=== PATIENT | male | born 1930 | race Caucasian/White ===

== ENCOUNTER 2018-08-18 18:54 | Inpatient (IN) ==
[2018-08-18] MEDS ORDERED: ACETAMINOPHEN 500 MG TAB PO STA (19:11)
[2018-08-18 19:25] LABS: Basophils # (auto) 0.01 K/uL (0-0.2); Basophils % (auto) 0.1 %; Eosinophils # (auto) 0.16 K/uL (0-0.5); Eosinophils % (auto) 1.3 %; Hematocrit (blood only) 39.1 % (42-52); Hemoglobin 13.5 g/dL (14.0-18.0); Immature Granulocytes # (auto) 0.02 K/uL (0.00-0.02); Immature Granulocytes % (auto) 0.2 %; Lymphocytes # (auto) 0.81 K/uL (1.2-3.4); Lymphocytes % (auto) 6.8 %; Mean Corpuscular Hgb Conc 34.5 g/dL (32-36); Mean Corpuscular Volume 93.8 fL (80-100); Mean Platelet Volume 10.2 fL (7.4-10.4); Monocytes # (auto) 0.53 K/uL (0.11-0.59); Monocytes % (auto) 4.4 %; Neutrophils % (auto) 87.2 %; Platelet Count 228 K/uL (130-400); RDW Coefficient of Variation 14.4 % (11.5-14.5); RDW Standard Deviation 48.9 fL (36.4-46.3); Red Blood Count 4.17 M/uL (4.7-6.1); White Blood Count 11.93 K/uL (4.8-10.8)
[2018-08-18 19:28] LABS: Appearance Urine Clear (Clear); Bacteria Urine Automated Negative (Negative); Bilirubin Urine Negative (Negative); Color Urine Dark Yellow; Epithelial Cell Urine Auto 0-5 /lpf (0-5); Glucose Urine UA Negative (Negative); Ketones Urine Negative (Negative); Leukocyte Esterase Urine Negative (Negative); Nitrite Urine Negative (Negative); Protein Urine 1+ (Negative); Specific Gravity Urine 1.015 (1.000-1.030); Urobilinogen Urine Negative (Negative)
[2018-08-18 19:33] LABS: Albumin Level 3.6 gm/dl (3.4-5.0); BUN Creatinine Ratio 21.6 (10-20); Calcium 9.6 mg/dl (8.5-10.1); Creatinine Clr Calc Pharmacy 35.9 ml/min; Est GFR (African American) 57.1; Est GFR (Non-African American) 49.3; Potassium 4.2 mmol/L (3.5-5.1)
[2018-08-18 19:43] LABS: Albumin Globulin Ratio 0.8 (0.9-2); Bilirubin,Total 0.5 mg/dl (0.2-1); Globulin 4.4 gm/dl (2.5-4.0); Troponin I 0.104 ng/ml (0-0.045)
--- NOTE | 2018-08-18 19:49 | XRay Report ---
SINGLE VIEW CHEST CLINICAL HISTORY: Fever. FINDINGS: An AP, portable, upright chest radiograph is obtained. No prior studies are available for c omparison at the time of dictation. The examination is degraded by portable technique and patient rot ation. The heart is enlarged and there is atherosclerotic calcification of the thoracic aorta. The p ulmonary vasculature is noncongested. Nonspecific interstitial thickening is likely chronic. There is left basilar consolidation. A trace left pleural effusion is suspected. No pneumothorax is seen. The skeletal structures are osteopenic. The bony thorax is grossly intact. 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 There is evidence of chronic bilateral rotator cuff i njury. IMPRESSION: 1. Cardiomegaly without radiographic evidence of congestive failure. 2. There is left basilar airspace consolidation, typical in appearance for pneumonia/aspiration pneum onitis. Clinical correlation will be required and radiographic follow-up to resolution is recommended . Electronically signed by: Yvon Calles M.D. 08/18/2018 7:47 PM
[2018-08-18] MEDS ORDERED: LEVOFLOXACIN/D5W 750 MG/150 ML BAG IV STA (20:01)
[2018-08-18] MEDS ORDERED: SODIUM CHLORIDE 0.9% 1000ML 1,000 ML IV STA ×2 (20:32→20:38)
[2018-08-18 20:42] LABS: Partial Thromboplastin Ratio 1.1; Partial Thromboplastin Time 27.5 Seconds (21.0-31.0)
[2018-08-18] MEDS ORDERED: CARVEDILOL 3.125 MG TAB PO ONE (20:45)
[2018-08-18 20:49] LABS: Magnesium 2.1 mg/dl (1.8-2.4)
[2018-08-18] MEDS ORDERED: CALCIUM CARBONATE 500 MG CHEWABLE TAB PO STA (21:15)
--- NOTE | 2018-08-18 21:15 | History & Physical Report ---
Date of Service August 18, 2018 Assessment & Plan (1) Sepsis: Secondary to CAP/possible aspiration hx vocal cord paralysis/oropharyngeal dysphagia as per records Hypertension, slightly elevated Troponin elevation secondary to sepsis, elevated BP hx CAD/CVA PVD status post surgery hx PAF px NSR off Coumadin due to fall risk/patient requests as per records Troublesome GERD symptoms, intermittent antacid intake at home. past tobacco abuse CRI, creatinine at baseline chronic anemia secondary to CKD, hemoglobin at baseline Medical telemetry Cultures, Unasyn Swallow eval Facilitate home BP meds Follow troponin TTE RE Troponin elevation Maintenance H2 brody for GERD; PPI if H2 brody ineffective PT OT eval DVT prophylaxis. Heparin subcu Full code History of Present Illness Chief Complaint: Cough, S OB Primary Care Provider: Odilon Carbone MD History obtained from patient, family, and records. Medical history significant for CAD/CVA, PVD status post surgery, PAF off Coumadin due to fall risk/patient requests as per records, hypertension, hyperlipidemia, vocal cord paralysis left as per records asthma, past tobacco abuse, anxiety/mood disorder, CRI (baseline creatinine 1.4-1.5), chronic anemia baseline hemoglobin of 12 Recent confinement 2004 for left hip surgery under Orthopedics service. Patient felt sick the last few days with cold symptoms, later followed by junky cough symptoms. Admits to some sick contacts. No chest pain. Worsening shortness of breath. Admits to some coughing/choking with meals and water if not careful. Noted to be febrile at home. Subsequent emesis. Patient also bothered by troublesome heartburn symptoms. Patient brought to the emergency room. IV Levaquin given for pneumonia. Medical History as above Surgical History : Carpal tunnel surgery, left thromboendarterectomy, right hip surgery Family History : Heart disease Personal/Social history : Past tobacco abuse, occasional alcoholic beverage intake Medical History as above Surgical History : Family History : Personal/Social history : Allergies Allergy/AdvReac Type Severity Reaction Status Date / Time lisinopril AdvReac Unknown Cough Verified 08/18/18 20:31 Home Medications Home Medications Medication Instructions Recorded Confirmed Type acetaminophen 500 mg PO DIRECTED PRN 08/18/18 08/18/18 History albuterol sulfate [Proventil HFA] 2 puff INHALATION QID PRN 08/18/18 08/18/18 History ascorbic acid (vitamin C) [Vitamin 1,000 mg PO QAM 08/18/18 08/18/18 History C] aspirin 81 mg PO QPM 08/18/18 08/18/18 History calcium carbonate-vitamin D3 1 tab PO QAM 08/18/18 08/18/18 History [Calcium 600 + D(3)] carvedilol 6.25 mg PO BID 08/18/18 08/18/18 History cetirizine [Zyrtec] 10 mg PO DAILY PRN 08/18/18 08/18/18 History cholecalciferol (vitamin D3) 3,000 units PO QAM 08/18/18 08/18/18 History [Vitamin D3] citalopram 20 mg PO QAM 08/18/18 08/18/18 History clonazepam 0.5 mg PO HS 08/18/18 08/18/18 History coenzyme Q10 100 mg PO QAM 08/18/18 08/18/18 History famotidine 10 mg PO BID PRN 08/18/18 08/18/18 History flaxseed oil 1,000 mg PO QAM 08/18/18 08/18/18 History fluticasone-salmeterol [Advair 1 puff INHALATION Q12H PRN 08/18/18 08/18/18 History Diskus] garlic 1,000 mg PO QAM 08/18/18 08/18/18 History levothyroxine 75 mcg PO QAM 08/18/18 08/18/18 History losartan 50 mg PO QAM 08/18/18 08/18/18 History fkqlfsvq-bld-WV-lycopen-lutein 1 tab PO QAM 08/18/18 08/18/18 History [Centrum Silver] joncys-txllxer-jez palm-min 17 2 cap PO QAM 08/18/18 08/18/18 History [Prostate Therapy] nitroglycerin [Nitrostat] 0.4 mg SUBLINGUAL DIRECTED PRN 08/18/18 08/18/18 History omega 3-ici-jnw-fish oil [Fish Oil] 1,000 mg PO QAM 08/18/18 08/18/18 History pravastatin 10 mg PO Q2D 08/18/18 08/18/18 History verapamil 120 mg PO QAM 08/18/18 08/18/18 History Past Med/Surg History Medical History HTN (hypertension) (Chronic) Asthma CKD (chronic kidney disease) Family History Other Family history non-contributory Social History marital status: Current Living Situation: Spouse current occupational status: retired Other Information That Helps Us Care for You: No Feels Safe at Home: Yes Safety Concerns: Feels Safe At This Time Smoking Status: Never smoker Tobacco Type: smokeless tobacco Cigarettes per Day : snuff pouch daily Do You Dip or Chew Tobacco: Yes Second Hand Exposure: No Tobacco Cessation Education Requested by Patient: No Hx Alcohol Use: Yes Alcohol type: beer Alcohol Intake Frequency: holidays/ special occasions only Hx Substance Use: No Beliefs That Will Affect Care: Yazidism Yazidism Beliefs: Sabianism Communication Ability: Effective Review of Systems As per HPI, all 10 systems reviewed, all other ROS negative Physical Exam 2 Vital Signs (Past 24 Hours): Last Vital Signs Temp 38 C H 08/18/18 19:00 Pulse 84 08/18/18 20:13 Resp 18 08/18/18 20:13 BP 118/74 08/18/18 20:13 Pulse Ox 94 08/18/18 20:13 Physical Exam: GENERAL: Comfortable, slightly anxious, mild hearing impairment, no respiratory distress SKIN: Pallor , warm HEENT: Pale palpebral conjunctivae, no ptosis, dry buccal mucosa NECK : Supple, no tenderness CHEST : Occasional wheeze , no tenderness HEART : RRR, systolic murmur ABDOMEN: Some distention, nontender EXTREMITIES : No LE swelling/tenderness, no other conspicuous deformities noted NEUROLOGIC : Coherent, no facial asymmetry, no other gross focality except for mild hearing impairment Results & Data Laboratory Results Laboratory Results WBC 11.93 K/uL (4.8-10.8) H 08/18/18 19:04 RBC 4.17 M/uL (4.7-6.1) L 08/18/18 19:04 Hgb 13.5 g/dL (14.0-18.0) L 08/18/18 19:04 Hct 39.1 % (42-52) L 08/18/18 19:04 MCV 93.8 fL (80-100) 08/18/18 19:04 MCH 32.4 pg (25-34) 08/18/18 19: MCHC 34.5 g/dL (32-36) 08/18/18 19:04 RDW Std Deviation 48.9 fL (36.4-46.3) H 08/18/18 19:04 RDW Coeff of Sher 14.4 % (11.5-14.5) 08/18/18: Plt Count 228 K/uL (130-400) 08/18/18 19: MPV 10.2 fL (7.4-10.4) 08/18/18 19:04 Immature Gran % (Auto) 0.2 % 08/18/18: Neut % (Auto) 87.2 % 08/18/18: Lymph % (Auto) 6.8 % 08/18/18: [place]unders % (Auto) 4.4 % 08/18/18: Eos % (Auto) 1.3 % 08/18/18: Baso % (Auto) 0.1 % 08/18/18 19: Immature Gran # (Auto) 0.02 K/uL (0.00-0.02) 08/18/18 19: Neut # (Auto) 10.40 K/uL (1.4-6.5) H 08/18/18 19: Lymph # (Auto) 0.81 K/uL (1.2-3.4) L 08/18/18: Saunders # (Auto) 0.53 K/uL (0.11-0.59) 08/18/18: Eos # (Auto) 0.16 K/uL (0-0.5) 08/18/18: Baso # (Auto) 0.01 K/uL (0-0.2) 08/18/18: APTT 27.5 Seconds (21.0-31.0) 08/18/18 19: PTT Ratio 1.1 08/18/18 19: Sodium 133 mmol/L (136-145) L 08/18/18 19: Potassium 4.2 mmol/L (3.5-5.1) 08/18/18: Chloride 101 mmol/L (98-107) 08/18/18 19:04 Carbon Dioxide 23 mmol/L (21-32) 08/18/18 19:04 Anion Gap 9.0 (3-11) 08/18/18 19:04 BUN 28 mg/dl (7-18) H 08/18/18 19:04 Creatinine 1.31 mg/dl (0.6-1.4) 08/18/18 19:04 Est Cr Clr Drug Dosing 35.9 ml/min 08/18/18 19:04 Est GFR ( Amer) 57.1 08/18/18 19:04 Est GFR (Non-Af Amer) 49.3 08/18/18 19:04 BUN/Creatinine Ratio 21.6 (10-20) H 08/18/18 19:04 Glucose 96 mg/dl (70-99) 08/18/18 19:04 POC Lactic Acid [place] 1.06 mmol/L (0.90-1.70) 08/18/18 19:10 Calcium 9.6 mg/dl (8.5-10.1) 08/18/18 19:04 Magnesium 2.1 mg/dl (1.8-2.4) 08/18/18 19:04 Total Bilirubin 0.5 mg/dl (0.2-1) 08/18/18 19:04 AST 25 U/L (15-37) 08/18/18 19:04 ALT 35 U/L (12-78) 08/18/18 19:04 Alkaline Phosphatase 93 U/L (45-117) 08/18/18 19:04 Troponin I 0.104 ng/ml (0-0.045) H* 08/18/18 19:04 Total Protein 8.0 gm/dl (6.4-8.2) 08/18/18 19:04 Albumin 3.6 gm/dl (3.4-5.0) 08/18/18 19:04 Globulin 4.4 gm/dl (2.5-4.0) H 08/18/18 19:04 Albumin/Globulin Ratio 0.8 (0.9-2) L 08/18/18 19:04 TSH 2.810 uIu/ml (0.300-4.500) 08/18/18 19:04 Urine Color Dark Yellow 08/18/18 19:13 Urine Appearance Clear (Clear) 08/18/18 19:13 Urine pH 7.0 (4.5-7.5) 08/18/18 19:13 Ur Specific [place] 1.015 (1.000-1.030) 08/18/18 19:13 Urine Protein 1+ (Negative) H 08/18/18 19:13 Urine Glucose (UA) Negative (Negative) 08/18/18 19:13 Urine Ketones Negative (Negative) 08/18/18 19:13 Urine Blood Negative (Negative) 08/18/18 19:13 Urine Nitrite Negative (Negative) 08/18/18 19:13 Urine Bilirubin Negative (Negative) 08/18/18 19:13 Urine Urobilinogen Negative (Negative) 08/18/18 19:13 Ur Leukocyte Esterase Negative (Negative) 08/18/18 19:13 Urine WBC (Auto) 1-5 /hpf (0-5) 08/18/18 19:13 Urine RBC (Auto) 0-4 /hpf (0-4) 08/18/18 19:13 U Hyaline Cast (Auto) 1-5 /lpf (0-5) 08/18/18 19:13 U Epithel Cells (Auto) 0-5 /lpf (0-5) 08/18/18 19:13 Urine Bacteria (Auto) Negative (Negative) 08/18/18 19:13 Influenza Type A Ag Neg for Influ A (Neg) 08/18/18 19:10 Influenza Type B Ag Neg for Influ B (Neg) 08/18/18 19:10 Diagnostic Findings Chest x-ray: 1. Cardiomegaly without radiographic evidence of congestive failure. 2. There is left basilar airspace consolidation, typical in appearance for pneumonia/aspiration pneumonitis. Clinical correlation will be required and radiographic follow-up to resolution is recommended. EKG as per my interpretation rate 90, NSR, right bundle branch block
[2018-08-18] MEDS ORDERED: AMPICILLIN/SULBACTAM SOD 3,000 MG in 0.9 % SODIUM CHLORIDE 100 ML IV STA (21:28)
[2018-08-18] MEDS ORDERED: FAMOTIDINE 20 MG TAB PO SCH (21:45)
[2018-08-18 22:04] LABS: Influenza A virus by PCR Neg for Influ A (Neg); Influenza B virus by PCR Neg for Influ B (Neg)
--- NOTE | 2018-08-18 23:22 | Emergency Department Note ---
Entered by Vanessa Javed acting as a scribe for Jaleel Hernandez MD ED Provider Note CHIEF COMPLAINT: Illness HISTORY OF PRESENT ILLNESS: The patient is an 87 year old male who presents to the Emergency Room with complaints of worsening illness starting a week ago. The patient states that he has had a cold for a week and he believes that it is moving into his chest. He states that he became concerned because he started having a fever of 101 at home. He reports that he took Tylenol 3 hours ago. He states that he finally called 911 because he was so weak today he couldnt get out of bed. The patient complains of nausea and vomiting. He notes that he has a history of asthma, but it usually acts up in the spring. Pt denies LOC, headache, chills, cough, diaphoresis, visual changes, neck pain, chest pain, breathing difficulties, abdominal pain, diarrhea, back pain, melena , hematochezia, urinary symptoms, numbness, lymphadenopathy, rash, or other complaints. REVIEW OF SYSTEMS: See HPI for pertinent positives and negatives. A total of ten systems were reviewed and were otherwise negative. PMHx/PSHx: HTN Asthma CKD SOCIAL HISTORY: Patient lives at home with his . He is retired and was a former smoker. PHYSICAL EXAM: GENERAL: Awake, alert, tired appearing, in no distress HENT: Normocephalic, atraumatic. Oropharynx unremarkable. EYES: Normal conjunctiva. Sclera non-icteric. NECK: Inspection normal. Non-tender. Supple. No nuchal rigidity. FROM. No masses. RESPIRATORY: Rhonchi bilaterally. No wheezes. No rales. Normal respiratory effort. CARDIAC: Normal rate. Normal rhythm. No murmurs. No rubs. Extremities warm and well perfused. Pulses equal. No JVD. GI: Soft, non-distended. No tenderness to palpation. No rebound or guarding. No masses. RECTAL: Deferred. MUSCULOSKELETAL: Atraumatic. Chest examination reveals no tenderness. The back is symmetrical on inspection without obvious abnormality. There is no CVA tenderness to palpation. No joint edema. LOWER EXTREMITIES: Calves are equal size bilaterally and non-tender. No edema. No discoloration. NEURO: Normal sensorium. No sensory or motor deficits noted. SKIN: No rash or jaundice noted. EMERGENCY DEPARTMENT COURSE: 1900: Past medical records reviewed. The patient was evaluated in room C11B, and a complete history and physical examination were performed. 2000: I paged the hospitalist at this time. 2001: I reviewed the patient's case with Dr. Cal Barrett Hospitalist. He will evaluate the patient for further management. 2009: I reevaluated the patient and updated him on his test results. I discussed the treatment plan with him. He verbally agrees and understands. 2039: I reevaluated the patient and he is resting comfortably. He is getting antibitoics now. MEDICAL DECISION MAKING: Prior records/ancillary studies reviewed and summarized above. Nursing notes reviewed and agree them. Additional history obtained from family. The patient's history was concerning for weakness. Differential diagnosis: Etiologies such as metabolic, infection, hypo/hyperglycemia, electrolyte abnormalities, cardiac sources, intracerebral event, toxicologic, neurologic, as well as others were entertained. Physical examination: As above. ER treatment provided: IV Lock Saline hydration IV Levaquin On reassessment the was stable. Diagnostics interpretation by me: ECG: No acute ischemia. The labs revealed a mild leukocytosis on CBC. Chemistry panel was unremarkable. Ammonia mildly elevated. Imaging studies: Chest x-ray was concerning for left lower lobe pneumonia. Consultation: A consultation was placed with the hospitalist. The case was discussed and diagnostics were reviewed. The patient was evaluated in the ER for further treatment. IMPRESSION: Pneumonia Elevated Troponin PLAN: Being Evaluated by a Hospitalist The scribe's documentation has been prepared under my direction and personally reviewed by me in its entirety. I confirm that the note above accurately reflects all work, treatment, procedures, and medical decision making performed by me. Impression & Plan Pneumonia, Elevated troponin Past Med/Surg History Medical History HTN (hypertension) (Chronic) Asthma CKD (chronic kidney disease) Family History Other Family history non-contributory Social History marital status: Current Living Situation: Spouse current occupational status: retired Feels Safe at Home: Yes Smoking Status: Former smoker Results & Data Vital Signs Vital Signs - 24 hr 08/18/18 19:00 08/18/18 20:13 08/18/18 21:00 Temperature 38 C H Temperature Source Oral Sepsis Recent Fever Within 48 Hours Yes Sepsis New/Unexplained Change in Mental Status No Sepsis Action Taken by Nursing Physician Notified Pulse Rate 94 H 87 Pulse Rate [Left Radial] 84 Pulse Rhythm Regular Pulse Rhythm [Left Radial] Regular Pulse Strength Normal Pulse Strength [Left Radial] Normal Respiratory Rate 20 18 19 Respiratory Effort / Characteristics Non-Labored Spontaneous Non-Labored Spontaneous Respiratory Depth Normal Normal Respiratory Pattern Regular Regular Blood Pressure 172/99 H 132/76 Blood Pressure [Right Arm] 118/74 Blood Pressure Mean 123 94 Blood Pressure Mean [Right Arm] 88 Blood Pressure Position Lying Blood Pressure Position [Right Arm] Lying Pulse Oximetry 93 94 93 Oxygen Delivery Method Room Air Room Air 08/18/18 21:54 08/18/18 22:02 Temperature 37.5 C Temperature Source Oral Sepsis Recent Fever Within 48 Hours Sepsis New/Unexplained Change in Mental Status Sepsis Action Taken by Nursing Pulse Rate Pulse Rate [Left Radial] 79 Pulse Rhythm Pulse Rhythm [Left Radial] Regular Pulse Strength Pulse Strength [Left Radial] Normal Respiratory Rate 18 Respiratory Effort / Characteristics Non-Labored Respiratory Depth Normal Respiratory Pattern Regular Blood Pressure Blood Pressure [Right Arm] 114/66 Blood Pressure Mean Blood Pressure Mean [Right Arm] 82 Blood Pressure Position Blood Pressure Position [Right Arm] Lying Pulse Oximetry 93 Oxygen Delivery Method Room Air Home Medications Current Medication List: was personally reviewed by me Laboratory Data Attestation: I reviewed the patient's lab results. Result diagrams: 08/18/18 19:04 08/18/18 19:04 Lab Results 08/18/18 08/18/18 08/18/18 Range/Units 19: 19:04 19:04 WBC 11.93 H (4.8-10.8) K/uL RBC 4.17 L (4.7-6.1) M/uL Hgb 13.5 L (14.0-18.0) g/dL Hct 39.1 L (42-52) % MCV 93.8 (80-100) fL MCH 32.4 (25-34) pg MCHC 34.5 (32-36) g/dL RDW Std Deviation 48.9 H (36.4-46.3) fL RDW Coeff of Sher 14.4 (11.5-14.5) % Plt Count 228 (130-400) K/uL MPV 10.2 (7.4-10.4) fL Immature Gran % (Auto) 0.2 % Neut % (Auto) 87.2 % Lymph % (Auto) 6.8 % [place] % (Auto) 4.4 % Eos % (Auto) 1.3 % Baso % (Auto) 0.1 % Immature Gran # (Auto) 0.02 (0.00-0.02) K/uL Neut # (Auto) 10.40 H (1.4-6.5) K/uL Lymph # (Auto) 0.81 L (1.2-3.4) K/uL [place] # (Auto) 0.53 (0.11-0.59) K/uL Eos # (Auto) 0.16 (0-0.5) K/uL Baso # (Auto) 0.01 (0-0.2) K/uL APTT 27.5 (21.0-31.0) Seconds PTT Ratio 1.1 Sodium 133 L (136-145) mmol/L Potassium 4.2 (3.5-5.1) mmol/L Chloride 101 (98-107) mmol/L Carbon Dioxide 23 (21-32) mmol/L Anion Gap 9.0 (3-11) BUN 28 H (7-18) mg/dl Creatinine 1.31 (0.6-1.4) mg/dl Est Cr Clr Drug Dosing 35.9 ml/min Est GFR ( Amer) 57.1 Est GFR (Non-Af Amer) 49.3 BUN/Creatinine Ratio 21.6 H (10-20) Glucose 96 (70-99) mg/dl POC Lactic Acid [place] (0.90-1.70) mmol/L Calcium 9.6 (8.5-10.1) mg/dl Magnesium (1.8-2.4) mg/dl Total Bilirubin 0.5 (0.2-1) mg/dl AST 25 (15-37) U/L ALT 35 (12-78) U/L Alkaline Phosphatase 93 (45-117) U/L Troponin I 0.104 H* (0-0.045) ng/ml Total Protein 8.0 (6.4-8.2) gm/dl Albumin 3.6 (3.4-5.0) gm/dl Globulin 4.4 H (2.5-4.0) gm/dl Albumin/Globulin Ratio 0.8 L (0.9-2) TSH (0.300-4.500) uIu/ml Urine Color Urine Appearance (Clear) Urine pH (4.5-7.5) Ur Specific [place] (1.000-1.030) Urine Protein (Negative) Urine Glucose (UA) (Negative) Urine Ketones (Negative) Urine Blood (Negative) Urine Nitrite (Negative) Urine Bilirubin (Negative) Urine Urobilinogen (Negative) Ur Leukocyte Esterase (Negative) Urine WBC (Auto) (0-5) /hpf Urine RBC (Auto) (0-4) /hpf U Hyaline Cast (Auto) (0-5) /lpf U Epithel Cells (Auto) (0-5) /lpf Urine Bacteria (Auto) (Negative) Influenza Type A Ag (Neg) Influenza Type A (PCR) (Neg) Influenza Type B Ag (Neg) Influenza Type B (PCR) (Neg) 08/18/18 08/18/18 08/18/18 Range/Units 19:04 19:10 19:10 WBC (4.8-10.8) K/uL RBC (4.7-6.1) M/uL Hgb (14.0-18.0) g/dL Hct (42-52) % MCV (80-100) fL MCH (25-34) pg MCHC (32-36) g/dL RDW Std Deviation (36.4-46.3) fL RDW Coeff of Sher (11.5-14.5) % Plt Count (130-400) K/uL MPV (7.4-10.4) fL Immature Gran % (Auto) % Neut % (Auto) % Lymph % (Auto) % [place] % (Auto) % Eos % (Auto) % Baso % (Auto) % Immature Gran # (Auto) (0.00-0.02) K/uL Neut # (Auto) (1.4-6.5) K/uL Lymph # (Auto) (1.2-3.4) K/uL [place] # (Auto) (0.11-0.59) K/uL Eos # (Auto) (0-0.5) K/uL Baso # (Auto) (0-0.2) K/uL APTT (21.0-31.0) Seconds PTT Ratio Sodium (136-145) mmol/L Potassium (3.5-5.1) mmol/L Chloride (98-107) mmol/L Carbon Dioxide (21-32) mmol/L Anion Gap (3-11) BUN (7-18) mg/dl Creatinine (0.6-1.4) mg/dl Est Cr Clr Drug Dosing ml/min Est GFR ( Amer) Est GFR (Non-Af Amer) BUN/Creatinine Ratio (10-20) Glucose (70-99) mg/dl POC Lactic Acid [place] 1.06 (0.90-1.70) mmol/L Calcium (8.5-10.1) mg/dl Magnesium 2.1 (1.8-2.4) mg/dl Total Bilirubin (0.2-1) mg/dl AST (15-37) U/L ALT (12-78) U/L Alkaline Phosphatase (45-117) U/L Troponin I (0-0.045) ng/ml Total Protein (6.4-8.2) gm/dl Albumin (3.4-5.0) gm/dl Globulin (2.5-4.0) gm/dl Albumin/Globulin Ratio (0.9-2) TSH 2.810 (0.300-4.500) uIu/ml Urine Color Urine Appearance (Clear) Urine pH (4.5-7.5) Ur Specific [place] (1.000-1.030) Urine Protein (Negative) Urine Glucose (UA) (Negative) Urine Ketones (Negative) Urine Blood (Negative) Urine Nitrite (Negative) Urine Bilirubin (Negative) Urine Urobilinogen (Negative) Ur Leukocyte Esterase (Negative) Urine WBC (Auto) (0-5) /hpf Urine RBC (Auto) (0-4) /hpf U Hyaline Cast (Auto) (0-5) /lpf U Epithel Cells (Auto) (0-5) /lpf Urine Bacteria (Auto) (Negative) Influenza Type A Ag Neg for Influ A (Neg) Influenza Type A (PCR) (Neg) Influenza Type B Ag Neg for Influ B (Neg) Influenza Type B (PCR) (Neg) 08/18/18 08/18/18 Range/Units 19:10 19:13 WBC (4.8-10.8) K/uL RBC (4.7-6.1) M/uL Hgb (14.0-18.0) g/dL Hct (42-52) % MCV (80-100) fL MCH (25-34) pg MCHC (32-36) g/dL RDW Std Deviation (36.4-46.3) fL RDW Coeff of Sher (11.5-14.5) % Plt Count (130-400) K/uL MPV (7.4-10.4) fL Immature Gran % (Auto) % Neut % (Auto) % Lymph % (Auto) % [place] % (Auto) % Eos % (Auto) % Baso % (Auto) % Immature Gran # (Auto) (0.00-0.02) K/uL Neut # (Auto) (1.4-6.5) K/uL Lymph # (Auto) (1.2-3.4) K/uL [place] # (Auto) (0.11-0.59) K/uL Eos # (Auto) (0-0.5) K/uL Baso # (Auto) (0-0.2) K/uL APTT (21.0-31.0) Seconds PTT Ratio Sodium (136-145) mmol/L Potassium (3.5-5.1) mmol/L Chloride (98-107) mmol/L Carbon Dioxide (21-32) mmol/L Anion Gap (3-11) BUN (7-18) mg/dl Creatinine (0.6-1.4) mg/dl Est Cr Clr Drug Dosing ml/min Est GFR ( Amer) Est GFR (Non-Af Amer) BUN/Creatinine Ratio (10-20) Glucose (70-99) mg/dl POC Lactic Acid [place] (0.90-1.70) mmol/L Calcium (8.5-10.1) mg/dl Magnesium (1.8-2.4) mg/dl Total Bilirubin (0.2-1) mg/dl AST (15-37) U/L ALT (12-78) U/L Alkaline Phosphatase (45-117) U/L Troponin I (0-0.045) ng/ml Total Protein (6.4-8.2) gm/dl Albumin (3.4-5.0) gm/dl Globulin (2.5-4.0) gm/dl Albumin/Globulin Ratio (0.9-2) TSH (0.300-4.500) uIu/ml Urine Color Dark Yellow Urine Appearance Clear (Clear) Urine pH 7.0 (4.5-7.5) Ur Specific [place] 1.015 (1.000-1.030) Urine Protein 1+ H (Negative) Urine Glucose (UA) Negative (Negative) Urine Ketones Negative (Negative) Urine Blood Negative (Negative) Urine Nitrite Negative (Negative) Urine Bilirubin Negative (Negative) Urine Urobilinogen Negative (Negative) Ur Leukocyte Esterase Negative (Negative) Urine WBC (Auto) 1-5 (0-5) /hpf Urine RBC (Auto) 0-4 (0-4) /hpf U Hyaline Cast (Auto) 1-5 (0-5) /lpf U Epithel Cells (Auto) 0-5 (0-5) /lpf Urine Bacteria (Auto) Negative (Negative) Influenza Type A Ag (Neg) Influenza Type A (PCR) Neg for Influ A (Neg) Influenza Type B Ag (Neg) Influenza Type B (PCR) Neg for Influ B (Neg) Administered Medications Sodium Chloride (Nss 1000ml) 1,000 mls @ 60 mls/hr IV .[id number] STA Stop: 08/19/18 13:17 Last Admin: 08/18/18 21:23 Dose: 60 mls/hr Discontinued Medications Acetaminophen (Tylenol) 1,000 mg PO ONE STA Stop: 08/18/18 19:12 Last Admin: 08/18/18 19:51 Dose: Not Given Carvedilol (Coreg) 6.25 mg PO ONE ONE Stop: 08/18/18 20:46 Last Admin: 08/18/18 21:23 Dose: 6.25 mg Levofloxacin/Dextrose (Levaquin/D5w) 750 mg in 150 mls @ 100 mls/hr IV NOW STA Stop: 08/18/18 21:30 Last Admin: 08/18/18 20:23 Dose: 100 mls/hr Imaging Data Radiologist's Impression: Radiology results as stated below per my review and the radiologist's interpretation: SINGLE VIEW CHEST CLINICAL HISTORY: Fever. FINDINGS: An AP, portable, upright chest radiograph is obtained. No prior studies are available for comparison at the time of dictation. The examination is degraded by portable technique and patient rotation. The heart is enlarged and there is atherosclerotic calcification of the thoracic aorta. The pulmonary vasculature is noncongested. Nonspecific interstitial thickening is likely chronic. There is left basilar consolidation. A trace left pleural effusion is suspected. No pneumothorax is seen. The skeletal structures are osteopenic. The bony thorax is grossly intact. 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 IMPRESSION: 1. Cardiomegaly without radiographic evidence of congestive failure. 2. There is left basilar airspace consolidation, typical in appearance for pneumonia/aspiration pneumonitis. Clinical correlation will be required and radiographic follow-up to resolution is recommended. Electronically signed by: Yvon Calles M.D. 08/18/2018 7:47 PM ECG Data Attestation: I personally reviewed and interpreted this ECG as follows: Indication: weakness Rate (beats per minute): 89 Rhythm: normal sinus Findings: + other (RSR prime pattern); no PAC, no PVC, no ST depression and no ST elevation Blood Pressure Blood Pressure Findings: Elevated blood pressure Blood Pressure Disposition: further management by hospitalist Discharge Plan Visit Data *Final* Discharge Date/Time: 08/18/18 22:02 Chief Complaint: Illness Stated Complaint: WEAKNESS, SICKNESS ED Provider: Jaleel Hernandez Discharge Problem: Pneumonia, Elevated troponin Patient Disposition: Admitted As Inpatient Discharge Instructions Interventions: ED Discharge Assessment Last Done: 08/18/18 22:02 The scribe's documentation has been prepared under my direction and personally reviewed by me in its entirety. I confirm that the note above accurately reflects all work, treatment, procedures, and medical decision making performed by me.
[2018-08-19] MEDS ORDERED: NITROGLYCERIN SL 0.4 MG/TAB TAB SL PRN (00:05)
[2018-08-19] MEDS ORDERED: PROCHLORPERAZINE 5 MG in SYRINGE 4 ML IV PRN (00:05)
[2018-08-19] MEDS ORDERED: LEVALBUTEROL 1.25MG/0.5ML NEB INH PRN (00:05)
[2018-08-19] MEDS ORDERED: FLUTICASONE/SALMETEROL 100/50 (ADVAIR) 14 PUFF/1 INHALER INH PRN (00:05)
[2018-08-19] MEDS ORDERED: XOPENEX/ATROVENT 1.25mg/0.5MG NEB COMBO NEB PRN (00:05)
[2018-08-19] MEDS ORDERED: IPRATROPIUM BROMIDE NEB SOLN 0.02% 2.5 ML VIAL INH PRN (00:05)
[2018-08-19] MEDS ORDERED: TRAMADOL HCL 50 MG TABLET PO PRN (00:05)
[2018-08-19] MEDS ORDERED: PANTOprazole 40 MG in SYRINGE 0 ML IV ONE (02:00)
--- NOTE | 2018-08-19 02:25 | Hospitalist Progress Note ---
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 Cardiac rate 40s, possible secondary AV block as per bioinformatics technician. Patient asymptomatic. Patient currently NSR, cardiac rate 70s as per RN. AP Transient bradycardia, patient asymptomatic during episode as per RN. Monitor on when patient off unit Decrease home Coreg dose for now Will relay to AM provider. Physical Exam 2 Vital Signs (Past 24 Hours): Last Vital Signs Temp 37.3 C 08/18/18 22:30 Pulse 84 08/19/18 00:00 Resp 16 08/18/18 22:30 BP 131/70 08/18/18 22:30 Pulse Ox 93 08/18/18 22:30
[2018-08-19 06:00] LABS: Basophils # (auto) 0.02 K/uL (0-0.2); Basophils % (auto) 0.1 %; Eosinophils # (auto) 0.02 K/uL (0-0.5); Eosinophils % (auto) 0.1 %; Hematocrit (blood only) 35.3 % (42-52); Hemoglobin 11.7 g/dL (14.0-18.0); Immature Granulocytes # (auto) 0.06 K/uL (0.00-0.02); Immature Granulocytes % (auto) 0.4 %; Lymphocytes # (auto) 1.08 K/uL (1.2-3.4); Lymphocytes % (auto) 7.3 %; Mean Corpuscular Hgb Conc 33.1 g/dL (32-36); Mean Corpuscular Volume 94.6 fL (80-100); Mean Platelet Volume 10.1 fL (7.4-10.4); Monocytes # (auto) 0.81 K/uL (0.11-0.59); Monocytes % (auto) 5.4 %; Neutrophils # (auto) 12.88 K/uL (1.4-6.5); Neutrophils % (auto) 86.7 %; Platelet Count 199 K/uL (130-400); RDW Coefficient of Variation 14.5 % (11.5-14.5); Red Blood Count 3.73 M/uL (4.7-6.1); White Blood Count 14.87 K/uL (4.8-10.8)
[2018-08-19] MEDS ORDERED: AMPICILLIN/SULBACTAM SOD 3,000 MG in 0.9 % SODIUM CHLORIDE 100 ML IV SCH (06:00)
[2018-08-19] MEDS: LEVOTHYROXINE SODIUM 75 MCG TABLET PO SCH (06:23)
[2018-08-19 06:24] LABS: Partial Thromboplastin Ratio 1.1; Partial Thromboplastin Time 29.7 Seconds (21.0-31.0)
[2018-08-19 06:35] LABS: BUN Creatinine Ratio 19.6 (10-20); Creatinine Clr Calc Pharmacy 35.1 ml/min; Est GFR (African American) 54.1; Est GFR (Non-African American) 46.7; Potassium 4.6 mmol/L (3.5-5.1)
[2018-08-19 06:52] LABS: Troponin I 0.214 ng/ml (0-0.045)
[2018-08-19] MEDS: ACETAMINOPHEN 325 MG TAB PO PRN ×2 (07:39→19:02)
[2018-08-19 07:43] LABS: INR 1.1 (0.9-1.1)
[2018-08-19] MEDS: LOSARTAN POTASSIUM 50 MG TAB PO SCH (08:19)
[2018-08-19] MEDS: VERAPAMIL HCL 120 MG TABCR PO SCH (08:20)
[2018-08-19] MEDS: CARVEDILOL 3.125 MG TAB PO SCH ×2 (08:20→19:52)
[2018-08-19] MEDS: CITALOPRAM 20 MG TAB PO SCH (08:20)
[2018-08-19] MEDS: PRAVASTATIN SOD 10 MG TAB PO SCH (08:23)
[2018-08-19] MEDS ORDERED: AMPICILLIN/SULBACTAM CONSULT ACTIVE PRN (09:00)
[2018-08-19] MEDS ORDERED: CARVEDILOL 6.25 MG TAB PO SCH (09:00)
--- NOTE | 2018-08-19 10:12 | Hospitalist Progress Note ---
Date of Service August 19, 2018 Assessment & Plan (1) Sepsis: Secondary to CAP/possible aspiration hx vocal cord paralysis/oropharyngeal dysphagia as per records -- WBC increased will change antibiotics to Zosyn + DOxy add Nebs and Prednisone taper starting at 40mg daily -- ff up blood and sputum cultures swallow eval -- monitor closely Troponin elevation -- trending down EKG no signs of acute ischemia Echo ordered -- likely from sepsis monitor in Tele Hypertension, slightly elevated -- Carvedilol reduced for episode of 2nd deg heart block continu Losartan monitor hx CAD/CVA PVD status post surgery -- continue ASA and Pravastatin hx PAF px NSR off Coumadin due to fall risk/patient requests as per records -- monitor in Tele Troublesome GERD symptoms, intermittent antacid intake at home. -- Protonix ordered past tobacco abuse CRI, creatinine at baseline chronic anemia secondary to CKD, hemoglobin at baseline DVT prophylaxis. Heparin subcu Disposition pending Full code Subjective ff up for pna, sepsis seen resting in bed, comfortable, somewhat weak but conversant states he feels slightly better breathing is better, still has some productive cough denies chest pain, palpitations, active dyspnea reports increased reflux overnight has some restless legs this AM no other symptoms Physical Exam 2 Vital Signs (Past 24 Hours): Last Vital Signs Temp 36.9 C 08/19/18 08:00 Pulse 70 08/19/18 08:00 Resp 20 08/19/18 08:00 BP 148/75 H 08/19/18 08:00 Pulse Ox 96 08/19/18 08:00 Physical Exam: General- oriented x 3, not in distress, speaks in sentences with no effort or accessory muscle use Head- atraumatic Eyes- PERRL, EOMI, anicteric ENT- oropharynx clear Neck- supple, no JVD, no adenopathy, no thyromegaly; carotids +2/2, no bruits appreciated Lungs- (+) mild rales at the left base, (+) mild wheezing bilaterally Heart- normal rate, regular rhythm; no murmur, no gallop, no rub appreciated Abdomen- normal bowel sounds, nondistended, soft, nontender, no masses or hepatosplenomegaly Extremities- no pretibial edema, no calf tenderness; peripheral pulses intact Neuro- alert, oriented x 3; CN 2-12 grossly intact; motor 5/5 bilaterally; sensation 100% on all extremities; no other gross focal neurologic deficits Skin- warm & dry Results & Data Laboratory Results Laboratory Results - last 24 hr 08/18/18 08/18/18 08/18/18 19:04 19:04 19:04 WBC 11.93 H RBC 4.17 L Hgb 13.5 L Hct 39.1 L MCV 93.8 MCH 32.4 MCHC 34.5 RDW Std Deviation 48.9 H RDW Coeff of Sher 14.4 Plt Count 228 MPV 10.2 Immature Gran % (Auto) 0.2 Neut % (Auto) 87.2 Lymph % (Auto) 6.8 [place] % (Auto) 4.4 Eos % (Auto) 1.3 Baso % (Auto) 0.1 Immature Gran # (Auto) 0.02 Neut # (Auto) 10.40 H Lymph # (Auto) 0.81 L [place] # (Auto) 0.53 Eos # (Auto) 0.16 Baso # (Auto) 0.01 PT INR APTT 27.5 PTT Ratio 1.1 Sodium 133 L Potassium 4.2 Chloride 101 Carbon Dioxide 23 Anion Gap 9.0 BUN 28 H Creatinine 1.31 Est Cr Clr Drug Dosing 35.9 Est GFR ( Amer) 57.1 Est GFR (Non-Af Amer) 49.3 BUN/Creatinine Ratio 21.6 H Glucose 96 POC Lactic Acid [place] Calcium 9.6 Magnesium Total Bilirubin 0.5 AST 25 ALT 35 Alkaline Phosphatase 93 Troponin I 0.104 H* Total Protein 8.0 Albumin 3.6 Globulin 4.4 H Albumin/Globulin Ratio 0.8 L TSH Urine Color Urine Appearance Urine pH Ur Specific [place] Urine Protein Urine Glucose (UA) Urine Ketones Urine Blood Urine Nitrite Urine Bilirubin Urine Urobilinogen Ur Leukocyte Esterase Urine WBC (Auto) Urine RBC (Auto) U Hyaline Cast (Auto) U Epithel Cells (Auto) Urine Bacteria (Auto) Influenza Type A Ag Influenza Type A (PCR) Influenza Type B Ag Influenza Type B (PCR) 08/18/18 08/18/18 08/18/18 19:04 19:10 19:10 WBC RBC Hgb Hct MCV MCH MCHC RDW Std Deviation RDW Coeff of Sher Plt Count MPV Immature Gran % (Auto) Neut % (Auto) Lymph % (Auto) [place] % (Auto) Eos % (Auto) Baso % (Auto) Immature Gran # (Auto) Neut # (Auto) Lymph # (Auto) [place] # (Auto) Eos # (Auto) Baso # (Auto) PT INR APTT PTT Ratio Sodium Potassium Chloride Carbon Dioxide Anion Gap BUN Creatinine Est Cr Clr Drug Dosing Est GFR ( Amer) Est GFR (Non-Af Amer) BUN/Creatinine Ratio Glucose POC Lactic Acid [place] 1.06 Calcium Magnesium 2.1 Total Bilirubin AST ALT Alkaline Phosphatase Troponin I Total Protein Albumin Globulin Albumin/Globulin Ratio TSH 2.810 Urine Color Urine Appearance Urine pH Ur Specific [place] Urine Protein Urine Glucose (UA) Urine Ketones Urine Blood Urine Nitrite Urine Bilirubin Urine Urobilinogen Ur Leukocyte Esterase Urine WBC (Auto) Urine RBC (Auto) U Hyaline Cast (Auto) U Epithel Cells (Auto) Urine Bacteria (Auto) Influenza Type A Ag Neg for Influ A Influenza Type A (PCR) Influenza Type B Ag Neg for Influ B Influenza Type B (PCR) 08/18/18 08/18/18 08/19/18 19:10 19:13 00:25 WBC RBC Hgb Hct MCV MCH MCHC RDW Std Deviation RDW Coeff of Sher Plt Count MPV Immature Gran % (Auto) Neut % (Auto) Lymph % (Auto) [place] % (Auto) Eos % (Auto) Baso % (Auto) Immature Gran # (Auto) Neut # (Auto) Lymph # (Auto) [place] # (Auto) Eos # (Auto) Baso # (Auto) PT INR APTT PTT Ratio Sodium Potassium Chloride Carbon Dioxide Anion Gap BUN Creatinine Est Cr Clr Drug Dosing Est GFR ( Amer) Est GFR (Non-Af Amer) BUN/Creatinine Ratio Glucose POC Lactic Acid [place] Calcium Magnesium Total Bilirubin AST ALT Alkaline Phosphatase Troponin I 0.265 H* Total Protein Albumin Globulin Albumin/Globulin Ratio TSH Urine Color Dark Yellow Urine Appearance Clear Urine pH 7.0 Ur Specific [place] 1.015 Urine Protein 1+ H Urine Glucose (UA) Negative Urine Ketones Negative Urine Blood Negative Urine Nitrite Negative Urine Bilirubin Negative Urine Urobilinogen Negative Ur Leukocyte Esterase Negative Urine WBC (Auto) 1-5 Urine RBC (Auto) 0-4 U Hyaline Cast (Auto) 1-5 U Epithel Cells (Auto) 0-5 Urine Bacteria (Auto) Negative Influenza Type A Ag Influenza Type A (PCR) Neg for Influ A Influenza Type B Ag Influenza Type B (PCR) Neg for Influ B 08/19/18 08/19/18 08/19/18 05:20 05:20 05:20 WBC 14.87 H RBC 3.73 L Hgb 11.7 L Hct 35.3 L MCV 94.6 MCH 31.4 MCHC 33.1 RDW Std Deviation 50.0 H RDW Coeff of Sher 14.5 Plt Count 199 MPV 10.1 Immature Gran % (Auto) 0.4 Neut % (Auto) 86.7 Lymph % (Auto) 7.3 [place] % (Auto) 5.4 Eos % (Auto) 0.1 Baso % (Auto) 0.1 Immature Gran # (Auto) 0.06 H Neut # (Auto) 12.88 H Lymph # (Auto) 1.08 L [place] # (Auto) 0.81 H Eos # (Auto) 0.02 Baso # (Auto) 0.02 PT INR APTT 29.7 PTT Ratio 1.1 Sodium 134 L Potassium 4.6 Chloride 104 Carbon Dioxide 23 Anion Gap 7.0 BUN 27 H Creatinine 1.37 Est Cr Clr Drug Dosing 35.1 Est GFR ( Amer) 54.1 Est GFR (Non-Af Amer) 46.7 BUN/Creatinine Ratio 19.6 Glucose 111 H POC Lactic Acid [place] Calcium 9.0 Magnesium Total Bilirubin AST ALT Alkaline Phosphatase Troponin I 0.214 H* Total Protein Albumin Globulin Albumin/Globulin Ratio TSH Urine Color Urine Appearance Urine pH Ur Specific [place] Urine Protein Urine Glucose (UA) Urine Ketones Urine Blood Urine Nitrite Urine Bilirubin Urine Urobilinogen Ur Leukocyte Esterase Urine WBC (Auto) Urine RBC (Auto) U Hyaline Cast (Auto) U Epithel Cells (Auto) Urine Bacteria (Auto) Influenza Type A Ag Influenza Type A (PCR) Influenza Type B Ag Influenza Type B (PCR) 08/19/18 05:20 WBC RBC Hgb Hct MCV MCH MCHC RDW Std Deviation RDW Coeff of Sher Plt Count MPV Immature Gran % (Auto) Neut % (Auto) Lymph % (Auto) [place] % (Auto) Eos % (Auto) Baso % (Auto) Immature Gran # (Auto) Neut # (Auto) Lymph # (Auto) [place] # (Auto) Eos # (Auto) Baso # (Auto) PT 11.0 INR 1.1 APTT PTT Ratio Sodium Potassium Chloride Carbon Dioxide Anion Gap BUN Creatinine Est Cr Clr Drug Dosing Est GFR ( Amer) Est GFR (Non-Af Amer) BUN/Creatinine Ratio Glucose POC Lactic Acid [place] Calcium Magnesium Total Bilirubin AST ALT Alkaline Phosphatase Troponin I Total Protein Albumin Globulin Albumin/Globulin Ratio TSH Urine Color Urine Appearance Urine pH Ur Specific [place] Urine Protein Urine Glucose (UA) Urine Ketones Urine Blood Urine Nitrite Urine Bilirubin Urine Urobilinogen Ur Leukocyte Esterase Urine WBC (Auto) Urine RBC (Auto) U Hyaline Cast (Auto) U Epithel Cells (Auto) Urine Bacteria (Auto) Influenza Type A Ag Influenza Type A (PCR) Influenza Type B Ag Influenza Type B (PCR)
[2018-08-19] MEDS ORDERED: clonazePAM 0.5 MG TAB PO STA ×2 (10:15→13:24)
[2018-08-19] MEDS ORDERED: PIPERACILL/TAZOBAC CONSULT ACTIVE SCH (10:27)
[2018-08-19] MEDS ORDERED: XOPENEX/ATROVENT 0.63mg/0.5MG NEB COMBO NEB SCH (10:30)
[2018-08-19] MEDS ORDERED: PIPERACILLIN/TAZOBACTAM 3.375 GM in DEXTROSE 5% 100 ML IV ONE (11:00)
[2018-08-19] MEDS: predniSONE 20 MG TAB PO SCH (12:45)
[2018-08-19] MEDS: DOXYCYCLINE HYCLATE 100 MG CAP PO SCH ×2 (12:46→19:51)
[2018-08-19] MEDS: ENOXAPARIN INJ 30 MG/0.3 ML SYR SQ SCH (12:47)
[2018-08-19] MEDS: LEVALBUTEROL HCL 0.63 MG/3 ML NEB NEB SCH ×2 (14:23→20:07)
[2018-08-19] MEDS: IPRATROPIUM BROMIDE NEB SOLN 0.02% 2.5 ML VIAL INH SCH ×2 (14:23→20:07)
[2018-08-19] MEDS: PIPERACILLIN/TAZOBACTAM 3.375 GM in DEXTROSE 5% 100 ML IV SCH (16:41)
[2018-08-19] MEDS: clonazePAM 0.5 MG TAB PO SCH (19:51)
[2018-08-19] MEDS: ASPIRIN 81 MG ECTAB PO SCH (19:52)
[2018-08-19] MEDS ORDERED: AMLODIPINE BESYLATE 5 MG TAB PO PRN (23:12)
[2018-08-20] MEDS: PIPERACILLIN/TAZOBACTAM 3.375 GM in DEXTROSE 5% 100 ML IV SCH ×4 (00:19→23:46)
[2018-08-20] MEDS: methylPREDNISolone 40 MG in SYRINGE 0 ML IV SCH ×2 (00:28→14:05)
[2018-08-20] MEDS: IPRATROPIUM BROMIDE NEB SOLN 0.02% 2.5 ML VIAL INH SCH ×3 (01:54→14:08)
[2018-08-20] MEDS: LEVALBUTEROL HCL 0.63 MG/3 ML NEB NEB SCH ×3 (01:54→14:09)
[2018-08-20] MEDS: LEVOTHYROXINE SODIUM 75 MCG TABLET PO SCH (05:02)
[2018-08-20] MEDS: ENOXAPARIN INJ 30 MG/0.3 ML SYR SQ SCH (08:40)
[2018-08-20] MEDS: DOXYCYCLINE HYCLATE 100 MG CAP PO SCH ×2 (08:40→20:49)
[2018-08-20] MEDS: CARVEDILOL 3.125 MG TAB PO SCH ×2 (08:40→20:48)
[2018-08-20] MEDS: predniSONE 20 MG TAB PO SCH (08:41)
[2018-08-20] MEDS: PANTOprazole 40 MG TAB PO SCH (08:42)
[2018-08-20] MEDS: VERAPAMIL HCL 120 MG TABCR PO SCH (08:42)
[2018-08-20] MEDS: CITALOPRAM 20 MG TAB PO SCH (08:42)
[2018-08-20] MEDS: LOSARTAN POTASSIUM 50 MG TAB PO SCH (08:42)
[2018-08-20] MEDS ORDERED: ALUMINUM/MAGNESIUM SUSP 30 ML UDC PO PRN (10:44)
[2018-08-20 16:59] LABS: Basophils # (auto) 0.01 K/uL (0-0.2); Basophils % (auto) 0.1 %; Hematocrit (blood only) 34.5 % (42-52); Hemoglobin 11.6 g/dL (14.0-18.0); Immature Granulocytes # (auto) 0.03 K/uL (0.00-0.02); Immature Granulocytes % (auto) 0.2 %; Lymphocytes # (auto) 0.83 K/uL (1.2-3.4); Mean Corpuscular Hgb Conc 33.6 g/dL (32-36); Mean Corpuscular Volume 93.8 fL (80-100); Mean Platelet Volume 10.2 fL (7.4-10.4); Monocytes # (auto) 0.33 K/uL (0.11-0.59); Monocytes % (auto) 2.4 %; Neutrophils # (auto) 12.72 K/uL (1.4-6.5); Neutrophils % (auto) 91.3 %; Platelet Count 201 K/uL (130-400); RDW Coefficient of Variation 14.6 % (11.5-14.5); Red Blood Count 3.68 M/uL (4.7-6.1); White Blood Count 13.92 K/uL (4.8-10.8)
[2018-08-20 17:17] LABS: BUN Creatinine Ratio 17.8 (10-20); Calcium 8.5 mg/dl (8.5-10.1); Creatinine Clr Calc Pharmacy 30.1 ml/min; Est GFR (African American) 45.2; Potassium 4.4 mmol/L (3.5-5.1)
--- NOTE | 2018-08-20 17:53 | Hospitalist Progress Note ---
Date of Service August 20, 2018 Assessment & Plan (1) Sepsis: (1) Sepsis: Secondary to CAP/possible aspiration hx vocal cord paralysis/oropharyngeal dysphagia as per records -- WBC increased will change antibiotics to Zosyn + DOxy add Nebs and Prednisone taper starting at 40mg daily -- ff up blood and sputum cultures swallow eval -- monitor closely 08/20/18 -- afebrile blood cultures pending improving continue Zosyn, Doxy Day 2 Prednisone Advair, PRN Albulterol Elevated Crea -- possible pre renal , sepsis related -- gentle IV fluids hold Losartan monitor Severe Gastric Refluix -- Protonix ordered not improving Sucralfate added, also PRN Maalox will consult GI Troponin elevation -- trending down EKG no signs of acute ischemia Echo ordered -- likely from sepsis monitor in Tele Hypertension, slightly elevated -- Carvedilol reduced for episode of 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 -- Lovenox Disposition pending Full code Subjective ff up for pneumonia seen resting in bed, comfortable family at bedside states he feels improved today no dyspnea, less cough no chills denies chest pain ,dizziness, palpitations still reports having severe gastric reflux no nausea/vomiting, no abdominal pain denies other symptoms Physical Exam 2 Vital Signs (Past 24 Hours): Last Vital Signs Temp 36.6 C 08/20/18 15:23 Pulse 69 08/20/18 17:18 Resp 18 08/20/18 15:23 BP 115/69 08/20/18 15:23 Pulse Ox 94 08/20/18 15:23 Physical Exam: General- oriented x 3, not in distress, speaks in sentences with no effort or accessory muscle use Eyes- anicteric Neck- no JVD Lungs- mild rales left base, no wheezing Heart- normal rate, regular rhythm; no murmurs Abdomen- normal bowel sounds, nondistended, soft, nontender Extremities- no pretibial edema, no calf tenderness Neuro- alert, oriented x 3; no gross focal neurologic deficits Skin- warm & dry Results & Data Laboratory Results Laboratory Results - last 24 hr 08/20/18 08/20/18 16:40 16:40 WBC 13.92 H RBC 3.68 L Hgb 11.6 L Hct 34.5 L MCV 93.8 MCH 31.5 MCHC 33.6 RDW Std Deviation 50.0 H RDW Coeff of Sher 14.6 H Plt Count 201 MPV 10.2 Immature Gran % (Auto) 0.2 Neut % (Auto) 91.3 Lymph % (Auto) 6.0 Camp % (Auto) 2.4 Eos % (Auto) 0.0 Baso % (Auto) 0.1 Immature Gran # (Auto) 0.03 H Neut # (Auto) 12.72 H Lymph # (Auto) 0.83 L Camp # (Auto) 0.33 Eos # (Auto) 0.00 Baso # (Auto) 0.01 Sodium 131 L Potassium 4.4 Chloride 101 Carbon Dioxide 23 Anion Gap 7.0 BUN 28 H Creatinine 1.59 H Est Cr Clr Drug Dosing 30.1 Est GFR ( Amer) 45.2 Est GFR (Non-Af Amer) 39.0 BUN/Creatinine Ratio 17.8 Glucose 130 H Calcium 8.5
[2018-08-20] MEDS: SODIUM CHLORIDE 0.9% 1000ML 1,000 ML IV SCH (18:39)
[2018-08-20] MEDS: ASPIRIN 81 MG ECTAB PO SCH (20:48)
[2018-08-20] MEDS: clonazePAM 0.5 MG TAB PO SCH (21:00)
[2018-08-20] MEDS: FLUTICASONE/SALMETEROL 100/50 (ADVAIR) 14 PUFF/1 INHALER INH SCH (21:00)
[2018-08-20] MEDS: SUCRALFATE 1 GM/10 ML UDC PO SCH (21:01)
[2018-08-20] MEDS: ALBUTEROL HFA 8 GM INHALER INH PRN (21:10)
[2018-08-21] MEDS: LEVOTHYROXINE SODIUM 75 MCG TABLET PO SCH (06:17)
[2018-08-21 06:36] LABS: Creatinine Clr Calc Pharmacy 31.1 ml/min; Est GFR (African American) 46.6; Est GFR (Non-African American) 40.2
[2018-08-21] MEDS: FLUTICASONE/SALMETEROL 100/50 (ADVAIR) 14 PUFF/1 INHALER INH SCH ×2 (07:44→20:01)
[2018-08-21] MEDS: SODIUM CHLORIDE 0.9% 1000ML 1,000 ML IV SCH ×2 (07:44→20:03)
[2018-08-21] MEDS: ALBUTEROL HFA 8 GM INHALER INH PRN (07:44)
[2018-08-21] MEDS: PIPERACILLIN/TAZOBACTAM 3.375 GM in DEXTROSE 5% 100 ML IV SCH ×3 (07:45→23:41)
[2018-08-21] MEDS: ENOXAPARIN INJ 30 MG/0.3 ML SYR SQ SCH (07:47)
[2018-08-21] MEDS: PANTOprazole 40 MG TAB PO SCH (07:48)
[2018-08-21] MEDS: DOXYCYCLINE HYCLATE 100 MG CAP PO SCH ×2 (07:48→19:59)
[2018-08-21] MEDS: CITALOPRAM 20 MG TAB PO SCH (07:48)
[2018-08-21] MEDS: predniSONE 20 MG TAB PO SCH (07:48)
[2018-08-21] MEDS: PRAVASTATIN SOD 10 MG TAB PO SCH (07:49)
[2018-08-21] MEDS: VERAPAMIL HCL 120 MG TABCR PO SCH (07:49)
[2018-08-21] MEDS: SUCRALFATE 1 GM/10 ML UDC PO SCH ×4 (07:50→19:59)
[2018-08-21] MEDS: CARVEDILOL 3.125 MG TAB PO SCH (07:50)
--- NOTE | 2018-08-21 12:28 | Gastrointestinal Consultation ---
Date of Consultation August 21, 2018 Assessment & Plan (1) GERD (gastroesophageal reflux disease): Pt is a 87 y/o male admitted w sepsis suspected secondary to pneumonia ? aspiration pneumonia; who's seen for increased heartburn and reflux. Though pt reports to me that he's not having too significant of reflux/heartburn symptoms from baseline. Usually takes Rolaids or PeptoBismol on PRN basis. Was on Omeprazole but reluctant to take it daily due to his CKD. He is getting Video swallow eval to r/o aspiration this afternoon by Radiology. Denies symptoms of significant coughing or chocking on foods. Denies hx of EGD - Will f/u after Video swallow study to determine if endoscopic evaluation is needed. - May continue Protonix 40mg daily for now. But upon DC, given his CKD may take PPI on PRN basis and ok to use H2 blockers such as Ranitidine 150mg -300mg daily for GERD, + Peptobismol/Rolaids or Gaviscon for breakthrough reflux symptoms. Present on Admission?: Yes Supervising Physician Co-Signing Physician Notes I have performed a history and physical examination of this patient and reviewed the electronic medical record. Specifically, on history patient reports worsening URI prior to development of pneumonia and no recollection of aspiration, and on physical examination there is no abdominal tenderness. I have discussed the case with DHARA Pate. The above note reflects my findings, conclusions, and recommendations. Sanjeev Shelby MD History of Present Illness Reason for Consultation: Increased heartburn, reflux Requesting Physician: Vipin Mcgee MD Attending Physician: Dr. Sanjeev Shelby History of Present Illness Pt is a 87 y/o male here admitted for sepsis suspected to be from aspiration pneumonia seen for increased heartburn/reflux. He reports hx of CVA in 2008, lost his voice previously and had gone through swallow evaluation at that time. He couldn't tell me about the results then. Voice came back after recovery. He has hx of GERD, was on Omeprazole but reluctant to take it regularly as he has CKD. He is now taking Peptobismol or Rolaids on PRN basis. He denies any n/v, abd pain, or recent bowel habit changes. He does c/o cough and chills prior to admission. Was having n/v prior to admission but before that denies any hx of chocking on foods or significant coughing/difficulty swallowing, or painful swallowing. Allergies Allergy/AdvReac Type Severity Reaction Status Date / Time lisinopril AdvReac Unknown Cough Verified 08/18/18 20:31 Home Medications Home Medications Medication Instructions Recorded Confirmed Type acetaminophen 500 mg PO DIRECTED PRN 08/18/18 08/18/18 History albuterol sulfate [Proventil HFA] 2 puff INHALATION QID PRN 08/18/18 08/18/18 History ascorbic acid (vitamin C) [Vitamin 1,000 mg PO QAM 08/18/18 08/18/18 History C] aspirin 81 mg PO QPM 08/18/18 08/18/18 History calcium carbonate-vitamin D3 1 tab PO QAM 08/18/18 08/18/18 History [Calcium 600 + D(3)] carvedilol 6.25 mg PO BID 08/18/18 08/18/18 History cetirizine [Zyrtec] 10 mg PO DAILY PRN 08/18/18 08/18/18 History cholecalciferol (vitamin D3) 3,000 units PO QAM 08/18/18 08/18/18 History [Vitamin D3] citalopram 20 mg PO QAM 08/18/18 08/18/18 History clonazepam 0.5 mg PO HS 08/18/18 08/18/18 History coenzyme Q10 100 mg PO QAM 08/18/18 08/18/18 History famotidine 10 mg PO BID PRN 08/18/18 08/18/18 History flaxseed oil 1,000 mg PO QAM 08/18/18 08/18/18 History fluticasone-salmeterol [Advair 1 puff INHALATION Q12H PRN 08/18/18 08/18/18 History Diskus] garlic 1,000 mg PO QAM 08/18/18 08/18/18 History levothyroxine 75 mcg PO QAM 08/18/18 08/18/18 History losartan 50 mg PO QAM 08/18/18 08/18/18 History njnrucig-vlj-FF-lycopen-lutein 1 tab PO QAM 08/18/18 08/18/18 History [Centrum Silver] ttfegs-xlzzsag-lps palm-min 17 2 cap PO QAM 08/18/18 08/18/18 History [Prostate Therapy] nitroglycerin [Nitrostat] 0.4 mg SUBLINGUAL DIRECTED PRN 08/18/18 08/18/18 History omega 7-vou-ffu-fish oil [Fish Oil] 1,000 mg PO QAM 08/18/18 08/18/18 History pravastatin 10 mg PO Q2D 08/18/18 08/18/18 History verapamil 120 mg PO QAM 08/18/18 08/18/18 History Patient History Medical History HTN (hypertension) (Chronic) Asthma CKD (chronic kidney disease) Family History Other Family history non-contributory Social History marital status: Current Living Situation: Spouse current occupational status: retired Other Information That Helps Us Care for You: No Feels Safe at Home: Yes Safety Concerns: Feels Safe At This Time Smoking Status: Never smoker Tobacco Type: smokeless tobacco Cigarettes per Day : snuff pouch daily Do You Dip or Chew Tobacco: Yes Second Hand Exposure: No Tobacco Cessation Education Requested by Patient: No Hx Alcohol Use: Yes Alcohol type: beer Alcohol Intake Frequency: holidays/ special occasions only Hx Substance Use: No Beliefs That Will Affect Care: Buddhism Buddhism Beliefs: Jewish Communication Ability: Effective Review of Systems Constitutional: as per Subjective / HPI Respiratory: as per Subjective / HPI and + cough; no dyspnea Cardiovascular: no chest pain, no lightheadedness and no edema Gastrointestinal: + heartburn; no abdominal pain, no nausea, no vomiting, no pain with swallowing, no dysphagia and no change in stools Physical Exam 2 Vital Signs (Past 24 Hours): Last Vital Signs Temp 36.4 C L 08/21/18 11:37 Pulse 62 08/21/18 11:37 Resp 18 08/21/18 11:37 BP 143/74 H 08/21/18 11:37 Pulse Ox 96 08/21/18 11:37 Constitutional: WD/WN, vitals as above well groomed, cooperative and comfortable Eyes: PERRL, conjunctivae normal, anicteric sclerae ENMT: external ear and nose normal, oropharynx normal Respiratory: normal respiratory effort; no respiratory distress and does not use accessory muscles mild expiratory wheezing on anterior auscultation Cardiovascular: RRR, no murmur, no edema Gastrointestinal (Abdomen): normal bowel sounds, soft, nontender, no hepatosplenomegaly Skin: no rashes, warm and dry no jaundice Neurologic: Motor/Sensory: no asterixis Psychiatric: A+Ox3, euthymic affect Lymphatic: no lymphedema
[2018-08-21 12:56] LABS: BUN Creatinine Ratio 19.4 (10-20); Calcium 8.2 mg/dl (8.5-10.1); Creatinine Clr Calc Pharmacy 31.7 ml/min; Est GFR (African American) 47.7; Est GFR (Non-African American) 41.2; Potassium 4.3 mmol/L (3.5-5.1)
[2018-08-21] MEDS ORDERED: methylPREDNISolone 40 MG in SYRINGE 0 ML IV ONE (13:15)
--- NOTE | 2018-08-21 13:29 | Fluoroscopy Report ---
FL video swallow HISTORY: Abnormal chest x-ray. Possible aspiration pneumonia. TECHNIQUE: Video fluoroscopic evaluation of swallowing was performed in the AP and lateral projection s by the speech pathology staff. The patient is fed nectar-thick and thin liquid barium, a barium coa shelley wafer, and barium pudding. FLUOROSCOPY TIME: 2.1 minutes. NUMBER OF FLUOROSCOPY IMAGES: 0 COMPARISON STUDY: None. FINDINGS: The patient swallowed thin liquid barium, nectar thick liquid, pudding, and a cracker with paste without difficulty. There was no aspiration. There is no penetration. Note is made of disordere d esophageal motility. IMPRESSION: 1. Disordered esophageal motility. No aspiration identified. 2. Please see the speech pathologist report for detailed findings and recommendations. Electronically signed by: Dc Anglin M.D. 08/21/2018 1:28 PM
[2018-08-21] MEDS: ALBUTEROL HFA 8 GM INHALER INH SCH ×2 (13:30→20:08)
--- NOTE | 2018-08-21 19:38 | Hospitalist Progress Note ---
Date of Service August 21, 2018 Assessment & Plan (1) Sepsis: (1) Sepsis: Secondary to CAP/possible aspiration hx vocal cord paralysis/oropharyngeal dysphagia as per records -- afebrile cliniically improving -- continue Zosyn + DOxy patient declines nebs, changed to Advair and Albuterol INH one dose Solumedrol ordered due to wheezing today, continue Prednisone -- ff up blood and sputum cultures swallow eval: for video swallow today -- monitor closely Acute on CKD 3 -- possible pre renal , sepsis related -- gentle IV fluids hold Losartan monitor Severe Gastric Refluix -- Protonix ordered not improving Sucralfate added, also PRN Maalox Gi consulted, awaiting Video Swallow Eval Troponin elevation -- trending down EKG no signs of acute ischemia Echo ordered -- likely from sepsis monitor in Tele Hypertension, slightly elevated -- Carvedilol usual dose resumed Losartan held for increased crea monitor hx CAD/CVA PVD status post surgery -- continue ASA and Pravastatin hx PAF px NSR off Coumadin due to fall risk/patient requests as per records -- monitor in Tele past tobacco abuse chronic anemia secondary to CKD, hemoglobin at baseline DVT prophylaxis. -- Lovenox Disposition pending Full code (2) Acute kidney injury superimposed on CKD: management as noted above Subjective ff up for pneumonia resting in chair, having lunch states he feels improved today less cough, but still dyspneic on exertion with PT no chest pain reflux has improved denies other symptoms Physical Exam 2 Vital Signs (Past 24 Hours): Last Vital Signs Temp 36.4 C L 08/21/18 15:18 Pulse 70 08/21/18 17:58 Resp 20 08/21/18 15:18 BP 156/82 H 08/21/18 15:18 Pulse Ox 93 08/21/18 15:18 Physical Exam: General- oriented x 3, not in distress, speaks in sentences with no effort or accessory muscle use Eyes- anicteric Neck- no JVD Lungs- mild wheeze bilaterally, and rhonchi Heart- normal rate, regular rhythm; no murmurs Abdomen- normal bowel sounds, nondistended, soft, nontender Extremities- no pretibial edema, no calf tenderness Neuro- alert, oriented x 3; no gross focal neurologic deficits Skin- warm & dry Results & Data Laboratory Results Laboratory Results - last 24 hr 08/21/18 08/21/18 05:43 05:48 Sodium 134 L Potassium 4.3 Chloride 106 Carbon Dioxide 22 Anion Gap 6.0 BUN 30 H Creatinine 1.55 H 1.52 H Est Cr Clr Drug Dosing 31.1 31.7 Est GFR ( Amer) 46.6 47.7 Est GFR (Non-Af Amer) 40.2 41.2 BUN/Creatinine Ratio 19.4 Glucose 108 H Calcium 8.2 L
[2018-08-21] MEDS: clonazePAM 0.5 MG TAB PO SCH (19:59)
[2018-08-21] MEDS: ASPIRIN 81 MG ECTAB PO SCH (20:00)
[2018-08-21] MEDS: CARVEDILOL 6.25 MG TAB PO SCH (20:00)
[2018-08-21] MEDS: VANCOMYCIN HCL 125 MG/2.5ML SOLN PO SCH (23:52)
[2018-08-21] MEDS: RASPBERRY SYRUP 5 ML UDP PO SCH (23:52)
[2018-08-22] MEDS: LEVOTHYROXINE SODIUM 75 MCG TABLET PO SCH (05:45)
[2018-08-22] MEDS: VANCOMYCIN HCL 125 MG/2.5ML SOLN PO SCH ×4 (05:45→23:54)
[2018-08-22] MEDS: RASPBERRY SYRUP 5 ML UDP PO SCH ×4 (05:45→23:54)
[2018-08-22 06:25] LABS: Creatinine Clr Calc Pharmacy 34.6 ml/min; Est GFR (African American) 52.3; Est GFR (Non-African American) 45.1
[2018-08-22] MEDS: PIPERACILLIN/TAZOBACTAM 3.375 GM in DEXTROSE 5% 100 ML IV SCH (08:33)
[2018-08-22] MEDS: FLUTICASONE/SALMETEROL 100/50 (ADVAIR) 14 PUFF/1 INHALER INH SCH (08:33)
[2018-08-22] MEDS: ALBUTEROL HFA 8 GM INHALER INH SCH ×2 (08:34→14:31)
[2018-08-22] MEDS: DOXYCYCLINE HYCLATE 100 MG CAP PO SCH ×2 (08:38→20:17)
[2018-08-22] MEDS: VERAPAMIL HCL 120 MG TABCR PO SCH (08:38)
[2018-08-22] MEDS: predniSONE 20 MG TAB PO SCH (08:39)
[2018-08-22] MEDS: CARVEDILOL 6.25 MG TAB PO SCH ×2 (08:39→20:17)
[2018-08-22] MEDS: PANTOprazole 40 MG TAB PO SCH (08:39)
[2018-08-22] MEDS: CITALOPRAM 20 MG TAB PO SCH (08:39)
[2018-08-22] MEDS: SUCRALFATE 1 GM/10 ML UDC PO SCH ×4 (08:40→20:16)
[2018-08-22] MEDS: ENOXAPARIN INJ 30 MG/0.3 ML SYR SQ SCH (08:40)
[2018-08-22] MEDS ORDERED: AMPICILLIN/SULBACTAM CONSULT ACTIVE PRN (10:07)
--- NOTE | 2018-08-22 10:33 | Gastroenterology Progress Note ---
Addendum entered and electronically signed by Vivian Elizondo 08/22/18 10:53: Addendum (Blank) Addendum August 22, 2018 10:52 GI will sign off; call if new questions/concerns arise. Original Note: Date of Service August 22, 2018 Assessment & Plan (1) GERD (gastroesophageal reflux disease): Pt is a 87 y/o male admitted w sepsis suspected secondary to pneumonia ? aspiration pneumonia; who's seen for increased heartburn and reflux. Video swallow study showed disordered esophageal dysmotility; no signs of aspiration. He denies any symptoms of dysphagia/odynophagia. He reports heartburn symptoms are improved. - Continue to defer EGD eval unless he has issues w dysphagia and we can consider EGD eval w empiric dilation vs esophageal manometry study. - Slippery consistency diet and aspiration precaution. - May continue Protonix 40mg daily for now. But upon DC, given his CKD may take PPI on PRN basis and ok to use H2 blockers such as Ranitidine 150mg -300mg daily for GERD, + Peptobismol/Rolaids or Gaviscon for breakthrough reflux symptoms. - For Cdiff: since first episode continue to treat w Vancomycin 125mg QID x 10 days. Add probiotics TID. (2) Clostridium difficile infection: Present on Admission?: No Supervising Physician Co-Signing Physician Notes I have performed a history and physical examination of this patient and reviewed the electronic medical record. Specifically, on physical examination video swallow shows no aspiration. In view of his history and these findings, I see no need for further GI evaluation at this time. I have discussed the case with DHARA Pate. The above note reflects my findings, conclusions, and recommendations. Sanjeev Shelby MD Subjective Video swallow study completed yesterday, showed esophageal disordered motility but no aspiration. Cdiff tested positive He feels well, denies any trouble w swallowing meds/foods. He notes heartburn symptoms are better too. He denies diarrhea, said stools are "pudding like". Denies any abd pain, n/v, rectal bleeding. Physical Exam 2 Vital Signs (Past 24 Hours): Last Vital Signs Temp 36.4 C L 08/22/18 07:20 Pulse 68 08/22/18 08:00 Resp 18 08/22/18 07:20 BP 166/83 H 08/22/18 07:20 Pulse Ox 95 08/22/18 07:20 Constitutional: WD/WN, vitals as above well groomed, cooperative and comfortable Eyes: PERRL, conjunctivae normal, anicteric sclerae ENMT: external ear and nose normal, oropharynx normal Respiratory: normal respiratory effort; no respiratory distress and does not use accessory muscles Diminished overall lung sounds Cardiovascular: RRR, no murmur, no edema Gastrointestinal (Abdomen): Inspection/Auscultation: + abdomen distended ( mild ) and normal bowel sounds Percussion/Palpation: abdomen nontender and no guarding Skin: no rashes, warm and dry no jaundice Neurologic: Motor/Sensory: no asterixis Psychiatric: A+Ox3, euthymic affect Lymphatic: no lymphedema
[2018-08-22] MEDS ORDERED: LACTOBACILLUS ACIDOPHILUS 1 GM PACK PO SCH (12:00)
[2018-08-22] MEDS: SODIUM CHLORIDE 0.9% 1000ML 1,000 ML IV SCH (12:59)
[2018-08-22] MEDS ORDERED: Nursing to Pharmacy Communication ONE (15:34)
[2018-08-22] MEDS ORDERED: predniSONE 20 MG TAB PO STA (15:41)
--- NOTE | 2018-08-22 15:56 | Hospitalist Progress Note ---
Date of Service August 22, 2018 Assessment & Plan (1) Sepsis: Sepsis Secondary to CAP/possible aspiration from vomiting -- hx vocal cord paralysis/oropharyngeal dysphagia as per records -- afebrile, sepsis resolved still has wheezing today increase Prednisone 40mg from daily to BID patient declining Nebs as it gave him "chest pressure", now on Albuterol INH and Advair Zosyn changed to Unasyn, continue Doxy -- blood culture: negative sputum culture: pending Video Swallow: 1. Disordered esophageal motility. No aspiration identified. 2. Please see the speech pathologist report for detailed findings and recommendations. C Diff Colitis -- started on Vanco PO QID evening of 08/21/18 Acute on CKD 3 -- possible pre renal , sepsis related -- crea increased from 1.3 to 1.59 gentle IV NSS given crea improved to 1.4, d/c fluids monitor hold Losartan for now Severe Gastric Refluix -- Protonix ordered not improving Sucralfate added, also PRN Maalox Gi consulted Speech Eval: Video swallow study showed disordered esophageal dysmotility EGD not recommended at this time, unless patient develops dysphagia Slippery consistency diet and aspiration precaution. "May continue Protonix 40mg daily for now. But upon DC, given his CKD may take PPI on PRN basis and ok to use H2 blockers such as Ranitidine 150mg -300mg daily for GERD, + Peptobismol/Rolaids or Gaviscon for breakthrough reflux symptoms" Troponin elevation -- trending down EKG no signs of acute ischemia Echo no segmental wall motion abnormalities -- likely from sepsis monitor in Tele Hypertension, slightly elevated -- Carvedilol usual dose resumed Losartan held for increased crea monitor Amlodipine PRN hx CAD/CVA PVD status post surgery -- continue ASA and Pravastatin hx PAF px NSR off Coumadin due to fall risk/patient requests as per records -- monitor in Tele Chronic anemia secondary to CKD, hemoglobin at baseline DVT prophylaxis. -- Lovenox Disposition anticipate d/c home when medically stabel Full code (2) Acute kidney injury superimposed on CKD: management as noted above Subjective ff up for pneumonia seen resting in bed, comfortable stool (+) for C diff last night, started on Vanco had 2 semiformed stools today, no abdominal pain, nausea, chills less cough, still has dyspnea on exertion reflux has resolved denies other symptoms Physical Exam 2 Vital Signs (Past 24 Hours): Last Vital Signs Temp 36.3 C L 08/22/18 15:20 Pulse 63 08/22/18 15:20 Resp 18 08/22/18 15:20 BP 152/87 H 08/22/18 15:20 Pulse Ox 98 08/22/18 15:20 Physical Exam: General- oriented x 3, not in distress, speaks in sentences with no effort or accessory muscle use Eyes- anicteric Neck- no JVD Lungs- (+) moderate wheeze bilaterally Heart- normal rate, regular rhythm; no murmurs Abdomen- normal bowel sounds, nondistended, soft, nontender Extremities- no pretibial edema, no calf tenderness Neuro- alert, oriented x 3; no gross focal neurologic deficits Skin- warm & dry Results & Data Laboratory Results Laboratory Results - last 24 hr 08/21/18 08/22/18 08:45 05:24 Creatinine 1.41 H Est Cr Clr Drug Dosing 34.6 Est GFR ( Amer) 52.3 Est GFR (Non-Af Amer) 45.1 Stl C. diff Tox B Gene Pos C.diff Toxin B A*
[2018-08-22] MEDS: AMPICILLIN/SULBACTAM SOD 3,000 MG in 0.9 % SODIUM CHLORIDE 100 ML IV SCH ×2 (16:02→21:28)
[2018-08-22] MEDS: LACTOBACILLUS ACIDOPHILUS (FLORANEX) TAB PO SCH (16:58)
[2018-08-22] MEDS ORDERED: LACTOBACILLUS ACIDOPHILUS (FLORANEX) TAB PO SCH (17:00)
[2018-08-22] MEDS ORDERED: XOPENEX/ATROVENT 0.63mg/0.5MG NEB COMBO NEB SCH (20:00)
--- NOTE | 2018-08-22 20:01 | XRay Report ---
SINGLE VIEW CHEST CLINICAL HISTORY: Follow-up pneumonia. FINDINGS: An AP, portable, upright chest radiograph is compared to study dated 08/18/2018. The examinat ion is degraded by portable technique and patient rotation. The heart is enlarged and there is ather osclerotic calcification of the thoracic aorta. The pulmonary vasculature is noncongested. Left basil ar consolidation has modestly cleared from 08/18/2018. No large pleural effusion is identified. No pneu mothorax is seen. Small calcific granulomas are suggested in the left upper lobe. The skeletal struct ures are osteopenic. The bony thorax is grossly intact. Advanced arthritic change is seen in the shou lders, left greater than right. 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 Residual enteric contrast is noted in the left upper quadrant. IMPRESSION: 1. Cardiomegaly without radiographic evidence of congestive failure. 2. Left basilar consolidation has modestly cleared from 08/18/2018. Continued follow-up to complete res olution is recommended. Electronically signed by: Yvon Calles M.D. 08/22/2018 8:00 PM
[2018-08-22] MEDS: clonazePAM 0.5 MG TAB PO SCH (20:16)
[2018-08-22] MEDS: ASPIRIN 81 MG ECTAB PO SCH (20:18)
[2018-08-22] MEDS ORDERED: methylPREDNISolone 40 MG in SYRINGE 0 ML IV ONE (20:30)
[2018-08-22] MEDS: LEVALBUTEROL HCL 0.63 MG/3 ML NEB NEB SCH (21:03)
[2018-08-22] MEDS: IPRATROPIUM BROMIDE NEB SOLN 0.02% 2.5 ML VIAL INH SCH (21:05)
[2018-08-23] MEDS: IPRATROPIUM BROMIDE NEB SOLN 0.02% 2.5 ML VIAL INH SCH ×3 (01:58→14:12)
[2018-08-23] MEDS: LEVALBUTEROL HCL 0.63 MG/3 ML NEB NEB SCH ×2 (01:58→07:15)
[2018-08-23] MEDS: AMPICILLIN/SULBACTAM SOD 3,000 MG in 0.9 % SODIUM CHLORIDE 100 ML IV SCH ×2 (03:53→10:37)
[2018-08-23] MEDS: LEVOTHYROXINE SODIUM 75 MCG TABLET PO SCH (06:18)
[2018-08-23] MEDS: RASPBERRY SYRUP 5 ML UDP PO SCH ×2 (06:18→13:48)
[2018-08-23] MEDS: VANCOMYCIN HCL 125 MG/2.5ML SOLN PO SCH ×2 (06:18→13:48)
[2018-08-23 06:33] LABS: BUN Creatinine Ratio 24.8 (10-20); Calcium 7.7 mg/dl (8.5-10.1); Creatinine Clr Calc Pharmacy 38.3 ml/min; Est GFR (African American) 59.3; Est GFR (Non-African American) 51.2
[2018-08-23] MEDS: PRAVASTATIN SOD 10 MG TAB PO SCH (08:54)
[2018-08-23] MEDS: CITALOPRAM 20 MG TAB PO SCH (08:54)
[2018-08-23] MEDS: CARVEDILOL 6.25 MG TAB PO SCH (08:55)
[2018-08-23] MEDS: ENOXAPARIN INJ 30 MG/0.3 ML SYR SQ SCH (08:55)
[2018-08-23] MEDS: LACTOBACILLUS ACIDOPHILUS (FLORANEX) TAB PO SCH ×2 (08:55→12:00)
[2018-08-23] MEDS: PANTOprazole 40 MG TAB PO SCH (08:55)
[2018-08-23] MEDS: VERAPAMIL HCL 120 MG TABCR PO SCH (08:57)
[2018-08-23] MEDS: DOXYCYCLINE HYCLATE 100 MG CAP PO SCH (08:57)
[2018-08-23] MEDS: SUCRALFATE 1 GM/10 ML UDC PO SCH ×2 (08:57→13:50)
[2018-08-23] MEDS ORDERED: predniSONE 20 MG TAB PO SCH (09:00)
[2018-08-23] MEDS ORDERED: AMLODIPINE BESYLATE 5 MG TAB PO SCH (13:30)
[2018-08-23] MEDS ORDERED: LOSARTAN POTASSIUM 50 MG TAB PO SCH (13:30)
[2018-08-23] MEDS ORDERED: ALBUTEROL 0.5% NEB SOLN 2.5 MG/0.5 ML VIAL NEB PRN (14:46)
--- NOTE | 2018-08-23 15:07 | Hospitalist Progress Note ---
Date of Service August 23, 2018 Assessment & Plan (1) Sepsis: Sepsis Secondary to CAP/possible aspiration from vomiting - hx vocal cord paralysis/oropharyngeal dysphagia as per records - Video Swallow: Disordered esophageal motility. No aspiration identified. -initially treated with Zosyn and Doxycycline and then switched to Unasyn and Doxycycline -blood culture: negative; sputum culture normal yamilet -Take amoxicillin/clavulanate BID (875 mg / 125) for 5 more days at home; Take Doxycycline 100 mg BID for 5 more days at home Elevated Troponin on this admission (EKG no signs of acute ischemia, Echo no segmental wall motion abnormalities, elevated troponins likely from initial sepsis) Exacerbation of Asthma -has home inhalers -was treated with nebulizer treatments and prednisone while inpatient -Take prednisone taper 40 mg daily x 2 days, then 30 mg daily x 2 days, 20 mg daily x 2 days, 10 mg daily x 2 days -Patient has prescription of nebulizer machine given to hospital dependency case manager to be faxed to a equipment supply store Prescription of nebulizer treatments (albuterol) also prescribed Gastroesophageal reflux disease (GERD), severe -symptoms improved after pantoprazole, sulcrafate and prn maalox -Patient was evaluated by gastroenterology service -For ease of medication dosing, patient can take ranitidine 150 mg daily instead of famotidine and if gastric reflux symptoms are worse, he can increase the ranitidine to 300 mg daily clostridium difficile colitis, -started on Vanco PO QID evening of 08/21/18 -Take Vancomycin 125 mg 4 times a day with last day as 08/31/18 for treatment of C.difficile; Patient can take Lactobacillus (Floranex) 3 times a day while on Vancomycin treatment of C.difficile Hypertension -continue Carvedilol home dose -has been more hypertensive because patient had been taken off home Losartan due to recent PRETTY, the PRETTY has resolved and patient can resume home dose Losartan hx CAD/CVA PVD status post surgery - continue ASA and Pravastatin history of Paroxysmal Atrial Fibrillation currently in normal sinus rhythm (has been off Coumadin due to fall risk/ patient requests as per records) Chronic anemia secondary to CKD, hemoglobin at baseline DVT prophylaxis. -- Lovenox while inpatient (2) Acute kidney injury superimposed on CKD: acute kidney injury has resolved after IV fluids during this admission -outpatient follow up for chronic kidney disease Discharge Diagnosis Sepsis, elevated troponins from initial sepsis, Pneumonia, Exacerbation of Asthma, Gastroesophageal reflux disease (GERD), clostridium difficile colitis, Hypertension, Chronic Kidney Disease, Acute Kidney Disease (resolved) Discharge Instructions Take amoxicillin/clavulanate BID (875 mg / 125) for 5 more days at home Take Doxycycline 100 mg BID for 5 more days at home Take prednisone taper 40 mg daily x 2 days, then 30 mg daily x 2 days, 20 mg daily x 2 days, 10 mg daily x 2 days Patient has prescription of nebulizer machine given to hospital dependency case manager to be faxed to a equipment supply store Prescription of nebulizer treatments (albuterol) also prescribed Take Vancomycin 125 mg 4 times a day with last day as 08/31/18 for treatment of C.difficile Patient can take Lactobacillus (Floranex) 3 times a day while on Vancomycin treatment of C.difficile For gastric reflux, patient can take ranitidine 150 mg daily instead of famotidine and if gastric reflux symptoms are worse, he can increase the ranitidine to 300 mg daily 08/28/2018 11:20 AM Provider Odilon Carbone MD Department Internal Medicine [facility] 08/31/2018 4:00 PM Provider Bill Connolly PA-C Department Cardiology [facility] Subjective Patient reports recent ambulation without shortness of breath. Reports that he feels his breathing in general is much better. Denies chest pain or shortness of breath. denies problems swallowing the regular diet. denies vomiting. denies abdominal pain Physical Exam 2 Vital Signs (Past 24 Hours): Last Vital Signs Temp 36.5 C 08/23/18 07:16 Pulse 96 H 08/23/18 14:12 Resp 18 08/23/18 14:12 BP 177/85 H 08/23/18 07:16 Pulse Ox 95 08/23/18 07:16 Constitutional: WD/WN, vitals as above Eyes: PERRL, conjunctivae normal, anicteric sclerae ENMT: external ear and nose normal, oropharynx normal Neck: trachea midline, no thyromegaly Respiratory: normal respiratory effort, lungs clear to auscultation Cardiovascular: RRR, no murmur, no edema Gastrointestinal (Abdomen): normal bowel sounds, soft, nontender, no hepatosplenomegaly Musculoskeletal: Head/Neck/Chest: normocephalic and head atraumatic Neurologic: PERRL, EOMI, accommodation nl, no face palsy, no dysarthria CN' s II-XI intact bilaterally Psychiatric: A+Ox3, euthymic affect
--- NOTE | 2018-08-23 15:22 | Discharge Summary ---
Date of Service August 23, 2018 Admission HPI Per Admitting Provider History obtained from patient, family, and records. Medical history significant for CAD/CVA, PVD status post surgery, PAF off Coumadin due to fall risk/patient requests as per records, hypertension, hyperlipidemia, vocal cord paralysis left as per records asthma, past tobacco abuse, anxiety/mood disorder, CRI (baseline creatinine 1.4-1.5), chronic anemia baseline hemoglobin of 12 Recent confinement 2004 for left hip surgery under Orthopedics service. Patient felt sick the last few days with cold symptoms, later followed by junky cough symptoms. Admits to some sick contacts. No chest pain. Worsening shortness of breath. Admits to some coughing/choking with meals and water if not careful. Noted to be febrile at home. Subsequent emesis. Patient also bothered by troublesome heartburn symptoms. Patient brought to the emergency room. IV Levaquin given for pneumonia. Medical History as above Surgical History : Carpal tunnel surgery, left thromboendarterectomy, right hip surgery Family History : Heart disease Personal/Social history : Past tobacco abuse, occasional alcoholic beverage intake Medical History as above Surgical History : Family History : Personal/Social history : Admission Exam Per Admitting Provider GENERAL: Comfortable, slightly anxious, mild hearing impairment, no respiratory distress SKIN: Pallor , warm HEENT: Pale palpebral conjunctivae, no ptosis, dry buccal mucosa NECK : Supple, no tenderness CHEST : Occasional wheeze , no tenderness HEART : RRR, systolic murmur ABDOMEN: Some distention, nontender EXTREMITIES : No LE swelling/tenderness, no other conspicuous deformities noted NEUROLOGIC : Coherent, no facial asymmetry, no other gross focality except for mild hearing impairment Principal Diagnosis Sepsis, elevated troponins from initial sepsis, Pneumonia, Exacerbation of Asthma, Gastroesophageal reflux disease (GERD), clostridium difficile colitis, Hypertension, Chronic Kidney Disease, Acute Kidney Disease (resolved) Discharge Exam Constitutional WD/WN, vitals as above Eyes PERRL, conjunctivae normal, anicteric sclerae ENMT external ear and nose normal, oropharynx normal Neck trachea midline, no thyromegaly Respiratory normal respiratory effort, lungs clear to auscultation Cardiovascular RRR, no murmur, no edema Gastrointestinal (Abdomen) normal bowel sounds, soft, nontender, no hepatosplenomegaly Musculoskeletal Head/Neck/Chest: normocephalic and head atraumatic Neurologic PERRL, EOMI, accommodation nl, no face palsy, no dysarthria CN's II-XI intact bilaterally Psychiatric A+Ox3, euthymic affect Discharge Data Allergies Allergy/AdvReac Type Severity Reaction Status Date / Time lisinopril AdvReac Unknown Cough Verified 08/18/18 20:31 Consultations 08/18/18 20:00 ED Decision to Admit Stat 08/19/18 00:05 Consult Case Management - Discharge Planning Routine 08/20/18 17:58 Consult Gastroenterology Routine Ordered Studies 08/21/18 07:00 FL video swallow Routine Hospital Course (1) Sepsis: Sepsis Secondary to CAP/possible aspiration from vomiting - hx vocal cord paralysis/oropharyngeal dysphagia as per records - Video Swallow: Disordered esophageal motility. No aspiration identified. -initially treated with Zosyn and Doxycycline and then switched to Unasyn and Doxycycline -blood culture: negative; sputum culture normal yamilet -Take amoxicillin/clavulanate BID (875 mg / 125) for 5 more days at home; Take Doxycycline 100 mg BID for 5 more days at home Elevated Troponin on this admission (EKG no signs of acute ischemia, Echo no segmental wall motion abnormalities, elevated troponins likely from initial sepsis) Exacerbation of Asthma -has home inhalers -was treated with nebulizer treatments and prednisone while inpatient -Take prednisone taper 40 mg daily x 2 days, then 30 mg daily x 2 days, 20 mg daily x 2 days, 10 mg daily x 2 days -Patient has prescription of nebulizer machine given to hospital case management rn to be faxed to a equipment supply store Prescription of nebulizer treatments (albuterol) also prescribed Gastroesophageal reflux disease (GERD), severe -symptoms improved after pantoprazole, sulcrafate and prn maalox -Patient was evaluated by gastroenterology service -For ease of medication dosing, patient can take ranitidine 150 mg daily instead of famotidine and if gastric reflux symptoms are worse, he can increase the ranitidine to 300 mg daily clostridium difficile colitis, -started on Vanco PO QID evening of 08/21/18 -Take Vancomycin 125 mg 4 times a day with last day as 08/31/18 for treatment of C.difficile; Patient can take Lactobacillus (Floranex) 3 times a day while on Vancomycin treatment of C.difficile Hypertension -continue Carvedilol home dose -has been more hypertensive because patient had been taken off home Losartan due to recent PRETTY, the PRETTY has resolved and patient can resume home dose Losartan hx CAD/CVA PVD status post surgery - continue ASA and Pravastatin history of Paroxysmal Atrial Fibrillation currently in normal sinus rhythm (has been off Coumadin due to fall risk/ patient requests as per records) Chronic anemia secondary to CKD, hemoglobin at baseline DVT prophylaxis. -- Lovenox while inpatient (2) Acute kidney injury superimposed on CKD: acute kidney injury has resolved after IV fluids during this admission -outpatient follow up for chronic kidney disease Discharge Diagnosis Sepsis, elevated troponins from initial sepsis, Pneumonia, Exacerbation of Asthma, Gastroesophageal reflux disease (GERD), clostridium difficile colitis, Hypertension, Chronic Kidney Disease, Acute Kidney Disease (resolved) Discharge Instructions Take amoxicillin/clavulanate BID (875 mg / 125) for 5 more days at home Take Doxycycline 100 mg BID for 5 more days at home Take prednisone taper 40 mg daily x 2 days, then 30 mg daily x 2 days, 20 mg daily x 2 days, 10 mg daily x 2 days Patient has prescription of nebulizer machine given to hospital case management rn to be faxed to a equipment supply store Prescription of nebulizer treatments (albuterol) also prescribed Take Vancomycin 125 mg 4 times a day with last day as 08/31/18 for treatment of C.difficile Patient can take Lactobacillus (Floranex) 3 times a day while on Vancomycin treatment of C.difficile For gastric reflux, patient can take ranitidine 150 mg daily instead of famotidine and if gastric reflux symptoms are worse, he can increase the ranitidine to 300 mg daily 08/28/2018 11:20 AM Provider Odilon Carbone MD Department Internal Medicine [facility] 08/31/2018 4:00 PM Provider Bill Connolly PA-C Department Cardiology [facility] Total Time Total Time Spent Total Time Spent (In Minutes): 40 minutes Total Time Includes: Examination of the Patient, Discharge Planning and Medication Reconciliation Discharge Plan Discharge Items Patient Disposition: Home - Self-Care Reason For Visit: SEPSIS Discharge Diagnosis: Sepsis, elevated troponins from initial sepsis, Pneumonia, Exacerbation of Asthma, Gastroesophageal reflux disease (GERD), clostridium difficile colitis, Hypertension, Chronic Kidney Disease, Acute Kidney Disease ( resolved) Condition: Good Discharge Goals: Improve disease control Activity: Resume your previous activity Non-emergency contact: Primary Care Provider Call non-emergency contact if: you have any medication questions Diet: Regular Addtl Provider Instructions: Take amoxicillin/clavulanate BID (875 mg / 125) for 5 more days at home Take Doxycycline 100 mg BID for 5 more days at home Take prednisone taper 40 mg daily x 2 days, then 30 mg daily x 2 days, 20 mg daily x 2 days, 10 mg daily x 2 days Patient has prescription of nebulizer machine given to hospital case management rn to be faxed to a equipment supply store Prescription of nebulizer treatments (albuterol) also prescribed Take Vancomycin 125 mg 4 times a day with last day as 08/31/18 for treatment of C.difficile Patient can take Lactobacillus (Floranex) 3 times a day while on Vancomycin treatment of C.difficile For gastric reflux, patient can take ranitidine 150 mg daily instead of famotidine and if gastric reflux symptoms are worse, he can increase the ranitidine to 300 mg daily 08/28/2018 11:20 AM Provider Odilon Carbone MD Department Internal Medicine [facility] 08/31/2018 4:00 PM Provider Bill Connolly PA-C Department Cardiology [facility] Prescriptions: New doxycycline hyclate 100 mg Capsule 100 mg PO BID 5 Days Qty: 10 RF: 0 amoxicillin-pot clavulanate 875-125 mg Tablet 1 tab PO BIDM 5 Days Qty: 10 RF: 0 prednisone 20 mg Tablet 40 mg PO DIRECTED 8 Days Qty: 10 RF: 0 vancomycin 125 mg capsule 125 mg PO QID 9 Days Qty: 36 RF: 0 Lactobacillus acidoph-L.bulgar [Floranex] 1 million cell Tablet 4 tab PO TIDM 9 Days Qty: 36 RF: 0 ranitidine HCl 150 mg Tablet 150 mg PO QAM 30 Days Qty: 30 RF: 0 Continue losartan 50 mg tablet 50 mg PO QAM RF: 0 ascorbic acid (vitamin C) [Vitamin C] 1,000 mg Tablet 1,000 mg PO QAM RF: 0 carvedilol 6.25 mg tablet 6.25 mg PO BID RF: 0 clonazepam 0.5 mg tablet 0.5 mg PO HS RF: 0 aspirin 81 mg Tablet,Delayed Release (Dr/Ec) 81 mg PO QPM RF: 0 acetaminophen 500 mg Tablet 500 mg PO DIRECTED PRN (Reason: Fever Or Pain) RF: 0 levothyroxine 75 mcg tablet 75 mcg PO QAM RF: 0 garlic 1,000 mg Capsule 1,000 mg PO QAM RF: 0 citalopram 20 mg tablet 20 mg PO QAM RF: 0 pravastatin 10 mg tablet 10 mg PO Q2D RF: 0 nitroglycerin [Nitrostat] 0.4 mg Tablet, Sublingual 0.4 mg Sublingual DIRECTED PRN (Reason: Chest Pain) RF: 0 albuterol sulfate [Proventil HFA] 90 mcg/actuation Hfa Aerosol Inhaler 2 puff INHALATION QID PRN (Reason: Shortness Of Breath Or Wheezing) RF: 0 verapamil 120 mg capsule,ext rel. pellets 24 hr 120 mg PO QAM RF: 0 cholecalciferol (vitamin D3) [Vitamin D3] 1,000 unit Capsule 3,000 units PO QAM RF: 0 [id number]-lycopen-lutein [Centrum Silver] 0.4-300-250 mg-mcg-mcg Tablet 1 tab PO QAM RF: 0 coenzyme Q10 100 mg Tablet 100 mg PO QAM RF: 0 famotidine 10 mg Tablet 10 mg PO BID PRN (Reason: Heartburn/Gas) RF: 0 flaxseed oil 1,000 mg Capsule 1,000 mg PO QAM RF: 0 fluticasone-salmeterol [Advair Diskus] 100-50 mcg/dose Blister With Device 1 puff INHALATION Q12H PRN (Reason: Shortness Of Breath Or Wheezing) RF: 0 omega 6-dbv-ngc-fish oil [Fish Oil] 1,000 mg (120 mg-180 mg) Capsule 1,000 mg PO QAM RF: 0 cetirizine [Zyrtec] 10 mg Capsule 10 mg PO DAILY PRN (Reason: Allergy Symptoms) RF: 0 Discontinued calcium carbonate-vitamin D3 [Calcium 600 + D(3)] 600 mg(1,500mg) -200 unit Tablet 1 tab PO QAM RF: 0 [id number]-tnrotao-xgh palm-min 17 [Prostate Therapy] Capsule 2 cap PO QAM RF: 0 Visit Report Forms: [facility] Portal Stand-Alone Forms: Discharge CDIFF, [facility] Discharge Orders: Discharge Order (Routine); Ordered 08/23/18 Ordered By: German Vargas Admission Data Admit Date/Time: 08/18/18 21:23 Attending Provider: German Vargas Admit Provider: Evin Esteban Primary Care Provider: Odilon Carbone Other Providers: Evin Esteban ; Jaguar Ashton ; Raul Green ; Franci Corrales ; Bharathi Rich ; Chance Vogt ; Beth Burden ; Rosaura Arnold ; Sanjeev Shelby ; Kendell Hunter ; Simona Gilliland ; Desire Camarillo ; Vivian Elizondo ; Kathe Batista ; Lewis Hitchcock Service: Telemetry
[2018-08-23] MEDS ORDERED: AMOXICILLIN/CLAVULANATE 875 MG TAB PO SCH (17:00)
[2018-08-24] MEDS ORDERED: predniSONE 20 MG TAB PO SCH (09:00)
== END 2018-08-23 16:20 | disposition home or self-care (01) | DRG 871 ==
LOC: ED 18:54 → 2N 21:23 → SUATTDRO 21:23 → 2N 22:02

== ENCOUNTER 2019-04-11 13:13 | Inpatient (IN) ==
[2019-04-11 14:04] LABS: Basophils # (auto) 0.02 K/uL (0-0.2); Basophils % (auto) 0.3 %; Eosinophils # (auto) 0.56 K/uL (0-0.5); Eosinophils % (auto) 8.2 %; Hematocrit (blood only) 29.4 % (42-52); Hemoglobin 10.2 g/dL (14.0-18.0); Immature Granulocytes # (auto) 0.04 K/uL (0.00-0.02); Immature Granulocytes % (auto) 0.6 %; Lymphocytes # (auto) 0.88 K/uL (1.2-3.4); Mean Corpuscular Hemoglobin 31.7 pg (25-34); Mean Corpuscular Hgb Conc 34.7 g/dL (32-36); Mean Corpuscular Volume 91.3 fL (80-100); Mean Platelet Volume 10.4 fL (7.4-10.4); Monocytes # (auto) 0.68 K/uL (0.11-0.59); Neutrophils # (auto) 4.61 K/uL (1.4-6.5); Neutrophils % (auto) 67.9 %; Platelet Count 208 K/uL (130-400); RDW Standard Deviation 46.5 fL (36.4-46.3); Red Blood Count 3.22 M/uL (4.7-6.1); White Blood Count 6.79 K/uL (4.8-10.8)
--- NOTE | 2019-04-11 14:10 | XRay Report ---
XR chest 1V portable CLINICAL HISTORY: 88 years-old Male presenting with SOB, CP. TECHNIQUE: Portable upright AP view of the chest was obtained. COMPARISON: 08/22/2018. FINDINGS: Atherosclerosis of the aortic arch. Cardiac silhouette mildly enlarged. Mitral annular calcification is suspected. No focal opacity. No large effusion or pneumothorax. Advanced degenerative changes of t he left glenohumeral joint. Evidence of chronic rotator cuff tears bilaterally. Upper abdomen normal. IMPRESSION: 1. Mild cardiomegaly. No other convincing evidence of acute cardiopulmonary disease. Electronically signed by: Lennox Jones M.D. 04/11/2019 2:09 PM
[2019-04-11 14:15] LABS: Partial Thromboplastin Time 26.6 Seconds (21.0-31.0); Prothrombin Time 10.4 Seconds (9.0-12.0)
[2019-04-11 14:20] LABS: Alanine Aminotransferase 36 U/L (12-78); Albumin Level 3.3 gm/dl (3.4-5.0); Aspartate Aminotransferase 37 U/L (15-37); BUN Creatinine Ratio 25.4 (10-20); Blood Urea Nitrogen 38 mg/dl (7-18); Calcium 8.6 mg/dl (8.5-10.1); Carbon Dioxide 26 mmol/L (21-32); Chloride 103 mmol/L (98-107); Est GFR (Non-African American) 42.2; Glucose 108 mg/dl (70-99); Magnesium 2.1 mg/dl (1.8-2.4); Potassium 4.3 mmol/L (3.5-5.1); Sodium 135 mmol/L (136-145)
[2019-04-11 14:38] LABS: Alkaline Phosphatase 88 U/L (45-117); Globulin 3.4 gm/dl (2.5-4.0); Total Protein 6.7 gm/dl (6.4-8.2)
--- NOTE | 2019-04-11 15:01 | CT Scan Report ---
HEAD CT NONCONTRAST CT DOSE: 537.48 mGy.cm HISTORY: Seizure activity. TECHNIQUE: Multiaxial CT images of the head were performed without the use of intravenous contrast. A utomated exposure control was utilized for this study. A dose lowering technique was utilized adheri ng to the principles of ALARA. Comparison: None. Findings: Partial opacification of the paranasal sinuses with multiple small fluid levels. The mastoi d air cells are clear. The calvarium and skull base are intact. There is no mass, hematoma, midline s hift, acute infarct. White matter hypodensity is nonspecific but suggestive of microvascular ischemic change. The ventricles and sulci demonstrate mild age-related involutional changes. Old small linear left frontal lobe infarct. Small hypodensities within the left caudate head likely represent old lac unar infarcts. There is no mass, hematoma, midline shift, acute infarct. A few punctate calcification s at the high convexity. Impression: 1. No acute intracranial abnormality. 2. Mild atrophy and microvascular ischemic changes are noted. 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 Electronically signed by: Kan Yoder M.D. 04/11/2019 3:00 PM
--- NOTE | 2019-04-11 16:21 | History & Physical Report ---
Date of Service April 11, 2019 Assessment & Plan (1) Elevated troponin: This is an 88yo M with a PMH of CAD with [place] st[place] x [place] [facility], paroxysmal A Fib, CKD III, hypothyroidism, HTN, mood disorder and other medical problems listed below who presents with palpitations and chest pain this morning and was found to have elevated troponin and recent episode of possible pre-syncope. Angina: H/O CAD S/P Stents -Woke up with 5-minute episode of chest discomfort this morning, relieved with nitroglycerin -Troponin initially 2.5 today in setting of recent cardiac cath [place] [facility], tachypalpitations this morning -No ischemic changes on EKG. HR in 60s since arrival. CXR with mild ca rdiomegaly. No other convincing evidence of acute cardiopulmonary disease -Continue trending troponin. If troponin trending upward, recommend short course of IV heparin. -Dual antiplatelet therapy of aspirin and Brilinta. Repeat resting 2D echo -Monitor for arrhythmias on telemetry -Cardiology consulted Bilateral groin hematoma Complication of recent cardiac catheterization Anemia secondary to above Monitor CBC Heparin SQ may need to be discontinued if hemoglobin drops (2) Paroxysmal atrial fibrillation: Presumed recurrent A fib with RVR this morning, patient symptomatic with HR of 120s prior to arrival -Dr. Parks saw patient in ED, recommends adding amiodarone 200mg BID in setting of presumed recurrent A Fib with RVR this morning (3) Pre-syncope: Episode last evening that included "stiffening" of arms while working on computer. No witnessed LOC or fall. No post-ictal state. No incontinence or tongue biting -Monitor for arrhythmias on telemetry, repeat 2D echo -Will also obtain EEG but does not sound like seizure based on 's description of event (4) CAD (coronary artery disease): Recent cardiac cath [place] [facility] with 4 stents placed on April 02, 2019 -EKG today without any acute ischemic changes -Continue dual antiplatelet therapy with aspirin and Brilinta (5) HTN (hypertension): Normotensive -Continue losartan (6) CKD (chronic kidney disease), stage III: Cr 1.48 today, which is at baseline -Continue trending with daily BMP (7) Hypothyroidism: TSH wnl -Continue levothyroxine (8) Mood disorder: Stable. Continue SSRI DVT Ppx: SQ heparin Q12 Code status: FULL PCP: [facility] Dispo: Plan to return home once medically stable. Patient seen in collaboration with Dr. Maxwell. Please see addendum. History of Present Illness Chief Complaint: near syncope Primary Care Provider: Odilon Carbone MD This is an 88yo M with a PMH of CAD with recent stents x 4 [place] [facility] [place], paroxysmal A Fib, CKD III, hypothyroidism, HTN, mood disorder and other medical problems listed below who presents with palpitations and chest pain this morning. Woke up this morning around 0600 with chest discomfort and noticed his heart was racing and felt irregular. Chest discomfort lasted for 5 minutes and was relieved with one dose of ntg. Took pulse and it was in 120s. Came into ED for further evaluation. Of note, during recent admission in [place], patient did have A Fib and verapamil was resumed. Since [place] [facility], patient felt normal until yesterday when he was fatigued and had episode of "stiffening" of arms while working on computer. Had been napping on and off but once patient fully woke up, denies any confusion or post-ictal state. Did not have syncopal episode, no tongue biting or bowel/bladder incontinence. Did take Lasix on Tuesday and Tuesday and was afraid he was fatigued from "electrolytes being too low". Has been taking all medications as prescribed, including aspirin and Brilinta. Denies fever, chills, headache, lightheadedness, visual changes, chest pain, palpitations, shortness of breath, abdominal pain, nausea, vomiting, dysuria, constipation or diarrhea. In ED, patient is hemodynamically stable with initial troponin elevated at 2.5. EKG without ischemic changes. Has remained without chest pain since arrival. Allergies Allergy/AdvReac Type Severity Reaction Status Date / Time lisinopril AdvReac Unknown Cough Verified 04/11/19 14:53 Home Medications Home Medications Medication Instructions Recorded Confirmed Type acetaminophen 500 mg PO Q6H PRN 08/18/18 04/11/19 History albuterol sulfate [Proventil HFA] 2 puff INHALATION QID PRN 08/18/18 04/11/19 History carvedilol 6.25 mg PO BID 08/18/18 04/11/19 History cholecalciferol (vitamin D3) 1,000 units PO QAM 08/18/18 04/11/19 History [Vitamin D3] citalopram 20 mg PO QAM 08/18/18 04/11/19 History clonazepam 0.5 mg PO HS 08/18/18 04/11/19 History coenzyme Q10 200 mg PO QAM 08/18/18 04/11/19 History flaxseed oil 1,000 mg PO QAM 08/18/18 04/11/19 History fluticasone propion-salmeterol 1 puff INHALATION Q12H PRN 08/18/18 04/11/19 History [Advair Diskus] garlic 1,000 mg PO QAM 08/18/18 04/11/19 History losartan 50 mg PO QAM 08/18/18 04/11/19 History nitroglycerin [Nitrostat] 0.4 mg SUBLINGUAL DIRECTED PRN 08/18/18 04/11/19 History omega 2-nfe-itm-fish oil [Fish Oil] 1,000 mg PO QAM 08/18/18 04/11/19 History verapamil 120 mg PO QAM 08/18/18 04/11/19 History Alive Mens 50+ 1 tab PO QAM 04/11/19 04/11/19 History ascorbic acid (vitamin C) [Vitamin 500 mg PO QAM 04/11/19 04/11/19 History C] aspirin 81 mg PO QAM 04/11/19 04/11/19 History atorvastatin 40 mg PO 04/11/19 04/11/19 History cetirizine 10 mg PO DAILY PRN 04/11/19 04/11/19 History levalbuterol HCl 1.25 mg INHALATION TID PRN 04/11/19 04/11/19 History levothyroxine 88 mcg PO QAM 04/11/19 04/11/19 History pantoprazole 40 mg PO QAM 04/11/19 04/11/19 History tamsulosin 0.4 mg PO QAM 04/11/19 04/11/19 History ticagrelor [Brilinta] 90 mg PO BID 04/11/19 04/11/19 History vitamin B complex 1 cap PO QAM 04/11/19 04/11/19 History Past Med/Surg History Medical History Mood disorder (Chronic) CAD (coronary artery disease) (Chronic) CKD (chronic kidney disease), stage III (Chronic) Paroxysmal atrial fibrillation (Chronic) Hypothyroidism (Chronic) Asthma (Chronic) HTN (hypertension) (Chronic) Surgical History Status post coronary artery stent placement (Chronic) stents [place] [facility] History of carpal tunnel surgery (Chronic) Family History Other Diabetes Heart disease Social History Preferred Language: Salvadorean Communication Ability: Effective Chicken Cleaner Required: No Beliefs That Will Affect Care: None marital status: Current Living Situation: Spouse current occupational status: retired Other Information That Helps Us Care for You: No Feels Safe at Home: Yes Safety Concerns: Feels Safe At This Time Smoking Status: Former smoker Tobacco Type: smokeless tobacco ; Do You Dip or Chew Tobacco: No ; Second Hand Exposure: No ; Tobacco Cessation Education Requested by Patient: No Hx Alcohol Use: Yes Alcohol type: beer Hx Substance Use: No Review of Systems Review of Systems: At least ten systems reviewed and negative except as noted in the HPI. Physical Exam Physical Exam: General Appearance: WD/WN, no apparent distress, resting comfortably Head: normocephalic, atraumatic Eyes: normal inspection, PERRL, EOMI ENT: hearing grossly normal, pharynx normal (moist mucous membranes) Neck: supple, no JVD, no adenopathy Respiratory/Chest: lungs clear to auscultation. No wheezes, rales or rhonchi. No respiratory distress or accessory muscle use Cardiovascular: regular rate, rhythm, 2/6 systolic murmur, normal peripheral pulses, 1-2+ pitting BLE edema Abdomen/GI: normal bowel sounds, soft, non-tender to palpation Extremities/Musculoskelatal: normal inspection, no calf tenderness, normal capillary refill, no pedal edema, + hematoma of bilateral groin area Neurologic/Psych: alert, normal mood/affect, oriented x 3 Skin: normal color, warm/dry Results & Data Vital Signs (Past 12 Hours) Vital Signs Temp Pulse Resp BP Pulse Ox 04/11/19 15:30 54 L 14 126/64 99 04/11/19 15:11 65 16 117/67 100 04/11/19 15:09 61 16 110/65 100 04/11/19 13:53 99 04/11/19 13:21 36.5 C 62 16 99/61 L 99 Laboratory Results Short CBC 04/11/19 Range/Units 13:51 WBC 6.79 (4.8-10.8) K/uL Hgb 10.2 L (14.0-18.0) g/dL Hct 29.4 L (42-52) % Plt Count 208 (130-400) K/uL BMP 04/11/19 13:51 Sodium 135 L Potassium 4.3 Chloride 103 Carbon Dioxide 26 BUN 38 H Creatinine 1.48 H Glucose 108 H Calcium 8.6 Cardiac Enzymes 04/11/19 Range/Units 13:51 Troponin I 2.560 H* (0-0.045) ng/ml Liver Function 04/11/19 Range/Units 13:51 Total Bilirubin 1.0 (0.2-1) mg/dl AST 37 (15-37) U/L ALT 36 (12-78) U/L Alkaline Phosphatase 88 (45-117) U/L Albumin 3.3 L (3.4-5.0) gm/dl Diagnostic Findings Head CT: Impression: 1. No acute intracranial abnormality. 2. Mild atrophy and microvascular ischemic changes are noted. 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 CXR: IMPRESSION: 1. Mild cardiomegaly. No other convincing evidence of acute cardiopulmonary disease. Supervising Physician Co-Signing Physician Notes Patient is an 88-year-old male with history of coronary disease who recently had cardiac catheterization and stenting of multiple vessels and other medical problems presents with history of a brief episode of retrosternal chest discomfort which improved with nitroglycerin and lasted for about 5 minutes. Also reports history of palpitations. Patient had an episode of possible presyncope episode yesterday witnessed by family. Please review HPI for complete details of presentation. Patient was noted to have elevated troponin. Currently he is chest pain-free. On exam patient is moderately built and nourished, in no apparent distress, normocephalic atraumatic, lungs are clear to auscultation, S1-S2,+ systolic murmur, abdomen soft nontender, grossly no focal neurological deficits, bilateral groin hematoma, ecchymosis, 1=2+ B/L LE edema. Patient is admitted for management of paroxysmal atrial fibrillation, angina, elevated troponins and possible presyncope. Verapamil held. Started on amiodarone as per cardiology recommendations. Will trend cardiac enzymes. Consider starting on IV heparin infusion if troponin trends upwards. Appreciate cardiology input. Continue Coreg. Will obtain EEG to rule out seizure. Monitor on telemetry for arrhythmias. Monitor electrolytes. Negative orthostatics. Consider neurology evaluation if needed. Normal TSH. Monitor CBC closely. I personally reviewed the record. Patient is interviewed and examined at bedside. Patient's care is coordinated with Kesha Carlton PA-C. Please refer to the documentation above for details of patient's presentation and for discussion of other issues.
--- NOTE | 2019-04-11 16:36 | Cardiology Consultation ---
Date of Consultation April 11, 2019 Assessment & Plan (1) Paroxysmal atrial fibrillation: (2) Angina pectoris: (3) Elevated troponin: (4) Convulsions: (5) Left main coronary artery disease: Discussion/Recommendations: Complex 88-year-old patient with recurrent angina this a.m. associated with presumed recurrent atrial fibrillation and rapid ventricular response. Recommend adding oral amiodarone 200 mg twice daily. Hold verapamil currently, and continue carvedilol. Trend cardiac enzymes x3 sets. If troponin trending upward, recommend short course of IV heparin. Continue dual antiplatelet therapy uninterrupted. Repeat resting 2D transthoracic echocardiogram. Patient currently without angina at rest. ECG without ischemic changes. In regard to patient's episode of convulsions, etiology unclear at this time. Symptomatic bradycardia considered given prescription of beta-brody plus calcium channel brody therapy. Not likely related to atrial fibrillation. Continue telemetry monitoring. Thank you for allowing me to participate in the care of your patient. I will continue to follow closely during hospitalization. History of Present Illness Reason for Consultation: Chest discomfort, palpitations, possible syncope versus seizure, recent coronary intervention, elevated troponin Requesting Physician: Dr. Maxwell Attending Physician: Dr. Maxwell History of Present Illness 88-year-old patient referred from the cardiology clinic due to episode of palpitations and chest discomfort. Patient underwent complex multivessel coronary intervention [address] [facility]. Procedure complicated by bilateral groin hematoma and anemia. He received 4 units of packed red blood cells during hospitalization. Patient returned home last Tuesday. During hospitalization he suffered a recurrent episode of atrial fibrillation with associated angina. Verapamil restarted. He was doing fairly well until yesterday when his witnessed an episode of "thrashing". Patient had been sleeping on a chair. Without awakening he began thrashing his arms about as well as stiffening of his upper extremities. There was no defecation, tongue biting, or incontinence. Patient unaware of any activity. No postictal state. This morning the patient experienced tachypalpitations consistent with prior episodes of atrial fibrillation. Notes a mild associated chest discomfort which lasted nearly 60 minutes. After discussing symptoms from yesterday and this morning with the cardiology clinic, he was referred to the emergency room. Initial troponin elevated 2.5. ECG without ischemic changes. No recurrent dysrhythmias since admission. Patient denies any recent lightheadedness, dizziness, syncope, or near syncope. Utilizing Lasix on 2 occasions since hospital discharge last week. No orthopnea, PND, or claudication. Mild bilateral pedal edema at baseline. Cardiac catheterization report summary: Cardiac catheterization (04/02/19) LMCA: distal 90% stenosis LAD: 90% proximal and 90% early mid stenosis. LCx: ostial 70% stenosis RCA: ostially occluded and fills by left to right collaterals. WELSH: patent; no gradient upon pull back of left subclavian LVEDP 22 mm Hg Coronary artery stenting (04/04/19): 90% dLMCA into 90% ostial LAD and 70% ostial LCx: crush bifurcation drug- eluting stenting, optimized with IVUS 70% mid LAD stenosis: drug-eluting stenting LVEDP 10 mmHg Allergies Allergy/AdvReac Type Severity Reaction Status Date / Time lisinopril AdvReac Unknown Cough Verified 04/11/19 14:53 Home Medications Home Medications Medication Instructions Recorded Confirmed Type acetaminophen 500 mg PO Q6H PRN 08/18/18 04/11/19 History albuterol sulfate [Proventil HFA] 2 puff INHALATION QID PRN 08/18/18 04/11/19 History carvedilol 6.25 mg PO BID 08/18/18 04/11/19 History cholecalciferol (vitamin D3) 1,000 units PO QAM 08/18/18 04/11/19 History [Vitamin D3] citalopram 20 mg PO QAM 08/18/18 04/11/19 History clonazepam 0.5 mg PO HS 08/18/18 04/11/19 History coenzyme Q10 200 mg PO QAM 08/18/18 04/11/19 History flaxseed oil 1,000 mg PO QAM 08/18/18 04/11/19 History fluticasone propion-salmeterol 1 puff INHALATION Q12H PRN 08/18/18 04/11/19 History [Advair Diskus] garlic 1,000 mg PO QAM 08/18/18 04/11/19 History losartan 50 mg PO QAM 08/18/18 04/11/19 History nitroglycerin [Nitrostat] 0.4 mg SUBLINGUAL DIRECTED PRN 08/18/18 04/11/19 History omega 2-sej-rcr-fish oil [Fish Oil] 1,000 mg PO QAM 08/18/18 04/11/19 History verapamil 120 mg PO QAM 08/18/18 04/11/19 History Alive Mens 50+ 1 tab PO QAM 04/11/19 04/11/19 History ascorbic acid (vitamin C) [Vitamin 500 mg PO QAM 04/11/19 04/11/19 History C] aspirin 81 mg PO QAM 04/11/19 04/11/19 History atorvastatin 40 mg PO HS 04/11/19 04/11/19 History cetirizine 10 mg PO DAILY PRN 04/11/19 04/11/19 History levalbuterol HCl 1.25 mg INHALATION TID PRN 04/11/19 04/11/19 History levothyroxine 88 mcg PO QAM 04/11/19 04/11/19 History pantoprazole 40 mg PO QAM 04/11/19 04/11/19 History tamsulosin 0.4 mg PO QAM 04/11/19 04/11/19 History ticagrelor [Brilinta] 90 mg PO BID 04/11/19 04/11/19 History vitamin B complex 1 cap PO QAM 04/11/19 04/11/19 History Patient History Medical History Mood disorder (Chronic) CAD (coronary artery disease) (Chronic) CKD (chronic kidney disease), stage III (Chronic) Paroxysmal atrial fibrillation (Chronic) Hypothyroidism (Chronic) Asthma (Chronic) HTN (hypertension) (Chronic) Complete heart block Surgical History Status post coronary artery stent placement (Chronic) stents x 4 [place] [facility] [place] History of carpal tunnel surgery (Chronic) Family History Other Diabetes Heart disease Social History Preferred Language: Mongolian Communication Ability: Effective Online Facilitator Required: No Beliefs That Will Affect Care: None marital status: Current Living Situation: Spouse current occupational status: retired Other Information That Helps Us Care for You: No Feels Safe at Home: Yes Safety Concerns: Feels Safe At This Time Smoking Status: Former smoker Tobacco Type: smokeless tobacco ; Do You Dip or Chew Tobacco: No ; Second Hand Exposure: No ; Tobacco Cessation Education Requested by Patient: No Hx Alcohol Use: Yes Alcohol type: beer Hx Substance Use: No Review of Systems Review of Systems: All systems reviewed & are unremarkable except as noted in HPI & below Physical Exam Physical Exam: General: NAD, AAO x3, well nourished. HEENT: Normocephalic. Atraumatic. Conjunctiva pink, no scleral icterus. Neck: No carotid bruits, the carotid upstrokes are brisk. No JVD. No HJR Heart: Regular normal S-1 and S-2 no S-3 or S-4 gallop. 2/6 ASHER heard best at the right second intercostal space. PMI is not displaced. No RV heave. Lungs: Clear bilateral without rales , rhonchi, or wheeze. Abdomen: Normal bowel sounds. Soft. Nontender. No masses or organomegaly. No abdominal bruits. Extremities: + Left groin hematoma. + Bilateral groin ecchymosis. No clubbing, or cyanosis. Trace to mild bilateral pedal and ankle edema. Pulses: radial=2/4, Dorsalis pedis =2/4, posterior tibial=2/4. Neuro: Cranial nerves grossly intact. No focal motor deficit. Results & Data Vital Signs (Past 12 Hours) Vital Signs Temp Pulse Resp BP Pulse Ox 04/11/19 15:30 54 L 14 126/64 99 04/11/19 15:11 65 16 117/67 100 04/11/19 15:09 61 16 110/65 100 04/11/19 13:53 99 04/11/19 13:21 36.5 C 62 16 99/61 L 99 Laboratory Results Laboratory Results - last 24 hr 04/11/19 04/11/19 04/11/19 13:51 13:51 13:51 WBC 6.79 RBC 3.22 L Hgb 10.2 L Hct 29.4 L MCV 91.3 MCH 31.7 MCHC 34.7 RDW Std Deviation 46.5 H RDW Coeff of Sher 14.0 Plt Count 208 MPV 10.4 Immature Gran % (Auto) 0.6 Neut % (Auto) 67.9 Lymph % (Auto) 13.0 Bonner % (Auto) 10.0 Eos % (Auto) 8.2 Baso % (Auto) 0.3 Immature Gran # (Auto) 0.04 H Neut # (Auto) 4.61 Lymph # (Auto) 0.88 L Bonner # (Auto) 0.68 H Eos # (Auto) 0.56 H Baso # (Auto) 0.02 PT 10.4 INR 1.0 APTT 26.6 PTT Ratio 1.0 Sodium 135 L Potassium 4.3 Chloride 103 Carbon Dioxide 26 Anion Gap 6.0 BUN 38 H Creatinine 1.48 H Est Cr Clr Drug Dosing Not Reportable Est GFR ( Amer) 49.0 Est GFR (Non-Af Amer) 42.2 BUN/Creatinine Ratio 25.4 H Glucose 108 H Calcium 8.6 Magnesium 2.1 Total Bilirubin 1.0 AST 37 ALT 36 Alkaline Phosphatase 88 Troponin I 2.560 H* Total Protein 6.7 Albumin 3.3 L Globulin 3.4 Albumin/Globulin Ratio 1.0 TSH 1.960
--- NOTE | 2019-04-11 17:11 | Emergency Department Note ---
Entered by Asa Coronado acting as a scribe for History of Present Illness General Chief complaint: Arrhythmia/Palpitations Stated complaint: HAD 4 STENTS PUT IN Source: patient History of Present Illness Provider complaint: Chest pain Onset (ago): hour(s) 8 Location: chest Severity: similar to prior episodes Pain Consistency: + intermittent and + now resolved Maximum Pain Intensity: 0 Relieved By: + medication Exacerbated By: + none Associated symptoms: + chest pain and + other (Positive palpitations) The patient is an 88 year old male who presents to the Emergency Room with complaints of chest pain that started around 06:00 this morning but has resolved after the patient took Nitroglycerin. The patient notes that shortly after the chest pain he noticed palpitations so he took Verapamil which did help stabilize his heart. The patient added that 9 days ago he had 4 stents put in his heart due to being almost 100% occluded. He notes that before the surgery he would frequently get chest pain on exertion. For the past week the patient has taken Lasix for two days and reports feeling somewhat weak. With all of these cardiac symptoms the family is most concerned about episodes of spasms that the patient started having yesterday. Per the family, the patient started dozing off around 14:00 when he had a spasm knocking the lamp off the table and made noises with his mouth. The episode only lasted a couple of seconds and the patient is unsure whether he lost consciousness. The patient is currently on Brilinta and Aspirin. Home Medications Home Medications Medication Instructions Recorded Confirmed Type acetaminophen 500 mg PO Q6H PRN 08/18/18 04/11/19 History albuterol sulfate [Proventil HFA] 2 puff INHALATION QID PRN 08/18/18 04/11/19 History carvedilol 6.25 mg PO BID 08/18/18 04/11/19 History cholecalciferol (vitamin D3) 1,000 units PO QAM 08/18/18 04/11/19 History [Vitamin D3] citalopram 20 mg PO QAM 08/18/18 04/11/19 History clonazepam 0.5 mg PO HS 08/18/18 04/11/19 History coenzyme Q10 200 mg PO QAM 08/18/18 04/11/19 History flaxseed oil 1,000 mg PO QAM 08/18/18 04/11/19 History fluticasone propion-salmeterol 1 puff INHALATION Q12H PRN 08/18/18 04/11/19 History [Advair Diskus] garlic 1,000 mg PO QAM 08/18/18 04/11/19 History losartan 50 mg PO QAM 08/18/18 04/11/19 History nitroglycerin [Nitrostat] 0.4 mg SUBLINGUAL DIRECTED PRN 08/18/18 04/11/19 History omega 3-fzw-ess-fish oil [Fish Oil] 1,000 mg PO QAM 08/18/18 04/11/19 History Alive Mens 50+ 1 tab PO QAM 04/11/19 04/11/19 History Brilinta 90 mg PO BID 04/11/19 04/11/19 History ascorbic acid (vitamin C) [Vitamin 500 mg PO QAM 04/11/19 04/11/19 History C] aspirin 81 mg PO QAM 04/11/19 04/11/19 History atorvastatin 40 mg PO HS 04/11/19 04/11/19 History cetirizine 10 mg PO DAILY PRN 04/11/19 04/11/19 History levalbuterol HCl 1.25 mg INHALATION TID PRN 04/11/19 04/11/19 History levothyroxine 88 mcg PO QAM 04/11/19 04/11/19 History pantoprazole 40 mg PO QAM 04/11/19 04/11/19 History tamsulosin 0.4 mg PO QAM 04/11/19 04/11/19 History vitamin B complex 1 cap PO QAM 04/11/19 04/11/19 History amiodarone 200 mg PO BIDM 30 Days #60 tab 04/13/19 Rx Allergies Allergy/AdvReac Type Severity Reaction Status Date / Time lisinopril AdvReac Unknown Cough Verified 04/11/19 14:53 Past Med/Surg History Medical History Mood disorder (Chronic) CAD (coronary artery disease) (Chronic) CKD (chronic kidney disease), stage III (Chronic) Paroxysmal atrial fibrillation (Chronic) Hypothyroidism (Chronic) Asthma (Chronic) HTN (hypertension) (Chronic) Complete heart block Surgical History Status post coronary artery stent placement (Chronic) stents x 4 @ [facility] on 04/02/19 History of carpal tunnel surgery (Chronic) Family History Other Diabetes Heart disease Social History Preferred Language: Lao Communication Ability: Effective Lead Tinner Required: No Beliefs That Will Affect Care: None marital status: Current Living Situation: Spouse current occupational status: retired Feels Safe at Home: Yes Smoking Status: Former smoker Tobacco Type: smokeless tobacco ; Second Hand Exposure: No ; Hx Alcohol Use: Yes Alcohol type: beer Hx Substance Use: No Review of Systems See HPI for pertinent positives & negatives. and A total of 10 systems reviewed and were otherwise negative Physical Exam Vital Signs Vital Signs - 24 hr 04/11/19 13:21 04/11/19 13:53 04/11/19 15:08 Temperature 36.5 C Temperature Source Oral Sepsis Recent Fever Within 48 Hours No Sepsis Action Taken by Nursing No Action Required Pulse Rate - Lying 58 L Pulse Rate - Sitting 62 Pulse Rate - Standing 65 Pulse Rate 62 Pulse Rate from SpO2 Sensor Pulse Rhythm Regular Pulse Strength Normal Respiratory Rate 16 Respiratory Effort / Characteristics Non-Labored Respiratory Depth Normal Respiratory Pattern Regular Blood Pressure - Lying 110/65 Blood Pressure - Sitting 99/60 L Blood Pressure- Standing 117/67 Blood Pressure 99/61 L Blood Pressure Mean 73 Blood Pressure Position Sitting Pulse Oximetry 99 99 Oxygen Delivery Method Room Air Room Air 04/11/19 15:09 04/11/19 15:11 04/11/19 15:30 Temperature Temperature Source Sepsis Recent Fever Within 48 Hours Sepsis Action Taken by Nursing Pulse Rate - Lying Pulse Rate - Sitting Pulse Rate - Standing Pulse Rate 61 65 54 L Pulse Rate from SpO2 Sensor 61 54 L Pulse Rhythm Pulse Strength Respiratory Rate 16 16 14 Respiratory Effort / Characteristics Respiratory Depth Respiratory Pattern Blood Pressure - Lying Blood Pressure - Sitting Blood Pressure- Standing Blood Pressure 110/65 117/67 126/64 Blood Pressure Mean 80 83 84 Blood Pressure Position Pulse Oximetry 100 100 99 Oxygen Delivery Method Room Air 04/11/19 16:12 Temperature Temperature Source Sepsis Recent Fever Within 48 Hours Sepsis Action Taken by Nursing Pulse Rate - Lying Pulse Rate - Sitting Pulse Rate - Standing Pulse Rate 61 Pulse Rate from SpO2 Sensor 59 L Pulse Rhythm Pulse Strength Respiratory Rate 15 Respiratory Effort / Characteristics Respiratory Depth Respiratory Pattern Blood Pressure - Lying Blood Pressure - Sitting Blood Pressure- Standing Blood Pressure 139/69 Blood Pressure Mean 92 Blood Pressure Position Pulse Oximetry 100 Oxygen Delivery Method Room Air Vital signs reviewed. General: Elderly, generally well-appearing 88 year old male, in no significant distress. HEENT: No scleral icterus, PERRLA, neck supple. Atraumatic. Cardiovascular: Regular rate and rhythm, no extra sounds. Pulmonary: Clear to auscultation bilaterally, normal work of breathing. Abdomen: Soft, nontender, nondistended, positive bowel sounds. Musculoskeletal: Atraumatic, no peripheral edema. Neurologic: Patient awake alert and oriented x 3. Skin: Warm, dry, no rash Course 1352: Past medical records reviewed. The patient was evaluated in room A09B, and a complete history and physical examination were performed. 1530: I spoke to Dr. Charly Stephenson about the patient's case. He recommended evaluation by the hospitalist service for further management. 1536: I spoke to Dr. Elizabeth Stephenson about the patient's case. He is going to accept the patient for further evaluation. 1555: I updated the patient on the treatment plan. He fully understands and is agreeable to the plan. Consultations Consultation #1: I spoke to Dr. Charly Stephenson about the patient's case. Time: 15:30 Consultation #2: I spoke to Dr. Elizabeth Stephenson about the patient's case. He is going to accept the patient for further evaluation. Time: 15:36 Administered Medications Discontinued Medications Acetaminophen (Tylenol) 650 mg PO Q4H PRN PRN Reason: Pain or Fever Stop: 05/11/19 17:24 Last Admin: 04/12/19 16:35 Dose: 650 mg Documented by: [id number] Amiodarone HCl (Cordarone) 200 mg PO BIDM [facility] Stop: 05/11/19 16:59 Last Admin: 04/12/19 08:59 Dose: Not Given Documented by: [id number] Admin: 04/11/19 17:49 Dose: 200 mg Documented by: [id number] Ascorbic [facility] (Vitamin C) [facility] [place] Stop: 05/12/19 08:59 Last Admin: 04/13/19 09:07 Dose: 500 mg Documented by: [id number] Admin: 04/12/19 08:34 Dose: 500 mg Documented by: [id number] Aspirin (Ecotrin Ectab) 81 [facility] [place] Stop: 05/12/19 08:59 Last Admin: 04/13/19 09:08 Dose: 81 mg Documented by: [id number] Admin: 04/12/19 08:34 Dose: 81 mg Documented by: [id number] Atorvastatin Calcium (Lipitor) 40 mg PO HS [facility] Stop: 05/11/19 20:59 Last Admin: 04/12/19 21:00 Dose: 40 mg Documented by: [id number] Admin: 04/11/19 20:51 Dose: 40 mg Documented by: [id number] Bacitracin (Bacitracin) Confirm Administered Dose 50,000 units .ROUTE .STK-MED ONE Stop: 04/12/19 11:55 Last Admin: 04/12/19 12:46 Dose: 50,000 units Documented by: [id number] Bupivacaine HCl (Sensorcaine 0.25% Inj) Confirm Administered Dose 30 ml .ROUTE .STK-MED ONE Stop: 04/12/19 11:55 Last Admin: 04/12/19 12:46 Dose: 30 ml Documented by: [id number] Carvedilol (Coreg) 6.25 mg PO BID [facility] Stop: 05/11/19 20:59 Last Admin: 04/12/19 08:34 Dose: 6.25 mg Documented by: [id number] Admin: 04/11/19 20:51 Dose: 6.25 mg Documented by: [id number] Cefazolin Sodium (Ancef) Confirm Administered Dose 2,000 mg .ROUTE .STK-MED ONE Stop: 04/12/19 12:04 Last Admin: 04/12/19 12:47 Dose: 1,000 mg Documented by: [id number] Citalopram Hydrobromide (Celexa) 20 [facility] [place] Stop: 05/12/19 08:59 Last Admin: 04/13/19 09:08 Dose: 20 mg Documented by: [id number] Admin: 04/12/19 08:34 Dose: 20 mg Documented by: [id number] Clonazepam (Klonopin) 0.5 mg PO [facility] Stop: 05/11/19 20:59 Last Admin: 04/12/19 21:01 Dose: 0.5 mg Documented by: [id number] Admin: 04/11/19 20:54 Dose: 0.5 mg Documented by: [id number] Fentanyl Citrate (Fentanyl Citrate) Confirm Administered Dose 100 mcg .ROUTE .STK-MED ONE Stop: 04/12/19 12:04 Last Increment: 04/12/19 12:47 Dose: 50 mcg Documented by: [id number] Fish Oil ([place]-3 (Purified Fish Oil)) 1 gm PO QAM [facility] Stop: 05/12/19 08:59 Last Admin: 04/13/19 09:09 Dose: 1 gm Documented by: [id number] Admin: 04/12/19 08:35 Dose: 1 gm Documented by: [id number] Heparin Sodium (Porcine) (Heparin Sodium (Porcine)) 5,000 units SQ Q12 [facility] Stop: 05/11/19 20:59 Last Admin: 04/11/19 20:50 Dose: 5,000 units Documented by: [id number] Cosigned by: [id number] Heparin Sodium/Dextrose (Heparin Sodium/Dextrose) 25,000 units in 500 mls @ 0 mls/hr IV .Q0M [facility]; Protocol Stop: 05/12/19 02:29 Last Titration: 04/12/19 09:11 Dose: 0 units/hr, 0 mls/hr Documented by: [id number] Cosigned by: [id number] Titration: 04/12/19 07:07 Dose: 1,100 units/hr, 22 mls/hr Documented by: [id number] Cosigned by: [id number] Admin: 04/12/19 03:43 Dose: 1,100 units/hr, 22 mls/hr Documented by: [id number] Cosigned by: [id number] Cefazolin Sodium (Ancef 1000mg) 1,000 mg in 7.5 mls @ 2.5 mls/min IV Q8H [facility]; Protocol Stop: 04/13/19 20:14 Last Admin: 04/13/19 12:30 Dose: 2.5 mls/min Documented by: [id number] Admin: 04/13/19 03:45 Dose: 2.5 mls/min Documented by: [id number] Admin: 04/12/19 20:59 Dose: 2.5 mls/min Documented by: [id number] Levothyroxine Sodium (Synthroid) 88 mcg PO DAILYBB [facility] Stop: 05/12/19 06:29 Last Admin: 04/13/19 06:19 Dose: 88 mcg Documented by: [id number] Admin: 04/12/19 06:17 Dose: 88 mcg Documented by: [id number] Lidocaine HCl (Xylocaine 1% (Local)) Confirm Administered Dose 20 ml .ROUTE .STK-MED [facility] Stop: 04/12/19 11:55 Last Admin: 04/12/19 12:46 Dose: 20 ml Documented by: [id number] Losartan Potassium (Cozaar) 50 mg PO [facility] Stop: 05/12/19 08:59 Last Admin: 04/13/19 09:06 Dose: 50 mg Documented by: [id number] Admin: 04/12/19 08:34 Dose: 50 mg Documented by: [id number] Midazolam HCl (Versed) Confirm Administered Dose 5 mg .ROUTE .[facility]-MED [facility] Stop: 04/12/19 12:03 Last Admin: 04/12/19 12:47 Dose: 2 mg Documented by: [id number] Multivitamins (Multivitamin Tab) 1 tab PO [facility] Stop: 05/12/19 08:59 Last Admin: 04/13/19 09:06 Dose: 1 tab Documented by: [id number] Admin: 04/12/19 08:35 Dose: 1 tab Documented by: [id number] Oxycodone HCl (Roxicodone Immediate Rel) 5 mg PO Q4 PRN PRN Reason: Pain Stop: 04/26/19 13:09 Last Admin: 04/13/19 03:49 Dose: 5 mg Documented by: [id number] Admin: 04/12/19 17:49 Dose: 5 mg Documented by: [id number] Pantoprazole Sodium (Protonix) 40 mg PO [facility] Stop: 05/12/19 08:59 Last Admin: 04/13/19 09:06 Dose: 40 mg Documented by: [id number] Admin: 04/12/19 08:34 Dose: 40 mg Documented by: [id number] Tamsulosin HCl (Flomax) 0.4 mg PO [facility] Stop: 05/12/19 08:59 Last Admin: 04/13/19 09:08 Dose: 0.4 mg Documented by: [id number] Admin: 04/12/19 08:35 Dose: 0.4 mg Documented by: [id number] Ticagrelor (Brilinta) 90 mg PO BID [facility] Stop: 05/11/19 20:59 Last Admin: 04/13/19 09:07 Dose: 90 mg Documented by: [id number] Admin: 04/12/19 21:00 Dose: 90 mg Documented by: [id number] Admin: 04/12/19 08:35 Dose: 90 mg Documented by: [id number] Admin: 04/11/19 20:52 Dose: 90 mg Documented by: [id number] Vitamin B Complex (Vitamin B Complex) 1 [facility] [place] Stop: 05/12/19 08:59 Last Admin: 04/13/19 09:07 Dose: 1 tab Documented by: [id number] Admin: 04/12/19 08:34 Dose: 1 tab Documented by: [id number] Vitamin D (Vitamin D3) 1,000 units [facility] [place] Stop: 05/12/19 08:59 Last Admin: 04/13/19 09:07 Dose: 1,000 units Documented by: [id number] Admin: 04/12/19 08:34 Dose: 1,000 units Documented by: [id number] Medical Decision Making Differential Diagnosis Differential diagnoses includes but is not limited to acute coronary syndrome, myocardial infarction, pericarditis, pulmonary embolus, aortic dissection, cardiac arrhythmia, pneumonia, pneumothorax, musculoskeletal, shingles, esophageal. Medical Records Attestation: I reviewed the patient's medical records. Home Medications Current Medication List: was personally reviewed by me Laboratory Data Attestation: I reviewed the patient's lab results. Result diagrams: 04/13/19 05:26 04/13/19 05:26 Lab Results 04/11/19 04/11/19 04/11/19 Range/Units 13:51 13:51 13:51 WBC 6.79 (4.8-10.8) K/uL RBC 3.22 L (4.7-6.1) M/uL Hgb 10.2 L (14.0-18.0) g/dL Hct 29.4 L (42-52) % MCV 91.3 (80-100) fL MCH 31.7 (25-34) pg MCHC 34.7 (32-36) g/dL RDW Std Deviation 46.5 H (36.4-46.3) fL RDW Coeff of Sher 14.0 (11.5-14.5) % Plt Count 208 (130-400) K/uL MPV 10.4 (7.4-10.4) fL Immature Gran % (Auto) 0.6 % Neut % (Auto) 67.9 % Lymph % (Auto) 13.0 % [place] % (Auto) 10.0 % Eos % (Auto) 8.2 % Baso % (Auto) 0.3 % Immature Gran # (Auto) 0.04 H (0.00-0.02) K/uL Neut # (Auto) 4.61 (1.4-6.5) K/uL Lymph # (Auto) 0.88 L (1.2-3.4) K/uL [place] # (Auto) 0.68 H (0.11-0.59) K/uL Eos # (Auto) 0.56 H (0-0.5) K/uL Baso # (Auto) 0.02 (0-0.2) K/uL PT 10.4 (9.0-12.0) Seconds INR 1.0 (0.9-1.1) APTT 26.6 (21.0-31.0) Seconds PTT Ratio 1.0 Sodium 135 L (136-145) mmol/L Potassium 4.3 (3.5-5.1) mmol/L Chloride 103 (98-107) mmol/L Carbon Dioxide 26 (21-32) mmol/L Anion Gap 6.0 (3-11) BUN 38 H (7-18) mg/dl Creatinine 1.48 H (0.6-1.4) mg/dl Est Cr Clr Drug Dosing Not Reportable Est GFR ( Amer) 49.0 Est GFR (Non-Af Amer) 42.2 BUN/Creatinine Ratio 25.4 H (10-20) Glucose 108 H (70-99) mg/dl Calcium 8.6 (8.5-10.1) mg/dl Magnesium 2.1 (1.8-2.4) mg/dl Total Bilirubin 1.0 (0.2-1) mg/dl AST 37 (15-37) U/L ALT 36 (12-78) U/L Alkaline Phosphatase 88 (45-117) U/L Troponin I 2.560 H* (0-0.045) ng/ml Total Protein 6.7 (6.4-8.2) gm/dl Albumin 3.3 L (3.4-5.0) gm/dl Globulin 3.4 (2.5-4.0) gm/dl Albumin/Globulin Ratio 1.0 (0.9-2) TSH 1.960 (0.300-4.500) uIu/ml Imaging Data Radiologist's Impression: Radiology results as stated below per my review and the radiologist's interpretation: XR chest 1V portable CLINICAL HISTORY: 88 years-old Male presenting with SOB, CP. TECHNIQUE: Portable upright AP view of the chest was obtained. COMPARISON: 08/22/2018. FINDINGS: Atherosclerosis of the aortic arch. Cardiac silhouette mildly enlarged. Mitral annular calcification is suspected. No focal opacity. No large effusion or pneumothorax. Advanced degenerative changes of the left glenohumeral joint. Evidence of chronic rotator cuff tears bilaterally. Upper abdomen normal. IMPRESSION: 1. Mild cardiomegaly. No other convincing evidence of acute cardiopulmonary disease. Electronically signed by: Lennox Jones M.D. 04/11/2019 2:[address]AST CT DOSE: 537.48 mGy.cm HISTORY: Seizure activity. TECHNIQUE: Multiaxial CT images of the head were performed without the use of intravenous contrast. Automated exposure control was utilized for this study. A dose lowering technique was utilized adhering to the principles of ALARA. Comparison: None. Findings: Partial opacification of the paranasal sinuses with multiple small fluid levels. The mastoid air cells are clear. The calvarium and skull base are intact. There is no mass, hematoma, midline shift, acute infarct. White matter hypodensity is nonspecific but suggestive of microvascular ischemic change. The ventricles and sulci demonstrate mild age-related involutional changes. Old small linear left frontal lobe infarct. Small hypodensities within the left caudate head likely represent old lacunar infarcts. There is no mass, hematoma, midline shift, acute infarct. A few punctate calcifications at the high convexity. Impression: 1. No acute intracranial abnormality. 2. Mild atrophy and microvascular ischemic changes are noted. 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 Electronically signed by: Kan Yoder M.D. 04/11/2019 3:00 PM ECG Data Attestation: I personally reviewed and interpreted this ECG as follows: Indication: chest pain Rate (beats per minute): 65 Rhythm: sinus rhythm Findings: + 1st degree AV block and + nonspecific-ST abn (Lateral); no PAC, no PVC, no acute ischemic change and no ectopy Blood Pressure Blood Pressure Findings: Elevated blood pressure Blood Pressure Disposition: further management by hospitalist MDM Narrative This patient was evaluated and appeared to be in no significant distress. IV access was obtained and laboratory work was drawn. 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 EKG confirms a first-degree AV block but otherwise a sinus rhythm. Laboratory work reveals a mild anemia with a hemoglobin of 10.2 and a troponin of 2.56. There is no previous troponin in our system or in the [employer] system from after surgery to compare to this number however this does seem slightly higher than would be expected. Given the complex nature of the patient's recent cardiac catheterization, the episodes are very concerning for possible dysrhythmia versus seizure-like episodes. I would be greatly concerned for an episode of V. tach causing the stiffening over several seconds. The patient has been resting comfortably here in the emergency department. I did speak with Dr. Parks of the cardiology service who has recommended admission for further management. Cardiology will consult on the case. [facility] hospitalist service was contacted for evaluation. Patient is aware of the plan and agrees. Impression & Plan Elevated troponin, Episode of syncope, Seizure-like activity, Status post cardiac catheterization Discharge Plan Visit Data *Final* Discharge Date/Time: 04/11/19 17:01 Chief Complaint: Arrhythmia/Palpitations Stated Complaint: HAD 4 STENTS PUT IN ED Provider: Dot Mcallister Discharge Problem: Elevated troponin, Episode of syncope, Seizure-like activity, Status post cardiac catheterization Patient Disposition: Being Evaluated by Hospitalist Discharge Instructions Interventions: ED Discharge Assessment Last Done: 04/11/19 17:01 The scribe's documentation has been prepared under my direction and personally reviewed by me in its entirety. I confirm that the note above accurately reflects all work, treatment, procedures, and medical decision making performed by me.
[2019-04-11] MEDS ORDERED: POLYETHYLENE (MIRALAX) 17 GM PACK PO PRN (17:25)
[2019-04-11] MEDS ORDERED: ONDANSETRON INJ 2 MG/ML 2 ML VIAL IV PRN (17:25)
[2019-04-11] MEDS ORDERED: ACETAMINOPHEN 325 MG TAB PO PRN (17:25)
[2019-04-11] MEDS: AMIODARONE 200 MG TAB PO SCH (17:49)
[2019-04-11] MEDS ORDERED: CETIRIZINE HCL 10 MG TABLET PO PRN (19:20)
[2019-04-11] MEDS ORDERED: ALBUTEROL HFA 8 GM INHALER INH PRN (19:20)
[2019-04-11] MEDS ORDERED: FLUTICASONE/SALMETEROL 100/50 (ADVAIR) 14 PUFF/1 INHALER INH PRN (19:20)
[2019-04-11] MEDS ORDERED: NITROGLYCERIN SL 0.4 MG/TAB TAB SL PRN (19:20)
[2019-04-11] MEDS ORDERED: LEVALBUTEROL 1.25MG/0.5ML NEB INH PRN (19:20)
[2019-04-11 20:32] LABS: Hematocrit (blood only) 28.7 % (42-52); Hemoglobin 9.6 g/dL (14.0-18.0)
[2019-04-11] MEDS: ATORVASTATIN 40 MG TAB PO SCH (20:51)
[2019-04-11] MEDS: CARVEDILOL 6.25 MG TAB PO SCH (20:51)
[2019-04-11] MEDS: TICAGRELOR 90 MG TAB PO SCH (20:52)
[2019-04-11] MEDS: clonazePAM 0.5 MG TAB PO SCH (20:54)
[2019-04-11] MEDS ORDERED: HEPARIN SOD 5,000 UNIT/0.5 ML VIAL SQ SCH (21:00)
[2019-04-12 01:51] LABS: Hematocrit (blood only) 26.5 % (42-52); Hemoglobin 9.1 g/dL (14.0-18.0); Mean Corpuscular Hemoglobin 31.5 pg (25-34); Mean Corpuscular Hgb Conc 34.3 g/dL (32-36); Mean Corpuscular Volume 91.7 fL (80-100); Mean Platelet Volume 10.4 fL (7.4-10.4); Platelet Count 190 K/uL (130-400); RDW Coefficient of Variation 14.1 % (11.5-14.5); RDW Standard Deviation 46.5 fL (36.4-46.3); Red Blood Count 2.89 M/uL (4.7-6.1); White Blood Count 6.36 K/uL (4.8-10.8)
[2019-04-12 02:09] LABS: BUN Creatinine Ratio 23.2 (10-20); Calcium 7.9 mg/dl (8.5-10.1); Creatinine Clr Calc Pharmacy 29.7 ml/min; Est GFR (African American) 47.4; Est GFR (Non-African American) 40.9; Magnesium 2.3 mg/dl (1.8-2.4); Potassium 4.2 mmol/L (3.5-5.1)
[2019-04-12 02:17] LABS: Troponin I 2.28 ng/ml (0-0.045)
[2019-04-12] MEDS ORDERED: Heparin IV Standard *NO* Bolus STA (02:30)
[2019-04-12] MEDS ORDERED: HEPARIN SODIUM/DEXTROSE 25,000 UNITS/500 ML BAG IV SCH (02:30)
[2019-04-12 03:14] LABS: Partial Thromboplastin Ratio 1.1; Partial Thromboplastin Time 29.5 Seconds (21.0-31.0); Prothrombin Time 10.6 Seconds (9.0-12.0)
[2019-04-12] MEDS: LEVOTHYROXINE SODIUM 88 MCG TABLET PO SCH (06:17)
[2019-04-12] MEDS: LOSARTAN POTASSIUM 50 MG TAB PO SCH (08:34)
[2019-04-12] MEDS: ASPIRIN 81 MG ECTAB PO SCH (08:34)
[2019-04-12] MEDS: ASCORBIC ACID 500 MG TAB PO SCH (08:34)
[2019-04-12] MEDS: CITALOPRAM 20 MG TAB PO SCH (08:34)
[2019-04-12] MEDS: CARVEDILOL 6.25 MG TAB PO SCH (08:34)
[2019-04-12] MEDS: PANTOprazole 40 MG TAB PO SCH (08:34)
[2019-04-12] MEDS: CHOLECALCIFEROL 1,000 UNITS TAB PO SCH (08:34)
[2019-04-12] MEDS: VITAMIN B COMPLEX TAB PO SCH (08:34)
[2019-04-12] MEDS: TICAGRELOR 90 MG TAB PO SCH ×2 (08:35→21:00)
[2019-04-12] MEDS: MULTIVITAMIN TAB PO SCH (08:35)
[2019-04-12] MEDS: TAMSULOSIN HCL 0.4 MG CAP PO SCH (08:35)
[2019-04-12] MEDS: OMEGA-3 (PURIFIED FISH OIL) 1 GM CAP PO SCH (08:35)
[2019-04-12] MEDS: AMIODARONE 200 MG TAB PO SCH (08:59)
--- NOTE | 2019-04-12 09:15 | Cardiology Progress Note ---
Date of Service April 12, 2019 Assessment & Plan (1) Complete heart block, transient: (2) Paroxysmal atrial fibrillation: (3) Angina pectoris: (4) Elevated troponin: (5) Convulsions: (6) Left main coronary artery disease: (7) Syncope and collapse: Episode of transient third-degree AV block recorded overnight. Patient received dose of carvedilol. Amiodarone will be placed on hold. Verapamil will remain on hold at this time. Mechanism possibly vagal related to sleep apnea, however, with recent episode of convulsions and need for AV nadine blocking agents and rhythm control, recommend pacemaker implantation. Electrophysiology consulted. Procedure discussed with patient at bedside and via telephone. Subjective Patient seen and examined at the bedside. Feeling well this morning. 2 episodes of heart block with a 3-second, and 6-second pause recorded overnight. Patient unaware. Denies chest pain or shortness of breath this a.m. Received his dose of carvedilol, however, amiodarone placed on hold. Verapamil held since admission. Patient denies palpitations, lightheadedness, dizziness, syncope, or near syncope. Review of Systems Review of Systems: All systems reviewed & are unremarkable except as noted in HPI & below Physical Exam Physical Exam: General: NAD, AAO x3, well nourished. HEENT: Normocephalic. Atraumatic. Conjunctiva pink, no scleral icterus. Neck: No carotid bruits, the carotid upstrokes are brisk. No JVD. No HJR Heart: Regular normal S-1 and S-2 no S-3 or S-4 gallop. 2/6 ASHER heard best at the right second intercostal space. PMI is not displaced. No RV heave. Lungs: Clear bilateral without rales , rhonchi, or wheeze. Abdomen: Normal bowel sounds. Soft. Nontender. No masses or organomegaly. No abdominal bruits. Extremities: + Left groin hematoma. + Bilateral groin ecchymosis. No clubbing, or cyanosis. Trace to mild bilateral pedal and ankle edema. Pulses: radial=2/4, Dorsalis pedis =2/4, posterior tibial=2/4. Neuro: Cranial nerves grossly intact. No focal motor deficit. Results & Data Vital Signs (Past 12 Hours) Vital Signs Temp Pulse Pulse Resp BP BP Pulse Ox 04/12/19 07:13 36.7 C 64 18 134/70 97 04/12/19 03:00 36.3 C L 64 18 119/70 96 04/12/19 00:06 63 04/11/19 23:00 36.7 C 68 18 102/61 98 Laboratory Results Laboratory Results - last 24 hr 04/11/19 04/11/19 04/11/19 13:51 13:51 13:51 WBC 6.79 RBC 3.22 L Hgb 10.2 L Hct 29.4 L MCV 91.3 MCH 31.7 MCHC 34.7 RDW Std Deviation 46.5 H RDW Coeff of Sher 14.0 Plt Count 208 MPV 10.4 Immature Gran % (Auto) 0.6 Neut % (Auto) 67.9 Lymph % (Auto) 13.0 Roane % (Auto) 10.0 Eos % (Auto) 8.2 Baso % (Auto) 0.3 Immature Gran # (Auto) 0.04 H Neut # (Auto) 4.61 Lymph # (Auto) 0.88 L Roane # (Auto) 0.68 H Eos # (Auto) 0.56 H Baso # (Auto) 0.02 PT 10.4 INR 1.0 APTT 26.6 PTT Ratio 1.0 Sodium 135 L Potassium 4.3 Chloride 103 Carbon Dioxide 26 Anion Gap 6.0 BUN 38 H Creatinine 1.48 H Est Cr Clr Drug Dosing Not Reportable Est GFR ( Amer) 49.0 Est GFR (Non-Af Amer) 42.2 BUN/Creatinine Ratio 25.4 H Glucose 108 H Calcium 8.6 Magnesium 2.1 Total Bilirubin 1.0 AST 37 ALT 36 Alkaline Phosphatase 88 Troponin I 2.560 H* Total Protein 6.7 Albumin 3.3 L Globulin 3.4 Albumin/Globulin Ratio 1.0 TSH 1.960 04/11/19 04/11/19 04/12/19 19:55 19:55 01:39 WBC RBC Hgb 9.6 L Hct 28.7 L MCV MCH MCHC RDW Std Deviation RDW Coeff of Sher Plt Count MPV Immature Gran % (Auto) Neut % (Auto) Lymph % (Auto) Roane % (Auto) Eos % (Auto) Baso % (Auto) Immature Gran # (Auto) Neut # (Auto) Lymph # (Auto) Roane # (Auto) Eos # (Auto) Baso # (Auto) PT INR APTT PTT Ratio Sodium 138 Potassium 4.2 Chloride 107 Carbon Dioxide 25 Anion Gap 6.0 BUN 35 H Creatinine 1.52 H Est Cr Clr Drug Dosing 29.7 Est GFR ( Amer) 47.4 Est GFR (Non-Af Amer) 40.9 BUN/Creatinine Ratio 23.2 H Glucose 91 Calcium 7.9 L Magnesium 2.3 Total Bilirubin AST ALT Alkaline Phosphatase Troponin I 2.180 H* 2.280 H* Total Protein Albumin Globulin Albumin/Globulin Ratio TSH 04/12/19 04/12/19 01:39 02:46 WBC 6.36 RBC 2.89 L Hgb 9.1 L Hct 26.5 L MCV 91.7 MCH 31.5 MCHC 34.3 RDW Std Deviation 46.5 H RDW Coeff of Sher 14.1 Plt Count 190 MPV 10.4 Immature Gran % (Auto) Neut % (Auto) Lymph % (Auto) Roane % (Auto) Eos % (Auto) Baso % (Auto) Immature Gran # (Auto) Neut # (Auto) Lymph # (Auto) Roane # (Auto) Eos # (Auto) Baso # (Auto) PT 10.6 INR 1.0 APTT 29.5 PTT Ratio 1.1 Sodium Potassium Chloride Carbon Dioxide Anion Gap BUN Creatinine Est Cr Clr Drug Dosing Est GFR ( Amer) Est GFR (Non-Af Amer) BUN/Creatinine Ratio Glucose Calcium Magnesium Total Bilirubin AST ALT Alkaline Phosphatase Troponin I Total Protein Albumin Globulin Albumin/Globulin Ratio [facility]
[2019-04-12 10:32] LABS: Partial Thromboplastin Ratio 2.6
[2019-04-12 10:40] LABS: Partial Thromboplastin Time 70.3 Seconds (21.0-31.0)
[2019-04-12] MEDS ORDERED: LIDOCAINE HCL 1% 20 ML VIAL ONE (11:54)
[2019-04-12] MEDS ORDERED: BACITRACIN INJ 50,000 UNIT VIAL ONE (11:54)
[2019-04-12] MEDS ORDERED: BUPIVACAINE 0.25% 30 ML VIAL ONE (11:54)
--- NOTE | 2019-04-12 11:58 | Cardiology Consultation ---
Date of Consultation April 12, 2019 Assessment & Plan (1) Complete heart block, transient: Reviewed his telemetry reveals episodes of complete heart block. There was some initial concern that this could represented a sec well a of obstructive sleep apnea. However, there did not appear to be any slowing of the sinus rate. He has baseline conduction disease which involves both a prolonged AR interval and right bundle branch block which could be indicative infra Hisian disease. He is known to have ischemic heart disease. He is known to have an occluded right coronary artery which fills via [id number] collaterals. I suppose there could have been some interaction between transient ischemia and his medical therapy which resulted in this episode, but I think this is unlikely. Also, he will require aggressive medical therapy both for his ischemic heart disease and presumed paroxysmal atrial fibrillation. Therefore, I feel that a pacemaker is indicated for symptomatic non reversible AV node dysfunction. I did describe the risks benefits and alternatives of the procedure to the patient and his significant other. At this point we will plan on proceeding with dual- chamber pacer implantation. His overall LV function is normal there does not appear to be any indication for an ICD. (2) Syncope and collapse: The episode which prompted his admission could been related to asystole and transient cerebral hypoxemia. Interestingly, he also describes 2 other episodes which are highly suspicious for transient asystole. I think this lends support for insertion of a permanent pacemaker. (3) Tachy-estuardo syndrome: There is some concern that he has paroxysmal atrial fibrillation and symptoms associated with the high ventricular rates. He was on amiodarone briefly but then developed these periods of asystole. I think a pacemaker will be indicated in order to effectively treat what is essentially tachy-estuardo syndrome. History of Present Illness Reason for Consultation: Complete heart block Requesting Physician: Charly Attending Physician: Smooth Maxwell MD History of Present Illness The patient is an 88-year-old gentleman with a history of coronary artery disease who recently underwent complex percutaneous intervention involving the left main and left anterior descending arteries. This was performed in [facility]. Yesterday the patient appeared to have an episode of chest discomfort associated with palpitations and elevated heart rates. Additionally, he was noted to have a episode of unresponsiveness witnessed by his girlfriend. This episode involved some apparent tonic-clonic motions as well. There was some concern about primary seizure disorder. He was admitted for treatment of presumed paroxysmal atrial fibrillation and associated coronary insufficiency as well as evaluation of his episode of unresponsiveness. Over the course of the evening the patient was noted on telemetry to have episodes of complete heart block. Currently, the patient is feeling well. He is not reporting symptoms of chest discomfort or dizziness. He has no symptoms of dyspnea at this time. He recalls some of the events of yesterday. However, some of the history was supplied by his girlfriend and recorded in his medical record. He thinks he may have fallen asleep and was simply in the process of waking up during this period of unresp onsiveness. However, he also related an episode which occurred approximately 1 week ago. This episode involved some mild activity at home. He recalls working outside and attempting to enter his home when he apparently lost consciousness in the doorway. This was unwitnessed. He recovered quickly and did not have any specific problems afterwards. He did not recall any specific prodrome or sense of palpitation at that time. Additionally, the patient thinks that in the last month he had an episode of presyncope. This occurred while at home as well involved a sensation like he was going to pass out. This resolved without any specific intervention. In general, he is an active individual who is able to ambulate around his house and perform mild activity. He did undergo a complex percutaneous intervention recently due to symptoms of angina. This intervention was complicated by the development of groin hematomas requiring blood transfusion. Allergies Allergy/AdvReac Type Severity Reaction Status Date / Time lisinopril AdvReac Unknown Cough Verified 04/11/19 14:53 Home Medications Home Medications Medication Instructions Recorded Confirmed Type acetaminophen 500 mg PO Q6H PRN 08/18/18 04/11/19 History albuterol sulfate [Proventil HFA] 2 puff INHALATION QID PRN 08/18/18 04/11/19 History carvedilol 6.25 mg PO BID 08/18/18 04/11/19 History cholecalciferol (vitamin D3) 1,000 units PO QAM 08/18/18 04/11/19 History [Vitamin D3] citalopram 20 mg PO QAM 08/18/18 04/11/19 History clonazepam 0.5 mg PO HS 08/18/18 04/11/19 History coenzyme Q10 200 mg PO QAM 08/18/18 04/11/19 History flaxseed oil 1,000 mg PO QAM 08/18/18 04/11/19 History fluticasone propion-salmeterol 1 puff INHALATION Q12H PRN 08/18/18 04/11/19 History [Advair Diskus] garlic 1,000 mg PO QAM 08/18/18 04/11/19 History losartan 50 mg PO QAM 08/18/18 04/11/19 History nitroglycerin [Nitrostat] 0.4 mg SUBLINGUAL DIRECTED PRN 08/18/18 04/11/19 History omega 2-xlx-frn-fish oil [Fish Oil] 1,000 mg PO QAM 08/18/18 04/11/19 History verapamil 120 mg PO QAM 08/18/18 04/11/19 History Alive Mens 50+ 1 tab PO QAM 04/11/19 04/11/19 History ascorbic acid (vitamin C) [Vitamin 500 mg PO QAM 04/11/19 04/11/19 History C] aspirin 81 mg PO QAM 04/11/19 04/11/19 History atorvastatin 40 mg PO HS 04/11/19 04/11/19 History cetirizine 10 mg PO DAILY PRN 04/11/19 04/11/19 History levalbuterol HCl 1.25 mg INHALATION TID PRN 04/11/19 04/11/19 History levothyroxine 88 mcg PO QAM 04/11/19 04/11/19 History pantoprazole 40 mg PO QAM 04/11/19 04/11/19 History tamsulosin 0.4 mg PO QAM 04/11/19 04/11/19 History ticagrelor [Brilinta] 90 mg PO BID 04/11/19 04/11/19 History vitamin B complex 1 cap PO QAM 04/11/19 04/11/19 History Patient History Medical History Mood disorder (Chronic) CAD (coronary artery disease) (Chronic) CKD (chronic kidney disease), stage III (Chronic) Paroxysmal atrial fibrillation (Chronic) Hypothyroidism (Chronic) Asthma (Chronic) HTN (hypertension) (Chronic) Complete heart block Surgical History Status post coronary artery stent placement (Chronic) stents [place] 4 [place] [facility] [place] History of carpal tunnel surgery (Chronic) Family History Other Diabetes Heart disease Social History Preferred Language: Syriac Communication Ability: Effective Barber Required: No Beliefs That Will Affect Care: None marital status: Current Living Situation: Spouse current occupational status: retired Other Information That Helps Us Care for You: No Feels Safe at Home: Yes Safety Concerns: Feels Safe At This Time Smoking Status: Former smoker Tobacco Type: smokeless tobacco ; Do You Dip or Chew Tobacco: No ; Second Hand Exposure: No ; Tobacco Cessation Education Requested by Patient: No Hx Alcohol Use: Yes Alcohol type: beer Hx Substance Use: No Review of Systems Review of Systems: All systems reviewed & are unremarkable except as noted in HPI & below No current discomfort at the site of his prior intervention. No recent fevers or chills. He continues to have element of fatigue but no chest pain at rest. He does have some difficulty with ambulation. This involves a fatigue sensation in the legs which has been attributed to spinal stenosis in the past. Physical Exam Physical Exam: The patient is alert and oriented. Mood and affect appeared normal. He answered all questions appropriately. HEENT: Pupils are equal and reactive to light and accommodation. Extraocular movements are intact. The sclerae are anicteric. Neuro: Cranial nerves intact Neck: Patient's neck is supple. He has palpable carotid pulses bilaterally without bruits on auscultation. There is no evidence of jugular venous distention. The thyroid is not enlarged. Lungs: Clear to auscultation bilaterally. He has good air movement without use of accessory muscles. No rales wheezes or rhonchi. Cardiac: Heart demonstrates a regular rate and rhythm. Normal S1 and S2. Present a systolic murmur. Pulses: The patient has palpable radial pulses bilaterally that are equal in intensity Extremities: Notable ecchymosis in both groins left worse than right. Skin: Ecchymosis as above Results & Data Vital Signs (Past 12 Hours) Vital Signs Temp Pulse Pulse Resp BP BP Pulse Ox 04/12/19 07:13 36.7 C 64 18 134/70 97 04/12/19 03:00 36.3 C L 64 18 119/70 96 04/12/19 00:06 63 Laboratory Results Abnormal Lab Results 04/11/19 04/11/19 04/11/19 13:51 13:51 13:51 WBC 6.79 RBC 3.22 L Hgb 10.2 L Hct 29.4 L MCV 91.3 MCH 31.7 MCHC 34.7 RDW Std Deviation 46.5 H RDW Coeff of Sher 14.0 Plt Count 208 MPV 10.4 Immature Gran % (Auto) 0.6 Neut % (Auto) 67.9 Lymph % (Auto) 13.0 Wheeler % (Auto) 10.0 Eos % (Auto) 8.2 Baso % (Auto) 0.3 Immature Gran # (Auto) 0.04 H Neut # (Auto) 4.61 Lymph # (Auto) 0.88 L Wheeler # (Auto) 0.68 H Eos # (Auto) 0.56 H Baso # (Auto) 0.02 PT 10.4 INR 1.0 APTT 26.6 PTT Ratio 1.0 Sodium 135 L Potassium 4.3 Chloride 103 Carbon Dioxide 26 Anion Gap 6.0 BUN 38 H Creatinine 1.48 H Est Cr Clr Drug Dosing Not Reportable Est GFR ( Amer) 49.0 Est GFR (Non-Af Amer) 42.2 BUN/Creatinine Ratio 25.4 H Glucose 108 H Calcium 8.6 Magnesium 2.1 Total Bilirubin 1.0 AST 37 ALT 36 Alkaline Phosphatase 88 Troponin I 2.560 H* Total Protein 6.7 Albumin 3.3 L Globulin 3.4 Albumin/Globulin Ratio 1.0 TSH 1.960 04/11/19 04/11/19 04/12/19 19:55 19:55 01:39 WBC RBC Hgb 9.6 L Hct 28.7 L MCV MCH MCHC RDW Std Deviation RDW Coeff of Sher Plt Count MPV Immature Gran % (Auto) Neut % (Auto) Lymph % (Auto) Wheeler % (Auto) Eos % (Auto) Baso % (Auto) Immature Gran # (Auto) Neut # (Auto) Lymph # (Auto) Wheeler # (Auto) Eos # (Auto) Baso # (Auto) PT INR APTT PTT Ratio Sodium 138 Potassium 4.2 Chloride 107 Carbon Dioxide 25 Anion Gap 6.0 BUN 35 H Creatinine 1.52 H Est Cr Clr Drug Dosing 29.7 Est GFR ( Amer) 47.4 Est GFR (Non-Af Amer) 40.9 BUN/Creatinine Ratio 23.2 H Glucose 91 Calcium 7.9 L Magnesium 2.3 Total Bilirubin AST ALT Alkaline Phosphatase Troponin I 2.180 H* 2.280 H* Total Protein Albumin Globulin Albumin/Globulin Ratio TSH 04/12/19 04/12/19 04/12/19 01:39 02:46 09:56 WBC 6.36 RBC 2.89 L Hgb 9.1 L Hct 26.5 L MCV 91.7 MCH 31.5 MCHC 34.3 RDW Std Deviation 46.5 H RDW Coeff of Sher 14.1 Plt Count 190 MPV 10.4 Immature Gran % (Auto) Neut % (Auto) Lymph % (Auto) Wheeler % (Auto) Eos % (Auto) Baso % (Auto) Immature Gran # (Auto) Neut # (Auto) Lymph # (Auto) Wheeler # (Auto) Eos # (Auto) Baso # (Auto) PT 10.6 INR 1.0 APTT 29.5 70.3 H* PTT Ratio 1.1 2.6 Sodium Potassium Chloride Carbon Dioxide Anion Gap BUN Creatinine Est Cr Clr Drug Dosing Est GFR ( Amer) Est GFR (Non-Af Amer) BUN/Creatinine Ratio Glucose Calcium Magnesium Total Bilirubin AST ALT Alkaline Phosphatase Troponin I Total Protein Albumin Globulin Albumin/Globulin Ratio TSH ECG Additional Comments: Baseline EKG demonstrates normal sinus rhythm with first- degree AV block and right bundle branch block. Echocardiogram performed yesterday revealed preserved LV systolic function with mild aortic stenosis. Stage II diastolic dysfunction PG Care Time/CCT Total # of Minutes Spent Total Time Spent with Patient: Total time spent is greater than 50% in coordination of care (as documented) at patient's floor/unit and/or counseling patient:
[2019-04-12] MEDS ORDERED: MIDAZOLAM HCL 5 MG/ML 1 ML VIAL ONE (12:02)
[2019-04-12] MEDS ORDERED: CEFAZOLIN 250 MG/ML 1 GM VIAL ONE (12:03)
[2019-04-12] MEDS ORDERED: fentaNYL citrate 100 MCG/2 ML VIAL ONE (12:03)
--- NOTE | 2019-04-12 12:03 | Pre Anesthesia Assessment ---
Date of Service April 12, 2019 Pre Sedation Assessment Vital Signs Temp Pulse Pulse Resp BP BP BP 04/12/19 07:13 36.7 C 64 18 134/70 04/12/19 03:00 36.3 C L 64 18 119/70 04/12/19 00:06 63 04/11/19 23:00 36.7 C 68 18 102/61 04/11/19 19:09 36.6 C 61 18 110/63 04/11/19 17:33 36.6 C 62 14 158/79 H 04/11/19 17:25 36.6 C 62 14 158/79 H 04/11/19 17:01 60 16 147/75 H 04/11/19 16:30 60 16 147/75 H 04/11/19 16:12 61 15 139/69 04/11/19 15:30 54 L 14 126/64 04/11/19 15:11 65 16 117/67 04/11/19 15:09 61 16 110/65 04/11/19 13:53 04/11/19 13:21 36.5 C 62 16 99/61 L Pulse Ox Pulse Ox 04/12/19 07:13 97 04/12/19 03:00 96 04/12/19 00:06 04/11/19 23:00 98 04/11/19 19:09 99 04/11/19 17:33 99 04/11/19 17:25 99 99 04/11/19 17:01 100 04/11/19 16:30 100 04/11/19 16:12 100 04/11/19 15:30 99 04/11/19 15:11 100 04/11/19 15:09 100 04/11/19 13:53 99 04/11/19 13:21 99 Cardiovascular + regular rate Respiratory + respiratory effort normal Pre-Sedation Airway Assessment Smoking Status: Former smoker Hx Sleep Apnea: Yes Hx Difficult Intubation: No Short, Thick Neck: No Thyromental Distance: > or= 3.5 Finger Breadths Oral Cavity: + WNL Mallampati Class: III ASA: ASA3 Procedure Planning Contraindications for Sedation: none Current Medications Reviewed: Yes Notes The planned sedation has been discussed with the patient. Informed Consent was obtained. I have identified the patient, determined the appropriateness of sedation and have assessed the patient immediately prior to the procedure. All medicine(s) and interventions are by my order.
[2019-04-12] MEDS ORDERED: ACETAMINOPHEN 325 MG TAB PO PRN (13:10)
--- NOTE | 2019-04-12 13:10 | Post Anesthesia Assessment ---
Date of Service April 12, 2019 Post Sedation Assessment Vital Signs Temp Pulse Pulse Resp BP BP BP 04/12/19 12:00 36.5 C 59 L 18 122/66 04/12/19 07:13 36.7 C 64 18 134/70 04/12/19 03:00 36.3 C L 64 18 119/70 04/12/19 00:06 63 04/11/19 23:00 36.7 C 68 18 102/61 04/11/19 19:09 36.6 C 61 18 110/63 04/11/19 17:33 36.6 C 62 14 158/79 H 04/11/19 17:25 36.6 C 62 14 158/79 H 04/11/19 17:01 60 16 147/75 H 04/11/19 16:30 60 16 147/75 H 04/11/19 16:12 61 15 139/69 04/11/19 15:30 54 L 14 126/64 04/11/19 15:11 65 16 117/67 04/11/19 15:09 61 16 110/65 04/11/19 13:53 04/11/19 13:21 36.5 C 62 16 99/61 L Pulse Ox Pulse Ox 04/12/19 12:00 98 04/12/19 07:13 97 04/12/19 03:00 96 04/12/19 00:06 04/11/19 23:00 98 04/11/19 19:09 99 04/11/19 17:33 99 04/11/19 17:25 99 99 04/11/19 17:01 100 04/11/19 16:30 100 04/11/19 16:12 100 04/11/19 15:30 99 04/11/19 15:11 100 04/11/19 15:09 100 04/11/19 13:53 99 04/11/19 13:21 99 Recovery Score Activity: Moves 4 extremities Respiration: Deep Breath/Cough Circulation: +/-20% PreAnes Value Consciousness: Fully Awake Post Sedation Plan On clinical assessment, the patient appears to have tolerated the sedation without complications. Patient is recovering as anticipated. Patient will continue to be monitored by nursing and may be discharged when sedation discharge criteria are met per below protocol. Upon Completions of procedure and additional 15 minutes continue every 5 minute vital signs and the P.A.R. score; then discharge to a Phase I or Fast Track to Phase II per the following guidelines: * Discharge Patient to appropriate Phase II area if PAR is 8 or greater or return to pre- procedure baseline. The post - procedure orders will be as directed. * If PAR score is less than 8 or not return to pre-procedure baseline then patient will follow Phase I monitoring till PAR is reached for Phase II. The Phase I may be done in procedure room or may call to secure a Phase I area. * If naloxone or flumazenil are used for reversal, hold in Phase I for continued monitoring from when last reversal dose was given for a minimum of 60 minutes or longer pending the nurse and/or physician discretion of patient condition before discharge to Phase II. Please call the Sedation Physician to re-evaluate and complete post-note for discharge to Phase II area. Do NOT discharge from procedure sedation or Phase 1 until post- sedation evaluation note is complete by procedure /sedation MD Sedation Discharge Instructions to be given to the patient at discharge to home.
--- NOTE | 2019-04-12 13:10 | Procedure Note ---
Procedure Note Date of Service April 12, 2019 Note Procedure performed: Implantation of dual-chamber permanent pacemaker Staff pocket secretary assembler: Luiz Hilton MD Indication: The patient is an 88-year-old gentleman with history of ischemic heart disease who presented with symptoms of syncope. Patient was noted to have episodes of complete heart block overnight. He is also noted to have episodes of high heart rates at times. Based on his need for medical therapy and the associated heart block is felt to be a good candidate for permanent pacing due to symptomatic non reversible AV node dysfunction. Dual-chamber device was selected the patient is currently in sinus rhythm which to maintain AV synchrony. Procedure in detail: The patient was informed of the risks benefits and alternatives to the intended procedure and she wished to proceed. he was taken to the electrophysiology suite in a fasting state. A preoperative antibiotic had been administered. The patient was monitored electrocardiographically throughout today's procedure and conscious sedation was administered per protocol. The left upper pectoral area is prepped and draped in usual sterile fashion. This area was anesthetized using subcutaneous administration of a xylocaine solution. An incision was made at this site and carried down to the prepectoralis fascia using sharp dissection. Electrocautery was also employed for dissection as well as for hemostasis. A device pocket was fashioned tissues above the pectoralis muscle. Subsequent to this maneuver the left axillary vein was accessed using modified Seldinger technique. Sheaths were placed over guidewires at this site and used to facil itate passage of the pacing leads to the respective chambers under fluoroscopic guidance. This included right atrial and right ventricular leads. Adequate sensing and threshold parameters were obtained prior to Active fixation of the leads to the endocardial surface. The proximal portion leads were then sutured the prepectoral fascia using nonabsorbable suture. The device pocket was irrigated with antibiotic solution. The leads were then attached to the device. The device and leads were then placed in the pocket and pocket was closed in 3 layers of absorbable suture. Steri-Strips and sterile dressing were applied. The device was tested noninvasively prior to conclusion the procedure. The patient tolerated procedure well there no immediate complications. Equipment used: New pulse generator: Network Administrator [employer]. Model number: [id number] serial number [id number] Right atrial lead: Network Administrator [employer]. Model number: [id number] serial number [id number] Right ventricular lead: Network Administrator [employer]. Model number: [id number] serial number [id number] Measured data: Right atrial lead: P-waves measured 3 millivolts. Pacing threshold 0.5 volts at 0.4 millisecond with a pacing impedance of 399 Ohms Right ventricular lead: R-waves measured 5.5 millivolts. Pacing threshold was 0.5 volts at 0.4 millisecond with a pacing impedance of 665 Ohms Impression: Successful implantation of dual-chamber permanent pacemaker Coding
--- NOTE | 2019-04-12 15:55 | Hospitalist Progress Note ---
Date of Service April 12, 2019 Assessment & Plan (1) Elevated troponin: Patient is an 88 yr male with H/O CAD with recent stents x 4 at [facility] [place] on [place]02/19, paroxysmal A Fib, CKD III, hypothyroidism, HTN, mood disorder and other medical problems listed below who presents with palpitations and chest pain this morning and was found to have elevated troponin and recent episode of possible pre-syncope. Angina: H/O CAD S/P Stents Acute myocardial infarction within 4 weeks Elevated troponin likely secondary to recent [place] Chest pain likely secondary to tachyarrhythmia CXR:Mild cardiomegaly. No other convincing evidence of acute cardiopulmonary disease. Normal TSH ECHO: No regional wall motion abnormalities Continue aspirin, Brilinta, Lipitor, losartan Verapamil, carvedilol held secondary to heart block Appreciate Cardiology Input Bilateral groin hematoma Complication of recent cardiac catheterization Anemia secondary to above Monitor CBC (2) Paroxysmal atrial fibrillation: Paroxysmal atrial fibrillation Transient complete heart block Tachybradycardia syndrome Plan for permanent pacemaker placement today Initially started on amiodarone--currently held Also continue to hold verapamil, carvedilol Appreciate Cardiology Input Currently not on any long-term anticoagulation (3) Pre-syncope: Episode last evening that included "stiffening" of arms while working on computer. No witnessed LOC or fall. No post-ictal state. No incontinence or tongue biting Likely secondary to asystole EEG pending (4) CAD (coronary artery disease): Recent cardiac cath at [facility] [place] with 4 stents placed on April 02, 2019 Continue cardiac medications as above (5) HTN (hypertension): Monitor BP Continue losartan with holding parameters (6) CKD (chronic kidney disease), stage III: Cr at baseline Monitor renal function Avoid nephrotoxic agents as able (7) Hypothyroidism: TSH wnl Continue levothyroxine (8) Mood disorder: Stable. Continue SSRI DVT Px: SCDs for now Re; Hematoma, PPM placement Code status: FULL Disposition: Likely discharge home when stable Subjective Patient is seen and examined at bedside Denies any chest pain, shortness of breath, dizziness today Was noted to have pauses on telemetry overnight Plan for pacemaker placement today No other complaints Review of Systems Review of Systems: All systems reviewed & are unremarkable except as noted in HPI & below Physical Exam Physical Exam: Physical Exam: Vitals signs as noted above General Appearance:Moderately built and nourished, no apparent distress Head: normocephalic, Atraumatic Eyes: normal inspection, EOMI Neck: supple, Trachea midline Respiratory/Chest: Normal breath sounds, CTA Cardiovascular: S1, S2, +systolic murmur Abdomen/GI:Soft, Non tender, Bowel sounds present, B/L groin hematoma Extremities/Musculoskelatal:normal inspection, Trace edema Neurologic/Psych:AAOX3, grossly no focal neurological deficits Skin: normal color, warm Results & Data Vital Signs (Past 12 Hours) Vital Signs Temp Pulse Resp BP BP Pulse Ox 04/12/19 15:12 36.2 C L 56 L 18 90/46 L 96 04/12/19 13:55 65 16 127/75 92 04/12/19 13:40 63 16 133/77 96 04/12/19 13:25 80 16 141/83 H 98 04/12/19 12:00 36.5 C 59 L 18 122/66 98 04/12/19 07:13 36.7 C 64 18 134/70 97 Laboratory Results Short CBC 04/11/19 04/12/19 Range/Units 19:55 01:39 WBC 6.36 (4.8-10.8) K/uL Hgb 9.6 L 9.1 L (14.0-18.0) g/dL Hct 28.7 L 26.5 L (42-52) % Plt Count 190 (130-400) K/uL BMP 04/12/19 01:39 Sodium 138 Potassium 4.2 Chloride 107 Carbon Dioxide 25 BUN 35 H Creatinine 1.52 H Glucose 91 Calcium 7.9 L Cardiac Enzymes 04/11/19 04/12/19 Range/Units 19:55 01:39 Troponin I 2.180 H* 2.280 H* (0-0.045) ng/ml
[2019-04-12 16:03] LABS: Hematocrit (blood only) 26.1 % (42-52); Hemoglobin 8.7 g/dL (14.0-18.0)
[2019-04-12] MEDS: OXYCODONE HCL IR 5 MG TAB (IMMEDIATE RELEASE) PO PRN (17:49)
[2019-04-12] MEDS: CEFAZOLIN 1000MG 1,000 MG/7.5 ML SYR IV SCH (20:59)
[2019-04-12] MEDS: ATORVASTATIN 40 MG TAB PO SCH (21:00)
[2019-04-12] MEDS: clonazePAM 0.5 MG TAB PO SCH (21:01)
[2019-04-13] MEDS: CEFAZOLIN 1000MG 1,000 MG/7.5 ML SYR IV SCH ×2 (03:45→12:30)
[2019-04-13] MEDS: OXYCODONE HCL IR 5 MG TAB (IMMEDIATE RELEASE) PO PRN (03:49)
[2019-04-13 05:42] LABS: Hematocrit (blood only) 26.1 % (42-52); Hemoglobin 8.7 g/dL (14.0-18.0); Mean Corpuscular Hemoglobin 31.2 pg (25-34); Mean Corpuscular Hgb Conc 33.3 g/dL (32-36); Mean Corpuscular Volume 93.5 fL (80-100); Mean Platelet Volume 10.4 fL (7.4-10.4); Platelet Count 190 K/uL (130-400); RDW Coefficient of Variation 14.1 % (11.5-14.5); RDW Standard Deviation 48.4 fL (36.4-46.3); Red Blood Count 2.79 M/uL (4.7-6.1); White Blood Count 6.79 K/uL (4.8-10.8)
[2019-04-13 06:08] LABS: Calcium 7.9 mg/dl (8.5-10.1); Creatinine Clr Calc Pharmacy 26.7 ml/min; Est GFR (African American) 40.8; Est GFR (Non-African American) 35.2; Magnesium 2.1 mg/dl (1.8-2.4); Potassium 4.4 mmol/L (3.5-5.1)
[2019-04-13] MEDS: LEVOTHYROXINE SODIUM 88 MCG TABLET PO SCH (06:19)
--- NOTE | 2019-04-13 06:50 | XRay Report ---
XR chest 2V routine HISTORY: 88 years-old Male EXACT TIME ORDERED Evaluate for pneumothorax and l status post placement of a left subclavian pacer COMPARISON: Chest radiograph 04/11/2019 TECHNIQUE: PA and lateral views of the chest FINDINGS: Status post placement of a left subclavian pacer with leads overlying the expected locations of the r ight atrium and right ventricle. No postprocedural pneumothorax identified. Cardiac silhouette is enl arged. Mild pulmonary vascular congestion. Coronary arterial stent graft. Trace pleural effusions. No overt pulmonary edema or lobar airspace consolidation. Degenerative changes of the shoulders and spi ne. IMPRESSION: 1. Status post placement of a left subclavian pacer. No postprocedural pneumothorax identified. 2. Cardiomegaly with pulmonary vascular congestion. 3. Trace pleural effusions. The above report was generated using voice recognition software. It may contain grammatical, syntax o r spelling errors. Electronically signed by: Pro Angel M.D. 04/13/2019 6:49 AM
--- NOTE | 2019-04-13 08:55 | Cardiology Progress Note ---
Date of Service April 13, 2019 Assessment & Plan (1) Complete heart block, transient: Currently in sinus rhythm without pacing. Successful dual-chamber pacemaker implantation yesterday without evidence of complication. From a device standpoint the patient is stable for discharge. I would recommend keeping the wound dry in the Steri-Strips intact until he has follow-up in the [facility] pacemaker clinic preferably within 1 week. He should refrain from lifting the left arm above the shoulder behind the neck for 6 weeks. (2) Syncope and collapse: Most likely related to his arrhythmia. (3) Tachy-estuardo syndrome: Patient can undergo adequate medical therapy at this time without risk of significant bradycardia. Subjective This morning the patient did complain of some left shoulder discomfort. This appeared to worsen as the evening progressed. Minimal discomfort currently. He has been ambulatory for his x-ray. He states he does feel tired and weak but otherwise no complaints. Review of Systems Review of Systems: Per HPI Physical Exam Physical Exam: Examination of the device implant site reveals some mild ecchymosis but no significant swelling or hematoma. No current drainage. No erythema. Results & Data Vital Signs (Past 12 Hours) Vital Signs Temp Pulse Resp BP Pulse Ox 04/13/19 06:57 36.6 C 64 18 138/70 97 04/13/19 03:20 36.7 C 69 18 118/66 98 04/12/19 23:26 36.5 C 65 19 91/57 L 97 Laboratory Results Abnormal Lab Results 04/12/19 04/12/19 04/13/19 09:56 15:48 05:26 WBC 6.79 RBC 2.79 L Hgb 8.7 L 8.7 L Hct 26.1 L 26.1 L MCV 93.5 MCH 31.2 MCHC 33.3 RDW Std Deviation 48.4 H RDW Coeff of Sher 14.1 Plt Count 190 MPV 10.4 APTT 70.3 H* PTT Ratio 2.6 Sodium Potassium Chloride Carbon Dioxide Anion Gap BUN Creatinine Est Cr Clr Drug Dosing Est GFR ( Amer) Est GFR (Non-Af Amer) BUN/Creatinine Ratio Glucose Calcium Magnesium 04/13/19 05:26 WBC RBC Hgb Hct MCV MCH MCHC RDW Std Deviation RDW Coeff of Sher Plt Count MPV APTT PTT Ratio Sodium 136 Potassium 4.4 Chloride 106 Carbon Dioxide 25 Anion Gap 5.0 BUN 39 H Creatinine 1.72 H Est Cr Clr Drug Dosing 26.7 Est GFR ( Amer) 40.8 Est GFR (Non-Af Amer) 35.2 BUN/Creatinine Ratio 23.0 H Glucose 84 Calcium 7.9 L Magnesium 2.1 Diagnostic Findings Chest x-ray demonstrated good lead position. No evidence of pneumothorax Device interrogation revealed normal sensing and threshold parameters on both leads. Currently set in DDD mode without evidence of ventricular pacing.
[2019-04-13] MEDS: PANTOprazole 40 MG TAB PO SCH (09:06)
[2019-04-13] MEDS: MULTIVITAMIN TAB PO SCH (09:06)
[2019-04-13] MEDS: LOSARTAN POTASSIUM 50 MG TAB PO SCH (09:06)
[2019-04-13] MEDS: ASCORBIC ACID 500 MG TAB PO SCH (09:07)
[2019-04-13] MEDS: VITAMIN B COMPLEX TAB PO SCH (09:07)
[2019-04-13] MEDS: TICAGRELOR 90 MG TAB PO SCH (09:07)
[2019-04-13] MEDS: CHOLECALCIFEROL 1,000 UNITS TAB PO SCH (09:07)
[2019-04-13] MEDS: TAMSULOSIN HCL 0.4 MG CAP PO SCH (09:08)
[2019-04-13] MEDS: ASPIRIN 81 MG ECTAB PO SCH (09:08)
[2019-04-13] MEDS: CITALOPRAM 20 MG TAB PO SCH (09:08)
[2019-04-13] MEDS: OMEGA-3 (PURIFIED FISH OIL) 1 GM CAP PO SCH (09:09)
--- NOTE | 2019-04-13 10:01 | Cardiology Progress Note ---
Date of Service April 13, 2019 Assessment & Plan (1) Complete heart block, transient: (2) Paroxysmal atrial fibrillation: (3) Angina pectoris: (4) Left main coronary artery disease: (5) Syncope and collapse: (6) Tachycardia-bradycardia syndrome: (7) Pacemaker: Pacemaker implanted 04/12/2019 without complication. No recurrent atrial fibrillation on telemetry. Restart amiodarone, 200 mg twice daily in addition to carvedilol, 6.25 mg twice daily. Discontinue verapamil at this time. Continue dual antiplatelet therapy uninterrupted. Encourage oral hydration with mildly elevated BUN/creatinine this a.m. Repeat BMP in 1 week. No further inpatient cardiology testing or intervention at this time. Patient may be discharged. I will arrange for outpatient cardiology follow-up in 1 week. Thank you for allowing me to participate in the care of your patient. Subjective Patient seen and examined at the bedside. Feeling well from a cardiovascular perspective today. Denies chest pain or unusual shortness of breath. No palpitations, lightheadedness, dizziness, syncope, or near syncope. No recurrent chest discomfort overnight. No recurrent atrial fibrillation on telemetry. Review of Systems Review of Systems: All systems reviewed & are unremarkable except as noted in HPI & below Physical Exam Physical Exam: General: NAD, AAO x3, well nourished. HEENT: Normocephalic. Atraumatic. Conjunctiva pink, no scleral icterus. Neck: No carotid bruits, the carotid upstrokes are brisk. No JVD. No HJR. Chest: Left-sided pacemaker surgical site clean, dry, intact. No erythema or drainage. Heart: Regular normal S-1 and S-2 no S-3 or S-4 gallop. 2/6 ASHER heard best at the right second intercostal space. PMI is not displaced. No RV heave. Lungs: Clear bilateral without rales , rhonchi, or wheeze. Abdomen: Normal bowel sounds. Soft. Nontender. No masses or organomegaly. No abdominal bruits. Extremities: + Left groin hematoma. + Bilateral groin ecchymosis. No clubbing, or cyanosis. Trace to mild bilateral pedal and ankle edema. Pulses: radial=2/4, Dorsalis pedis =2/4, posterior tibial=2/4. Neuro: Cranial nerves grossly intact. No focal motor deficit. Results & Data Vital Signs (Past 12 Hours) Vital Signs Temp Pulse Resp BP Pulse Ox 04/13/19 06:57 36.6 C 64 18 138/70 97 04/13/19 03:20 36.7 C 69 18 118/66 98 04/12/19 23:26 36.5 C 65 19 91/57 L 97
--- NOTE | 2019-04-13 12:47 | Hospitalist Progress Note ---
Date of Service April 13, 2019 Assessment & Plan (1) Elevated troponin: Patient is an 88 yr male with H/O CAD with [place] [facility] [place], paroxysmal A Fib, CKD III, hypothyroidism, HTN, mood disorder and other medical problems listed below who presents with palpitations and chest pain this morning and was found to have elevated troponin and recent episode of possible pre-syncope. Angina: H/O CAD S/P Stents Acute myocardial infarction within 4 weeks Elevated troponin likely secondary to recent [place] Chest pain likely secondary to tachyarrhythmia CXR:Mild cardiomegaly. No other convincing evidence of acute cardiopulmonary disease. Normal TSH ECHO: No regional wall motion abnormalities Continue aspirin, Brilinta, Lipitor, losartan, Carvedilol Appreciate Cardiology Input Anginal symptoms likely secondary to tachyarrhythmia Bilateral groin hematoma Complication of recent cardiac catheterization Anemia secondary to above Monitor CBC (2) Paroxysmal atrial fibrillation: Paroxysmal atrial fibrillation Transient complete heart block Tachybradycardia syndrome S/P permanent pacemaker placement on 04/12/19 Restart amiodarone 200 mg twice daily Continue carvedilol 6.25 mg twice daily Verapamil discontinued Continue dual antiplatelet therapy Plan to repeat BMP in 1 week Needs follow-up with cardiology as outpatient in 1 week Appreciate Cardiology Input No plan for long-term anticoagulation for now--- has significant groin hematoma (3) Pre-syncope: Episode last evening that included "stiffening" of arms while working on computer. No witnessed LOC or fall. No post-ictal state. No incontinence or tongue biting Likely secondary to asystole (4) CAD (coronary artery disease): [place] cardiac [place] [facility] [place] [facility] [place] 4 [place] on April 02, 2019 Continue cardiac medications as above (5) HTN (hypertension): Monitor BP Continue losartan , Carvedilol (6) CKD (chronic kidney disease), stage III: Cr at baseline Monitor renal function Avoid nephrotoxic agents as able (7) Hypothyroidism: TSH wnl Continue levothyroxine (8) Mood disorder: Stable. Continue SSRI DVT Px: SCDs for now Re; Hematoma, PPM placement Code status: FULL Disposition: Plan to discharge home with Home Health Subjective Patient is seen and examined at bedside States having mild soreness at the site of the pacemaker Denies any chest pain, shortness of breath, dizziness, nausea, abdominal pain Family at bedside Offers no other complaints Currently not interested in rehab placement Review of Systems Review of Systems: All systems reviewed & are unremarkable except as noted in HPI & below Physical Exam Physical Exam: Physical Exam: Vitals signs as noted above General Appearance:Moderately built and nourished, no apparent distress Head: normocephalic, Atraumatic Eyes: normal inspection, EOMI Neck: supple, Trachea midline Respiratory/Chest: Normal breath sounds, CTA, +Pacemaker on left side Cardiovascular: S1, S2, +systolic murmur Abdomen/GI:Soft, Non tender, Bowel sounds present, B/L groin hematoma Extremities/Musculoskelatal:normal inspection, Trace edema Neurologic/Psych:AAOX3, grossly no focal neurological deficits Skin: normal color, warm Results & Data Vital Signs (Past 12 Hours) Vital Signs Temp Pulse Pulse Resp BP Pulse Ox 04/13/19 11:18 36.6 C 62 19 115/65 98 04/13/19 07:50 60 04/13/19 06:57 36.6 C 64 18 138/70 97 04/13/19 03:20 36.7 C 69 18 118/66 98 Laboratory Results Short CBC 04/12/19 04/13/19 Range/Units 15:48 05:26 WBC 6.79 (4.8-10.8) K/uL Hgb 8.7 L 8.7 L (14.0-18.0) g/dL Hct 26.1 L 26.1 L (42-52) % Plt Count 190 (130-400) K/uL BMP 04/13/19 05:26 Sodium 136 Potassium 4.4 Chloride 106 Carbon Dioxide 25 BUN 39 H Creatinine 1.72 H Glucose 84 Calcium 7.9 L
--- NOTE | 2019-04-13 12:55 | Discharge Summary ---
Date of Service April 13, 2019 Admission HPI Per Admitting Provider This is an 88yo M with a PMH of CAD with recent stents x 4 at [facility] on 04/02/19, paroxysmal A Fib, CKD III, hypothyroidism, HTN, mood disorder and other medical problems listed below who presents with palpitations and chest pain this morning. Woke up this morning around 0600 with chest discomfort and noticed his heart was racing and felt irregular. Chest discomfort lasted for 5 minutes and was relieved with one dose of ntg. Took pulse and it was in 120s. Came into ED for further evaluation. Of note, during recent admission in [place], patient did have A Fib and verapamil was resumed. Since discharge from [facility], patient felt normal until yesterday when he was fatigued and had episode of "stiffening" of arms while working on computer. Had been napping on and off but once patient fully woke up, denies any confusion or post-ictal state. Did not have syncopal episode, no tongue biting or bowel/bladder incontinence. Did take Lasix on Tuesday and Tuesday and was afraid he was fatigued from "electrolytes being too low". Has been taking all medications as prescribed, including aspirin and Brilinta. Denies fever, chills, headache, lightheadedness, visual changes, chest pain, palpitations, shortness of breath, abdominal pain, nausea, vomiting, dysuria, constipation or diarrhea. In ED, patient is hemodynamically stable with initial troponin elevated at 2.5. EKG without ischemic changes. Has remained without chest pain since arrival. Admission Exam Per Admitting Provider Physical Exam Physical Exam: General Appearance: WD/WN, no apparent distress, resting comfortably Head: normocephalic, atraumatic Eyes: normal inspection, PERRL, EOMI ENT: hearing grossly normal, pharynx normal (moist mucous membranes) Neck: supple, no JVD, no adenopathy Respiratory/Chest: lungs clear to auscultation. No wheezes, rales or rhonchi. No respiratory distress or accessory muscle use Cardiovascular: regular rate, rhythm, 2/6 systolic murmur, normal peripheral pulses, 1-2+ pitting BLE edema Abdomen/GI: normal bowel sounds, soft, non-tender to palpation Extremities/Musculoskelatal: normal inspection, no calf tenderness, normal capillary refill, no pedal edema, + hematoma of bilateral groin area Neurologic/Psych: alert, normal mood/affect, oriented x 3 Skin: normal color, warm/dry Principal Diagnosis Discharge Information Discharge Diagnosis Complete heart block Tachybradycardia syndrome Presyncope Discharge Goals Decrease discomfort,Improve disease control, Improve function Discharge Activity Limitations Per instructions/follow-up Discharge Data Allergies Allergy/AdvReac Type Severity Reaction Status Date / Time lisinopril AdvReac Unknown Cough Verified 04/11/19 14:53 Consultations 04/11/19 16:14 ED Decision to Admit Stat 04/11/19 17:25 Consult Cardiology Routine 04/12/19 09:08 Consult Cardiology Routine Procedures Performed Operation Date: 04/12/19 12:00 Actual Procedures p Pacer with A/V Leads (Dual) - Jorge Hilton MD CT head: 1. No acute intracranial abnormality. 2. Mild atrophy and microvascular ischemic changes are noted. 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 CXR: 1. Status post placement of a left subclavian pacer. No postprocedural pneumothorax identified. 2. Cardiomegaly with pulmonary vascular congestion. 3. Trace pleural effusions. Ordered Studies 04/11/19 13:57 CT head/brain wo con Stat 04/12/19 11:45 EP Lab Images for PACS ONCE Hospital Course (1) Elevated troponin: Patient is an 88 yr male with H/O CAD with recent stents x 4 at [facility] on 04/02/19, paroxysmal A Fib, CKD III, hypothyroidism, HTN, mood disorder and other medical problems listed below who presents with palpitations and chest pain this morning and was found to have elevated troponin and recent episode of possible pre-syncope. Angina: H/O CAD S/P Stents Acute myocardial infarction within 4 weeks Elevated troponin likely secondary to recent [place] Chest pain likely secondary to tachyarrhythmia CXR:Mild cardiomegaly. No other convincing evidence of acute cardiopulmonary disease. Normal TSH ECHO: No regional wall motion abnormalities Continue aspirin, Brilinta, Lipitor, losartan, Carvedilol Appreciate Cardiology Input Anginal symptoms likely secondary to tachyarrhythmia Bilateral groin hematoma Complication of recent cardiac catheterization Anemia secondary to above Monitor CBC (2) Paroxysmal atrial fibrillation: Paroxysmal atrial fibrillation Transient complete heart block Tachybradycardia syndrome S/P permanent pacemaker placement on 04/12/19 Restart amiodarone 200 mg twice daily Continue carvedilol 6.25 mg twice daily Verapamil discontinued Continue dual antiplatelet therapy Plan to repeat BMP in 1 week Needs follow-up with cardiology as outpatient in 1 week Appreciate Cardiology Input No plan for long-term anticoagulation for now--- has significant groin hematoma (3) Pre-syncope: Episode last evening that included "stiffening" of arms while working on computer. No witnessed LOC or fall. No post-ictal state. No incontinence or tongue biting Likely secondary to asystole (4) CAD (coronary artery disease): Recent cardiac cath at [facility] with 4 stents placed on April 02, 2019 Continue cardiac medications as above (5) HTN (hypertension): Monitor BP Continue losartan , Carvedilol (6) CKD (chronic kidney disease), stage III: Cr at baseline Monitor renal function Avoid nephrotoxic agents as able (7) Hypothyroidism: TSH wnl Continue levothyroxine (8) Mood disorder: Stable. Continue SSRI DVT Px: SCDs for now Re; Hematoma, PPM placement Code status: FULL Disposition: Plan to discharge home with Home Health Total Time Total Time Spent Total Time Spent (In Minutes): 37 minutes Total Time Includes: Examination of the Patient, Discharge Planning, Medication Reconciliation, Communication With Other Providers and Other Discharge Plan Discharge Items Patient Disposition: Home - Home Health Services Reason For Visit: NEAR SYNCOPE,ELEVATED TROPONIN Discharge Diagnosis: Complete heart block Tachybradycardia syndrome Presyncope Discharge Goals: Decrease discomfort, Improve disease control and Improve function Activity: Per 'Additional Instructions' section Exercise/Sports: Gradually increase as tolerated Non-emergency contact: Primary Care Provider and Exercise Rider Call non-emergency contact if: you have any medication questions, your symptoms worsen, your pain is not controlled, your pain is worsening, your pain is unusual for you, your pain is concerning for you, you have a fever, your wound has increased redness, your wound has increased drainage and your wound pain has increased Follow-up/Referrals: Odilon Carbone MD [Primary Care Provider] - Diet: Heart Healthy Other Ambulatory Orders: Basic Metabolic Panel (Routine) Timeframe: 1 Week Location: Determined by Patient Ordered By: Smooth Garner Provider Instructions: Follow-up with your primary care physician Dr. Carbone on April 17, 2019 at 11:20 AM Follow-up with your nursing assoc Bill Connolly PA-C on April 24, 2019 at 1:30 PM Get blood test(basic metabolic panel) in 1 week and follow-up with your nursing assoc/primary care physician Seek immediate medical attention if your symptoms reoccur or worsen Prescriptions: New amiodarone 200 mg Tablet 200 mg PO BIDM 30 Days Qty: 60 RF: 0 Continued losartan 50 mg tablet 50 mg PO QAM RF: 0 carvedilol 6.25 mg tablet 6.25 mg PO BID RF: 0 clonazepam 0.5 mg tablet 0.5 mg PO HS RF: 0 acetaminophen 500 mg Tablet 500 mg PO Q6H PRN (Reason: Fever Or Pain) RF: 0 garlic 1,000 mg Capsule 1,000 mg PO QAM RF: 0 citalopram 20 mg tablet 20 mg PO QAM RF: 0 nitroglycerin [Nitrostat] 0.4 mg Tablet, Sublingual 0.4 mg Sublingual DIRECTED PRN (Reason: Chest Pain) RF: 0 albuterol sulfate [Proventil HFA] 90 mcg/actuation Hfa Aerosol Inhaler 2 puff INHALATION QID PRN (Reason: Shortness Of Breath Or Wheezing) RF: 0 cholecalciferol (vitamin D3) [Vitamin D3] 1,000 unit Capsule 1,000 units PO QAM RF: 0 coenzyme Q10 100 mg Tablet 200 mg PO QAM RF: 0 flaxseed oil 1,000 mg Capsule 1,000 mg PO QAM RF: 0 fluticasone propion-salmeterol [Advair Diskus] 100-50 mcg/dose Blister With Device 1 puff INHALATION Q12H PRN (Reason: Shortness Of Breath Or Wheezing) RF: 0 omega 4-pus-gdc-fish oil [Fish Oil] 1,000 mg (120 mg-180 mg) Capsule 1,000 mg PO QAM RF: 0 Alive Mens 50+ 1 tab PO QAM RF: 0 atorvastatin 40 mg tablet 40 mg PO HS RF: 0 levothyroxine 88 mcg tablet 88 mcg PO QAM RF: 0 ascorbic acid (vitamin C) [Vitamin C] 500 mg Tablet 500 mg PO QAM RF: 0 tamsulosin 0.4 mg capsule 0.4 mg PO QAM RF: 0 pantoprazole 40 mg tablet,delayed release (DR/EC) 40 mg PO QAM RF: 0 aspirin 81 mg Tablet,Chewable 81 mg PO QAM RF: 0 Brilinta 90 mg tablet 90 mg PO BID RF: 0 vitamin B complex Capsule 1 cap PO QAM RF: 0 cetirizine 10 mg Tablet 10 mg PO DAILY PRN (Reason: Allergic Symptoms) RF: 0 levalbuterol HCl 1.25 mg/0.5 mL Solution For Nebulization 1.25 mg INHALATION TID PRN (Reason: Shortness Of Breath) RF: 0 Discontinued verapamil 120 mg capsule,ext rel. pellets 24 hr 120 mg PO QAM RF: 0 Stand-Alone Forms: [facility] Discharge Orders: Discharge Order (Routine); Ordered 04/13/19 Ordered By: Smooth Maxwell Admission Data Admit Date/Time: 04/11/19 16:17 Attending Provider: Smooth Maxwell Admit Provider: Smooth Maxwell Primary Care Provider: Odilon Carbone Other Providers: Poli Parks Wilkerson ; Jorge Hilton Service: Telemetry Other Interventions: Discharge Summary Assessment (RN) Last Done: 04/13/19 13:16 Pending Studies at Discharge: No DC Date/Time DO NOT enter until pt leaves facility: 04/13/19 14:06
== END 2019-04-13 14:06 | disposition home health service (06) | DRG 242 ==
LOC: ED 13:13 → 2S 16:17
DX: I21.9 Acute myocardial infarction, unspecified; I48.0 Paroxysmal atrial fibrillation; E03.9 Hypothyroidism, unspecified; I12.9 Hypertensive chronic kidney disease with stage 1 through stage 4 chronic kidney disease, or unspecified chronic kidney disease; M96.841 Postprocedural hematoma of a musculoskeletal structure following other procedure; I25.110 Atherosclerotic heart disease of native coronary artery with unstable angina pectoris; N18.3 Chronic kidney disease, stage 3 (moderate)

== ENCOUNTER 2020-01-17 11:40 | Inpatient (IN) ==
--- NOTE | 2020-01-17 12:03 | Emergency Department Note ---
Impression & Plan Congestive heart failure, Elevated troponin, SOB (shortness of breath) ED Provider Note NAME: JESSE POLK AGE: 89 SEX: M ARRIVES VIA: Walk-In INFORMANT: [Patient] ED PROVIDER(S): Jaleel Hernandez MD CHIEF COMPLAINT: Shortness of breath PLAN: Disposition: Admitted Condition: [Good] MEDICAL DECISION MAKING: Patient presented with progressive shortness of breath. Despite medication tate ges done 5 days ago he is worsening. The patient had blood work, chest x-ray, and EKG performed. Prior records were reviewed. Recent lab studies obtained from his last cardiology visit, last week. The patient had an elevated BNP, mildly elevated troponin and renal insufficiency. Chest x-ray was concerning for pulmonary edema. In light of his shortness of breath and cardiac history I suspect CHF. The patient was treated with Nitropaste, Lasix, and supplemental oxygen. He did have some subtle lateral ST depressions on ECG as well. Further management in the hospital will be necessary patient and were in agreement. Triage Nursing notes reviewed and agree them. [Additional history obtained from] patient's [Prior medical records reviewed] patient was admitted last year for elevated troponin. Has extensive cardiac history. Vital Signs: reviewed and remarkable for [no significant abnormalities] Differential diagnosis: CHF, CAD, reactive airway disease, pneumonia, pneumothorax, COPD, infections, cardiac ischemia, pulmonary embolism, musculoskeletal, gastrointestinal, as well as other pathologies. ER treatment provided: Nitropaste Supplemental oxygen IV Lasix 40 mg Diagnostics interpreted by me: ECG: Rate: 79 Rhythm: Sinus with first-degree AV block [place]: Normal QRS: Nonspecific intraventricular block ST segements: Lateral ST segment depression Other: No PVCs or PACs. Cardiac Monitoring: Cardiac monitoring ordered by me: The patient was placed on continuous cardiac monitoring and observed. It revealed a sinus rhythm at 75 beats per minute without ectopy or evidence of dysrhythmia. Laboratory studies: [See below] mild stable anemia. Stable renal insufficiency. Elevated troponin and BNP. Imaging studies: Pulmonary edema noted on chest x-ray concerning for CHF. [facility]: 89/M with a PMH of CAD with recent stents x 4 at [facility] on 04/02/19, paroxysmal A Fib, CKD III, hypothyroidism, HTN, arrives for evaluation of progressive shortness of breath. The patient notes he has not been feeling well over the last several weeks but over the last 5 days he has had increasing shortness of breath. He also notes having gas/reflux-like symptoms for which he has been taking nitroglycerin. He states nitroglycerin helps relieve the discomfort and causes him to belch. He does note some weight gain and took an extra Lasix yesterday. He has been taking at least one nitroglycerin daily over the last 5 days. He does have more trouble at night. He does not lay flat, sleeping in a recliner. He recently had medication changes with cardiology. He was taken off Brilinta and put on Plavix. The patient was also taken off of amiodarone and placed on verapamil. He also notes decreased appetite and feeling generally weak. Pt denies LOC, headache, fevers, chills, diaphoresis, visual changes, neck pain, chest pain, nausea, vomiting, abdominal pain, back pain, melena, hematochezia, urinary symptoms, numbness, focal weakness, lymphadenopathy, rash, or other complaints. ROS: See above HPI for pertinent positives & negatives. A total of [10] systems reviewed and were otherwise negative. PAST MEDICAL HISTORY:[See Below] extensive cardiac history, CAD, CKD. PAST SURGICAL HISTORY:[See Below]pacemaker FAMILY HISTORY:[See Below] SOCIAL HISTORY:[See Below] HOME MEDICATIONS:[See Below] ALLERGIES:[See Below] VITALS:[See Below] PHYSICAL EXAMINATION: GENERAL: Awake, alert, well-appearing, in no distress HENT: Normocephalic, atraumatic. Oropharynx unremarkable. EYES: Pale conjunctiva. Sclera non-icteric. NECK: Inspection normal. Non-tender. Supple. No nuchal rigidity. FROM. No masses. RESPIRATORY: Clear to auscultation. No wheezes. No rales. Normal respiratory effort. CARDIAC: Normal rate. Normal rhythm. No murmurs. No rubs. Extremities warm and well perfused. Pulses equal. No JVD. GI: Soft, non-distended. No tenderness to palpation. No rebound or guarding. No masses. RECTAL: Deferred. MUSCULOSKELETAL: Atraumatic. Chest examination reveals no tenderness. The back is symmetrical on inspection without obvious abnormality. There is no CVA tenderness to palpation. No joint edema. LOWER EXTREMITIES: Calves are equal size bilaterally and non-tender. 1+ edema. No erythema discoloration. NEURO: Normal sensorium. No sensory or motor deficits noted. SKIN: No jaundice noted. Scattered faint petechiae on the lower extremities. Chronic venous discoloration of the lower legs. ED COURSE: [Critical Care:] [None] Jaleel Hernandez MD Past Med/Surg History Medical History (Updated 01/17/20 @ 19:37 by Jaleel Hernandez MD) Asthma (Chronic) CAD (coronary artery disease) (Chronic) Chronic anemia CKD (chronic kidney disease), stage III (Chronic) Complete heart block HTN (hypertension) (Chronic) Hypothyroidism (Chronic) Mood disorder (Chronic) Paroxysmal atrial fibrillation (Chronic) Surgical History History of carpal tunnel surgery (Chronic) Status post coronary artery stent placement (Chronic) stents x 4 @ [facility] on 04/02/19 Family History Other Diabetes Heart disease Social History Preferred Language: Arabic Communication Ability: Effective 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 Beliefs That Will Affect Care: None marital status: Current Living Situation: Spouse current occupational status: retired Other Information That Helps Us Care for You: No Feels Safe at Home: Yes Safety Concerns: Feels Safe At This Time Smoking Status: Former smoker Tobacco Type: smokeless tobacco ; Second Hand Exposure: No ; Hx Alcohol Use: No Hx Substance Use: No Allergies Allergies Allergy/AdvReac Type Severity Reaction Status Date / Time lisinopril AdvReac Unknown Cough Verified 01/17/20 12:53 Home Meds Home Medications Medication Instructions Recorded Confirmed acetaminophen [Tylenol Extra 500 mg PO Q6H PRN 08/18/18 01/17/20 Strength] albuterol sulfate [Proventil HFA] 2 puff INHALATION QID PRN 08/18/18 01/17/20 carvedilol [Coreg] 6.25 mg PO BID 08/18/18 01/17/20 cholecalciferol (vitamin D3) 1,000 units PO QAM 08/18/18 01/17/20 [Vitamin D3] clonazepam [Klonopin] 0.5 mg PO BID PRN 08/18/18 01/17/20 coenzyme Q10 200 mg PO QAM 08/18/18 01/17/20 flaxseed oil 1,000 mg PO QAM 08/18/18 01/17/20 fluticasone propion-salmeterol 1 puff INHALATION Q12H PRN 08/18/18 01/17/20 [Advair Diskus] garlic 1,000 mg PO QAM 08/18/18 01/17/20 losartan 50 mg PO QAM 08/18/18 01/17/20 nitroglycerin [Nitrostat] 0.4 mg SUBLINGUAL DIRECTED PRN 08/18/18 01/17/20 omega 3-ewe-lmt-fish oil [Fish Oil] 1,000 mg PO QAM 08/18/18 01/17/20 ascorbic acid (vitamin C) [Vitamin 500 mg PO QAM 04/11/19 01/17/20 C] aspirin 81 mg PO QAM 04/11/19 01/17/20 cetirizine [Zyrtec] 10 mg PO DAILY PRN 04/11/19 01/17/20 pantoprazole [Protonix] 40 mg PO BID 04/11/19 01/17/20 tamsulosin [Flomax] 0.4 mg PO QAM 04/11/19 01/17/20 vitamin B complex 1 cap PO QAM 04/11/19 01/17/20 clopidogrel [Plavix] 75 mg PO QAM 01/17/20 01/17/20 furosemide 40 mg PO DAILY PRN 01/17/20 01/17/20 isosorbide mononitrate 30 mg PO QAM 01/17/20 01/17/20 levothyroxine 112 mcg PO DAILY 01/17/20 01/17/20 venlafaxine [Effexor XR] 37.5 mg PO DAILY 01/17/20 01/17/20 verapamil [Calan SR] 120 mg PO QAM 01/17/20 01/17/20 Results & Data (ED) Vital Signs Vital Signs - 24 hr 01/17/20 11:42 01/17/20 11:57 01/17/20 12:00 Temperature 36.8 C Temperature Source Oral Pulse Rate 77 80 Pulse Rate [Apical] 79 Pulse Rate from SpO2 Sensor 80 Respiratory Rate 20 22 17 Respiratory Effort / Characteristics Spontaneous Blood Pressure 108/68 117/78 Blood Pressure [Right Arm] 116/76 Blood Pressure Mean 81 86 Blood Pressure Mean [Right Arm] 89 Pulse Oximetry 93 96 96 Oxygen Delivery Method Room Air Room Air Room Air Oxygen Flow Rate Sepsis Recent Fever Within 48 Hours No Sepsis New/Unexplained Change in Mental Status No Sepsis Action Taken by Nursing No Action Required 01/17/20 12:09 01/17/20 12:31 01/17/20 13:00 Temperature Temperature Source Pulse Rate 77 81 Pulse Rate [Apical] Pulse Rate from SpO2 Sensor 78 81 Respiratory Rate 23 23 Respiratory Effort / Characteristics Blood Pressure 112/78 123/84 Blood Pressure [Right Arm] Blood Pressure Mean 85 89 Blood Pressure Mean [Right Arm] Pulse Oximetry 96 95 96 Oxygen Delivery Method Room Air Room Air Nasal Cannula Oxygen Flow Rate 2 Sepsis Recent Fever Within 48 Hours Sepsis New/Unexplained Change in Mental Status Sepsis Action Taken by Nursing 01/17/20 13:30 01/17/20 14:00 01/17/20 14:30 Temperature Temperature Source Pulse Rate 80 79 77 Pulse Rate [Apical] Pulse Rate from SpO2 Sensor 80 80 77 Respiratory Rate 20 24 23 Respiratory Effort / Characteristics Blood Pressure 112/81 119/89 117/79 Blood Pressure [Right Arm] Blood Pressure Mean 90 102 88 Blood Pressure Mean [Right Arm] Pulse Oximetry 100 99 100 Oxygen Delivery Method Nasal Cannula Nasal Cannula Oxygen Flow Rate 2 2 Sepsis Recent Fever Within 48 Hours Sepsis New/Unexplained Change in Mental Status Sepsis Action Taken by Nursing 01/17/20 15:00 Temperature Temperature Source Pulse Rate 77 Pulse Rate [Apical] Pulse Rate from SpO2 Sensor Respiratory Rate 22 Respiratory Effort / Characteristics Blood Pressure 117/79 Blood Pressure [Right Arm] Blood Pressure Mean 87 Blood Pressure Mean [Right Arm] Pulse Oximetry Oxygen Delivery Method Oxygen Flow Rate Sepsis Recent Fever Within 48 Hours Sepsis New/Unexplained Change in Mental Status Sepsis Action Taken by Nursing Laboratory Data Result diagrams: 01/17/20 12:04 01/17/20 18:42 Lab Results 01/17/20 01/17/20 01/17/20 Range/Units 12:04 12:04 12:04 WBC 8.22 (4.8-10.8) K/uL RBC 3.47 L (4.7-6.1) M/uL Hgb 11.0 L (14.0-18.0) g/dL Hct 33.1 L (42-52) % MCV 95.4 (80-100) fL MCH 31.7 (25-34) pg MCHC 33.2 (32-36) g/dL RDW Std Deviation 50.2 H (36.4-46.3) fL RDW Coeff of Sher 14.4 (11.5-14.5) % Plt Count 169 (130-400) K/uL MPV 11.2 H (7.4-10.4) fL Immature Gran % (Auto) 0.2 % Neut % (Auto) 77.4 % Lymph % (Auto) 8.2 % Wells % (Auto) 12.9 % Eos % (Auto) 1.2 % Baso % (Auto) 0.1 % Immature Gran # (Auto) 0.02 (0.00-0.02) K/uL Neut # (Auto) 6.36 (1.4-6.5) K/uL Lymph # (Auto) 0.67 L (1.2-3.4) K/uL Wells # (Auto) 1.06 H (0.11-0.59) K/uL Eos # (Auto) 0.10 (0-0.5) K/uL Baso # (Auto) 0.01 (0-0.2) K/uL PT 10.9 (9.0-12.0) Seconds INR 1.0 (0.9-1.1) APTT 28.6 (21.0-31.0) Seconds PTT Ratio 1.0 Sodium 126 L (136-145) mmol/L Potassium 4.6 (3.5-5.1) mmol/L Chloride 93 L (98-107) mmol/L Carbon Dioxide 25 (21-32) mmol/L Anion Gap 9.0 (3-11) BUN 44 H (7-18) mg/dl Creatinine 2.12 H (0.6-1.4) mg/dl Est Cr Clr Drug Dosing 22.9 ml/min Est GFR ( Amer) 31.5 Est GFR (Non-Af Amer) 27.2 BUN/Creatinine Ratio 20.6 H (10-20) Glucose 100 H (70-99) mg/dl Osmolality (280-300) mOsm/kg Calcium 9.1 (8.5-10.1) mg/dl Total Bilirubin 0.7 (0.2-1) mg/dl AST 65 H (15-37) U/L ALT 100 H (12-78) U/L Alkaline Phosphatase 125 H (45-117) U/L Troponin I 0.879 H* (0-0.045) ng/ml NT-Pro-B Natriuret Pep 6068 H (0-1800) pg/ml Total Protein 7.4 (6.4-8.2) gm/dl Albumin 3.1 L (3.4-5.0) gm/dl Globulin 4.3 H (2.5-4.0) gm/dl Albumin/Globulin Ratio 0.7 L (0.9-2) Lipase 88 (73-393) U/L Urine Osmolality (500-800) mOsm/kg Ur Random Sodium mmol/L COVID-19 PCR (Negative) 01/17/20 01/17/20 01/17/20 Range/Units 12:04 13:59 14:05 WBC (4.8-10.8) K/uL RBC (4.7-6.1) M/uL Hgb (14.0-18.0) g/dL Hct (42-52) % MCV (80-100) fL MCH (25-34) pg MCHC (32-36) g/dL RDW Std Deviation (36.4-46.3) fL RDW Coeff of Sher (11.5-14.5) % Plt Count (130-400) K/uL MPV (7.4-10.4) fL Immature Gran % (Auto) % Neut % (Auto) % Lymph % (Auto) % Wells % (Auto) % Eos % (Auto) % Baso % (Auto) % Immature Gran # (Auto) (0.00-0.02) K/uL Neut # (Auto) (1.4-6.5) K/uL Lymph # (Auto) (1.2-3.4) K/uL Wells # (Auto) (0.11-0.59) K/uL Eos # (Auto) (0-0.5) K/uL Baso # (Auto) (0-0.2) K/uL PT (9.0-12.0) Seconds INR (0.9-1.1) APTT (21.0-31.0) Seconds PTT Ratio Sodium (136-145) mmol/L Potassium (3.5-5.1) mmol/L Chloride (98-107) mmol/L Carbon Dioxide (21-32) mmol/L Anion Gap (3-11) BUN (7-18) mg/dl Creatinine (0.6-1.4) mg/dl Est Cr Clr Drug Dosing ml/min Est GFR ( Amer) Est GFR (Non-Af Amer) BUN/Creatinine Ratio (10-20) Glucose (70-99) mg/dl Osmolality 277 L (280-300) mOsm/kg Calcium (8.5-10.1) mg/dl Total Bilirubin (0.2-1) mg/dl AST (15-37) U/L ALT (12-78) U/L Alkaline Phosphatase (45-117) U/L Troponin I (0-0.045) ng/ml NT-Pro-B Natriuret Pep (0-1800) pg/ml Total Protein (6.4-8.2) gm/dl Albumin (3.4-5.0) gm/dl Globulin (2.5-4.0) gm/dl Albumin/Globulin Ratio (0.9-2) Lipase (73-393) U/L Urine Osmolality 366 L (500-800) mOsm/kg Ur Random Sodium mmol/L COVID-19 PCR NEGATIVE (Negative) 01/17/20 Range/Units 14:05 WBC (4.8-10.8) K/uL RBC (4.7-6.1) M/uL Hgb (14.0-18.0) g/dL Hct (42-52) % MCV (80-100) fL MCH (25-34) pg MCHC (32-36) g/dL RDW Std Deviation (36.4-46.3) fL RDW Coeff of Sher (11.5-14.5) % Plt Count (130-400) K/uL MPV (7.4-10.4) fL Immature Gran % (Auto) % Neut % (Auto) % Lymph % (Auto) % [place] % (Auto) % Eos % (Auto) % Baso % (Auto) % Immature Gran # (Auto) (0.00-0.02) K/uL Neut # (Auto) (1.4-6.5) K/uL Lymph # (Auto) (1.2-3.4) K/uL [place] # (Auto) (0.11-0.59) K/uL Eos # (Auto) (0-0.5) K/uL Baso # (Auto) (0-0.2) K/uL PT (9.0-12.0) Seconds INR (0.9-1.1) APTT (21.0-31.0) Seconds PTT Ratio Sodium (136-145) mmol/L Potassium (3.5-5.1) mmol/L Chloride (98-107) mmol/L Carbon Dioxide (21-32) mmol/L Anion Gap (3-11) BUN (7-18) mg/dl Creatinine (0.6-1.4) mg/dl Est Cr Clr Drug Dosing ml/min Est GFR ( Amer) Est GFR (Non-Af Amer) BUN/Creatinine Ratio (10-20) Glucose (70-99) mg/dl Osmolality (280-300) mOsm/kg Calcium (8.5-10.1) mg/dl Total Bilirubin (0.2-1) mg/dl AST (15-37) U/L ALT (12-78) U/L Alkaline Phosphatase (45-117) U/L Troponin I (0-0.045) ng/ml NT-Pro-B Natriuret Pep (0-1800) pg/ml Total Protein (6.4-8.2) gm/dl Albumin (3.4-5.0) gm/dl Globulin (2.5-4.0) gm/dl Albumin/Globulin Ratio (0.9-2) Lipase (73-393) U/L Urine Osmolality (500-800) mOsm/kg Ur Random Sodium 72 mmol/L COVID-19 PCR (Negative) Administered Medications Discontinued Medications Furosemide (Lasix) 40 mg IV NOW STA Stop: 01/17/20 13:05 Last Admin: 01/17/20 13:11 Dose: 40 mg Documented by: [id number] Furosemide 20 mg/ Syringe 2 mls @ 4 mls/min IV ONE ONE Stop: 01/17/20 18:46 Last Admin: 01/17/20 19:24 Dose: 4 mls/min Documented by: [id number] Nitroglycerin (Nitro-Bid 2%) 0.5 inch EXT NOW STA Stop: 01/17/20 13:05 Last Admin: 01/17/20 13:11 Dose: 0.5 inch Documented by: [id number] Discharge Plan Visit Data *Final* Discharge Date/Time: 01/17/20 17:26 Chief Complaint: Shortness of Breath/Dyspnea Stated Complaint: SOB,WEAKNESS ED Provider: Jaleel Hernandez Discharge Problem: Congestive heart failure, Elevated troponin, SOB (shortness of breath) Patient Disposition: Admitted As Inpatient Discharge Instructions Interventions: ED Discharge Assessment Last Done: 01/17/20 17:26
[2020-01-17 12:24] LABS: Basophils # (auto) 0.01 K/uL (0-0.2); Basophils % (auto) 0.1 %; Eosinophils % (auto) 1.2 %; Hematocrit (blood only) 33.1 % (42-52); Immature Granulocytes # (auto) 0.02 K/uL (0.00-0.02); Immature Granulocytes % (auto) 0.2 %; Lymphocytes # (auto) 0.67 K/uL (1.2-3.4); Lymphocytes % (auto) 8.2 %; Mean Corpuscular Hemoglobin 31.7 pg (25-34); Mean Corpuscular Hgb Conc 33.2 g/dL (32-36); Mean Corpuscular Volume 95.4 fL (80-100); Mean Platelet Volume 11.2 fL (7.4-10.4); Monocytes # (auto) 1.06 K/uL (0.11-0.59); Monocytes % (auto) 12.9 %; Neutrophils # (auto) 6.36 K/uL (1.4-6.5); Neutrophils % (auto) 77.4 %; Platelet Count 169 K/uL (130-400); RDW Coefficient of Variation 14.4 % (11.5-14.5); RDW Standard Deviation 50.2 fL (36.4-46.3); Red Blood Count 3.47 M/uL (4.7-6.1); White Blood Count 8.22 K/uL (4.8-10.8)
[2020-01-17 12:37] LABS: Partial Thromboplastin Time 28.6 Seconds (21.0-31.0); Prothrombin Time 10.9 Seconds (9.0-12.0)
[2020-01-17 12:40] LABS: Albumin Level 3.1 gm/dl (3.4-5.0); BUN Creatinine Ratio 20.6 (10-20); Calcium 9.1 mg/dl (8.5-10.1); Creatinine Clr Calc Pharmacy 22.9 ml/min; Est GFR (African American) 31.5; Est GFR (Non-African American) 27.2; Potassium 4.6 mmol/L (3.5-5.1)
--- NOTE | 2020-01-17 12:56 | XRay Report ---
XR chest 1V portable CLINICAL HISTORY: Chest Pain dyspnea COMPARISON STUDY: 04/13/2019 FINDINGS: Findings consistent with developing pulmonary edema versus congestive failure. Moderate car diomegaly. Permanent bipolar cardiac pacemaker. IMPRESSION: Pulmonary edema ACT 112: Negative or not required by law. The above report was generated using voice recognition software. It may contain grammatical, syntax or spelling errors. Electronically signed by: Bill Dickey M.D. 01/17/2020 12:54 PM
[2020-01-17 13:00] LABS: Albumin Globulin Ratio 0.7 (0.9-2); Bilirubin,Total 0.7 mg/dl (0.2-1); Globulin 4.3 gm/dl (2.5-4.0); Total Protein 7.4 gm/dl (6.4-8.2); Troponin I 0.879 ng/ml (0-0.045)
[2020-01-17] MEDS ORDERED: NITROGLYCERIN 2% OINTMENT 30GM TUBE EXT STA (13:04)
[2020-01-17] MEDS ORDERED: FUROSEMIDE 40 MG/4 ML VIAL IV STA (13:04)
--- NOTE | 2020-01-17 16:16 | History & Physical Report ---
Date of Service January 17, 2020 Assessment & Plan (1) SOB (shortness of breath): (2) Heart failure, diastolic: This is an 88yo M with a PMH of CAD with [place] [facility] [place] paroxysmal A Fib on amiodarone and not on anticoagulation secondary to pt declining, CKD III, hypothyroidism, HTN, mood disorder and others listed below for SOB. Pt reports past several days with worsening SOB with exertion, increased BLE edema and abdomen distended. Amiodarone discontinued on 01/11/20 and verapamil started In ER pt afebrile, P: 77, R: 20, BP: 108/68, 93% on RA. No leukocytosis, BNP: 6068. CXR: consistent with pulmonary edema -No fever/chills, cough. COVID 19 PCR negative -In ER given Lasix 40mg IV, 1/2inch nitro paste and pt reports decreased SOB -Monitor I&O's, daily weight, low sodium diet -Additional lasix 20mg IV tonight followed by 40mg IV daily. May need further adjustment -Echo -Cardiology consult -Monitor BMP (3) Elevated troponin: H/o CAD Troponin: 0.8. EKG nonspecific intraventricular conduction block (seen on outpatient EKG 12/18/19), some ST depression lateral No current CP or chest pressure or SOB at rest -Will trend troponin -Echo -continue aspirin, carvedilol, isosorbide, plavix -Nitro prn CP -Cardiology consult (4) Hyponatremia: Na: 126 -TSH was 0.48 on 01/11/2020 -Obtain urine and serum osmolality, urine sodium -repeat BMP tonight (5) Acute kidney injury superimposed on CKD: CKD III Cr: 2.1. Cr was 2.0 on 01/11/20 and 1.6 on 11/23/19 -Monitor renal functions -Avoid nephrotoxic agents when possible -Renal US to r/o obstruction -May need to consider nephrology consult if no improvement or worsening (6) CAD (coronary artery disease): -continue aspirin, carvedilol, isosorbide, plavix (7) Complete heart block, transient: S/P Pacemaker Pacemaker interrogation on 12/19/2019 with no atrial or ventricular arrhythmias and appropriate function and battery reserve (8) Paroxysmal atrial fibrillation: Not on anticoagulation secondary to pt preference. Pt had requested discontinuing amiodarone. Amiodarone discontinued on 01/11/20 and verapamil started Current sinus -Continue verapamil (9) HTN (hypertension): -Hold losartan with PRETTY -Continue carvedilol, verapamil (10) Asthma: -Continue home inhalers (11) Chronic anemia: Hgb: 11. Baseline Hgb: 11-12 -Monitor H&H (12) Hypothyroidism: TSH: 0.48 on 01/11/20 -Continue levothyroxine (13) Mood disorder: -Continue Effexor DVT Prophylaxis -Heparin SQ Full Code as per discussion with pt Follows with Dr Carbone for routine care Pt was seen and care coordinated with Dr Mcgee. See addendum History of Present Illness Chief Complaint: SOB Primary Care Provider: Odilon Carbone MD This is an 88yo M with a PMH of CAD with st[place] x [place] [facility] [place], paroxysmal A Fib on amiodarone and not on anticoagulation secondary to pt declining, CKD III, hypothyroidism, HTN, mood disorder and others listed below for SOB. Pt reports past several days with worsening SOB with exertion. Sleeps on incline. He noticed increased BLE edema and abdomen distended. Yesterday took lasix 40mg without much relief. Denies cough, fever. Pt reports past several weeks with intermittent pressure sensation to central chest with burping. Past several days he reports taking nitro daily for this sensation and that helps him belch and he feels better. Pt states vomited once yesterday. He reports similar symptoms prior to his cardiac cath in 03/2019. Pt states since his hospital ization in 03/2019 he has been feeling fatigued and feeling like his legs are weak. Pt attributes this to the amiodarone he was stared on. Denies fever/chills, diaphoresis, nausea, diarrhea, DEGROOT, dizziness, syncope, vision changes, neck pain, orthopnea, palpitations, cough, sore throat, choking, otalgia, rhinorrhea, abdominal pain, paresthesias, extremity edema, rashes, urinary symptoms. 12/18/2019 visit with cardiology with reported chest pressure with exertion and indigestion sensation. Isosorbide was added and protonix. He wanted off amiodarone as he thought that was causing fatigue, weakness and other symptoms. Pt states took Protonix twice and didn't feel it helped with the gassy sensation. Seen at cardiology clinic 01/11/2020 with multiple medical complaints including SOB, nausea, gassy. At that time denied any increased edema, orthopnea or exertional CP. He switched from chewable to enteric coated aspirin with some reported improvement of indigestion. He requested being taken off Brillinta and amiodarone. Cardiology note reports pt was prescribed amiodarone due to highly symptomatic atrial fibrillation with a rapid ventricular response with resultant presynope and angina, NSTEMI. Pt was ultimately switched from Brillinta to Plavix and dual anticoagulation was recommended to be continued. He was taken off amiodarone and verapamil 120mg daily was started Pacemaker interrogation 12/19/2019 with no atrial or ventricular arrhythmias and appropriate function and battery reserve. 03/2019 echo: EF: 55-59%, no wall motion abnormalities, mild aortic stenosis, grade II diastolic dysfunction Allergies Allergy/AdvReac Type Severity Reaction Status Date / Time lisinopril AdvReac Unknown Cough Verified 01/17/20 12:53 Home Medications Home Medications Medication Instructions Recorded Confirmed Type acetaminophen [Tylenol Extra 500 mg PO Q6H PRN 08/18/18 01/17/20 History Strength] albuterol sulfate [Proventil HFA] 2 puff INHALATION QID PRN 08/18/18 01/17/20 History carvedilol [Coreg] 6.25 mg PO BID 08/18/18 01/17/20 History cholecalciferol (vitamin D3) 1,000 units PO QAM 08/18/18 01/17/20 History [Vitamin D3] clonazepam [Klonopin] 0.5 mg PO BID PRN 08/18/18 01/17/20 History coenzyme Q10 200 mg PO QAM 08/18/18 01/17/20 History flaxseed oil 1,000 mg PO QAM 08/18/18 01/17/20 History fluticasone propion-salmeterol 1 puff INHALATION Q12H PRN 08/18/18 01/17/20 History [Advair Diskus] garlic 1,000 mg PO QAM 08/18/18 01/17/20 History losartan 50 mg PO QAM 08/18/18 01/17/20 History nitroglycerin [Nitrostat] 0.4 mg SUBLINGUAL DIRECTED PRN 08/18/18 01/17/20 History omega 4-mhg-ucf-fish oil [Fish Oil] 1,000 mg PO QAM 08/18/18 01/17/20 History ascorbic acid (vitamin C) [Vitamin 500 mg PO QAM 04/11/19 01/17/20 History C] aspirin 81 mg PO QAM 04/11/19 01/17/20 History cetirizine [Zyrtec] 10 mg PO DAILY PRN 04/11/19 01/17/20 History pantoprazole [Protonix] 40 mg PO BID 04/11/19 01/17/20 History tamsulosin [Flomax] 0.4 mg PO QAM 04/11/19 01/17/20 History vitamin B complex 1 cap PO QAM 04/11/19 01/17/20 History clopidogrel [Plavix] 75 mg PO QAM 01/17/20 01/17/20 History furosemide 40 mg PO DAILY PRN 01/17/20 01/17/20 History isosorbide mononitrate 30 mg PO QAM 01/17/20 01/17/20 History levothyroxine 112 mcg PO DAILY 01/17/20 01/17/20 History venlafaxine [Effexor XR] 37.5 mg PO DAILY 01/17/20 01/17/20 History verapamil [Calan SR] 120 mg PO QAM 01/17/20 01/17/20 History Past Med/Surg History Medical History (Updated 01/17/20 @ 19:37 by Jaleel Hernandez MD) Asthma (Chronic) CAD (coronary artery disease) (Chronic) Chronic anemia CKD (chronic kidney disease), stage III (Chronic) Complete heart block HTN (hypertension) (Chronic) Hypothyroidism (Chronic) Mood disorder (Chronic) Paroxysmal atrial fibrillation (Chronic) Surgical History History of carpal tunnel surgery (Chronic) Status post coronary artery stent placement (Chronic) stents x 4 @ [facility] on 04/02/19 Family History Other Diabetes Heart disease Social History Preferred Language: Iraqi Communication Ability: Effective Driver License Agent Required: No Beliefs That Will Affect Care: None marital status: Current Living Situation: Spouse current occupational status: retired Other Information That Helps Us Care for You: No Feels Safe at Home: Yes Safety Concerns: Feels Safe At This Time Smoking Status: Former smoker Tobacco Type: smokeless tobacco ; Second Hand Exposure: No ; Hx Alcohol Use: No Hx Substance Use: No Review of Systems Review of Systems: All systems reviewed & are unremarkable except as noted in HPI & below Physical Exam Physical Exam: General: no acute distress, obese Head: normocephalic, atraumatic Eyes: PERRL, EOM's intact, conjunctiva non-injected, anicteric ENT: normal inspection external ears, nose, mucous membranes moist Neck: supple, trachea midline Lungs: diminished breath sounds at bases, slight expiratory wheeze, R: 20, no retractions CV: RRR, no murmur, 1-2+ pretibial edema Abd: normal BS, distended, soft, non-tender Ext: no cyanosis, no calf tenderness Neuro: A&O x 3, no focal deficits noted, normal affect Skin: warm, dry Results & Data Results & Data ([facility]) Vital Signs (Past 12 Hours) Vital Signs Temp Pulse Pulse Resp BP BP Pulse Ox 01/17/20 15:00 77 22 117/79 01/17/20 14:30 77 23 117/79 100 01/17/20 14:00 79 24 119/89 99 01/17/20 13:30 80 20 112/81 100 01/17/20 13:00 81 23 123/84 96 01/17/20 12:31 77 23 112/78 95 01/17/20 12:09 96 01/17/20 12:00 80 17 117/78 96 01/17/20 11:57 79 22 116/76 96 01/17/20 11:42 36.8 C 77 20 108/68 93 Laboratory Results Short CBC 01/17/20 Range/Units 12:04 WBC 8.22 (4.8-10.8) K/uL Hgb 11.0 L (14.0-18.0) g/dL Hct 33.1 L (42-52) % Plt Count 169 (130-400) K/uL BMP 01/17/20 12:04 Sodium 126 L Potassium 4.6 Chloride 93 L Carbon Dioxide 25 BUN 44 H Creatinine 2.12 H Glucose 100 H Calcium 9.1 Cardiac Enzymes 01/17/20 Range/Units 12:04 Troponin I 0.879 H* (0-0.045) ng/ml Liver Function 01/17/20 Range/Units 12:04 Total Bilirubin 0.7 (0.2-1) mg/dl AST 65 H (15-37) U/L ALT 100 H (12-78) U/L Alkaline Phosphatase 125 H (45-117) U/L Albumin 3.1 L (3.4-5.0) gm/dl Diagnostic Findings CXR: IMPRESSION: Pulmonary edema ECG Rhythm: sinus rhythm Findings: + 1st degree AV block and + ST depression (Lateral) Additional Comments: nonspecific intraventricular conduction block Code Status & VTE Plan VTE Prophylaxis Plan VTE Prophylaxis will be ordered: Yes Supervising Physician Co-Signing Physician Notes Attending Addendum: care coordinated with BALBIR Ovalle please refer to her notes for full details, I agree with her notes patient seen and examined, records reviewed by myself as well on exam, patient resting in bed, comfortable, not in distress, on 2 L of oxygen via nasal cannula His breathing is improving since admission Denies chest pain no other symptoms VS noted and reviewed oriented x 3, not in distress, speaks in sentences with no effort nor accessory muscle use normal rate, regular rhythm, no murmurs Mild rales at the bases, no wheezing non distended, soft, nontender no bipedal edema, erythema, warmth no neuro deficits WBC 8.22 Hg 11.0 Crea 2.05 ASSESSMENT AND PLAN Acute on chronic diastolic CHF exacerbation Creatinine elevated at 2.12, baseline 1.7 Proceed with diuresis cautiously, Lasix additional 20 mg IV ordered for the evening, 40 mg IV in the morning Monitor creatinine Chest pressure Likely related to #1, rule out ACS Troponin level increased from 0.87-1.[address] depressions in the anterior and lateral leads Patient denies chest pain on exam in the evening We will start heparin low-dose with no bolus Cover Seamer consulted other diagnoses and plan of care as per BALBIR Ovalle. notes Vipin Mcgee MD
[2020-01-17] MEDS ORDERED: NITROGLYCERIN SL 0.4 MG/TAB TAB SL PRN (18:19)
[2020-01-17] MEDS ORDERED: FUROSEMIDE 40 MG/4 ML VIAL IV ONE (18:19)
[2020-01-17] MEDS ORDERED: FUROSEMIDE 20 MG in SYRINGE 0 ML IV ONE (18:45)
[2020-01-17] MEDS ORDERED: FLUTICASONE/VILANTEROL 100/25MCG 14 PUFFS/INHALER INH PRN (19:03)
[2020-01-17 19:13] LABS: BUN Creatinine Ratio 20.6 (10-20); Calcium 8.6 mg/dl (8.5-10.1); Creatinine Clr Calc Pharmacy 23.6 ml/min; Est GFR (African American) 32.8; Est GFR (Non-African American) 28.3; Potassium 4.1 mmol/L (3.5-5.1)
[2020-01-17 19:27] LABS: Troponin I 1.43 ng/ml (0-0.045)
--- NOTE | 2020-01-17 20:11 | Ultrasound Report ---
ULTRASOUND KIDNEYS AND BLADDER CLINICAL HISTORY: Acute renal insufficiency. COMPARISON STUDY: No priors. TECHNIQUE: Real-time, grayscale, and color flow sonography of the kidneys and bladder is performed. I mages are reviewed in the transverse and longitudinal planes. FINDINGS: Kidneys: The kidneys are atrophic and echogenic consistent with medical renal disease. The right kidn ey measures 11.2 x 5.4 x 6.5 cm and the left kidney measures 11.2 x 5.7 x 6.2 cm. There is no hydron ephrosis. No shadowing renal calculi are identified. There is no sonographic evidence of contour defo rming renal mass lesion. No perinephric fluid is identified. Bladder: The bladder wall is thickened and trabeculated suggesting chronic outlet obstruction. Bilate ral ureteral jets were seen. IMPRESSION: 1. The kidneys are atrophic and echogenic consistent with medical renal disease. 2. There is no hydronephrosis. 3. The appearance of the bladder suggests chronic outlet obstruction. ACT 112: Negative or not required by law. Electronically signed by: Yvon Calles M.D. 01/17/2020 8:09 PM
[2020-01-17] MEDS: carvediloL 6.25 MG TAB PO SCH (20:19)
[2020-01-17] MEDS: PANTOprazole 40 MG TAB PO SCH (20:19)
[2020-01-17] MEDS ORDERED: HEPARIN SOD 5,000 UNIT/0.5 ML VIAL SQ SCH (22:00)
[2020-01-17] MEDS ORDERED: Heparin IV Low Dose *NO* Bolus ONE (23:20)
[2020-01-18] MEDS: HEPARIN SODIUM/DEXTROSE 25,000 UNITS/500 ML BAG IV SCH (00:03)
[2020-01-18] MEDS: clonazePAM 0.5 MG TAB PO PRN ×2 (00:13→23:48)
[2020-01-18 06:33] LABS: Hematocrit (blood only) 29.3 % (42-52); Mean Corpuscular Hemoglobin 32.1 pg (25-34); Mean Corpuscular Hgb Conc 34.1 g/dL (32-36); Mean Corpuscular Volume 93.9 fL (80-100); Mean Platelet Volume 11.6 fL (7.4-10.4); Platelet Count 165 K/uL (130-400); RDW Coefficient of Variation 14.2 % (11.5-14.5); RDW Standard Deviation 48.9 fL (36.4-46.3); Red Blood Count 3.12 M/uL (4.7-6.1); White Blood Count 6.73 K/uL (4.8-10.8)
[2020-01-18] MEDS: LEVOTHYROXINE SODIUM 112 MCG TABLET PO SCH (06:45)
[2020-01-18 06:56] LABS: Partial Thromboplastin Ratio 2.2
[2020-01-18 07:03] LABS: Partial Thromboplastin Time 62.1 Seconds (21.0-31.0)
[2020-01-18 07:05] LABS: BUN Creatinine Ratio 22.2 (10-20); Calcium 8.5 mg/dl (8.5-10.1); Creatinine Clr Calc Pharmacy 22.1 ml/min; Est GFR (African American) 31.1; Est GFR (Non-African American) 26.9; Magnesium 2.2 mg/dl (1.8-2.4); Potassium 3.6 mmol/L (3.5-5.1)
[2020-01-18] MEDS ORDERED: CLOPIDOGREL BISULFATE 75 MG TAB PO SCH (08:00)
[2020-01-18] MEDS ORDERED: VERAPAMIL HCL 120 MG TABCR PO SCH (08:00)
[2020-01-18] MEDS ORDERED: FUROSEMIDE 40 MG in SYRINGE 0 ML IV SCH ×2 (08:00→17:00)
[2020-01-18] MEDS: TAMSULOSIN HCL 0.4 MG CAP PO SCH (08:27)
[2020-01-18] MEDS: carvediloL 6.25 MG TAB PO SCH ×2 (08:27→20:53)
[2020-01-18] MEDS: VENLAFAXINE HCL XR 37.5 MG CAPXR PO SCH (08:27)
[2020-01-18] MEDS: ASPIRIN 81 MG ECTAB PO SCH (08:27)
[2020-01-18] MEDS: ISOSORBIDE MONO EXTENDED REL 30 MG TABCR PO SCH (08:27)
[2020-01-18] MEDS: PANTOprazole 40 MG TAB PO SCH ×2 (08:27→20:53)
[2020-01-18] MEDS: CHOLECALCIFEROL 1,000 UNITS 25 MCG TAB PO SCH (08:27)
[2020-01-18] MEDS ORDERED: FUROSEMIDE 40 MG/4 ML VIAL IV SCH (09:00)
--- NOTE | 2020-01-18 11:16 | Cardiology Consultation ---
Date of Consultation January 18, 2020 Assessment & Plan (1) Acute systolic CHF (congestive heart failure), NYHA class 4: (2) Non-ST elevation (NSTEMI) myocardial infarction: (3) Ischemic cardiomyopathy: (4) Acute kidney injury superimposed on CKD: 89-year-old patient admitted with shortness of breath and acute decompensated systolic heart failure. Echocardiogram demonstrates posterior lateral wall hypokinesis to akinesis. I suspect the circumflex limb of his left main stent has occluded. This may be related to recent discontinuation of Brilinta and transition to clopidogrel. We have to assume the patient is a Plavix nonresponder. Recommend discontinuation of clopidogrel and transition back to Brilinta. He will receive a 180 mg loading dose of Brilinta now. Continue IV diuretic therapy, Lasix 40 mg daily. Volume status markedly improved since admission. In regard to patient's history of paroxysmal atrial fibrillation and tachycardia/bradycardia syndrome, recommend discontinuation of verapamil. Calcium channel brody therapy contraindicated in setting of ischemic car diomyopathy and acute decompensated heart failure. Risk versus benefit of restarting amiodarone discussed with patient at length. He is agreeable to restart amiodarone 200 mg daily to maintain rhythm control. Continue carvedilol as previously ordered. Continue conservative medical management of non-STEMI with IV heparin for 48 to 72 hours. Follow basic metabolic panel daily. Patient is a high risk candidate for cardiac catheterization due to renal insufficiency. Noninvasive therapy is recommended at this time, however, consideration for cardiac catheterization could be entertained as hospital course unfolds. 45 minutes critical care time spent reviewing records, evaluating patient, formulating/instituting plan of care and discussion with patient at bedside. History of Present Illness Reason for Consultation: CHF Requesting Physician: Dr. Johnson Attending Physician: Tom Johnson MD History of Present Illness Complex 89-year-old male presented to the emergency department with progressive shortness of breath. Recently evaluated by cardiology with discontinuation of amiodarone and initiation of verapamil. Brilinta discontinued 01/10 in favor of clopidogrel. Most recently evaluated by the undersigned in March 2019 secondary to complete heart block. Pacemaker implanted during that visit. Complex cardiovascular history noted below. Patient treated with intravenous Lasix on admission. Fluid balance -1.4 L since admission. Creatinine above baseline. Patient reports feeling unwell beginning Tuesday. Reports "shaking" felt as if he may have been developing flulike symptoms. Denies chest discomfort. Then noted shortness of breath as well as generalized weakness and decline in stamina. Currently he is pain-free and consuming his midday meal. Reports significant urine output with IV diuretic therapy. Denies orthopnea or PND. Troponins are mildly elevated but flat. Cardiovascular problem list as copied from [employer] EMR: Problem List: 1. ASCVD, multivessel coronary artery disease including a 90% distal left main stenosis, 90% proximal and 90% mid LAD stenosis, 70% ostial left circumflex stenosis, and occluded right coronary artery. 2. Status post multivessel stenting with Impella support to the left main coronary artery, the left anterior descending coronary artery, and the left circumflex coronary artery with [place] [facility] [place] 3. PCI course complicated by significant blood loss (side arm to the right femoral sheath was inadvertently open following guide catheter re moval/flushing) and as well as a vagal event, right groin hematoma. 4. Admitted to [facility] April 11, 2019 to April 13, 2019 with angina associated with atrial fibrillation with rapid ventricular response as well as presyncope/syncope. 5. Sick sinus syndrome stuats post dual-chamber [employer] permanent pacemaker by Dr. Luiz Hilton on April 12, 2019. 6. Symptomatic paroxysmal atrial fibrillation 7. 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 Moderate ESTEFANY stenosis 9. Hypertension, history of hypertensive heart disease 10. Stage III chronic kidney disease 11. Hyperlipidemia with poor tolerance to multiple lipid reduction therapies 12. Tobacco abuse Allergies Allergy/AdvReac Type Severity Reaction Status Date / Time lisinopril AdvReac Unknown Cough Verified 01/17/20 12:53 Home Medications Home Medications Medication Instructions Recorded Confirmed Type acetaminophen [Tylenol Extra 500 mg PO Q6H PRN 08/18/18 01/17/20 History Strength] albuterol sulfate [Proventil HFA] 2 puff INHALATION QID PRN 08/18/18 01/17/20 History carvedilol [Coreg] 6.25 mg PO BID 08/18/18 01/17/20 History cholecalciferol (vitamin D3) 1,000 units PO QAM 08/18/18 01/17/20 History [Vitamin D3] clonazepam [Klonopin] 0.5 mg PO BID PRN 08/18/18 01/17/20 History coenzyme Q10 200 mg PO QAM 08/18/18 01/17/20 History flaxseed oil 1,000 mg PO QAM 08/18/18 01/17/20 History fluticasone propion-salmeterol 1 puff INHALATION Q12H PRN 08/18/18 01/17/20 History [Advair Diskus] garlic 1,000 mg PO QAM 08/18/18 01/17/20 History losartan 50 mg PO QAM 08/18/18 01/17/20 History nitroglycerin [Nitrostat] 0.4 mg SUBLINGUAL DIRECTED PRN 08/18/18 01/17/20 History omega 3-nwn-scx-fish oil [Fish Oil] 1,000 mg PO QAM 08/18/18 01/17/20 History ascorbic acid (vitamin C) [Vitamin 500 mg PO QAM 04/11/19 01/17/20 History C] aspirin 81 mg PO QAM 04/11/19 01/17/20 History cetirizine [Zyrtec] 10 mg PO DAILY PRN 04/11/19 01/17/20 History pantoprazole [Protonix] 40 mg PO BID 04/11/19 01/17/20 History tamsulosin [Flomax] 0.4 mg PO QAM 04/11/19 01/17/20 History vitamin B complex 1 cap PO QAM 04/11/19 01/17/20 History clopidogrel [Plavix] 75 mg PO QAM 01/17/20 01/17/20 History furosemide 40 mg PO DAILY PRN 01/17/20 01/17/20 History isosorbide mononitrate 30 mg PO QAM 01/17/20 01/17/20 History levothyroxine 112 mcg PO DAILY 01/17/20 01/17/20 History venlafaxine [Effexor XR] 37.5 mg PO DAILY 01/17/20 01/17/20 History verapamil [Calan SR] 120 mg PO QAM 01/17/20 01/17/20 History Patient History Medical History Asthma (Chronic) CAD (coronary artery disease) (Chronic) Chronic anemia CKD (chronic kidney disease), stage III (Chronic) Complete heart block HTN (hypertension) (Chronic) Hypothyroidism (Chronic) Mood disorder (Chronic) Paroxysmal atrial fibrillation (Chronic) Surgical History History of carpal tunnel surgery (Chronic) Status post coronary artery stent placement (Chronic) stents x 4 @ [facility] on 04/02/19 Family History Other Diabetes Heart disease Social History Preferred Language: Romansh Communication Ability: Effective Urologist Physician Required: No Beliefs That Will Affect Care: None marital status: Current Living Situation: Spouse current occupational status: retired Other Information That Helps Us Care for You: No Feels Safe at Home: Yes Safety Concerns: Feels Safe At This Time Smoking Status: Former smoker Tobacco Type: smokeless tobacco ; Second Hand Exposure: No ; Hx Alcohol Use: No Hx Substance Use: No Review of Systems Review of Systems: All systems reviewed & are unremarkable except as noted in HPI & below Physical Exam Constitutional: well developed and well nourished; no acute distress and not ill appearing Respiratory: normal respiratory effort; no respiratory distress and no labored breathing Auscultation: + diminished lung sounds (bases B/L); no crackles, no rales, no rhonchi and no wheezes Cardiovascular: Rate/Rhythm: regular rate and regular rhythm Heart Sounds: normal S1, normal S2 and + murmur (2/6 low pitched ASHER heard best at the right second intercostal space) Vessels: + JVD; no carotid bruit Extremities: no edema Gastrointestinal (Abdomen): Inspection/Auscultation: abdomen normal to inspection and normal bowel sounds; abdomen not distended Percussion/Palpation: abdomen soft; abdomen nontender, no guarding and abdomen not rigid Skin: no rashes, warm and dry Neurologic: moves all extremities; no focal motor deficits Speech / Cognition: normal speech Motor/Sensory: no tremor Psychiatric: A+Ox3, euthymic affect Results & Data ([facility]) Vital Signs (Past 12 Hours) Vital Signs Temp Pulse Pulse Resp BP Pulse Ox 01/18/20 08:04 36.6 C 67 18 115/75 95 01/18/20 05:41 36.9 C 69 18 98/66 L 96 01/18/20 02:28 75 01/17/20 23:53 37.2 C 74 18 116/73 97
[2020-01-18] MEDS ORDERED: TICAGRELOR 90 MG TAB PO ONE ×2 (12:00→14:29)
[2020-01-18] MEDS: AMIODARONE 200 MG TAB PO SCH (14:19)
[2020-01-18] MEDS ORDERED: bisacodyL 5 MG TABEC PO ONE (15:54)
--- NOTE | 2020-01-18 16:47 | Hospitalist Progress Note ---
Date of Service January 18, 2020 Assessment & Plan (1) SOB (shortness of breath): (2) Acute systolic CHF (congestive heart failure), NYHA class 4: 88yo M with a PMH of CAD with stents x 4 [place] [facility] [place], paroxysmal A Fib on amiodarone and not on anticoagulation secondary to pt declining, CKD III, hypothyroidism, HTN, mood disorder and others listed below for SOB. Pt reports past several days with worsening SOB with exertion, increased BLE edema and abdomen distended. CXR showed findings consistent with developing pulmonary edema versus congestive failure. Received lasix 60mg IV yesterday Cardiology on board Continue Lasix 40mg IV daily Monitor BMP while on IV lasix ECHO showed Echo showed left ventricle systolic function is moderately reduced with ejection fraction 40 to 45%. There is a moderate sized apical posterior and lateral wall motion abnormality with hypokinesis to akinesis of the segment. Moderate to severe mitral regurgitation Will monitor I/O (3) Non-ST elevation (NSTEMI) myocardial infarction: (4) Elevated troponin: Troponin on admission 0.8, then peaked to 1.4, now trending down to 1.2 S/P drug-eluting stents [place] [facility] [place] cardiology on board ECHO showed moderate sized apical posterior and lateral wall motion abnormality with hypokinesis to akinesis of the segment. Continue IV heparin drip for 48 to 72 hrs Was on Brilinta that was changed to plavix on 01/04/20 Transition back to Brilinta as per cardio High risk candidate for cardiac catheterization due to renal insufficiency. Continue Noninvasive therapy for now Continue Carvedilol, Brilinta and heparin drip (5) Hyponatremia: Na: 128 today Low serum osmolality and urine sodium Continue monitor BMP while on lasix (6) Acute kidney injury superimposed on CKD: CKD III Cr: 2.1. Cr was 2.0 on 01/11/20 and 1.6 on 11/23/19 Renal U/S showed kidneys are atrophic and echogenic consistent with medical renal disease. There is no hydronephrosis. Consider nephrology consult in am if worsening Monitor BMP while on IV lasix (7) CAD (coronary artery disease): continue aspirin, carvedilol, isosorbide Plavix changed to Brilinta (8) Complete heart block, transient: S/P Pacemaker Pacemaker interrogation on 12/19/2019 with no atrial or ventricular arrhythmias and appropriate function and battery reserve stable (9) Paroxysmal atrial fibrillation: Not on anticoagulation secondary to pt preference. Amiodarone was discontinued on 01/11/20 as per pt preference due to constipation Verapamil was discontinued Amiodarone resumed today at 200mg daily as per cardio Rate controlled (10) HTN (hypertension): Continue to hold losartan due to worsening renal function Continue carvedilol (11) Asthma: Continue home inhalers (12) Chronic anemia: Hgb: 11. Baseline Hgb:9-11 Hgb 10 today Continue monitor (13) Hypothyroidism: Continue levothyroxine (14) Mood disorder: Continue Effexor DVT Prophylaxis On Heparin drip Code status Full code Admission and Anticipated Discharge Date Admission Date: January 17, 2020 Subjective Pt was seen and examined Sitting in chair with no distress Pt said that his breathing slightly improves He said that he has been urinated very well after getting the diuretic Currently denies any chest pain, palpitation, dizziness and SOB Physical Exam Physical Exam: General- No acute distress Head- atraumatic Eyes- PERRL, EOMI, ENT- oropharynx clear Neck- supple, no JVD Lungs- clear to auscultation Heart- regular rhythm, +murmur Abdomen- normal bowel sounds, soft, nontender Extremities- no calf tenderness, +edema Neuro- alert, oriented x 3; PERRL, EOMI; no facial palsy; no dysarthria Skin- warm & dry Results & Data Results & Data ([facility]) Vital Signs (Past 12 Hours) Vital Signs Temp Pulse Resp BP Pulse Ox 01/18/20 15:38 36.5 C 66 18 100/58 L 97 01/18/20 11:16 36.6 C 66 16 101/61 96 01/18/20 08:04 36.6 C 67 18 115/75 95 01/18/20 05:41 36.9 C 69 18 98/66 L 96
[2020-01-18] MEDS: ALBUTEROL 0.083% NEBU SOLN 3 ML VIAL NEB PRN (19:06)
[2020-01-18] MEDS: TICAGRELOR 90 MG TAB PO SCH (20:53)
[2020-01-19] MEDS: HEPARIN SODIUM/DEXTROSE 25,000 UNITS/500 ML BAG IV SCH (04:29)
[2020-01-19] MEDS: LEVOTHYROXINE SODIUM 112 MCG TABLET PO SCH (04:29)
[2020-01-19] MEDS ORDERED: ALBUT/IPRATROP 3MG/0.5MG NEB 3 ML VIAL NEB STA (04:38)
[2020-01-19] MEDS ORDERED: FUROSEMIDE 40 MG in SYRINGE 0 ML IV SCH ×3 (04:45→21:00)
[2020-01-19 05:23] LABS: Partial Thromboplastin Time 56.4 Seconds (21.0-31.0)
[2020-01-19 05:26] LABS: BUN Creatinine Ratio 23.2 (10-20); Calcium 8.4 mg/dl (8.5-10.1); Creatinine Clr Calc Pharmacy 21.5 ml/min; Est GFR (African American) 29.9; Est GFR (Non-African American) 25.8; Potassium 3.6 mmol/L (3.5-5.1)
[2020-01-19] MEDS ORDERED: ALBUMIN 25% 50 ML with FUROSEMIDE 20 MG IV ONE (05:30)
--- NOTE | 2020-01-19 06:45 | Electrocardiogram Report ---
Test Reason : Blood Pressure : / mmHG Vent. Rate : 079 BPM Atrial Rate : 079 BPM P-R Int : 302 ms QRS Dur : 150 ms QT Int : 432 ms P-R-T Axes : 042 015 030 degrees QTc Int : 495 ms Sinus rhythm with 1st degree A-V block Non-specific intra-ventricular conduction block Anterolateral ST depression Abnormal ECG When compared with ECG of 13-APR-2019 06:58, ST depression is now present Confirmed by Anurag Rehman ([id number]) on 01/19/2020 6:45:06 AM Referred By: Confirmed By:Anurag Rehman
--- NOTE | 2020-01-19 06:52 | Electrocardiogram Report ---
Test Reason : Blood Pressure : / mmHG Vent. Rate : 077 BPM Atrial Rate : 077 BPM P-R Int : 274 ms QRS Dur : 144 ms QT Int : 450 ms P-R-T Axes : 051 018 022 degrees QTc Int : 509 ms Poor data quality, interpretation may be adversely affected Sinus rhythm with 1st degree A-V block Non-specific intra-ventricular conduction block Marked ST abnormality, possible anterior subendocardial injury Abnormal ECG When compared with ECG of 17-JAN-2020 11:57, (unconfirmed) No significant change was found Confirmed by Anurag Rehman ([id number]) on 01/19/2020 6:52:12 AM Referred By: REFERRED SELF Confirmed By:Anurag Rehman
[2020-01-19] MEDS: TICAGRELOR 90 MG TAB PO SCH ×2 (07:23→20:59)
[2020-01-19] MEDS: TAMSULOSIN HCL 0.4 MG CAP PO SCH (07:23)
[2020-01-19] MEDS: ISOSORBIDE MONO EXTENDED REL 30 MG TABCR PO SCH (07:23)
[2020-01-19] MEDS: CHOLECALCIFEROL 1,000 UNITS 25 MCG TAB PO SCH (07:23)
[2020-01-19] MEDS: PANTOprazole 40 MG TAB PO SCH ×2 (07:23→19:56)
[2020-01-19] MEDS: AMIODARONE 200 MG TAB PO SCH (07:23)
--- NOTE | 2020-01-19 07:23 | XRay Report ---
XR chest 1V portable CLINICAL HISTORY: wheeze COMPARISON STUDY: 01/17/2020 FINDINGS: The cardiac and mediastinal contours remain stable. There is a left subclavian dual-chamber central venous pacemaker. There is radiographic evidence of pulmonary edema. Perihilar airspace opac ities likely reflect edema although a superimposed infectious/inflammatory process cannot be excluded . Small pleural effusions are suspected.[ IMPRESSION: Persistent pulmonary edema pattern ACT 112: Negative or not required by law. Electronically signed by: Dc Anglin M.D. 01/19/2020 7:22 AM
[2020-01-19] MEDS: VENLAFAXINE HCL XR 37.5 MG CAPXR PO SCH (07:24)
[2020-01-19] MEDS: ASPIRIN 81 MG ECTAB PO SCH (07:24)
[2020-01-19] MEDS: carvediloL 6.25 MG TAB PO SCH ×2 (07:24→19:57)
[2020-01-19] MEDS ORDERED: ALUMINUM/MAGNESIUM/SIMETH (MAALOX MAX) 30 ML UDC PO ONE (08:34)
--- NOTE | 2020-01-19 10:23 | Cardiology Progress Note ---
Date of Service January 19, 2020 Assessment & Plan (1) Acute systolic CHF (congestive heart failure), NYHA class 4: (2) Non-ST elevation (NSTEMI) myocardial infarction: (3) Ischemic cardiomyopathy: (4) Acute kidney injury superimposed on CKD: 89-year-old patient admitted with shortness of breath and acute decompensated systolic heart failure. Echocardiogram demonstrates posterior lateral wall hypokinesis to akinesis. I suspect the circumflex limb of his left main stent has occluded. This may be related to recent discontinuation of Brilinta and transition to clopidogrel although symptoms predate medication change. We have to assume the patient is a Plavix nonresponder. Patient clinically improved all chest x-ray appears to be lagging persistent pulmonary edema present. Patient received IV furosemide this morning will hold after this dose and fall closed Continue nitrates with Imdur, add low-dose hydralazine for afterload reduction (losartan discontinued) No arrhythmias on telemetry and patient does not wish to be on amiodarone we will hold this medication especially given persistent infiltrates on chest x-ray Continue heparin overnight unless bleeding issues develop Subjective Slightly. Weight down 4 to 5 kg but not just Patient seen and examined, chart, medications, telemetry reviewed. Patient feels somewhat improved this morning. Less dyspneic. No chest pains, tachypalpitations, dizziness. Does complain of constipation chronically and currently remains a concern. No fevers or cough. Lower extremity edema slightly improved Chest x-ray demonstrates persistent pulmonary edema. Weight down 4 kg but not distinctly reflected in I's and O's Telemetry no arrhythmia Review of Systems Review of Systems: All systems reviewed & are unremarkable except as noted in HPI & below Physical Exam Constitutional: no acute distress Eyes: PERRL, conjunctivae normal, anicteric sclerae ENMT: external ear and nose normal, oropharynx normal Neck: trachea midline, no thyromegaly Respiratory: normal respiratory effort; no respiratory distress Auscultation: + rales Few basilar Cardiovascular: Rate/Rhythm: regular rate and regular rhythm Heart Sounds: normal S1 and normal S2 Vessels: + JVD Extremities: + edema Chest (Breasts): Chest: + pacemaker Musculoskeletal: no cyanosis or clubbing, extremities motor strength 5/5 Neurologic: PERRL, EOMI, accommodation nl, no face palsy, no dysarthria Psychiatric: A+Ox3, euthymic affect Results & Data Vital Signs (Past 12 Hours) Vital Signs Temp Pulse Pulse Resp BP Pulse Ox 01/19/20 07:40 72 01/19/20 07:38 36.5 C 75 18 123/73 93 01/19/20 04:51 80 16 93 01/19/20 03:46 36.6 C 72 20 126/78 92 01/19/20 00:01 70 01/18/20 23:28 36.5 C 75 20 121/76 93 Laboratory Results Laboratory Results - last 24 hr 01/19/20 01/19/20 04:47 04:47 APTT 56.4 H* PTT Ratio 2.0 Sodium 126 L Potassium 3.6 Chloride 92 L Carbon Dioxide 24 Anion Gap 10.0 BUN 51 H Creatinine 2.21 H Est Cr Clr Drug Dosing 21.5 Est GFR ( Amer) 29.9 Est GFR (Non-Af Amer) 25.8 BUN/Creatinine Ratio 23.2 H Glucose 117 H Calcium 8.4 L Diagnostic Findings Portable chest x-ray 01/19/2020 Persistent pulmonary edema with perihilar opacities
--- NOTE | 2020-01-19 17:11 | Nephrology Consultation ---
Date of Consultation January 19, 2020 Assessment & Plan (1) Acute kidney injury superimposed on CKD: Patient with PRETTY on CKD likely cardiorenal syndrome. Baseline cr 1.5 but cr now 2.2. Electrolytes are stable and no need for HD -Monitor with daily BMP -No contrast -1.2 fluid restriction and daily standing weight (2) Acute systolic CHF (congestive heart failure), NYHA class 4: Due to NSTEMI. He is getting heparin. -he will need diuresis per cardiology (3) Hyponatremia with decreased serum osmolality: Due to hypervolemia. Continue fluid restriction 1.2 litres. Lasix 40mg bid if okay with cardiology Daily NA History of Present Illness Reason for Consultation: Hyponatremia, CKD Requesting Physician: Tom Johnson MD Attending Physician: Tom Johnson MD History of Present Illness This is an 88yo M with a PMH of CAD with st[place] x [place] [facility] [place], paroxysmal A Fib on amiodarone but not on anticoagulation, CKD III baseline cr 1.5, hypothyroidism, and HTN who was admitted on 01/17/20 with SOB. He noted weight gain at home and was taking extra lsix without improvement. Cr on admit was 2.2 and has remained about the same. No urinary symptoms. Breathing is better but still needing oxygen. he got a dose of lasix yesterday and had even fluid balance. CXR showed pulm edema. is Na is 126 today. Echo shows EF of 40% and wall motion abn on apical lat and post haynes. Allergies Allergy/AdvReac Type Severity Reaction Status Date / Time lisinopril AdvReac Unknown Cough Verified 01/17/20 12:53 Home Medications Home Medications Medication Instructions Recorded Confirmed Type acetaminophen [Tylenol Extra 500 mg PO Q6H PRN 08/18/18 01/17/20 History Strength] albuterol sulfate [Proventil HFA] 2 puff INHALATION QID PRN 08/18/18 01/17/20 History carvedilol [Coreg] 6.25 mg PO BID 08/18/18 01/17/20 History cholecalciferol (vitamin D3) 1,000 units PO QAM 08/18/18 01/17/20 History [Vitamin D3] clonazepam [Klonopin] 0.5 mg PO BID PRN 08/18/18 01/17/20 History coenzyme Q10 200 mg PO QAM 08/18/18 01/17/20 History flaxseed oil 1,000 mg PO QAM 08/18/18 01/17/20 History fluticasone propion-salmeterol 1 puff INHALATION Q12H PRN 08/18/18 01/17/20 History [Advair Diskus] garlic 1,000 mg PO QAM 08/18/18 01/17/20 History losartan 50 mg PO QAM 08/18/18 01/17/20 History nitroglycerin [Nitrostat] 0.4 mg SUBLINGUAL DIRECTED PRN 08/18/18 01/17/20 History omega [id number] oil [Fish Oil] 1,000 mg PO QAM 08/18/18 01/17/20 History ascorbic acid (vitamin C) [Vitamin 500 mg PO QAM 04/11/19 01/17/20 History C] aspirin 81 mg PO QAM 04/11/19 01/17/20 History cetirizine [Zyrtec] 10 mg PO DAILY PRN 04/11/19 01/17/20 History pantoprazole [Protonix] 40 mg PO BID 04/11/19 01/17/20 History tamsulosin [Flomax] 0.4 mg PO QAM 04/11/19 01/17/20 History vitamin B complex 1 cap PO QAM 04/11/19 01/17/20 History clopidogrel [Plavix] 75 mg PO QAM 01/17/20 01/17/20 History furosemide 40 mg PO DAILY PRN 01/17/20 01/17/20 History isosorbide mononitrate 30 mg PO QAM 01/17/20 01/17/20 History levothyroxine 112 mcg PO DAILY 01/17/20 01/17/20 History venlafaxine [Effexor XR] 37.5 mg PO DAILY 01/17/20 01/17/20 History verapamil [Calan SR] 120 mg PO QAM 01/17/20 01/17/20 History Patient History Medical History Asthma (Chronic) CAD (coronary artery disease) (Chronic) Chronic anemia CKD (chronic kidney disease), stage III (Chronic) Complete heart block HTN (hypertension) (Chronic) Hypothyroidism (Chronic) Mood disorder (Chronic) Paroxysmal atrial fibrillation (Chronic) Surgical History History of carpal tunnel surgery (Chronic) Status post coronary artery stent placement (Chronic) stents [place] 4 [place] [facility] [place] Family History Other Diabetes Heart disease Social History Preferred Language: Vietnamese Communication Ability: Effective Car Dumper Required: No Beliefs That Will Affect Care: None marital status: Current Living Situation: Spouse current occupational status: retired Other Information That Helps Us Care for You: No Feels Safe at Home: Yes Safety Concerns: Feels Safe At This Time Smoking Status: Former smoker Tobacco Type: smokeless tobacco ; Second Hand Exposure: No ; Hx Alcohol Use: No Hx Substance Use: No Review of Systems Review of Systems: All systems reviewed & are unremarkable except as noted in HPI & below Physical Exam Physical Exam: General exam: Appears comfortable, no acute distress HEENT: Pupils are equal and reactive to light Neck: No JVD, neck is supple trachea is midline Respiratory system: Clear breath sounds bilaterally. Gastrointestinal: Abdomen is soft, non distended, non tender, bowel sounds are present CVS: Regular rate and rhythm. No murmurs, rubs or gallops Musculoskeletal: No joint or muscle tenderness Extremities: Non tender, no edema, peripheral pulses are present Neuro: Oriented, no tremors, no focal neurological deficits Skin: No rashes Results & Data Vital Signs (Past 12 Hours) Vital Signs Temp Pulse Pulse Resp BP Pulse Ox 01/19/20 16:16 66 01/19/20 15:06 36.9 C 66 20 102/62 96 01/19/20 11:42 36.6 C 66 18 106/62 95 01/19/20 07:40 72 01/19/20 07:38 36.5 C 75 18 123/73 93 Laboratory Results 01/19/20 04:47
--- NOTE | 2020-01-19 18:18 | Hospitalist Progress Note ---
Date of Service January 19, 2020 Assessment & Plan (1) SOB (shortness of breath): (2) Acute systolic CHF (congestive heart failure), NYHA class 4: 88yo M with a PMH of CAD with stents x 4 at [facility] [place] on 04/02/19, paroxysmal A Fib on amiodarone and not on anticoagulation secondary to pt declining, CKD III, hypothyroidism, HTN, mood disorder and others listed below for SOB. Pt reports past several days with worsening SOB with exertion, increased BLE edema and abdomen distended. CXR showed findings consistent with developing pulmonary edema versus congestive failure. Received lasix 60mg IV yesterday Cardiology on board Will increase lasix to 40mg BID IV if ok by cardiology (As per nephrology ) Will do fluid restriction 1.2 L Monitor BMP while on IV lasix ECHO showed Echo showed left ventricle systolic function is moderately reduced with ejection fraction 40 to 45%. There is a moderate sized apical posterior and lateral wall motion abnormality with hypokinesis to akinesis of the segment. Moderate to severe mitral regurgitation Will monitor I/O (3) Non-ST elevation (NSTEMI) myocardial infarction: (4) Elevated troponin: Troponin on admission 0.8, then peaked to 1.4, now trending down to 1.2 S/P drug-eluting stents at [facility] [place] on 04/04/2019 cardiology on board ECHO showed moderate sized apical posterior and lateral wall motion abnormality with hypokinesis to akinesis of the segment. Continue IV heparin drip for 48 to 72 hrs Was on Brilinta that was changed to plavix on 01/04/20 Transition back to Brilinta as per cardio High risk candidate for cardiac catheterization due to renal insufficiency. Continue Noninvasive therapy for now Continue Carvedilol, Brilinta and heparin drip (5) Hyponatremia: Na: 126 today Low serum osmolality and urine sodium Nephrology on board and recommended to increase lasix to 40mg IV BID Fluid restriction to 1.2L (6) Acute kidney injury superimposed on CKD: CKD III Cr: 2.2 today Cr was 2.0 on 01/11/20 and 1.6 on 11/23/19 Renal U/S showed kidneys are atrophic and echogenic consistent with medical renal disease. There is no hydronephrosis. Nephrology on baord Monitor BMP while on IV lasix (7) CAD (coronary artery disease): continue aspirin, carvedilol, isosorbide Plavix changed to Brilinta (8) Complete heart block, transient: S/P Pacemaker Pacemaker interrogation on 12/19/2019 with no atrial or ventricular arrhythmias and appropriate function and battery reserve stable (9) Paroxysmal atrial fibrillation: Not on anticoagulation secondary to pt preference. Amiodarone was discontinued on 01/11/20 as per pt preference due to constipation Verapamil was discontinued Amiodarone discontinue by cardio since pt does not wish to continue it Rate controlled (10) HTN (hypertension): Continue to hold losartan due to worsening renal function Continue carvedilol (11) Asthma: Continue home inhalers (12) Chronic anemia: Hgb: 11. Baseline Hgb:9-11 Hgb 10 today Continue monitor (13) Hypothyroidism: Continue levothyroxine (14) Mood disorder: Continue Effexor DVT Prophylaxis On Heparin drip Code status Full code Admission and Anticipated Discharge Date Admission Date: January 17, 2020 Subjective Pt was seen and examined Lying in bed with no distress Pt said that his breathing slightly improves He said that he has some abdominal discomfort this morning due to Gas Denies any chest pain, palpitation, dizziness and fever Physical Exam Physical Exam: General- No acute distress Head- atraumatic Eyes- PERRL, EOMI, ENT- oropharynx clear Neck- supple, no JVD Lungs- clear to auscultation Heart- regular rhythm, +murmur Abdomen- normal bowel sounds, soft, nontender Extremities- no calf tenderness, +edema Neuro- alert, oriented x 3; PERRL, EOMI; no facial palsy; no dysarthria Skin- warm & dry Results & Data Results & Data ([facility]) Vital Signs (Past 12 Hours) Vital Signs Temp Pulse Pulse Resp BP Pulse Ox 01/19/20 16:16 66 01/19/20 15:06 36.9 C 66 20 102/62 96 01/19/20 11:42 36.6 C 66 18 106/62 95 01/19/20 07:40 72 01/19/20 07:38 36.5 C 75 18 123/73 93
[2020-01-19] MEDS: HydrALAZINE 10 MG TAB PO SCH (19:56)
[2020-01-19] MEDS: clonazePAM 0.5 MG TAB PO PRN (23:10)
[2020-01-20] MEDS: LEVOTHYROXINE SODIUM 112 MCG TABLET PO SCH (05:17)
[2020-01-20 06:11] LABS: Hematocrit (blood only) 29.6 % (42-52); Hemoglobin 10.3 g/dL (14.0-18.0); Mean Corpuscular Hemoglobin 32.3 pg (25-34); Mean Corpuscular Hgb Conc 34.8 g/dL (32-36); Mean Corpuscular Volume 92.8 fL (80-100); Mean Platelet Volume 11.5 fL (7.4-10.4); Platelet Count 178 K/uL (130-400); RDW Coefficient of Variation 13.7 % (11.5-14.5); RDW Standard Deviation 46.9 fL (36.4-46.3); Red Blood Count 3.19 M/uL (4.7-6.1); White Blood Count 8.46 K/uL (4.8-10.8)
[2020-01-20 06:50] LABS: BUN Creatinine Ratio 25.6 (10-20); Est GFR (African American) 34.4; Est GFR (Non-African American) 29.7; Potassium 3.4 mmol/L (3.5-5.1)
[2020-01-20] MEDS ORDERED: SODIUM CHLORIDE 0.65% NA SOLN 45 ML (OCEAN) ONE (07:22)
[2020-01-20 07:37] LABS: Partial Thromboplastin Ratio 1.8
[2020-01-20 07:54] LABS: Partial Thromboplastin Time 51.1 Seconds (21.0-31.0)
[2020-01-20] MEDS: VENLAFAXINE HCL XR 37.5 MG CAPXR PO SCH (08:15)
[2020-01-20] MEDS: PANTOprazole 40 MG TAB PO SCH ×2 (08:15→20:09)
[2020-01-20] MEDS: CHOLECALCIFEROL 1,000 UNITS 25 MCG TAB PO SCH (08:15)
[2020-01-20] MEDS: ISOSORBIDE MONO EXTENDED REL 30 MG TABCR PO SCH (08:15)
[2020-01-20] MEDS: ASPIRIN 81 MG ECTAB PO SCH (08:15)
[2020-01-20] MEDS: carvediloL 6.25 MG TAB PO SCH ×2 (08:15→20:10)
[2020-01-20] MEDS: HydrALAZINE 10 MG TAB PO SCH ×3 (08:15→20:10)
[2020-01-20] MEDS: TAMSULOSIN HCL 0.4 MG CAP PO SCH (08:15)
[2020-01-20] MEDS: HEPARIN SODIUM/DEXTROSE 25,000 UNITS/500 ML BAG IV SCH (08:16)
[2020-01-20] MEDS: TICAGRELOR 90 MG TAB PO SCH ×2 (09:04→20:11)
[2020-01-20] MEDS: ALUMINUM/MAGNESIUM/SIMETH (MAALOX MAX) 30 ML UDC PO PRN (09:04)
[2020-01-20] MEDS ORDERED: POTASSIUM CHLORIDE 20 MEQ TABCR PO STA (09:09)
--- NOTE | 2020-01-20 09:44 | Cardiology Progress Note ---
Date of Service January 20, 2020 Assessment & Plan (1) Acute systolic CHF (congestive heart failure), NYHA class 4: (2) Non-ST elevation (NSTEMI) myocardial infarction: (3) Ischemic cardiomyopathy: (4) Acute kidney injury superimposed on CKD: 89-year-old patient admitted with shortness of breath and acute decompensated systolic heart failure. Echocardiogram demonstrates posterior lateral wall hypokinesis to akinesis. I suspect the circumflex limb of his left main stent has occluded. This may be related to recent discontinuation of Brilinta and transition to clopidogrel although symptoms predate medication change. We have to assume the patient is a Plavix nonresponder. Patient clinically improved but still with mild heart failure by exam renal function stable to slightly improved Will give dose of furosemide with albumin this morning 40 mg Titrate hydralazine 10 mg 3 times daily with isosorbide mononitrate for afterload reduction Agree with supplementing potassium, would like to avoid atrial arrhythmias if possible amiodarone still on hold We will discontinue heparin now after greater than 48 hours administration continue aspirin and Brilinta Subjective Patient was seen and examined, chart, medications, telemetry reviewed. No acute complaints. Still fatigued but no chest pains or shortness of breath above baseline. No fevers or chills. Weight down 4 kg from admission Physical Exam Constitutional: no acute distress Eyes: PERRL, conjunctivae normal, anicteric sclerae ENMT: external ear and nose normal, oropharynx normal Neck: trachea midline, no thyromegaly Respiratory: normal respiratory effort; no respiratory distress Auscultation: + rales (Few scattered basilar) Cardiovascular: Rate/Rhythm: regular rate and regular rhythm Heart Sounds: normal S1 and normal S2 Vessels: + JVD Extremities: + edema (1+) Chest (Breasts): Chest: + pacemaker Musculoskeletal: no cyanosis or clubbing, extremities motor strength 5/5 Neurologic: PERRL, EOMI, accommodation nl, no face palsy, no dysarthria Psychiatric: A+Ox3, euthymic affect Results & Data Vital Signs (Past 12 Hours) Vital Signs Temp Pulse Pulse Resp BP Pulse Ox 01/20/20 07:58 36.6 C 75 19 109/64 95 01/20/20 07:00 69 01/20/20 03:02 36.9 C 70 20 102/66 93 01/19/20 23:19 68 01/19/20 23:14 37.1 C 75 18 115/73 96 Laboratory Results Laboratory Results - last 24 hr 01/20/20 01/20/20 01/20/20 05:32 05:32 06:56 WBC 8.46 RBC 3.19 L Hgb 10.3 L Hct 29.6 L MCV 92.8 MCH 32.3 MCHC 34.8 RDW Std Deviation 46.9 H RDW Coeff of Sher 13.7 Plt Count 178 MPV 11.5 H APTT 51.1 H* PTT Ratio 1.8 Sodium 126 L Potassium 3.4 L Chloride 88 L Carbon Dioxide 27 Anion Gap 11.0 BUN 51 H Creatinine 1.97 H Est Cr Clr Drug Dosing 24.0 Est GFR ( Amer) 34.4 Est GFR (Non-Af Amer) 29.7 BUN/Creatinine Ratio 25.6 H Glucose 94 Calcium 8.0 L
[2020-01-20] MEDS ORDERED: ALBUMIN 25% 50 ML with FUROSEMIDE 40 MG IV ONE (10:30)
[2020-01-20] MEDS: ALBUTEROL 0.083% NEBU SOLN 3 ML VIAL NEB PRN (11:36)
[2020-01-20] MEDS ORDERED: ONDANSETRON INJ 2 MG/ML 2 ML VIAL IV PRN (13:47)
[2020-01-20] MEDS ORDERED: MAGNESIUM HYDROXIDE SUSP 30 ML UDC PO ONE (13:47)
[2020-01-20] MEDS ORDERED: PROMETHAZINE HCL 12.5 MG in SODIUM CHLORIDE 0.9% 50 ML IV STA (14:04)
--- NOTE | 2020-01-20 16:17 | Nephrology Progress Note ---
Date of Service January 20, 2020 Assessment & Plan (1) Acute kidney injury superimposed on CKD: Patient with PRETTY on CKD likely cardiorenal syndrome. Baseline cr 1.5 but cr now 1.9 from 2.2 yesterday. Electrolytes are stable and no need for HD -Monitor with daily BMP -No contrast -1.2 fluid restriction and daily standing weight (2) Acute systolic CHF (congestive heart failure), NYHA class 4: Due to NSTEMI. He is getting heparin. -he will need diuresis per cardiology (3) Hyponatremia with decreased serum osmolality: Due to hypervolemia. Continue fluid restriction 1.2 litres. Lasix 40mg bid if okay with cardiology Daily NA Admission and Anticipated Discharge Date Admission Date: January 17, 2020 Subjective Still c/o SOB. Got 60mg iv lasix yesterday and was only 350ml net negative. cr stable Review of Systems Review of Systems: All systems reviewed & are unremarkable except as noted in HPI & below Physical Exam Physical Exam: General exam: mild resp distress HEENT: Pupils are equal and reactive to light Neck: No JVD, neck is supple trachea is midline Respiratory system: wheezing bilaterally. Gastrointestinal: Abdomen is soft, non distended, non tender, bowel sounds are present CVS: Regular rate and rhythm. No murmurs, rubs or gallops Musculoskeletal: No joint or muscle tenderness Extremities: Non tender, no edema, peripheral pulses are present Neuro: Oriented, no tremors, no focal neurological deficits Skin: No rashes Results & Data ([facility]) Vital Signs (Past 12 Hours) Vital Signs Temp Pulse Pulse Pulse Resp BP Pulse Ox 01/20/20 15:12 36.3 C L 70 21 93/58 L 98 01/20/20 15:00 70 01/20/20 12:01 37.1 C 71 20 109/64 95 01/20/20 11:41 67 18 95 01/20/20 07:58 36.6 C 75 19 109/64 95 01/20/20 07:00 69 Laboratory Results 01/20/20 05:32 01/20/20 05:32 WBC 8.46 RBC 3.19 L MCV 92.8 MCH 32.3 MCHC 34.8 RDW Std Deviation 46.9 H RDW Coeff of Sher 13.7 Plt Count 178 MPV 11.5 H
--- NOTE | 2020-01-20 18:49 | Hospitalist Progress Note ---
Date of Service January 20, 2020 Assessment & Plan (1) SOB (shortness of breath): (2) Acute systolic CHF (congestive heart failure), NYHA class 4: 88yo M with a PMH of CAD with stents x 4 [place] [facility] [place], paroxysmal A Fib on amiodarone and not on anticoagulation secondary to pt declining, CKD III, hypothyroidism, HTN, mood disorder and others listed below for SOB. Pt reports past several days with worsening SOB with exertion, increased BLE edema and abdomen distended. CXR showed findings consistent with developing pulmonary edema versus congestive failure. ECHO showed Echo showed left ventricle systolic function is moderately reduced with ejection fraction 40 to 45%. There is a moderate sized apical posterior and lateral wall motion abnormality with hypokinesis to akinesis of the segment. Moderate to severe mitral regurgitation Cardiology on board Received Lasix 40mg with Albumin today case discussed with Cardiology and agreed for additional lasix 40mg later Continue fluid restriction 1.2 L Monitor BMP while on IV lasix Continue monitor I/O (3) Non-ST elevation (NSTEMI) myocardial infarction: (4) Elevated troponin: Troponin on admission 0.8, then peaked to 1.4, now trending down to 1.2 S/P drug-eluting stents at [facility] [place] on 04/04/2019 cardiology on board ECHO showed moderate sized apical posterior and lateral wall motion abnormality with hypokinesis to akinesis of the segment. Continue IV heparin drip for 48 to 72 hrs Was on Brilinta that was changed to plavix on 01/04/20 Transition back to Brilinta as per cardio High risk candidate for cardiac catheterization due to renal insufficiency. Continue Noninvasive therapy for now Continue Carvedilol, Brilinta Heparin drip discontinued (5) Hyponatremia: Na: 126 today Low serum osmolality and urine sodium Nephrology on board and recommended to increase lasix to 40mg IV BID Fluid restriction to 1.2L (6) Acute kidney injury superimposed on CKD: CKD III Cr: 1.9 today Cr was 2.0 on 01/11/20 and 1.6 on 11/23/19 Renal U/S showed kidneys are atrophic and echogenic consistent with medical renal disease. There is no hydronephrosis. Nephrology on board Monitor BMP while on IV lasix (7) CAD (coronary artery disease): continue aspirin, carvedilol, isosorbide Plavix changed to Brilinta (8) Complete heart block, transient: S/P Pacemaker Pacemaker interrogation on 12/19/2019 with no atrial or ventricular arrhythmias and appropriate function and battery reserve stable (9) Hypokalemia: Potassium 3.2 today Potassium replaced Continue monitor electrolytes while on IV lasix (10) Paroxysmal atrial fibrillation: Not on anticoagulation secondary to pt preference. Amiodarone was discontinued on 01/11/20 as per pt preference due to constipation Verapamil was discontinued Amiodarone discontinue by cardio since pt does not wish to continue it Rate controlled (11) HTN (hypertension): Continue to hold losartan due to worsening renal function Continue carvedilol (12) Asthma: Continue home inhalers (13) Chronic anemia: Hgb: 11. Baseline Hgb:9-11 Hgb 10.3 today Continue monitor (14) Hypothyroidism: Continue levothyroxine (15) Mood disorder: Continue Effexor DVT Prophylaxis Heparin drip discontinued will start on heparin subq Code status Full code Disposition Continue monitor in Telemetry Admission and Anticipated Discharge Date Admission Date: January 17, 2020 Subjective Pt was seen and examined Lying in bed with no distress Pt said that he continues to feel SOB He said that he had not had a BM yet in the last 3 days Denies any chest pain, palpitation, dizziness and fever Physical Exam Physical Exam: General- No acute distress Head- atraumatic Eyes- PERRL, EOMI, ENT- oropharynx clear Neck- supple, no JVD Lungs- +Diminish breath sound Heart- regular rhythm, +murmur Abdomen- normal bowel sounds, soft, nontender Extremities- no calf tenderness Neuro- alert, oriented x 3; PERRL, EOMI; no facial palsy; no dysarthria Skin- warm & dry Results & Data Results & Data ([facility]) Vital Signs (Past 12 Hours) Vital Signs Temp Pulse Pulse Pulse Resp BP Pulse Ox 01/20/20 18:07 96/62 L 01/20/20 15:12 36.3 C L 70 21 93/58 L 98 01/20/20 15:00 70 01/20/20 12:01 37.1 C 71 20 109/64 95 01/20/20 11:41 67 18 95 01/20/20 07:58 36.6 C 75 19 109/64 95 01/20/20 07:00 69
[2020-01-20] MEDS ORDERED: FUROSEMIDE 40 MG in SYRINGE 0 ML IV ONE (19:00)
[2020-01-20] MEDS: ACETAMINOPHEN 325 MG TAB PO PRN (20:08)
[2020-01-20] MEDS: HEPARIN SOD 5,000 UNIT/0.5 ML VIAL SQ SCH (20:08)
[2020-01-20] MEDS: clonazePAM 0.5 MG TAB PO PRN (23:04)
[2020-01-21] MEDS: LEVOTHYROXINE SODIUM 112 MCG TABLET PO SCH (04:10)
[2020-01-21] MEDS: ALUMINUM/MAGNESIUM SUSP 30 ML UDC PO STA ×2 (04:10→04:52)
[2020-01-21 06:42] LABS: BUN Creatinine Ratio 26.1 (10-20); Calcium 8.1 mg/dl (8.5-10.1); Creatinine Clr Calc Pharmacy 21.2 ml/min; Est GFR (African American) 29.6; Est GFR (Non-African American) 25.6; Potassium 3.7 mmol/L (3.5-5.1)
[2020-01-21] MEDS: ASPIRIN 81 MG ECTAB PO SCH (07:51)
[2020-01-21] MEDS: ISOSORBIDE MONO EXTENDED REL 30 MG TABCR PO SCH (07:51)
[2020-01-21] MEDS: TAMSULOSIN HCL 0.4 MG CAP PO SCH (07:51)
[2020-01-21] MEDS: carvediloL 6.25 MG TAB PO SCH ×2 (07:51→21:03)
[2020-01-21] MEDS: HydrALAZINE 10 MG TAB PO SCH ×3 (07:51→21:04)
[2020-01-21] MEDS: CHOLECALCIFEROL 1,000 UNITS 25 MCG TAB PO SCH (07:51)
[2020-01-21] MEDS: VENLAFAXINE HCL XR 37.5 MG CAPXR PO SCH (07:51)
[2020-01-21] MEDS: HEPARIN SOD 5,000 UNIT/0.5 ML VIAL SQ SCH ×2 (07:52→21:05)
[2020-01-21] MEDS: PANTOprazole 40 MG TAB PO SCH ×2 (07:52→21:03)
[2020-01-21] MEDS: TICAGRELOR 90 MG TAB PO SCH ×2 (07:53→21:13)
[2020-01-21] MEDS: ALUMINUM/MAGNESIUM/SIMETH (MAALOX MAX) 30 ML UDC PO PRN (09:23)
--- NOTE | 2020-01-21 12:16 | Progress Notes ---
DATE: 01/21/2020 NEPHROLOGY PROGRESS NOTE SUBJECTIVE: Overnight, no new issues. He feels his breathing is slightly better. Urine output even with Lasix 2 times yesterday was minimal, sodium remains low, but fairly stable. OBJECTIVE: VITAL SIGNS: Show blood pressure 103/61, pulse rate 65, temperature 37 degrees Celsius, 94% on 2 liters nasal cannula. HEENT: Mucous membrane moist. NECK: Supple. Jugular venous distension not present. CHEST: Decreased breath sounds with basal crackles. CARDIOVASCULAR: S1 and S2, regular rate and rhythm. EXTREMITIES: Show edema, trace bilaterally. NEUROLOGIC: Awake, alert, oriented x3. LABORATORY TESTS: From this morning reviewed in detail. Sodium is still 127, potassium 3.7, BUN 58, creatinine 2.23, calcium 8.1. ASSESSMENT AND PLAN: 1. An 89-year-old with acute kidney injury superimposed on chronic kidney disease, baseline creatinine 1.5, now it is about 2.23. expected to have some rise given acute setting 2. Acute systolic congestive heart failure. 3. Hyponatremia. This is hypervolemic hyponatremia in the setting of acute congestive heart failure with acute kidney injury. RECOMMENDATIONS: 1. Continue fluid restriction to 1.2 liter. 2. I would increase the Lasix to 80 mg twice daily today. With Lasix 40 b.i.d., he did not really have any diuresis to speak of yesterday. Unless his diuresis is significant, it is unlikely that his serum sodium will go higher. Even with good diuresis, there is no guarantee that he will actually have a normal sodium because of his underlying CHF and CKD as well as very poor oral intake of food. Case was discussed with primary service. JUDAH
--- NOTE | 2020-01-21 14:44 | Cardiology Progress Note ---
Date of Service January 21, 2020 Assessment & Plan (1) Acute systolic CHF (congestive heart failure), NYHA class 4: 89-year-old male admitted with acute systolic heart failure possibly ischemic mediated in setting of underlying valvular disease aortic stenosis as well. Patient clinically improving though not profoundly diuresing Agree with additional dose of furosemide 80 mg today and reassess in a.m. Renal function slightly worse and exam not consistent with profound volume overload Tolerating addition of hydralazine and nitrates although blood pressure soft (2) Non-ST elevation (NSTEMI) myocardial infarction: (3) Ischemic cardiomyopathy: (4) Acute kidney injury superimposed on CKD: Subjective , Patient seen and examined, chart, medications, telemetry reviewed. Patient feels weak but overall no other complaint respiratory status improved. No worsening edema. No chest pains or discomfort. No profound diuresis but clinically looks improved decreased lower extremity edema, O2 requirements Review of Systems Review of Systems: All systems reviewed & are unremarkable except as noted in HPI & below Physical Exam Constitutional: no acute distress Eyes: PERRL, conjunctivae normal, anicteric sclerae ENMT: external ear and nose normal, oropharynx normal Neck: trachea midline, no thyromegaly Respiratory: normal respiratory effort; no respiratory distress Auscultation: + rales (Few scattered basilar) Cardiovascular: Rate/Rhythm: regular rate and regular rhythm Heart Sounds: normal S1 and normal S2 Vessels: + JVD Extremities: + edema (1+) Chest (Breasts): Chest: + pacemaker Musculoskeletal: no cyanosis or clubbing, extremities motor strength 5/5 Neurologic: PERRL, EOMI, accommodation nl, no face palsy, no dysarthria Psychiatric: A+Ox3, euthymic affect Results & Data Vital Signs (Past 12 Hours) Vital Signs Temp Pulse Pulse Resp BP Pulse Ox 01/21/20 11:51 37.0 C 65 18 103/61 94 01/21/20 08:00 60 01/21/20 06:41 36.4 C L 61 20 101/64 96 01/21/20 04:07 36.5 C 60 18 95/63 L 98
[2020-01-21] MEDS ORDERED: FUROSEMIDE 80 MG in SYRINGE 0 ML IV ONE (15:05)
--- NOTE | 2020-01-21 16:29 | Hospitalist Progress Note ---
Date of Service January 21, 2020 Assessment & Plan (1) SOB (shortness of breath): (2) Acute systolic CHF (congestive heart failure), NYHA class 4: 88yo [place] PMH of [place] [facility] [place] parox[place] A Fib on amiodarone and not on anticoagulation secondary to pt declining, CKD III, hypothyroidism, HTN, mood disorder and others listed below for SOB. Pt reports past several days with worsening SOB with exertion, increased BLE edema and abdomen distended. CXR showed findings consistent with developing pulmonary edema versus congestive failure. ECHO showed Echo showed left ventricle systolic function is moderately reduced with ejection fraction 40 to 45%. There is a moderate sized apical posterior and lateral wall motion abnormality with hypokinesis to akinesis of the segment. Moderate to severe mitral regurgitation Cardiology on board case discussed with nephrology and recommended Lasix 80mg BID since pt has not been diuresis well Continue fluid restriction 1.2 L Monitor BMP while on IV lasix Continue monitor I/O (3) Non-ST elevation (NSTEMI) myocardial infarction: (4) Elevated troponin: Troponin on admission 0.8, then peaked to 1.4, now trending down to 1.2 S/[place] [facility] [place] cardiology on board ECHO showed moderate sized apical posterior and lateral wall motion abnormality with hypokinesis to akinesis of the segment. Continue IV heparin drip for 48 to 72 hrs Was on Brilinta that was changed to plavix on 01/04/20 Transition back to Brilinta as per cardio High risk candidate for cardiac catheterization due to renal insufficiency. Continue Noninvasive therapy for now Continue Carvedilol, Brilinta Heparin drip discontinued Stable (5) Hyponatremia: Na: 127 today Low serum osmolality and urine sodium Nephrology on board and recommended to increase lasix to 80mg IV BID Fluid restriction to 1.2L Monitor BMP (6) Acute kidney injury superimposed on CKD: CKD III Cr: bumped to 2.2 today Cr was 2.0 on 01/11/20 and 1.6 on 11/23/19 Renal U/S showed kidneys are atrophic and echogenic consistent with medical renal disease. There is no hydronephrosis. Nephrology on board Monitor BMP while on IV lasix (7) CAD (coronary artery disease): continue aspirin, carvedilol, isosorbide Plavix changed to Brilinta (8) Complete heart block, transient: S/P Pacemaker Pacemaker interrogation on 12/19/2019 with no atrial or ventricular arrhythmias and appropriate function and battery reserve stable (9) Hypokalemia: Potassium 3.7 today will give K supplement since getting IV lasix Continue monitor electrolytes while on IV lasix (10) Paroxysmal atrial fibrillation: Not on anticoagulation secondary to pt preference. Amiodarone was discontinued on 01/11/20 as per pt preference due to constipation Verapamil was discontinued Amiodarone discontinue by cardio since pt does not wish to continue it Rate controlled (11) HTN (hypertension): Continue to hold losartan due to worsening renal function Continue carvedilol (12) Asthma: Continue home inhalers (13) Chronic anemia: Hgb: 11. Baseline Hgb:9-11 Hgb 10.3 Continue monitor (14) Hypothyroidism: Continue levothyroxine (15) Mood disorder: Continue Effexor DVT Prophylaxis Heparin drip discontinued On heparin subq Code status Full code Disposition Continue monitor in Telemetry Admission and Anticipated Discharge Date Admission Date: January 17, 2020 Subjective Pt was seen and examined Lying in bed with no distress Pt said that his breathing is the same He said that he had 2 BM today He said that he did not urinate much Denies any chest pain, palpitation, dizziness and fever Physical Exam Physical Exam: General- No acute distress Head- atraumatic Eyes- PERRL, EOMI, ENT- oropharynx clear Neck- supple, no JVD Lungs- +Diminish breath sound Heart- regular rhythm, +murmur Abdomen- normal bowel sounds, soft, nontender Extremities- no calf tenderness Neuro- alert, oriented x 3; PERRL, EOMI; no facial palsy; no dysarthria Skin- warm & dry Results & Data Results & Data ([facility]) Vital Signs (Past 12 Hours) Vital Signs Temp Pulse Pulse Resp BP Pulse Ox 01/21/20 15:38 36.4 C L 67 18 106/63 96 01/21/20 11:51 37.0 C 65 18 103/61 94 01/21/20 08:00 60 01/21/20 06:41 36.4 C L 61 20 101/64 96
[2020-01-21] MEDS ORDERED: POTASSIUM CHLORIDE 20 MEQ TABCR PO ONE (17:00)
[2020-01-21] MEDS: ACETAMINOPHEN 325 MG TAB PO PRN (17:43)
[2020-01-22] MEDS: clonazePAM 0.5 MG TAB PO PRN ×2 (00:25→22:26)
[2020-01-22] MEDS: LEVOTHYROXINE SODIUM 112 MCG TABLET PO SCH (03:21)
[2020-01-22 06:48] LABS: BUN Creatinine Ratio 28.5 (10-20); Calcium 8.5 mg/dl (8.5-10.1); Creatinine Clr Calc Pharmacy 21.5 ml/min; Est GFR (African American) 30.1; Potassium 3.8 mmol/L (3.5-5.1)
[2020-01-22] MEDS: ISOSORBIDE MONO EXTENDED REL 30 MG TABCR PO SCH (08:01)
[2020-01-22] MEDS: CHOLECALCIFEROL 1,000 UNITS 25 MCG TAB PO SCH (08:01)
[2020-01-22] MEDS: TAMSULOSIN HCL 0.4 MG CAP PO SCH (08:02)
[2020-01-22] MEDS: HydrALAZINE 10 MG TAB PO SCH ×3 (08:02→20:39)
[2020-01-22] MEDS: VENLAFAXINE HCL XR 37.5 MG CAPXR PO SCH (08:02)
[2020-01-22] MEDS: carvediloL 6.25 MG TAB PO SCH ×2 (08:02→20:38)
[2020-01-22] MEDS: ASPIRIN 81 MG ECTAB PO SCH (08:02)
[2020-01-22] MEDS: PANTOprazole 40 MG TAB PO SCH ×2 (08:02→20:39)
[2020-01-22] MEDS: HEPARIN SOD 5,000 UNIT/0.5 ML VIAL SQ SCH (08:03)
[2020-01-22] MEDS ORDERED: FUROSEMIDE 80 MG in SYRINGE 0 ML IV ONE (08:45)
[2020-01-22] MEDS: TICAGRELOR 90 MG TAB PO SCH ×2 (08:51→20:42)
[2020-01-22] MEDS: ALUMINUM/MAGNESIUM/SIMETH (MAALOX MAX) 30 ML UDC PO PRN (09:27)
--- NOTE | 2020-01-22 11:36 | Cardiology Progress Note ---
Date of Service January 22, 2020 Assessment & Plan (1) Acute systolic CHF (congestive heart failure), NYHA class 4: 89-year-old male admitted with acute systolic heart failure possibly ischemic mediated in setting of underlying valvular disease aortic stenosis as well. Patient clinically improving though not profoundly diuresing Weight however is down 4 kg and renal function remaining relatively stable Patient with transient atrial fibrillation earlier this morning with generally controlled heart rate though with frequent ventricular ectopy and patient fully aware. Main complaint is fatigue Plan: Change diuretic to a relatively low oral dose of furosemide 40 mg twice daily although aware this may be sub-therapeutic yet, resume amiodarone. Given transient atrial fibrillation with patient fully aware of palpitations and throat fullness with irregular rhythm and PVCs. Patient in the past not felt to be a good candidate for long-term anticoagulation and patient does not desire to be on warfarin. Chads vas score significantly elevated and will continue discussed with patient. Will resume amiodarone as noted below follow closely Patient making gradual progress though slow. Discussed with daughter Amarilis (2) Non-ST elevation (NSTEMI) myocardial infarction: (3) Ischemic cardiomyopathy: (4) Acute kidney injury superimposed on CKD: Renal function stable exam does not reflect marked volume overload although sodium suggest positive fluid status. Subjective Patient was seen and examined, chart, medications, telemetry reviewed. Feels an occasional flutter pressure in the throat consistent with sensed ventricular ectopic beats. No worsening shortness of breath but markedly fatigued. No fevers chills or productive cough. Weight down 4 kg since admission. Renal function and sodium unchanged Transient atrial fibrillation this morning Physical Exam Constitutional: no acute distress Eyes: PERRL, conjunctivae normal, anicteric sclerae ENMT: external ear and nose normal, oropharynx normal Neck: trachea midline, no thyromegaly Respiratory: normal respiratory effort; no respiratory distress Auscultation: + rales (Few scattered basilar) Cardiovascular: Rate/Rhythm: regular rate and regular rhythm Heart Sounds: normal S1 and normal S2 Vessels: + JVD Extremities: + edema (Trace) Chest (Breasts): Chest: + pacemaker Musculoskeletal: no cyanosis or clubbing, extremities motor strength 5/5 Neurologic: PERRL, EOMI, accommodation nl, no face palsy, no dysarthria Psychiatric: A+Ox3, euthymic affect Results & Data Vital Signs (Past 12 Hours) Vital Signs Temp Pulse Pulse Resp BP Pulse Ox 01/22/20 11:29 36.8 C 70 18 102/58 L 95 01/22/20 07:49 36.8 C 67 17 107/66 95 01/22/20 07:19 66 01/22/20 03:46 36.4 C L 71 20 101/65 90 01/22/20 00:09 67 Laboratory Results Laboratory Results - last 24 hr 01/22/20 05:40 Sodium 125 L Potassium 3.8 Chloride 89 L Carbon Dioxide 31 Anion Gap 5.0 BUN 63 H Creatinine 2.20 H Est Cr Clr Drug Dosing 21.5 Est GFR ( Amer) 30.1 Est GFR (Non-Af Amer) 26.0 BUN/Creatinine Ratio 28.5 H Glucose 79 Calcium 8.5
[2020-01-22] MEDS ORDERED: POTASSIUM CHLORIDE 20 MEQ TABCR PO ONE (12:30)
[2020-01-22] MEDS ORDERED: FUROSEMIDE 40 MG TAB PO ONE (12:30)
[2020-01-22] MEDS ORDERED: OXYMETAZOLINE 0.05% 30 ML BTL STA (14:23)
[2020-01-22] MEDS: FUROSEMIDE 40 MG TAB PO SCH (16:00)
--- NOTE | 2020-01-22 17:01 | Electrocardiogram Report ---
Test Reason : Blood Pressure : / mmHG Vent. Rate : 073 BPM Atrial Rate : 000 BPM P-R Int : 000 ms QRS Dur : 162 ms QT Int : 448 ms P-R-T Axes : 000 058 003 degrees QTc Int : 493 ms Atrial fibrillation with occasional ventricular-paced complexes Non-specific intra-ventricular conduction block Minimal voltage criteria for LVH, may be normal variant Abnormal ECG When compared with ECG of 17-JAN-2020 22:58, Ventricular paced complexes are now present Atrial fibrillation has replaced Sinus rhythm Confirmed by Miquel Burrows ([id number]) on 01/22/2020 5:01:10 PM Referred By: REFERRED SELF Confirmed By:Miquel Burrows
--- NOTE | 2020-01-22 19:43 | Hospitalist Progress Note ---
Date of Service January 22, 2020 Assessment & Plan (1) SOB (shortness of breath): (2) Acute systolic CHF (congestive heart failure), NYHA class 4: 88yo M with a PMH of CAD [place] [facility] [place] paroxys[place] A Fib on amiodarone and not on anticoagulation secondary to pt declining, CKD III, hypothyroidism, HTN, mood disorder and others listed below for SOB. Pt reports past several days with worsening SOB with exertion, increased BLE edema and abdomen distended. CXR showed findings consistent with developing pulmonary edema versus congestive failure. ECHO showed Echo showed left ventricle systolic function is moderately reduced with ejection fraction 40 to 45%. There is a moderate sized apical posterior and lateral wall motion abnormality with hypokinesis to akinesis of the segment. Moderate to severe mitral regurgitation Cardiology on board case discussed with nephrology and recommended Lasix 80mg BID since pt has not been diuresis well Continue fluid restriction 1.2 L Lasix 40mg given in am, will consider to give additional lasix as per nephrology Monitor BMP while on IV lasix Continue monitor I/O (3) Non-ST elevation (NSTEMI) myocardial infarction: (4) Elevated troponin: Troponin on admission 0.8, then peaked to 1.4, now trending down to 1.2 S/P drug[place]el[place] [facility] [place] cardiology on board ECHO showed moderate sized apical posterior and lateral wall motion abnormality with hypokinesis to akinesis of the segment. Continue IV heparin drip for 48 to 72 hrs Was on Brilinta that was changed to plavix on 01/04/20 Transition back to Brilinta as per cardio High risk candidate for cardiac catheterization due to renal insufficiency. Continue Noninvasive therapy for now Continue Carvedilol, Brilinta Heparin drip discontinued Stable (5) Hyponatremia: Na: 125 today Low serum osmolality and urine sodium Nephrology on board and recommended to increase lasix to 80mg IV BID Fluid restriction to 1.2L Monitor BMP (6) Acute kidney injury superimposed on CKD: CKD III Cr: bumped to 2.2 today Cr was 2.0 on 01/11/20 and 1.6 on 11/23/19 Renal U/S showed kidneys are atrophic and echogenic consistent with medical renal disease. There is no hydronephrosis. Nephrology on board Monitor BMP while on IV lasix (7) CAD (coronary artery disease): continue aspirin, carvedilol, isosorbide Plavix changed to Brilinta (8) Complete heart block, transient: S/P Pacemaker Pacemaker interrogation on 12/19/2019 with no atrial or ventricular arrhythmias and appropriate function and battery reserve stable (9) Hypokalemia: Potassium 3.8 today will give K supplement since getting IV lasix Continue monitor electrolytes while on IV lasix (10) Paroxysmal atrial fibrillation: Not on anticoagulation secondary to pt preference. Amiodarone was discontinued on 01/11/20 as per pt preference due to constipation Verapamil was discontinued Amiodarone resumed today due to transient episode afib on monitor Rate controlled (11) HTN (hypertension): Continue to hold losartan due to worsening renal function Continue carvedilol (12) Asthma: Continue home inhalers (13) Chronic anemia: Hgb: 11. Baseline Hgb:9-11 Hgb 10.3 Continue monitor (14) Hypothyroidism: Continue levothyroxine (15) Mood disorder: Continue Effexor Epistaxis Resolved after applied pressure Continue ocean Nasal spray prn Will d/c subq heparin since pt on Brillinta and aspiri n DVT Prophylaxis Heparin drip discontinued Discontinue heparin subq due to nose bleeding today Will start on SCD Code status Full code Disposition Continue monitor in Telemetry Please call to provide with updates Admission and Anticipated Discharge Date Admission Date: January 17, 2020 Subjective Pt was seen and examined. Lying in bed with no distress Pt said that this morning he had some pressure around his throat Tele monitor showed brief episode of Afib Spoke to Geri and provided with updates Pt said that he continues to have SOB Physical Exam Physical Exam: General- No acute distress Head- atraumatic Eyes- PERRL, EOMI, ENT- oropharynx clear Neck- supple, no JVD Lungs- +Diminish breath sound Heart- regular rhythm, +murmur Abdomen- normal bowel sounds, soft, nontender Extremities- no calf tenderness Neuro- alert, oriented x 3; PERRL, EOMI; no facial palsy; no dysarthria Skin- warm & dry Results & Data Results & Data ([facility]) Vital Signs (Past 12 Hours) Vital Signs Temp Pulse Resp BP Pulse Ox 01/22/20 19:13 37.1 C 71 21 100/64 95 01/22/20 16:11 36.4 C L 67 18 118/69 94 01/22/20 11:29 36.8 C 70 18 102/58 L 95 01/22/20 07:49 36.8 C 67 17 107/66 95
[2020-01-22] MEDS ORDERED: FUROSEMIDE 40 MG in SYRINGE 0 ML IV ONE (21:00)
[2020-01-22] MEDS: ACETAMINOPHEN 325 MG TAB PO PRN (22:25)
[2020-01-23] MEDS: LEVOTHYROXINE SODIUM 112 MCG TABLET PO SCH (03:50)
[2020-01-23 05:46] LABS: Hematocrit (blood only) 29.1 % (42-52); Mean Corpuscular Hemoglobin 31.7 pg (25-34); Mean Corpuscular Hgb Conc 34.4 g/dL (32-36); Mean Corpuscular Volume 92.4 fL (80-100); Mean Platelet Volume 10.8 fL (7.4-10.4); Platelet Count 215 K/uL (130-400); RDW Coefficient of Variation 13.7 % (11.5-14.5); RDW Standard Deviation 45.8 fL (36.4-46.3); Red Blood Count 3.15 M/uL (4.7-6.1); White Blood Count 9.08 K/uL (4.8-10.8)
[2020-01-23 06:01] LABS: BUN Creatinine Ratio 29.2 (10-20); Calcium 8.3 mg/dl (8.5-10.1); Est GFR (African American) 27.5; Est GFR (Non-African American) 23.7; Potassium 3.7 mmol/L (3.5-5.1)
[2020-01-23] MEDS: HydrALAZINE 10 MG TAB PO SCH ×3 (08:45→20:27)
[2020-01-23] MEDS: AMIODARONE 200 MG TAB PO SCH ×3 (08:45→20:26)
[2020-01-23] MEDS: CHOLECALCIFEROL 1,000 UNITS 25 MCG TAB PO SCH (08:46)
[2020-01-23] MEDS: PANTOprazole 40 MG TAB PO SCH ×2 (08:46→20:28)
[2020-01-23] MEDS: FUROSEMIDE 40 MG TAB PO SCH (08:46)
[2020-01-23] MEDS: ASPIRIN 81 MG ECTAB PO SCH (08:46)
[2020-01-23] MEDS: TAMSULOSIN HCL 0.4 MG CAP PO SCH (08:46)
[2020-01-23] MEDS: carvediloL 6.25 MG TAB PO SCH ×2 (08:46→20:27)
[2020-01-23] MEDS: ISOSORBIDE MONO EXTENDED REL 30 MG TABCR PO SCH (08:47)
[2020-01-23] MEDS: VENLAFAXINE HCL XR 37.5 MG CAPXR PO SCH (08:47)
[2020-01-23] MEDS ORDERED: MAGNESIUM HYDROXIDE SUSP 30 ML UDC PO PRN (09:08)
[2020-01-23] MEDS ORDERED: POLYETHYLENE (MIRALAX) 17 GM PACK PO PRN (09:09)
[2020-01-23] MEDS: TICAGRELOR 90 MG TAB PO SCH ×2 (09:28→21:05)
--- NOTE | 2020-01-23 12:13 | Progress Notes ---
DATE: 01/23/2020 NEPHROLOGY PROGRESS NOTE SUBJECTIVE: Overnight, no new issues. He feels his breathing is slightly better. Urine output not very brisk at this time with Lasix 40 twice daily. OBJECTIVE: VITAL SIGNS: Blood pressure 100/59, pulse rate 64, 92% on nasal cannula 3 liters. HEENT: Mucous membranes moist. NECK: Supple. Positive JVD. LUNGS: No respiratory distress. Few basal crackles. CARDIOVASCULAR: Regular rate and rhythm, heart sounds normal S1 and S2. No edema. CHEST: With a pacemaker. NEUROLOGIC: Awake, alert, oriented x3. LABORATORY TESTS: From this morning reviewed and show sodium 127, chloride 89, BUN 69, creatinine 2.37, calcium 8.3. ASSESSMENT AND PLAN: 1. An 89-year-old male with acute kidney injury superimposed on chronic kidney disease, baseline creatinine 1.5, now it is about 2.37. It is expected to have some rise given acute setting of congestive heart failure and myocardial infarction. 2. Acute systolic congestive heart failure. 3. Hyponatremia. This is hypervolemic hyponatremia in the setting of acute congestive heart failure with acute kidney injury as well as very poor oral intake of solid food and relatively high liquid intake. RECOMMENDATIONS: 1. Continue fluid restriction of 1.2 liters. 2. His sodium may not get back to normal. At this time, it is reasonable. As long as it is more than 125, it is acceptable. He will have to be diuresed much more aggressively to get a serum sodium more than 130. Do not use salt tablet. We could have used urea packet if available in the medication formulary list. At this time, we can do once daily labs.
--- NOTE | 2020-01-23 13:21 | Cardiology Progress Note ---
Date of Service January 23, 2020 Assessment & Plan (1) Acute systolic CHF (congestive heart failure), NYHA class 4: 89-year-old male admitted with acute systolic heart failure possibly ischemic mediated in setting of underlying valvular disease aortic stenosis as well. Patient has gradually responded to diuretics by weight loss and physical examination. Still dyspneic with minimal exertion Patient concern amiodarone and Brilinta are contributing to dyspnea and this not completely excluded Chest x-ray will be repeated today Continue oral furosemide at current dosing though may need to be titrated upward Amiodarone has been resumed at 3 times daily dosing given paroxysmal atrial arrhythmias May require long-term anticoagulation with warfarin and discussed with patient, past difficulties with recurrent epistaxis noted (2) Non-ST elevation (NSTEMI) myocardial infarction: Renal insufficiency and high risk prior intervention previously performed suggest significant increase risk for diagnostic cardiac catheterization (3) Ischemic cardiomyopathy: (4) Acute kidney injury superimposed on CKD: Renal function stable, exam does not reflect marked volume overload although sodium suggest positive fluid status. (5) Paroxysmal atrial fibrillation: Subjective . No jugular venous distention or edema on exam Patient seen and examined, chart, medications, telemetry reviewed. Still becomes dyspneic with minimal exertion. No specific chest pain but feels throat tightness. No fevers chills unexplained infections. Intake and output takes recorded uncertain but weight down 5 kg from admission no jugular venous distention or edema on exam Paroxysmal atrial fibrillation present on telemetry Physical Exam Constitutional: no acute distress Eyes: PERRL, conjunctivae normal, anicteric sclerae ENMT: external ear and nose normal, oropharynx normal Neck: trachea midline, no thyromegaly Respiratory: normal respiratory effort; no respiratory distress Auscultation: + wheezes (Scattered with exertion and cough) Cardiovascular: Rate/Rhythm: regular rate and regular rhythm Heart Sounds: normal S1 and normal S2 Vessels: no JVD Extremities: no edema Chest (Breasts): Chest: + pacemaker Musculoskeletal: no cyanosis or clubbing, extremities motor strength 5/5 Neurologic: PERRL, EOMI, accommodation nl, no face palsy, no dysarthria Psychiatric: A+Ox3, euthymic affect Results & Data Vital Signs (Past 12 Hours) Vital Signs Temp Pulse Pulse Resp BP BP Pulse Ox 01/23/20 11:17 36.8 C 91 H 18 105/64 93 01/23/20 08:00 64 01/23/20 07:07 36.6 C 66 18 100/59 L 92 01/23/20 04:10 36.7 C 63 19 94/59 L 95 01/23/20 02:02 72 Laboratory Results Laboratory Results - last 24 hr 01/23/20 01/23/20 01/23/20 05:30 05:30 05:30 WBC 9.08 RBC 3.15 L Hgb 10.0 L Hct 29.1 L MCV 92.4 MCH 31.7 MCHC 34.4 RDW Std Deviation 45.8 RDW Coeff of Sher 13.7 Plt Count 215 MPV 10.8 H Sodium 127 L Potassium 3.7 Chloride 89 L Carbon Dioxide 30 Anion Gap 8.0 BUN 69 H Creatinine 2.37 H Est Cr Clr Drug Dosing 20.0 Est GFR ( Amer) 27.5 Est GFR (Non-Af Amer) 23.7 BUN/Creatinine Ratio 29.2 H Glucose 87 Calcium 8.3 L Troponin I 0.231 H*
--- NOTE | 2020-01-23 13:27 | Hospitalist Progress Note ---
Date of Service January 23, 2020 Assessment & Plan (1) Paroxysmal atrial fibrillation: symptomatic with Afib on amiodarone pt declined anticoagulation in past cardiology following (2) SOB (shortness of breath): symptom has resolved (3) Acute systolic CHF (congestive heart failure), NYHA class 4: admitted with worsening SOB with exertion, increased BLE edema and abdomen distended. CXR showed findings consistent with developing pulmonary edema versus congestive failure. ECHO showed Echo showed left ventricle systolic function is moderately reduced with ejection fraction 40 to 45%. There is a moderate sized apical posterior and lateral wall motion abnormality with hypokinesis to akinesis of the segment. Moderate to severe mitral regurgitation Cardiology following on Lasix 40 mg BID Continue fluid restriction 1.2 L monitor vol and daily wt (4) Non-ST elevation (NSTEMI) myocardial infarction: mild troponin elevation due to decompensated CHF /afib -Type 2 NSTEMI (5) Elevated troponin: Troponin on admission 0.8, then peaked to 1.4, now trending down to 1.2 S/[place] [facility] [place]ology on board ECHO showed moderate sized apical posterior and lateral wall motion abnormality with hypokinesis to akinesis of the segment. High risk candidate for cardiac catheterization due to renal insufficiency. medical management Continue Carvedilol, Aspirin (6) Hyponatremia: Low serum osmolality and urine sodium Nephrology on board , appreciate input on Lasix 40 mg PO BID Fluid restriction to 1.2L Monitor BMP (7) Acute kidney injury superimposed on CKD: CKD III acute renal failure on CKD stage 3 Renal U/S showed kidneys are atrophic and echogenic consistent with medical renal disease. There is no hydronephrosis. Nephrology on board Monitor BMP while getting diuresis (8) CAD (coronary artery disease): continue aspirin, carvedilol, isosorbide (9) Complete heart block, transient: S/P Pacemaker Pacemaker interrogation on 12/19/2019 with no atrial or ventricular arrhythmias and appropriate function and battery reserve stable (10) Hypokalemia: (11) HTN (hypertension): on coreg /hydralazine /isosorbide /lasix (12) Asthma: Continue home inhalers stable (13) Chronic anemia: Hgb: 11. Baseline Hgb:9-11 Hgb 10.3 Continue monitor (14) Hypothyroidism: Continue levothyroxine (15) Mood disorder: Continue Effexor DVT Prophylaxis sub q heparin Code status Full code Disposition monitor in PCU PT/OT eval prior to discharge Admission and Anticipated Discharge Date Admission Date: January 17, 2020 Subjective continues to experience intermittent chest heaviness , tightness around throat worse with activity Tele shows Rhythm between Afib in 90's then converted to sinus pt becomes symptomatic with Afib no complain of SOB , no orthopnea Review of Systems Review of Systems: All systems reviewed & are unremarkable except as noted in HPI & below Physical Exam Constitutional: WD/WN, vitals as above no acute distress Eyes: PERRL, conjunctivae normal, anicteric sclerae ENMT: external ear and nose normal, oropharynx normal Neck: trachea midline, no thyromegaly Respiratory: normal respiratory effort, lungs clear to auscultation Cardiovascular: Rate/Rhythm: + abnormal rate Gastrointestinal (Abdomen): normal bowel sounds, soft, nontender, no hepatosplenomegaly Musculoskeletal: no cyanosis or clubbing, extremities motor strength 5/5 Skin: no rashes, warm and dry Neurologic: PERRL, EOMI, accommodation nl, no face palsy, no dysarthria Psychiatric: A+Ox3, euthymic affect Results & Data Results & Data ([facility]) Vital Signs (Past 12 Hours) Vital Signs Temp Pulse Pulse Resp BP BP Pulse Ox 01/23/20 11:17 36.8 C 91 H 18 105/64 93 01/23/20 08:00 64 01/23/20 07:07 36.6 C 66 18 100/59 L 92 01/23/20 04:10 36.7 C 63 19 94/59 L 95 01/23/20 02:02 72
--- NOTE | 2020-01-23 13:36 | XRay Report ---
XR chest 1V portable CLINICAL HISTORY: persistent dyspnea, chf , amiodarone use COMPARISON STUDY: 01/19/2020 FINDINGS: The cardiac and mediastinal contours remain stable. There is a left subclavian dual-chamber central venous pacemaker. There are persistent extensive bilateral pulmonary airspace opacities.[Tra ce pleural effusions are visualized. There is conventional radiographic evidence of bilateral rotator cuff tear. IMPRESSION: 1. Persistent extensive bilateral pulmonary airspace opacities. This could represent pulmonary edema, bilateral pneumonia, or drug toxicity. ACT 112: Negative or not required by law. Electronically signed by: Dc Anglin M.D. 01/23/2020 1:35 PM
[2020-01-23] MEDS ORDERED: ALUMINUM/MAGNESIUM/SIMETH (MAALOX MAX) 30 ML UDC PO PRN (15:25)
[2020-01-23] MEDS ORDERED: bisacodyL 5 MG TABEC PO PRN (15:32)
[2020-01-23] MEDS ORDERED: POLYETHYLENE (MIRALAX) 17 GM PACK PO ONE (15:33)
--- NOTE | 2020-01-23 16:06 | Cardiology Progress Note ---
Date of Service January 23, 2020 Subjective Patient seen and examined chest x-ray reviewed. Still patient with ce ntrilobular opacities bilaterally question pulmonary edema versus airspace disease. There appears to be peripheral clearing. Exam not consistent with profound volume overload with rising creatinine Echocardiogram once again reviewed and has previously noted EF 40% with at least moderate to severe mitral insufficiency Plan: Additional dose of IV furosemide 80 mg this evening Solu-Medrol 40 mg IV now given mild wheezing on exam CT scan of the chest tomorrow without contrast to better define infiltrates We will continue amiodarone though may need to discontinue this medi cation Results & Data Vital Signs (Past 12 Hours) Vital Signs Temp Pulse Pulse Resp BP BP Pulse Ox 01/23/20 15:43 36.8 C 67 18 100/62 94 01/23/20 15:31 67 01/23/20 11:17 36.8 C 91 H 18 105/64 93 01/23/20 08:00 64 01/23/20 07:07 36.6 C 66 18 100/59 L 92 01/23/20 04:10 36.7 C 63 19 94/59 L 95
[2020-01-23] MEDS ORDERED: methylPREDNISolone 40 MG in SYRINGE 0 ML IV ONE (16:30)
[2020-01-23] MEDS ORDERED: FUROSEMIDE 80 MG in SYRINGE 0 ML IV ONE (16:30)
[2020-01-23] MEDS ORDERED: Nursing to Pharmacy Communication SCH (17:15)
[2020-01-23] MEDS: DOCUSATE SODIUM 100 MG CAP PO SCH (20:28)
[2020-01-23] MEDS: clonazePAM 0.5 MG TAB PO PRN (21:04)
[2020-01-24] MEDS: LEVOTHYROXINE SODIUM 112 MCG TABLET PO SCH (04:51)
--- NOTE | 2020-01-24 05:45 | Electrocardiogram Report ---
Test Reason : Blood Pressure : / mmHG Vent. Rate : 084 BPM Atrial Rate : 052 BPM P-R Int : 000 ms QRS Dur : 168 ms QT Int : 476 ms P-R-T Axes : 000 054 -15 degrees QTc Int : 562 ms Atrial fibrillation with occasional ventricular-paced complexes Right bundle branch block Abnormal ECG When compared with ECG of 22-JAN-2020 10:03, Vent. rate has increased BY 11 BPM Confirmed by Miquel Burrows ([id number]) on 01/24/2020 5:45:23 AM Referred By: REFERRED SELF Confirmed By:Miquel Burrows
[2020-01-24 06:17] LABS: BUN Creatinine Ratio 31.5 (10-20); Calcium 8.3 mg/dl (8.5-10.1); Creatinine Clr Calc Pharmacy 19.8 ml/min; Est GFR (African American) 27.7; Est GFR (Non-African American) 23.9; Potassium 3.7 mmol/L (3.5-5.1)
--- NOTE | 2020-01-24 07:41 | CT Scan Report ---
CT chest wo con CT DOSE: 621.55 mGycm HISTORY: Shortness of breath. Abnormal chest x-ray. TECHNIQUE: Multiaxial CT images of the chest were performed without contrast. A dose lowering techni que was utilized adhering to the principles of ALARA. COMPARISON: Chest 01/23/2020. FINDINGS: The central airways remain patent. No pneumothorax. Small bilateral pleural effusions. Mariella re diffuse patchy bilateral airspace opacities most pronounced in the perihilar location and upper lo be predominant. There is associated interlobular septal thickening. Calcified pleural plaque in the l eft upper lobe anteriorly. Hyperdense liver. A 7 mm hypodense lesion within the left hepatic lobe is technically too small to characterize. The visualized spleen and adrenal glands are unremarkable. Nor mal caliber esophagus. No significant mediastinal or hilar lymphadenopathy. The heart is mildly enlar ged. Dense coronary artery and mitral annulus calcifications. Left-sided pacemaker. No suspicious lyt ic are blastic osseous lesions. Advanced degenerative disc disease within the upper thoracic spine. IMPRESSION: Severe diffuse patchy bilateral airspace opacities most pronounced within the perihilar location and demonstrating upper lobe predominance. There are small bilateral pleural effusions and mild cardiomeg gretchen. Findings favor severe pulmonary edema/ARDS or a bilateral atypical pneumonia such as a viral pro cess. ACT 112: Negative or not required by law. Electronically signed by: Kan Yoder M.D. 01/24/2020 7:40 AM
[2020-01-24] MEDS: FUROSEMIDE 40 MG TAB PO SCH ×3 (07:42→17:31)
[2020-01-24] MEDS: carvediloL 6.25 MG TAB PO SCH ×2 (08:13→21:05)
[2020-01-24] MEDS: VENLAFAXINE HCL XR 37.5 MG CAPXR PO SCH (08:14)
[2020-01-24] MEDS: CHOLECALCIFEROL 1,000 UNITS 25 MCG TAB PO SCH (08:14)
[2020-01-24] MEDS: TAMSULOSIN HCL 0.4 MG CAP PO SCH (08:14)
[2020-01-24] MEDS: DOCUSATE SODIUM 100 MG CAP PO SCH (08:14)
[2020-01-24] MEDS: ISOSORBIDE MONO EXTENDED REL 30 MG TABCR PO SCH (08:15)
[2020-01-24] MEDS: ASPIRIN 81 MG ECTAB PO SCH (08:15)
[2020-01-24] MEDS: PANTOprazole 40 MG TAB PO SCH ×2 (08:16→21:05)
[2020-01-24] MEDS: HydrALAZINE 10 MG TAB PO SCH ×3 (08:16→21:05)
[2020-01-24] MEDS: AMIODARONE 200 MG TAB PO SCH ×3 (08:17→21:05)
[2020-01-24] MEDS ORDERED: POLYETHYLENE (MIRALAX) 17 GM PACK PO SCH (09:00)
[2020-01-24] MEDS: TICAGRELOR 90 MG TAB PO SCH ×2 (09:53→21:06)
[2020-01-24] MEDS ORDERED: FUROSEMIDE 80 MG in SYRINGE 0 ML IV ONE (12:00)
--- NOTE | 2020-01-24 12:47 | Cardiology Progress Note ---
Date of Service January 24, 2020 Assessment & Plan (1) Acute systolic CHF (congestive heart failure), NYHA class 4: 89-year-old male admitted with acute systolic heart failure possibly ischemic mediated in setting of underlying valvular disease aortic stenosis as well. Patient has gradually responded to diuretics by weight loss and physical examination. Still dyspneic with minimal exertion Patient concern amiodarone and Brilinta are contributing to dyspnea and this not completely excluded Exam demonstrating crackles anteriorly Continue to receive pulse dose furosemide for further diuresis with oral diuretic as well We will give additional potassium today Continue empiric corticosteroids with additional dose of Solu-Medrol followed by planned prednisone taper We will continue amiodarone at 200 mg twice daily given intermittent atrial arrhythmias as this remains as best antiarrhythmic for this patient with renal insufficiency, ischemic cardiomyopathy although we will continue to follow pulmonary status (2) Non-ST elevation (NSTEMI) myocardial infarction: Renal insufficiency and high risk prior intervention previously performed suggest significant increase risk for diagnostic cardiac catheterization (3) Ischemic cardiomyopathy: (4) Acute kidney injury superimposed on CKD: Renal function stable, exam does not reflect marked volume overload although sodium suggest positive fluid status. (5) Paroxysmal atrial fibrillation: Anticipate transition to warfarin plus Brilinta on discharge although bleeding risk concern (6) Pacemaker: Subjective Patient seen and examined, chart, medications, telemetry reviewed. Still dyspneic and fatigue. Notes throat pain predominantly correlating with ventric ular ectopy and sensed atrial fibrillation/paced rhythm on telemetry. Continues to manifest mild diuresis and O2 demands have decreased. No fevers or chills. Renal function is stable Telemetry demonstrates intermittent ventricular pacing followed by short salvos of atrial fibrillation Review of Systems Review of Systems: All systems reviewed & are unremarkable except as noted in HPI & below Physical Exam Constitutional: no acute distress Eyes: PERRL, conjunctivae normal, anicteric sclerae ENMT: external ear and nose normal, oropharynx normal Neck: trachea midline, no thyromegaly Respiratory: normal respiratory effort; no respiratory distress Auscultation: + crackles (Fine crackles anteriorly and apically) and + rales Cardiovascular: Rate/Rhythm: regular rate and regular rhythm Heart Sounds: normal S1 and normal S2 Vessels: no JVD Extremities: no edema Chest (Breasts): Chest: + pacemaker Musculoskeletal: no cyanosis or clubbing, extremities motor strength 5/5 Neurologic: PERRL, EOMI, accommodation nl, no face palsy, no dysarthria Psychiatric: A+Ox3, euthymic affect Results & Data Vital Signs (Past 12 Hours) Vital Signs Temp Pulse Pulse Resp BP Pulse Ox 01/24/20 11:33 36.5 C 63 18 105/61 92 01/24/20 08:30 63 01/24/20 08:02 36.6 C 80 17 93/61 L 90 01/24/20 03:45 36.6 C 62 19 102/57 L 92 Laboratory Results Laboratory Results - last 24 hr 01/24/20 05:25 Sodium 128 L Potassium 3.7 Chloride 88 L Carbon Dioxide 30 Anion Gap 10.0 BUN 74 H Creatinine 2.36 H Est Cr Clr Drug Dosing 19.8 Est GFR ( Amer) 27.7 Est GFR (Non-Af Amer) 23.9 BUN/Creatinine Ratio 31.5 H Glucose 128 H Calcium 8.3 L Magnesium 3.0 H
--- NOTE | 2020-01-24 12:51 | Progress Notes ---
DATE: 01/24/2020 NEPHROLOGY PROGRESS NOTE SUBJECTIVE: Overnight, no new issues. He feels his breathing is slightly better, although it is hard to exactly quantify. He did get extra Lasix 80 mg yesterday evening. His urine output yesterday in a 24-hour time period was 1725 mL. PHYSICAL EXAMINATION: VITAL SIGNS: Blood pressure 105/61, pulse rate 63, temperature 36.5, on 2 liters oxygen. CHEST: Bilaterally decreased breath sounds, poor inspiratory effort. CARDIOVASCULAR: Irregular, soft systolic murmur heard. ABDOMEN: Soft, nontender. EXTREMITIES: Show no edema. LABORATORY TESTS: From this morning show sodium 128, potassium 3.7, chloride 88, BUN 74, creatinine 2.36, calcium 8.3, magnesium 3. ASSESSMENT AND PLAN: An 89-year-old male with acute kidney injury superimposed on chronic kidney disease. Baseline creatinine 1.5, now it is 2.36. It is expected to have some rise in the creatinine given the acute setting of congestive heart failure and myocardial infarction. Creatinine today is about the same as yesterday. He is not in any need of dialysis. Concerning to see magnesium level get high. I will stop all magnesium-containing medications and try to use alternate medication. Hyponatremia: This is hypervolemic hyponatremia in the setting of acute congestive heart failure with acute kidney injury as well as very poor oral intake of solid food and relatively high fluid intake. RECOMMENDATIONS: Continue fluid restriction of 1.2 liter. His sodium may not get back to normal. At this time, it is reasonable. As long as it is more than 125, it is acceptable. He will have to be diuresed much more aggressively to get the serum sodium more than 130. Do not use salt tablet.
[2020-01-24] MEDS ORDERED: POTASSIUM CHLORIDE 20 MEQ TABCR PO ONE (12:53)
[2020-01-24] MEDS ORDERED: methylPREDNISolone 40 MG in SYRINGE 0 ML IV ONE (13:00)
[2020-01-24] MEDS: ACETAMINOPHEN 325 MG TAB PO PRN (13:33)
--- NOTE | 2020-01-24 16:54 | Hospitalist Progress Note ---
Date of Service January 24, 2020 Assessment & Plan (1) Paroxysmal atrial fibrillation: symptomatic with Afib on amiodarone 200 mg TID coreg 6.25 mg BID pt declined anticoagulation in past cardiology following pt complained of being constipated while taking amiodarone bowel regimen PRN for constipation (2) SOB (shortness of breath): symptom has resolved (3) Acute systolic CHF (congestive heart failure), NYHA class 4: admitted with worsening SOB with exertion, increased BLE edema and abdomen distended. CXR showed findings consistent with developing pulmonary edema versus congestive failure. ECHO showed Echo showed left ventricle systolic function is moderately reduced with ejection fraction 40 to 45%. There is a moderate sized apical posterior and lateral wall motion abnormality with hypokinesis to akinesis of the segment. Moderate to severe mitral regurgitation Cardiology following on Lasix 40 mg BID Continue fluid restriction 1.2 L monitor vol and daily wt (4) Non-ST elevation (NSTEMI) myocardial infarction: mild troponin elevation due to decompensated CHF /afib -Type 2 NSTEMI (5) Elevated troponin: Troponin on admission 0.8, then peaked to 1.4, now trending down to 1.2 S/P drug-eluting stents at [facility] [place] on 04/04/2019 cardiology on board ECHO showed moderate sized apical posterior and lateral wall motion abnormality with hypokinesis to akinesis of the segment. High risk candidate for cardiac catheterization due to renal insufficiency. medical management Continue Carvedilol, Aspirin (6) Hyponatremia: Low serum osmolality and urine sodium Nephrology on board , appreciate input on Lasix 40 mg PO BID Fluid restriction to 1.2L Monitor BMP (7) Acute kidney injury superimposed on CKD: CKD III acute renal failure on CKD stage 3 Renal U/S showed kidneys are atrophic and echogenic consistent with medical renal disease. There is no hydronephrosis. Nephrology on board Monitor BMP while getting diuresis (8) CAD (coronary artery disease): continue aspirin, carvedilol, isosorbide (9) Complete heart block, transient: S/P Pacemaker Pacemaker interrogation on 12/19/2019 with no atrial or ventricular arrhythmias and appropriate function and battery reserve stable (10) Hypokalemia: l give K supplement since getting IV lasix Continue monitor electrolytes while on IV lasix (11) HTN (hypertension): on coreg /hydralazine /isosorbide /lasix (12) Asthma: Continue home inhalers stable (13) Chronic anemia: Hgb: 11. Baseline Hgb:9-11 Hgb 10.3 Continue monitor (14) Hypothyroidism: Continue levothyroxine (15) Mood disorder: Continue Effexor DVT Prophylaxis sub q heparin Code status Full code Disposition monitor in PCU PT/OT eval prior to discharge Admission and Anticipated Discharge Date Admission Date: January 17, 2020 Subjective complains of abdominal cramps had bowel movement today and yesterday denies of any SOB had chest tightness heaviness this AM no symptoms now Physical Exam Constitutional: WD/WN, vitals as above no acute distress Eyes: PERRL, conjunctivae normal, anicteric sclerae ENMT: external ear and nose normal, oropharynx normal Neck: trachea midline, no thyromegaly Respiratory: normal respiratory effort, lungs clear to auscultation Cardiovascular: Rate/Rhythm: + abnormal rate Gastrointestinal (Abdomen): normal bowel sounds, soft, nontender, no hepatosplenomegaly Musculoskeletal: no cyanosis or clubbing, extremities motor strength 5/5 Skin: no rashes, warm and dry Neurologic: PERRL, EOMI, accommodation nl, no face palsy, no dysarthria Psychiatric: A+Ox3, euthymic affect Results & Data Results & Data ([facility] [place]) Vital Signs (Past 12 Hours) Vital Signs Temp Pulse Pulse Resp BP Pulse Ox 01/24/20 15:58 85 01/24/20 15:13 36.5 C 61 21 90/56 L 93 01/24/20 11:33 36.5 C 63 18 105/61 92 01/24/20 08:30 63 01/24/20 08:02 36.6 C 80 17 93/61 L 90
[2020-01-24] MEDS: clonazePAM 0.5 MG TAB PO PRN (23:47)
[2020-01-25] MEDS: LEVOTHYROXINE SODIUM 112 MCG TABLET PO SCH (05:14)
[2020-01-25 06:27] LABS: BUN Creatinine Ratio 29.9 (10-20); Calcium 8.4 mg/dl (8.5-10.1); Creatinine Clr Calc Pharmacy 16.1 ml/min; Est GFR (African American) 21.5; Est GFR (Non-African American) 18.5; Potassium 4.1 mmol/L (3.5-5.1)
--- NOTE | 2020-01-25 07:15 | XRay Report ---
XR chest 1V portable CLINICAL HISTORY: sob COMPARISON STUDY: 01/23/2020 FINDINGS: The cardiac and mediastinal contours remain stable. There is a left subclavian dual-chamber central venous pacemaker. There are extensive bilateral pulmonary airspace opacities similar to the preceding study. There is blunting of both lateral costophrenic angles. Advanced arthritic changes ar e present within the shoulders. There is no pneumothorax.[ IMPRESSION: Extensive bilateral pulmonary airspace opacities, similar to the preceding study. ACT 112: Negative or not required by law. Electronically signed by: Dc Anglin M.D. 01/25/2020 7:14 AM
[2020-01-25 08:08] LABS: Base Excess ABG 5.5 mEq/L (-9-1.8); HCO3 ABG 29 mmol/L (19-24); Oxygen Saturation ABG 94.8 % (90-95); PCO2 ABG 39 mmHg (35-46); PO2 ABG 71 mmHg (80-95)
[2020-01-25 08:10] LABS: Allen Test Pos (Pos)
[2020-01-25 08:14] LABS: Troponin I 0.112 ng/ml (0-0.045)
[2020-01-25] MEDS ORDERED: FUROSEMIDE 80 MG in SYRINGE 0 ML IV ONE (08:15)
--- NOTE | 2020-01-25 08:32 | Hospitalist Progress Note ---
Date of Service January 25, 2020 Assessment & Plan (1) Acute respiratory failure with hypoxia: developed acute hypoxia /respiratory failure overnight - pt became hypoxic overnight spo2 dropped to 70's was placed on 6 L 02 via nasal canula complains of feeling very short of breath /chest heaviness , orthopnea this morning , respiratory distress continues to worsen , requiring 10L 02 via NRB Chest xray shows bilat pulmonary congestion placed on Bipap this AM ABG shows : respiratory alkalosis with hypoxia BNP /troponin ordered pt was given Lasix 80 mg IV yesterday evening , D/w nephrology :recommends to give 100 mg IV lasix now then Lasix gtt if urine out put remains poor Kelsey placed to assess urine out cause of ac resp failure : multifactorial : flash pulm edema vs drug toxicity ( amiodarone induced lung toxicity ? 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 (2) Paroxysmal atrial fibrillation: past 12 hrs been in sinus with rate controlled as per tele hold amiodarone 200 mg TID -with concern for drug toxicity -given progression of resp failure coreg 6.25 mg BID pt declined anticoagulation in past cardiology following (3) SOB (shortness of breath): due to above : bilateral pulm edema /acute resp failure cont diuresis , pulmonary support as above (4) Acute systolic CHF (congestive heart failure), NYHA class 4: worsening of SOB /orthopnea /overnight diuresis as outlined above admitted with worsening SOB with exertion, increased BLE edema and abdomen distended. CXR findings consistent with developing pulmonary edema /congestive failure. Echo left ventricle systolic function is moderately reduced with ejection fraction 40 to 45%. moderate sized apical posterior and lateral wall motion abnormality with hypokinesis to akinesis of the segment. Moderate to severe mitral regurgitation Cardiology following Continue fluid restriction 1.2 L Kelsey placed for accurate measurement of intake /output (5) Non-ST elevation (NSTEMI) myocardial infarction: troponin elevation due to decompensated CHF /afib -Type 2 NSTEMI (6) Elevated troponin: Troponin on admission 0.8, then peaked to 1.4, now trending down to 1.2 S/P drug-eluting stents at [facility] on 04/04/2019 cardiology on board ECHO showed moderate sized apical posterior and lateral wall motion abnormality with hypokinesis to akinesis of the segment. High risk candidate for cardiac catheterization due to renal insufficiency. medical management Continue Carvedilol, Aspirin (7) Hyponatremia: Low serum osmolality and urine sodium Nephrology on board , appreciate input recommends continued aggressive diuresis for resp failure /pulm edema Fluid restriction to 1.2L Monitor BMP (8) Acute kidney injury superimposed on CKD: acute renal failure on CKD stage 3 Cr worsened today 2.9 /given IV lasix Nephrology on board Monitor BMP while getting aggresive diuresis (9) CAD (coronary artery disease): continue aspirin, carvedilol, isosorbide (10) Complete heart block, transient: S/P Pacemaker (11) Hypokalemia: Continue monitor K level while on IV lasix (12) HTN (hypertension): on coreg /hydralazine /isosorbide /IV lasix as out lined above CODE STATUS : FULL CODE DVT PROPHYLAXIS : ordered Sub q heparin DISPOSITION : cont to monitor in PCU Admission and Anticipated Discharge Date Admission Date: January 17, 2020 Subjective pt is placed on bipap seen and evaluated pt at bedside appears to tolerate Bipap well able to talk in full sentences , days his Shortness of breath /chest tightness better after Bipap anxious about what is happening pt remains afebrile , tele reviewed -has been sinus with HR between 60-70's since 8 pm yesterday Review of Systems Review of Systems: All systems reviewed & are unremarkable except as noted in HPI & below shortness of breath /respiratory distress since last night Constitutional: + problem reported; no fever shortness of breath Respiratory: + dyspnea and + problem reported hypoxia /SOB Cardiovascular: + chest pain, + dyspnea, + dyspnea at rest, + dyspnea on exertion and + orthopnea Gastrointestinal: no abdominal pain, no nausea and no vomiting Physical Exam Constitutional: WD/WN, vitals as above anxious , on bipap/appears to be stable Eyes: PERRL, conjunctivae normal, anicteric sclerae ENMT: external ear and nose normal, oropharynx normal Neck: trachea midline, no thyromegaly Respiratory: + respiratory distress and + labored breathing; no cough Auscultation: + crackles and + rales (bibasilar rales ) Cardiovascular: RRR, no murmur, no edema Gastrointestinal (Abdomen): Inspection/Auscultation: normal bowel sounds Percussion/Palpation: abdomen soft; abdomen nontender Skin: no rashes, warm and dry Neurologic: PERRL, EOMI, accommodation nl, no face palsy, no dysarthria Psychiatric: Orientation: oriented x 3 Mood: + anxious mood Results & Data Results & Data ([facility]) Vital Signs (Past 12 Hours) Vital Signs Temp Pulse Pulse Pulse Resp BP BP 01/25/20 07:49 61 24 01/25/20 07:16 36.4 C L 60 21 115/71 01/25/20 06:00 65 24 103/55 L 01/25/20 03:16 36.6 C 61 16 106/53 L 01/24/20 23:40 60 01/24/20 22:59 36.5 C 64 19 99/49 L 01/24/20 20:59 60 101/64 Pulse Ox 01/25/20 07:49 93 01/25/20 07:16 91 01/25/20 06:00 74 L 01/25/20 03:16 90 01/24/20 23:40 01/24/20 22:59 90 01/24/20 20:59
[2020-01-25] MEDS ORDERED: FUROSEMIDE 100 MG in SYRINGE 0 ML IV ONE (09:00)
--- NOTE | 2020-01-25 09:17 | Hospitalist Progress Note ---
Date of Service January 25, 2020 Assessment & Plan Admission and Anticipated Discharge Date Admission Date: January 17, 2020 Subjective ATTENDING ADDENDUM : chest xray shows bilateral extensive pulmonary infiltrate concern for possible drug adverse reaction /amiodarone induced lung injury Amiodarone on hold Pulmonology consulted Update given to daughter over phone Corie Rivera MD Results & Data Results & Data ([facility]) Vital Signs (Past 12 Hours) Vital Signs Temp Pulse Pulse Resp BP BP Pulse Ox 01/25/20 07:49 61 24 93 01/25/20 07:16 36.4 C L 60 21 115/71 91 01/25/20 06:00 65 24 103/55 L 74 L 01/25/20 03:16 36.6 C 61 16 106/53 L 90 01/24/20 23:40 60 01/24/20 22:59 36.5 C 64 19 99/49 L 90
[2020-01-25] MEDS: HEPARIN SOD 5,000 UNIT/0.5 ML VIAL SQ SCH ×3 (10:58→21:16)
[2020-01-25] MEDS: CHOLECALCIFEROL 1,000 UNITS 25 MCG TAB PO SCH (12:50)
--- NOTE | 2020-01-25 12:57 | Critical Care Consultation ---
Date of Consultation January 25, 2020 Assessment & Plan (1) Admitted to intensive care unit: Reason Critically Ill: 89-year-old male admitted 01/17/2020 with shortness of breath with CHF exacerbation. We are consulted for acute respiratory failure and question of amiodarone toxicity. Patient received 2 doses of methylprednisolone -40 mg yesterday and 40 mg a day before. Diuresis w ith furosemide 40 mg twice daily was revealing 300 to 500 cc output. Since receiving the 100 mg dose the patient put out a liter in 4 hours. We will continue to manage fluid output in the ICU and follow for possible need for endotracheal intubation with mechanical ventilation. Neuro - [facility] ICU: Patient is alert and oriented x4. He is able to give me full history of past medical condition as well as social history with accuracy Cardiac - Patient with history of CAD with 4 stents placed March 2019 at [facility]. Continues on antiplatelet therapy with aspirin, clopidogrel, and Brilinta Presented with elevated troponin which has begun to trend down Cardiology is following for CHF exacerbation and has been diuresing the patient Amiodarone since May 2019; this is now been stopped secondary to findings on CT scan concerning for amiodarone toxicity Patient is in and out of atrial fibrillation this morning but is rate controlled in the 80s -continue carvedilol, and heparin 5000 units subcutaneously every 8 hours. Echocardiogram reveals a prolonged QTC of 513 ms Continue to monitor on telemetry Respiratory - Acute respiratory failure with respiratory alkalosis * ABG with a pH of 7.522, PCO2 37.2, PaO2 69, HCO3 30.5 * Discontinue BiPAP therapy and start high flow with Vapotherm at 40 L/min and an FiO2 of 50% CT scan of the chest 01/24/2020 shows ARDs like appearance COVID-19 testing was -01/17/2020 * Send upper respiratory PCR study * Check a sputum culture * Check MRSA nasal swab No indications for antibiotics at this time Continue diuresis with furosemide GI - Patient with a history of GERD * Continue pantoprazole RENAL/LYTES - Acute renal failure with chronic kidney disease stage III * Nephrology is following. Discussed with Dr. Navarro. from [facility] hrology * Continue to keep fluid balance negative Hyponatremia * Patient trending between 126 and 128 * Follow serial lab - Patient denies any burning or irritation with urination Kelsey catheter to gravity placed 01/25/2020 Follow strict ins and outs No evidence of gross hematuria Continue tamsulosin for BPH ENDO - No history of diabetes mellitus Hypothyroidism -TSH within normal limits. Continue levothyroxine HEME - History of chronic anemia Hemoglobin is 10 g/Estephania No active bleeding ID - No indication for antibiotics at this time. Patient has a WBC of 9.08 No evidence of eosinophilia LINES/IV ACCESS - No indication for central line or arterial line at this time Patient has 2 left forearm peripheral IVs 18-gauge DVT PROPHYLAXIS - Heparin 5000 units CCT: 70 minutes independent of any procedures Thank you for including us in the care of this patient. Please refer to Dr. Rush's addendum for further recommendations. (2) Acute respiratory failure with hypoxia: (3) Acute systolic CHF (congestive heart failure), NYHA class 4: (4) Acute kidney injury superimposed on CKD: (5) Hyponatremia: (6) Heart failure, diastolic: (7) Tachycardia-bradycardia syndrome: (8) CAD (coronary artery disease): (9) Paroxysmal atrial fibrillation: (10) Elevated troponin: (11) GERD (gastroesophageal reflux disease): Supervising Physician Co-Signing Physician Notes Was contacted by the hospitalist to evaluate this patient with hypoxemic respiratory failure and possible need for intubation. History is obtained from discussion with the patient, the admitting hospitalist, and review the electronic medical record. Patient is an 89-year-old male with a history of mitral insufficiency. He was admitted to the facility on the fourth due to declining outpatient setting and shortness of breath. He was seen by cardiology. Echocardiogram was performed revealing mitral regurgitation. He was also noted to have atrial fibrillation. He had been on amiodarone in the outpatient setting but this had been recently discontinued. He had progressive renal insufficiency and was being treated with diuretics but unfortunately was not diuresing appropriately. This morning he developed increasing shortness of breath and oxygen requirement. He was transitioned to high flow oxygen and then noninvasive positive pressure ventilation. He was brought to the ICU. He received 100 mg of IV Lasix and has been diuresing. He is now been able to transition down to high flow nasal cannula at 35 L/min and 60%. He appears comfortable. Nephrology has been following him as well. He did have a CT scan which demonstrated diffuse parenchymal opacities sparing the lung periphery as well as small bilateral pleural effusions. BNP is markedly elevated. Pattern appears consistent with volume overload which would also go along with his clinical improvement with diuretics. His chronic kidney disease makes things complicated. I discussed with the patient and he believes that he would want dialysis. Would continue aggressive attempts at diuretics. If they do lose efficacy, would consider transition to a Lasix infusion. Continued follow- up of his basic metabolic panel and serum creatinine per cardiology. I discussed the case briefly with the head well puller. The mitral valve is heavily calcified and is not really a candidate for a mitral clip. Continue medical management. There was concern about potential amiodarone lung toxicity. Certainly possible although the appearance of bilateral pleural effusions argues against this. He has received a few doses of steroids. Typically chronic amiodarone toxicity is associated with much higher doses than what the patient was taking in the outpatient setting and certainly higher than what he received during the inpatient side. It would be uncommon for patient to develop acute amiodarone toxicity after having been on the medication chronically but certainly possible. Unclear if his steroids are offering him a benefit. Would not recommend bronchoscopy with BAL at this point in time as the patient's oxygen requirement is quite high and to sedate the patient for bronchoscopy may result in intubation which would like to avoid. Cannot rule out potential pulmonary hemorrhage however given his elevated BNP and stable hemoglobin hematocrit and platelet count, I think this is less likely. In addition he already received empiric steroids. We will continue to observe in the ICU with diuretics. Could consider empiric CPAP for potential cardiogenic pulmonary edema if needed. Check chest x-ray in a.m.. May be able to return back to the floor if he responds favorably to diuretics overnight.He may be developing a slight contraction alkalosis with an elevated bicarb and pH does demonstrate alkalemia both respiratory and metabolic. Diamox w may be appropriate History of Present Illness Attending Physician: Corie Rivera MD History of Present Illness Attending: Dr. Rush This is an 89-year-old male that was admitted on January 17, 2024 shortness of breath and diastolic heart failure. The patient has a past medical history including CAD with stents x4 at [facility] on 04/02/2019, paroxysmal atrial fibrillation, amiodarone use since May, non-ST elevated MN, CKD stage III, hypothyroidism, hypertension, chronic anemia, hyponatremia, tachybradycardia syndrome status post pacemaker placement, GERD, and mood disorder. Patient reports that his problems started in March 2019 when he had stenting at [facility] for vessels. The day after he was discharged and went home he developed paroxysmal atrial fibrillation and was readmitted. He states that he has had declining status since that point. It sounds as though the patient was started on amiodarone in May for his atrial fibrillation and was doing well but had progressive weakness. Since 16 January at the time of his admission he has had paroxysmal atrial fibrillation on monitor with increasing oxygen req uirements. ABG was performed this morning the patient was found to be alkalotic with a pH of 7.50 and a PCO2 of 39 with PaO2 of 71. Bicarb this morning was 29. At the beginning of shift the patient was requiring 3 L/min via nasal cannula. He was then increased Oxymask and at the time of my evaluation was on BiPAP 07/20 with an FiO2 of 50%. SaO2 at that time was 91% but it was noted that the pa tient had large air leak as he kept taking the mask off and reposition it. Saturations 91% were with an air leak of 82 on the Drager ventilator. Patient was then changed to Vapotherm high flow oxygen at 40 L/min with an FiO2 of 60%. Patient is able to talk in full sentences with no increased dyspnea. He denies any chest pain or tightness. He has no fever or chills. He has minimal cough and reports no sputum or hemoptysis. Patient was reportedly at 80% SaO2 with breakfast this morning with no evidence of distress. Repeat echocardiogram this morning showed mitral insufficiency similar to previous echo on 01/18/2020. Tricuspid regurgitation appear to be worse. Left ventricular ejection fraction was unchanged at 40 to 45% Patient has diastolic congestive heart failure and on admission had a proBNP of 14,304. Patient received 100 mg of furosemide this morning at 9 AM and has diuresed approximately 1 L since that time. [address] chest without contrast was completed yesterday and revealed severe diffuse patchy bilateral airspace opacities most pronounced within the perihilar location and demonstrating upper lobe predominance. There are small bilateral pleural effusions and mild cardiomegaly. Findings favor severe pulmonary edema/ARDS or a bilateral atypical pneumonia such as a viral process. Patient was tested for COVID-19 PCR which was -01/17/2020. No biofire PCR was completed at that time. Allergies Allergy/AdvReac Type Severity Reaction Status Date / Time lisinopril AdvReac Unknown Cough Verified 01/17/20 12:53 Home Medications Home Medications Medication Instructions Recorded Confirmed Type acetaminophen [Tylenol Extra 500 mg PO Q6H PRN 08/18/18 01/17/20 History Strength] albuterol sulfate [Proventil HFA] 2 puff INHALATION QID PRN 08/18/18 01/17/20 History carvedilol [Coreg] 6.25 mg PO BID 08/18/18 01/17/20 History cholecalciferol (vitamin D3) 1,000 units PO QAM 08/18/18 01/17/20 History [Vitamin D3] clonazepam [Klonopin] 0.5 mg PO BID PRN 08/18/18 01/17/20 History coenzyme Q10 200 mg PO QAM 08/18/18 01/17/20 History flaxseed oil 1,000 mg PO QAM 08/18/18 01/17/20 History fluticasone propion-salmeterol 1 puff INHALATION Q12H PRN 08/18/18 01/17/20 History [Advair Diskus] garlic 1,000 mg PO QAM 08/18/18 01/17/20 History losartan 50 mg PO QAM 08/18/18 01/17/20 History nitroglycerin [Nitrostat] 0.4 mg SUBLINGUAL DIRECTED PRN 08/18/18 01/17/20 History omega 6-aas-ngn-fish oil [Fish Oil] 1,000 mg PO QAM 08/18/18 01/17/20 History ascorbic acid (vitamin C) [Vitamin 500 mg PO QAM 04/11/19 01/17/20 History C] aspirin 81 mg PO QAM 04/11/19 01/17/20 History cetirizine [Zyrtec] 10 mg PO DAILY PRN 04/11/19 01/17/20 History pantoprazole [Protonix] 40 mg PO BID 04/11/19 01/17/20 History tamsulosin [Flomax] 0.4 mg PO QAM 04/11/19 01/17/20 History vitamin B complex 1 cap PO QAM 04/11/19 01/17/20 History clopidogrel [Plavix] 75 mg PO QAM 01/17/20 01/17/20 History furosemide 40 mg PO DAILY PRN 01/17/20 01/17/20 History isosorbide mononitrate 30 mg PO QAM 01/17/20 01/17/20 History levothyroxine 112 mcg PO DAILY 01/17/20 01/17/20 History venlafaxine [Effexor XR] 37.5 mg PO DAILY 01/17/20 01/17/20 History verapamil [Calan SR] 120 mg PO QAM 01/17/20 01/17/20 History Patient History Medical History Asthma (Chronic) CAD (coronary artery disease) (Chronic) Chronic anemia CKD (chronic kidney disease), stage III (Chronic) Complete heart block HTN (hypertension) (Chronic) Hypothyroidism (Chronic) Mood disorder (Chronic) Paroxysmal atrial fibrillation (Chronic) Surgical History History of carpal tunnel surgery (Chronic) Status post coronary artery stent placement (Chronic) stents x 4 @ [facility] on 04/02/19 Family History Other Diabetes Heart disease Social History Preferred Language: Bermudian Communication Ability: Effective 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 BiPAP in place at the time of my initial examination. EYES: No icterus, gaze conjugate. Pupils equal round and reactive to light NOSE: No evidence of epistaxis. MOUTH: No lesions or candidiasis. BiPAP mask in place. Mucosa dry. NECK: Supple. No evidence of stridor. No JVD. LUNGS: Generally CTA B/L, no wheezes, rales or rhonchi. Diminished breath sounds globally HEART: Regular, rate controlled. Telemetry is reviewed and patient currently is in normal sinus rhythm with a rate of 84 ABDOMEN: Soft, NT, ND, BS Present. No rebound tenderness with deep palpation EXTREMITIES: No LE edema, pedal pulses intact and equal bilaterally. NEURO: A&OX3. Results & Data Results & Data ([facility]) Vital Signs (Past 12 Hours) Vital Signs Temp Pulse Pulse Pulse Resp BP BP 01/25/20 12:23 69 25 H 01/25/20 11:59 66 01/25/20 11:47 36.0 C L 89 20 112/70 01/25/20 07:49 61 24 01/25/20 07:16 36.4 C L 60 21 115/71 01/25/20 06:00 65 24 103/55 L 01/25/20 03:16 36.6 C 61 16 106/53 L Pulse Ox 01/25/20 12:23 91 01/25/20 11:59 01/25/20 11:47 92 01/25/20 07:49 93 01/25/20 07:16 91 01/25/20 06:00 74 L 01/25/20 03:16 90 Laboratory Results 01/23/20 05:30 01/25/20 12:44 01/25/20 07:58 ABG pH 7.50 H ABG pCO2 39 ABG pO2 71 L ABG HCO3 29 H ABG O2 Saturation 94.8 ABG Base Excess 5.[address] chest wo con 01/24/2020 CT DOSE: 621.55 mGycm HISTORY: Shortness of breath. Abnormal chest x-ray. TECHNIQUE: Multiaxial CT images of the chest were performed without contrast. A dose lowering technique was utilized adhering to the principles of ALARA. COMPARISON: Chest 01/23/2020. FINDINGS: The central airways remain patent. No pneumothorax. Small bilateral pleural effusions. Severe diffuse patchy bilateral airspace opacities most pronounced in the perihilar location and upper lobe predominant. There is associated interlobular septal thickening. Calcified pleural plaque in the left upper lobe anteriorly. Hyperdense liver. A 7 mm hypodense lesion within the left hepatic lobe is technically too small to characterize. The visualized spleen and adrenal glands are unremarkable. Normal caliber esophagus. No significant mediastinal or hilar lymphadenopathy. The heart is mildly enlarged. Dense coronary artery and mitral annulus calcifications. Left-sided pacemaker. No suspicious lytic are blastic osseous lesions. Advanced degenerative disc disease within the upper thoracic spine. IMPRESSION: Severe diffuse patchy bilateral airspace opacities most pronounced within the perihilar location and demonstrating upper lobe predominance. There are small bilateral pleural effusions and mild cardiomegaly. Findings favor severe pulmonary edema/ARDS or a bilateral atypical pneumonia such as a viral process. ACT 112: Negative or not required by law. Electronically signed by: Kan Yoder M.D. 01/24/2020 7:40 AM Coding Level of Care Code Critical Care 1st 30-74 mins Diagnoses Admitted to intensive care unit Z78.9 Acute respiratory failure with hypoxia J96.01 Acute systolic CHF (congestive heart failure), NYHA class 4 I50.21 Acute kidney injury superimposed on CKD N17.9; N18.9 Hyponatremia E87.1 Heart failure, diastolic I50.30 Tachycardia-bradycardia syndrome I49.5 CAD (coronary artery disease) I25.10 Paroxysmal atrial fibrillation I48.0 Elevated troponin R74.8 GERD (gastroesophageal reflux disease) K21.9 Time Spent (min) 70
[2020-01-25] MEDS: ACETAMINOPHEN 325 MG TAB PO PRN (13:01)
[2020-01-25 13:03] LABS: iSTAT Allen Test Pass; iSTAT Arterial Blood Gas HCO3 31 meg/L (19-24); iSTAT Arterial Blood Gas pCO2 37 mmHg (35-46); iSTAT Arterial Blood Gas pH 7.52 (7.35-7.45); iSTAT Arterial Blood Gas pO2 69 mmHg (80-95); iSTAT Carbon Dioxide 32 mmol/L (24-31); iSTAT FiO2 60 %; iSTAT Site L Radial
[2020-01-25] MEDS: VENLAFAXINE HCL XR 37.5 MG CAPXR PO SCH (13:03)
[2020-01-25] MEDS: ASPIRIN 81 MG ECTAB PO SCH (13:03)
[2020-01-25] MEDS: HydrALAZINE 10 MG TAB PO SCH ×3 (13:03→21:15)
[2020-01-25] MEDS: TICAGRELOR 90 MG TAB PO SCH ×2 (13:04→21:16)
[2020-01-25] MEDS: carvediloL 6.25 MG TAB PO SCH ×2 (13:04→21:15)
[2020-01-25] MEDS: ISOSORBIDE MONO EXTENDED REL 30 MG TABCR PO SCH (13:04)
[2020-01-25] MEDS: TAMSULOSIN HCL 0.4 MG CAP PO SCH (13:05)
[2020-01-25] MEDS: PANTOprazole 40 MG TAB PO SCH ×2 (13:05→21:15)
[2020-01-25 13:16] LABS: Calcium 8.9 mg/dl (8.5-10.1); Creatinine Clr Calc Pharmacy 16.1 ml/min; Est GFR (African American) 21.5; Est GFR (Non-African American) 18.5; Potassium 4.1 mmol/L (3.5-5.1)
[2020-01-25 13:31] LABS: Thyroid Stimulating Hormone 0.311 uIu/ml (0.300-4.500); Troponin I 0.09 ng/ml (0-0.045)
[2020-01-25 14:52] LABS: Adenovirus PCR Not Detected (NotDetected); Bordetella parapertussis PCR Not Detected (NotDetected); Bordetella pertussis PCR Not Detected (NotDetected); Chlamydia pneumoniae PCR Not Detected (NotDetected); Coronavirus 229E PCR Not Detected (NotDetected); Coronavirus HKU1 PCR Not Detected (NotDetected); Coronavirus NL63 PCR Not Detected (NotDetected); Coronavirus OC43PCR Not Detected (NotDetected); Human Metapneumovirus PCR Not Detected (NotDetected); Influenza A PCR Not Detected (NotDetected); Influenza B PCR Not Detected (NotDetected); Mycoplasma pneumoniae PCR Not Detected (NotDetected); Parainfluenza Virus 1 PCR Not Detected (NotDetected); Parainfluenza Virus 2 PCR Not Detected (NotDetected); Parainfluenza Virus 3 PCR Not Detected (NotDetected); Parainfluenza Virus 4 PCR Not Detected (NotDetected); Respiratory Syncytial VirusPCR Not Detected (NotDetected); Rhinovirus/Enterovirus PCR Not Detected (NotDetected)
--- NOTE | 2020-01-25 15:39 | Progress Notes ---
DATE: 01/25/2020 SUBJECTIVE: Overnight, patient's respiratory status has declined a lot. He is now in the intensive care unit. He briefly required BiPAP, but is now on high-flow oxygen. He did get Lasix 100 mg IV 1 dose after which he did make a lot of urine. OBJECTIVE: GENERAL: The patient is still awake, alert, oriented x3, but is somewhat slow to answer. VITAL SIGNS: Blood pressure is 99/64, 95% on high-flow nasal cannula 60% oxygen. Pulse 80 per minute, temperature 36.7. HEENT: Mucous membranes moist. NECK: Supple. Cannot assess jugular venous distention. CHEST: Bilateral decreased breath sounds, poor inspiratory effort basilar crackles. CARDIOVASCULAR: S1, S2 regular. ABDOMEN: Soft, nontender. EXTREMITIES: Shows no edema. LABORATORY TESTS: From this morning shows sodium 128, potassium 4.1, BUN 90, creatinine 2.9, magnesium 3, hemoglobin 10, platelet count 215. Chest x-ray done earlier today shows extensive bilateral pulmonary airspace opacities. ASSESSMENT AND PLAN: 89-year-old male with acute kidney injury superimposed on chronic kidney disease. 1. PRETTY. Baseline creatinine is 1.5, now it is 2.91 with a rising BUN and rising creatinine. It is expected to have some rise in the creatinine given the acute setting of CHF and myocardial infarction. 2. Hyponatremia. This is hypervolemic hyponatremia in the setting of acute CHF with PRETTY as well as very poor oral intake of solid food and relatively high fluid intake. 3. Acute respiratory failure. It seems the combination of both pulmonary as well as cardiac. On gross physical examination the patient does not appear to be in overt pulmonary edema, but the chest x-ray finding is concerning. We will defer to pulmonary and cardiology to decide about the more important underlying cause for the respiratory distress . From kidney standpoint, If in doubt, I would rather see him on the dry side than wet given his shortness of breath. Case was discussed with primary team as well as ICU team. Case complexity high. MTDD
--- NOTE | 2020-01-25 15:54 | Cardiology Progress Note ---
Date of Service January 25, 2020 Assessment & Plan (1) Acute respiratory failure with hypoxia: Patient had worsening hypoxia overnight. Mixed etiology but has responded to IV diuretics and BiPAP. Persistent heart failure most likely etiology although diuresis has resulted in renal function in the absence of examination of volume overload. Degree of mitral insufficiency may be contributing to patient's complaints though remains moderate to severe on echocardiogram little change from past examination. Appreciate pulmonology input and ICU stabilization. Patient currently stable on high flow oxygen and making urine (2) Acute systolic CHF (congestive heart failure), NYHA class 4: 89-year-old male admitted with acute systolic heart failure possibly ischemic mediated in setting of underlying valvular disease aortic stenosis as well. Patient has gradually responded to diuretics by weight loss and physical examination. Still dyspneic with minimal exertion Patient concern amiodarone and Brilinta are contributing to dyspnea and this not completely excluded Exam demonstrating crackles anteriorly (3) Non-ST elevation (NSTEMI) myocardial infarction: Renal insufficiency and high risk prior intervention previously performed suggest significant increase risk for diagnostic cardiac catheterization (4) Ischemic cardiomyopathy: (5) Acute kidney injury superimposed on CKD: R (6) Paroxysmal atrial fibrillation: Patient symptomatic when present with elevated heart rate and ventricular ectopic beat (7) Pacemaker: Subjective Patient seen and examined chart medications laboratory studies reviewed Events of past evening noted with worsening dyspnea increasing O2 demands and hypoxic Chest x-ray persistent pulmonary edema/infiltrates Patient begun on BiPAP and additional IV furosemide administered Current rhythm sinus/atrial paced paced with intermittent atrial fibrillation Physical Exam Constitutional: + acute distress (On BiPAP) Eyes: PERRL, conjunctivae normal, anicteric sclerae ENMT: external ear and nose normal, oropharynx normal Neck: trachea midline, no thyromegaly Respiratory: normal respiratory effort; no respiratory distress Auscultation: + crackles (Fine crackles anteriorly and apically) and + rales Cardiovascular: Rate/Rhythm: regular rate and regular rhythm Heart Sounds: normal S1 and normal S2 Vessels: no JVD Extremities: no edema Chest (Breasts): Chest: + pacemaker Musculoskeletal: no cyanosis or clubbing, extremities motor strength 5/5 Neurologic: PERRL, EOMI, accommodation nl, no face palsy, no dysarthria Psychiatric: A+Ox3, euthymic affect Results & Data Vital Signs (Past 12 Hours) Vital Signs Temp Pulse Pulse Pulse Resp BP BP 01/25/20 15:28 60 22 01/25/20 15:23 36.7 C 80 22 94/57 L 01/25/20 14:23 36.7 C 80 24 99/64 L 01/25/20 13:56 01/25/20 13:30 86 23 01/25/20 13:23 71 12 112/81 01/25/20 12:23 36.8 C 69 69 26 H 124/70 01/25/20 12:00 64 01/25/20 11:59 66 01/25/20 11:47 36.0 C L 89 20 112/70 01/25/20 07:49 61 24 01/25/20 07:16 36.4 C L 60 21 01/25/20 06:00 65 24 103/55 L BP Pulse Ox 01/25/20 15:28 92 01/25/20 15:23 94 01/25/20 14:23 95 01/25/20 13:56 90 01/25/20 13:30 92 01/25/20 13:23 94 01/25/20 12:23 90 01/25/20 12:00 01/25/20 11:59 01/25/20 11:47 92 01/25/20 07:49 93 01/25/20 07:16 115/71 91 01/25/20 06:00 74 L Laboratory Results Laboratory Results - last 24 hr 01/25/20 01/25/20 01/25/20 05:20 05:20 05:20 Sample Site POC pH POC pCO2 POC pO2 POC HCO3 POC Total CO2 POC Base Excess ABG pH ABG pCO2 ABG pO2 ABG HCO3 POC ABG O2 Sat ABG O2 Saturation ABG Base Excess Sarthak Test Barometric Pressure Oxygen Given O2 Delivery Device POC FiO2 Sodium 127 L Potassium 4.1 Chloride 88 L Carbon Dioxide 29 Anion Gap 10.0 BUN 87 H Creatinine 2.91 H D Est Cr Clr Drug Dosing 16.1 Est GFR ( Amer) 21.5 Est GFR (Non-Af Amer) 18.5 BUN/Creatinine Ratio 29.9 H Glucose 112 H Calcium 8.4 L Magnesium 3.0 H Total Creatine Kinase Troponin I 0.112 H* NT-Pro-B Natriuret Pep 26457 H Cancelled TSH Nasal Screen MRSA (PCR) Adenovirus (PCR) B. pertussis DNA (PCR) B.parapertussis DNA PCR C. pneumoniae DNA (PCR) Coronavirus OC43 (PCR) Coronavirus HKU1 (PCR) Coronavirus 229E (PCR) Coronavirus NL63 (PCR) Human Metapneumovir PCR Influenza Type A (PCR) Influenza Type B (PCR) M. pneumoniae (PCR) Parainfluenza 1 (PCR) Parainfluenza 2 (PCR) Parainfluenza 3 (PCR) Parainfluenza 4 (PCR) RSV (PCR) Entero/Rhino (PCR) 01/25/20 01/25/20 01/25/20 07:58 12:44 12:48 Sample Site L Radial POC pH 7.52 H* POC pCO2 37 POC pO2 69 L POC HCO3 31 H POC Total CO2 32 H POC Base Excess 8.0 H ABG pH 7.50 H ABG pCO2 39 ABG pO2 71 L ABG HCO3 29 H POC ABG O2 Sat 95.0 ABG O2 Saturation 94.8 ABG Base Excess 5.5 H Sarthak Test Pos Pass Barometric Pressure 736.1 Oxygen Given 50% O2 Delivery Device Hi Lyle Can POC FiO2 60 Sodium 128 L Potassium 4.1 Chloride 86 L Carbon Dioxide 31 Anion Gap 11.0 BUN 90 H Creatinine 2.91 H Est Cr Clr Drug Dosing 16.1 Est GFR ( Amer) 21.5 Est GFR (Non-Af Amer) 18.5 BUN/Creatinine Ratio 31.0 H Glucose 100 H Calcium 8.9 Magnesium Total Creatine Kinase 55 Troponin I 0.090 H* NT-Pro-B Natriuret Pep TSH 0.311 Nasal Screen MRSA (PCR) Adenovirus (PCR) B. pertussis DNA (PCR) B.parapertussis DNA PCR C. pneumoniae DNA (PCR) Coronavirus OC43 (PCR) Coronavirus HKU1 (PCR) Coronavirus 229E (PCR) Coronavirus NL63 (PCR) Human Metapneumovir PCR Influenza Type A (PCR) Influenza Type B (PCR) M. pneumoniae (PCR) Parainfluenza 1 (PCR) Parainfluenza 2 (PCR) Parainfluenza 3 (PCR) Parainfluenza 4 (PCR) RSV (PCR) Entero/Rhino (PCR) 01/25/20 01/25/20 13:20 13:20 Sample Site POC pH POC pCO2 POC pO2 POC HCO3 POC Total CO2 POC Base Excess ABG pH ABG pCO2 ABG pO2 ABG HCO3 POC ABG O2 Sat ABG O2 Saturation ABG Base Excess Sarthak Test Barometric Pressure Oxygen Given O2 Delivery Device POC FiO2 Sodium Potassium Chloride Carbon Dioxide Anion Gap BUN Creatinine Est Cr Clr Drug Dosing Est GFR ( Amer) Est GFR (Non-Af Amer) BUN/Creatinine Ratio Glucose Calcium Magnesium Total Creatine Kinase Troponin I NT-Pro-B Natriuret Pep TSH Nasal Screen MRSA (PCR) Negative Adenovirus (PCR) Not Detected B. pertussis DNA (PCR) Not Detected B.parapertussis DNA PCR Not Detected C. pneumoniae DNA (PCR) Not Detected Coronavirus OC43 (PCR) Not Detected Coronavirus HKU1 (PCR) Not Detected Coronavirus 229E (PCR) Not Detected Coronavirus NL63 (PCR) Not Detected Human Metapneumovir PCR Not Detected Influenza Type A (PCR) Not Detected Influenza Type B (PCR) Not Detected M. pneumoniae (PCR) Not Detected Parainfluenza 1 (PCR) Not Detected Parainfluenza 2 (PCR) Not Detected Parainfluenza 3 (PCR) Not Detected Parainfluenza 4 (PCR) Not Detected RSV (PCR) Not Detected Entero/Rhino (PCR) Not Detected
[2020-01-25] MEDS: clonazePAM 0.5 MG TAB PO PRN (21:58)
--- NOTE | 2020-01-25 22:59 | Communication Note ---
Date of Service: January 25, 2020 Mr. Mccray had a long conversation with his daughter who is a dialysis nurse in regards to his CODE STATUS. I followed up to readdress the patient's CODE S TATUS with the patient. In conclusion the patient would like to remain a conditional code and would like everything but chest compressions to be done if he were to be without pulse. This includes defibrillation, medications, and intubation if indicated. Patient did state that he would not want to be mechanically ventilated over a fpc period, but would want intubation initially in hopes that he will recover. Patient's long-term goals are that he would like to be able to go home and spend more time with his family. Coding Level of Care Code None
--- NOTE | 2020-01-25 23:38 | Electrocardiogram Report ---
Test Reason : Blood Pressure : / mmHG Vent. Rate : 063 BPM Atrial Rate : 063 BPM P-R Int : 254 ms QRS Dur : 162 ms QT Int : 502 ms P-R-T Axes : 047 052 -07 degrees QTc Int : 513 ms Sinus rhythm with sinus arrhythmia with 1st degree A-V block Right bundle branch block Abnormal ECG When compared with ECG of 23-JAN-2020 05:40, Sinus rhythm has replaced Atrial fibrillation Confirmed by Miquel Burrows ([id number]) on 01/25/2020 11:37:56 PM Referred By: REFERRED SELF Confirmed By:Miquel Burrows
[2020-01-26] MEDS: ALBUTEROL 0.083% NEBU SOLN 3 ML VIAL NEB PRN (03:11)
[2020-01-26] MEDS ORDERED: MoRPHine SULFATE 2 MG/ML CARP IV STA (03:59)
[2020-01-26] MEDS ORDERED: MoRPHine SULFATE 2 MG/ML CARP ONE (04:04)
[2020-01-26] MEDS: LEVOTHYROXINE SODIUM 112 MCG TABLET PO SCH (04:37)
[2020-01-26 05:18] LABS: BUN Creatinine Ratio 32.4 (10-20); Est GFR (Non-African American) 19.8; Hematocrit (blood only) 30.9 % (42-52); Hemoglobin 10.6 g/dL (14.0-18.0); Magnesium 2.8 mg/dl (1.8-2.4); Mean Corpuscular Hemoglobin 31.7 pg (25-34); Mean Corpuscular Hgb Conc 34.3 g/dL (32-36); Mean Corpuscular Volume 92.5 fL (80-100); Mean Platelet Volume 10.7 fL (7.4-10.4); Platelet Count 287 K/uL (130-400); Potassium 3.7 mmol/L (3.5-5.1); RDW Coefficient of Variation 13.5 % (11.5-14.5); RDW Standard Deviation 45.6 fL (36.4-46.3); Red Blood Count 3.34 M/uL (4.7-6.1); White Blood Count 14.17 K/uL (4.8-10.8)
[2020-01-26 05:24] LABS: iSTAT Allen Test Pass; iSTAT Arterial Blood Gas HCO3 31 meg/L (19-24); iSTAT Arterial Blood Gas pCO2 41 mmHg (35-46); iSTAT Arterial Blood Gas pH 7.49 (7.35-7.45); iSTAT Arterial Blood Gas pO2 76 mmHg (80-95); iSTAT Carbon Dioxide 32 mmol/L (24-31); iSTAT FiO2 70 %; iSTAT Site R Radial
[2020-01-26] MEDS ORDERED: POTASSIUM CHLORIDE 20 MEQ/15 ML UDC PO STA (06:43)
[2020-01-26] MEDS: HydrALAZINE 10 MG TAB PO SCH ×2 (09:52→11:40)
[2020-01-26] MEDS: CHOLECALCIFEROL 1,000 UNITS 25 MCG TAB PO SCH (10:03)
[2020-01-26] MEDS: ACETAMINOPHEN 325 MG TAB PO PRN (10:03)
[2020-01-26] MEDS: HEPARIN SOD 5,000 UNIT/0.5 ML VIAL SQ SCH ×3 (10:03→22:28)
[2020-01-26] MEDS: PANTOprazole 40 MG TAB PO SCH (10:03)
[2020-01-26] MEDS: carvediloL 6.25 MG TAB PO SCH (10:03)
[2020-01-26] MEDS: ISOSORBIDE MONO EXTENDED REL 30 MG TABCR PO SCH (10:03)
[2020-01-26] MEDS: TAMSULOSIN HCL 0.4 MG CAP PO SCH (10:03)
[2020-01-26] MEDS: TICAGRELOR 90 MG TAB PO SCH ×2 (10:03→20:40)
[2020-01-26] MEDS: bisacodyL 5 MG TABEC PO PRN (10:04)
[2020-01-26] MEDS: ASPIRIN 81 MG ECTAB PO SCH (10:04)
[2020-01-26] MEDS: VENLAFAXINE HCL XR 37.5 MG CAPXR PO SCH (10:04)
[2020-01-26] MEDS ORDERED: Nursing to Pharmacy Communication SCH (10:15)
[2020-01-26] MEDS ORDERED: POTASSIUM CHLORIDE 20 MEQ/15 ML UDC PO ONE (10:15)
[2020-01-26] MEDS ORDERED: DEXAMETHASONE SOD PHOSPHATE 20 MG in SYRINGE 0 ML IV SCH (13:45)
[2020-01-26] MEDS ORDERED: STAT IV Infusion **Titration per Protocol STA ×2 (14:07→17:50)
--- NOTE | 2020-01-26 14:17 | Critical Care Progress Note ---
Date of Service January 26, 2020 Assessment & Plan (1) Admitted to intensive care unit: Reason Critically Ill: 89-year-old male admitted 01/17/2020 with shortness of breath with CHF exacerbation. We are consulted for acute respiratory failure and question of amiodarone toxicity. Neuro - [facility] ICU: Patient is alert and oriented x4. Cardiac - Patient with history of CAD with 4 stents placed March 2019 at [facility]. 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 He has severe mitral regurgitation. I did discuss this plan with the patient's block placer Ricco Sam and he agreed. Respiratory - Acute respiratory failure with respiratory alkalosis Continue high flow therapy. Holding diuresis today as he looks fairly euvolemic. Starting him on Decadron 20 mg daily for possible ARDS. Continue for 5 days and then taper to 10 mg daily for 5 days and then stop. Respiratory viral panel was negative. We will repeat a chest x-ray tomorrow. GI - Continue Protonix. N.p.o. for now. RENAL/LYTES - Hold diuresis today given his uptrending BUN. We will start dobutamine to see if this can help perfuse his kidneys further and increased forward flow which may help with diuresis. - ENDO - Monitor glucose while on Decadron. HEME - History of chronic anemia Hemoglobin is 10 g/Estephania No active bleeding ID - No indication for antibiotics at this time. No evidence of eosinophilia LINES/IV ACCESS - Patient has 2 left forearm peripheral IVs 18-gauge DVT PROPHYLAXIS - Heparin 5000 units CCT: 34 minutes independent of any procedures All discussed with the patient's family later today regarding continued medical care and goals of care. (2) Acute respiratory failure with hypoxia: (3) Acute systolic CHF (congestive heart failure), NYHA class 4: (4) Acute kidney injury superimposed on CKD: (5) Hyponatremia: (6) Heart failure, diastolic: (7) Tachycardia-bradycardia syndrome: (8) CAD (coronary artery disease): (9) Paroxysmal atrial fibrillation: (10) Elevated troponin: (11) GERD (gastroesophageal reflux disease): Admission and Anticipated Discharge Date Admission Date: January 17, 2020 Subjective Patient seen and examined at bedside. He is lying in bed. Currently on 65% FiO2 and 40 L. Denies any chest pain. He notes that he is thirsty. He is alert and oriented, but I suspect he has some issues comprehending the complex medical issues that are going on currently. Review of Systems Review of Systems: All systems reviewed & are unremarkable except as noted in HPI & below Physical Exam Physical Exam: GENERAL : No acute distress. BiPAP in place at the time of my initial examination. EYES: No icterus, gaze conjugate. Pupils equal round and reactive to light NOSE: No evidence of epistaxis. MOUTH: No lesions or candidiasis. BiPAP mask in place. Mucosa dry. NECK: Supple. No evidence of stridor. No JVD. LUNGS: Generally CTA B/L, no wheezes, rales or rhonchi. Diminished breath sounds globally HEART: Regular, rate controlled. Telemetry is reviewed and patient currently is in normal sinus rhythm with a rate of 84 ABDOMEN: Soft, NT, ND, BS Present. No rebound tenderness with deep palpation EXTREMITIES: No LE edema, pedal pulses intact and equal bilaterally. NEURO: A&OX3. Results & Data Results & Data ([facility]) Vital Signs (Past 12 Hours) Vital Signs Temp Pulse Pulse Resp BP Pulse Ox 01/26/20 12:43 60 28 H 83/46 L 94 01/26/20 12:00 64 24 95 01/26/20 11:50 60 20 94 01/26/20 11:44 98.4 F 01/26/20 11:23 63 26 H 85/50 L 91 01/26/20 10:28 85 25 H 91 01/26/20 10:24 80 24 90 01/26/20 10:23 80 26 H 100/65 93 01/26/20 09:23 60 24 90/50 L 95 01/26/20 08:23 98.1 F 60 22 96/52 L 96 01/26/20 07:23 60 24 102/55 L 97 01/26/20 07:10 60 21 96 01/26/20 07:00 63 24 99 01/26/20 05:11 62 26 H 92 01/26/20 04:00 80 28 H 93 01/26/20 03:27 63 23 91 01/26/20 03:23 63 30 H 105/57 L 87 L 01/26/20 03:12 62 26 H 91 01/26/20 03:10 62 26 H 88 L 01/26/20 03:00 63 24 84 L 01/26/20 02:23 60 23 91/51 L 95 I personally reviewed patient's labs, imaging and notes. Coding Level of Care Code Critical Care 1st 30-74 mins Diagnoses Admitted to intensive care unit Z78.9 Acute respiratory failure with hypoxia J96.01 Acute systolic CHF (congestive heart failure), NYHA class 4 I50.21 Acute kidney injury superimposed on CKD N17.9; N18.9 Hyponatremia E87.1 Heart failure, diastolic I50.30 Tachycardia-bradycardia syndrome I49.5 CAD (coronary artery disease) I25.10 Paroxysmal atrial fibrillation I48.0 Elevated troponin R74.8 GERD (gastroesophageal reflux disease) K21.9 Time Spent (min) 34
[2020-01-26] MEDS: DEXAMETHASONE SOD PHOSPHATE 20 MG in DEXTROSE 5% 25 ML IV SCH (14:25)
[2020-01-26] MEDS: DOBUTamine / D5W 500 MG/250 ML BAG IV SCH (14:26)
--- NOTE | 2020-01-26 15:14 | Cardiology Progress Note ---
Date of Service January 26, 2020 Assessment & Plan (1) Acute respiratory failure with hypoxia: Currently on high flow O2 via nasal cannula. Has continued to diurese but given the current clinical context it appears that he is suffering from noncardiogenic pulmonary edema more so than cardiac. His amiodarone has been discontinued due to the possibility of amiodarone toxicity. Will defer further treatment of possible ARDS to our pulmonary/critical care colleagues. We did discuss initiation of steroids which I would agree with. (2) Acute systolic CHF (congestive heart failure), NYHA class 4: 89-year-old male admitted with acute systolic heart failure possibly ischemic mediated in setting of underlying valvular disease aortic stenosis as well. EF of 35 to 40% with moderate global hypokinesis Has diuresed with worsening of hypoxia Relatively hypotensive. We will give a trial of dobutamine drip to evaluate for further diuresis with increased forward flow. Carvedilol to be held. (3) Non-ST elevation (NSTEMI) myocardial infarction: Renal insufficiency and high risk prior intervention previously performed suggest significant increase risk for diagnostic cardiac catheterization (4) Ischemic cardiomyopathy: (5) Acute kidney injury superimposed on CKD: R (6) Paroxysmal atrial fibrillation: Patient symptomatic when present with elevated heart rate and ventricular ectopic beat (7) Pacemaker: Subjective Patient seen and examined, chart reviewed. Currently sitting upright in bed on high flow oxygen via nasal cannula and eating lunch. States he was very short of breath overnight but that is now improved. Denies any chest pain or palpitations at rest states that he is still feeling somewhat short of breath at rest. Review of Systems Review of Systems: All systems reviewed & are unremarkable except as noted in HPI & below Physical Exam Physical Exam: General: Awake, alert and oriented x 3. No acute distress. HEENT: Normocephalic, atraumatic. Pupils equal, round and reactive to light and accommodation. Extraocular muscles are intact. Anicteric sclera. Moist mucous membranes. Neck: No JVD. No bruit. Cardiovascular: Regular. Positive S-4. Normal S-1 and S-2. No S-3. 3/6 holosystolic ejection murmur, left sternal border, mid-clavicular line with radiation to the axilla. No rubs. Pulmonary: Reduced air movement diffusely with coarse breath sounds. No wheezing or rales. Abdomen: Bowel sounds x 4, soft. No rebound, guarding or tenderness. No organomegaly. Extremities: No clubbing, cyanosis or edema. +2 pedal pulses bilaterally. Skin: Warm and dry. Results & Data Vital Signs (Past 12 Hours) Vital Signs Temp Pulse Pulse Resp BP Pulse Ox 01/26/20 12:43 60 28 H 83/46 L 94 01/26/20 12:00 64 24 95 01/26/20 11:50 60 20 94 01/26/20 11:44 36.9 C 01/26/20 11:23 63 26 H 85/50 L 91 01/26/20 10:28 85 25 H 91 01/26/20 10:24 80 24 90 01/26/20 10:23 80 26 H 100/65 93 01/26/20 09:23 60 24 90/50 L 95 01/26/20 08:23 36.7 C 60 22 96/52 L 96 01/26/20 07:23 60 24 102/55 L 97 01/26/20 07:10 60 21 96 01/26/20 07:00 63 24 99 01/26/20 05:11 62 26 H 92 01/26/20 04:00 80 28 H 93 01/26/20 03:27 63 23 91 01/26/20 03:23 63 30 H 105/57 L 87 L 01/26/20 03:12 62 26 H 91 01/26/20 03:10 62 26 H 88 L
--- NOTE | 2020-01-26 16:11 | Progress Notes ---
DATE: 01/26/2020 SUBJECTIVE: Overnight, the patient's respiratory status declined, but then got better. He is still in the ICU. At this time, blood pressure seems lot lower than yesterday. He has not received any Lasix today, but he is on dobutamine drip to help with the cardiac flow. The patient is still awake, alert and talking appropriately. PHYSICAL EXAMINATION: GENERAL: Awake, alert, oriented x3, somewhat slow to answer. VITAL SIGNS: Blood pressure is lower at 83/46, temperature 36.9, 94% on high-flow nasal cannula, pulse rate 60 per minute. HEENT: Mucous membranes moist. NECK: Supple. No jugular venous distention. CHEST: Bilateral decreased breath sounds. Crackles at the bases. CARDIOVASCULAR: S1 and S2, regular. Systolic murmur heard. ABDOMEN: Soft, nontender. EXTREMITIES: Shows no edema. LABORATORY TESTS: From this morning reviewed. Sodium 129, potassium 3.7, creatinine is slightly better than yesterday at 2.75, BUN 89. ASSESSMENT AND PLAN: An 89-year-old male with acute kidney injury superimposed on chronic kidney disease. 1. Acute kidney injury. Baseline creatinine 1.5, now it is 2.75. However, BUN and creatinine today is slightly better than yesterday which is very encouraging as this is despite having low blood pressure and significant decline in his respiratory status. 2. Hyponatremia. This is hypervolemic hyponatremia in the setting of acute CHF with acute kidney injury as well as very poor oral intake of solid food and relatively high fluid intake. 3. Acute respiratory failure, seems the combination of both pulmonary as well as cardiac. Defer diuretics management to Pulmonary and Cardiology as the working diagnosis at this time is respiratory failure is predominantly related with noncardiogenic pulmonary edema.
--- NOTE | 2020-01-26 16:38 | Hospitalist Progress Note ---
Date of Service January 26, 2020 Assessment & Plan (1) Acute respiratory failure with hypoxia: acute respiratory failure with hypoxia multifactorial , has severe valvular heart disease -Mitral regurgitation CT chest shows bilateral infiltrate /ARDS -COVID 19 negative possible amiodarone induced lung toxicity -amiodarone been d/mark on high flow 02 remains in ICU appreciate input from Cardiology and Pulmonology /critical care (2) Paroxysmal atrial fibrillation: on rate controlled afib Amiodarone D/mark on coreg (3) SOB (shortness of breath): due to above : bilateral pulm edema /acute resp failure /ARDS non cardiogenic pulm edema /ARDS management as outlined above on high flow 02 : 65% Fi02 /40 l 02 poor prognosis (4) Acute systolic CHF (congestive heart failure), NYHA class 4: CXR findings consistent with developing pulmonary edema /congestive failure. Echo : moderate to severe LV global hypokinesis EF 35-40 % R pressure elevated 40-50 mmhg moderate to severe MR and TR appreciate input from cardiology pt became hypotensive started on IV dobutamine gtt over all prognosis poor (5) Non-ST elevation (NSTEMI) myocardial infarction: troponin elevation due to decompensated CHF /afib -Type 2 NSTEMI Troponin on admission 0.8, then peaked to 1.4, now trending down to 1.2 S/P drug-eluting stents at [facility] on 04/04/2019 cardiology on board ECHO global hypokinesis High risk candidate for cardiac catheterization due to renal insufficiency. medical management Continue Carvedilol, Aspirin (6) Hyponatremia: Low serum osmolality and urine sodium Nephrology on board , appreciate input recommends continued aggressive diuresis for resp failure /pulm edema Fluid restriction to 1.2L Monitor BMP (7) Acute kidney injury superimposed on CKD: acute renal failure on CKD stage 3 cr 2.75 (8) Complete heart block, transient: S/P Pacemaker Admission and Anticipated Discharge Date Admission Date: January 17, 2020 Subjective on high flow 02 via nasal canula feels better now overnight was very SOB , hypoxic respiratory status improved after high flow 2 Physical Exam Constitutional: WD/WN, vitals as above no acute distress Eyes: PERRL, conjunctivae normal, anicteric sclerae ENMT: external ear and nose normal, oropharynx normal Neck: trachea midline, no thyromegaly Respiratory: + respiratory distress, + cough, + tachypneic and + prolonged expiratory phase; no labored breathing and does not use accessory muscles Auscultation: + crackles and + rales (bibasilar rales ) Cardiovascular: RRR, no murmur, no edema Rate/Rhythm: + abnormal rate Gastrointestinal (Abdomen): normal bowel sounds, soft, nontender, no hepatosplenomegaly Inspection/Auscultation: normal bowel sounds Percussion/Palpation: abdomen soft; abdomen nontender Musculoskeletal: no cyanosis or clubbing, extremities motor strength 5/5 Skin: no rashes, warm and dry Neurologic: PERRL, EOMI, accommodation nl, no face palsy, no dysarthria Psychiatric: A+Ox3, euthymic affect Orientation: oriented x 3 Mood: + anxious mood Results & Data Results & Data ([facility]) Vital Signs (Past 12 Hours) Vital Signs Temp Pulse Pulse Resp BP Pulse Ox 01/26/20 15:53 61 22 90/49 L 90 01/26/20 15:38 60 29 H 91/53 L 95 01/26/20 15:35 70 22 92 01/26/20 15:33 60 24 84/47 L 91 01/26/20 15:23 60 22 80/46 L 90 01/26/20 15:08 62 24 83/47 L 91 01/26/20 14:53 60 23 87/50 L 91 01/26/20 14:51 60 21 77/47 L 95 01/26/20 14:06 60 25 H 91/52 L 91 01/26/20 14:01 60 27 H 80/43 L 92 01/26/20 12:43 60 28 H 83/46 L 94 01/26/20 12:00 64 24 95 01/26/20 11:50 60 20 94 01/26/20 11:44 36.9 C 01/26/20 11:23 63 26 H 85/50 L 91 01/26/20 10:28 85 25 H 91 01/26/20 10:24 80 24 90 01/26/20 10:23 80 26 H 100/65 93 01/26/20 09:23 60 24 90/50 L 95 01/26/20 08:23 36.7 C 60 22 96/52 L 96 01/26/20 07:23 60 24 102/55 L 97 01/26/20 07:10 60 21 96 01/26/20 07:00 63 24 99 01/26/20 05:11 62 26 H 92
[2020-01-26] MEDS ORDERED: NOREPINEPHRINE BIT INJ 8 MG in DEXTROSE 5% 500 ML IV SCH (18:00)
[2020-01-26] MEDS ORDERED: fentaNYL citrate 100 MCG/2 ML VIAL IV PRN ×2 (19:43→19:45)
[2020-01-26] MEDS: clonazePAM 0.5 MG TAB PO PRN (20:40)
[2020-01-27 06:27] LABS: BUN Creatinine Ratio 36.6 (10-20); Calcium 8.2 mg/dl (8.5-10.1); Creatinine Clr Calc Pharmacy 17.8 ml/min; Est GFR (African American) 24.5; Est GFR (Non-African American) 21.1; Phosphorus 4.3 mg/dl (2.5-4.9)
[2020-01-27] MEDS: LEVOTHYROXINE SODIUM 112 MCG TABLET PO SCH ×2 (06:34→07:45)
[2020-01-27] MEDS: HEPARIN SOD 5,000 UNIT/0.5 ML VIAL SQ SCH ×3 (06:35→21:48)
[2020-01-27] MEDS: POLYETHYLENE (MIRALAX) 17 GM PACK PO PRN ×2 (07:43→15:56)
[2020-01-27] MEDS: CHOLECALCIFEROL 1,000 UNITS 25 MCG TAB PO SCH (07:45)
[2020-01-27] MEDS: bisacodyL 5 MG TABEC PO PRN (07:45)
[2020-01-27] MEDS: ASPIRIN 81 MG ECTAB PO SCH (07:45)
[2020-01-27] MEDS: ACETAMINOPHEN 325 MG TAB PO PRN (07:45)
[2020-01-27] MEDS: VENLAFAXINE HCL XR 37.5 MG CAPXR PO SCH (07:45)
[2020-01-27] MEDS: TICAGRELOR 90 MG TAB PO SCH ×2 (07:46→21:48)
[2020-01-27] MEDS: DEXAMETHASONE SOD PHOSPHATE 20 MG in DEXTROSE 5% 25 ML IV SCH (07:46)
--- NOTE | 2020-01-27 08:02 | XRay Report ---
XR chest 1V portable CLINICAL HISTORY: follow up diuresis COMPARISON STUDY: Chest CT January 24, 2020. Chest radiograph January 25, 2020. FINDINGS: Dual-lead left pacemaker is in place. Cardiomegaly is unchanged. There are small bilateral pleural effusions. Interstitial thickening and bilateral opacities have mildly progressed since chest radiograph January 25, 2020. Severe degenerative changes of the left shoulder are noted. IMPRESSION: 1. Mild progression of extensive bilateral airspace opacities and interstitial thickening which may r eflect edema or pneumonia. 2. Small bilateral pleural effusions. ACT 112: Negative or not required by law. Electronically signed by: Ascencion Lafleur M.D. 01/27/2020 8:01 AM
[2020-01-27] MEDS: PANTOprazole 40 MG in SYRINGE 0 ML IV SCH (09:59)
--- NOTE | 2020-01-27 10:59 | Critical Care Progress Note ---
Date of Service January 27, 2020 Assessment & Plan (1) Admitted to intensive care unit: Reason Critically Ill: 89-year-old male admitted 01/17/2020 with shortness of breath with CHF exacerbation. We are consulted for acute respiratory failure and question of amiodarone toxicity. Neuro - [facility] ICU: Patient is alert and oriented x4. Cardiac - Patient with history of CAD with 4 stents placed March 2019 at [facility]. Continues on antiplatelet therapy with aspirin, clopidogrel, and Brilinta Amiodarone since May 2019; this is now been stopped secondary to findings on CT scan concerning for amiodarone toxicity Continuing dobutamine and Levophed to maintain maps above 65. Holding diuresis today.. He has severe mitral regurgitation. 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 Respiratory - Acute respiratory failure with respiratory alkalosis Continue high flow therapy. Holding diuresis today as he looks fairly euvolemic. Continue 20 mg IV Decadron for possible ARDS. Day #2. Continue for 5 days and then taper to 10 mg daily for 5 days and then stop. Respiratory viral panel was negative. Chest x-ray unchanged from yesterday. GI - Continue Protonix. Continue diet as tolerated RENAL/LYTES - BUN and creatinine stable. Hold on IV diuretics. -Kelsey in place ENDO - Monitor glucose while on Decadron. HEME - No issues ID - No issues LINES/IV ACCESS - Peripheral IVs in place DVT PROPHYLAXIS - Heparin 5000 units CCT: 32 minutes independent of any procedures Discussed with patient bedside RN. Prognosis overall is poor. Will need palliative care services tomorrow. Preferably would go on hospice care/comfort care. (2) Acute respiratory failure with hypoxia: (3) Acute systolic CHF (congestive heart failure), NYHA class 4: (4) Acute kidney injury superimposed on CKD: (5) Hyponatremia: (6) Heart failure, diastolic: (7) Tachycardia-bradycardia syndrome: (8) CAD (coronary artery disease): (9) Paroxysmal atrial fibrillation: (10) Elevated troponin: (11) GERD (gastroesophageal reflux disease): Admission and Anticipated Discharge Date Admission Date: January 17, 2020 Subjective Patient seen and examined at bedside. Denies any chest pain. He does endorse having trouble taking deep breaths. He is concerned that amiodarone has hurt his lungs. He would like to go home and see his family. He seems to understand that he is very sick. No fevers overnight. Continues on dobutamine drip at 5, levo fed at 0.07 and requiring high flow nasal cannula at 40 L and 60% FiO2. Physical Exam Physical Exam: GENERAL : No acute distress. BiPAP in place at the time of my initial examination. EYES: No icterus, gaze conjugate. Pupils equal round and reactive to light NOSE: No evidence of epistaxis. MOUTH: No lesions or candidiasis. BiPAP mask in place. Mucosa dry. NECK: Supple. No evidence of stridor. No JVD. LUNGS: Diffuse rhonchi bilaterally HEART: Regular, rate controlled. Telemetry is reviewed and patient currently is in normal sinus rhythm with a rate of 84 ABDOMEN: Soft, NT, ND, BS Present. No rebound tenderness with deep palpation EXTREMITIES: No LE edema, pedal pulses intact and equal bilaterally. NEURO: A&OX3. Results & Data Results & Data ([facility]) Vital Signs (Past 12 Hours) Vital Signs Temp Pulse Pulse Pulse Resp BP Pulse Ox 01/27/20 09:15 72 28 H 106/65 90 01/27/20 08:15 82 26 H 119/55 L 89 L 01/27/20 08:00 97.7 F 92 H 28 H 91 01/27/20 07:54 85 27 H 90 01/27/20 07:15 89 25 H 117/82 88 L 01/27/20 06:00 67 17 88 L 01/27/20 05:50 66 24 87 L 01/27/20 05:15 81 32 H 118/79 93 01/27/20 05:10 90 57 H 93 01/27/20 05:00 89 25 H 91 01/27/20 04:15 81 25 H 103/62 92 01/27/20 04:00 76 26 H 92 01/27/20 03:15 73 24 117/65 92 01/27/20 03:00 68 26 H 90 01/27/20 02:15 68 19 110/68 90 01/27/20 02:00 81 23 89 L 01/27/20 01:14 74 19 108/66 90 01/27/20 01:00 82 20 93 01/27/20 00:09 60 18 106/60 91 01/27/20 00:00 61 20 91 01/26/20 23:53 60 20 111/61 93 01/26/20 23:43 80 19 90 01/26/20 23:38 90 21 104/72 87 L 01/26/20 23:24 79 21 89/54 L 90 01/26/20 23:09 77 20 99/58 L 89 L 01/26/20 23:00 98.4 F 60 20 92 Coding Level of Care Code Critical Care 1st 30-74 mins Diagnoses Admitted to intensive care unit Z78.9 Acute respiratory failure with hypoxia J96.01 Acute systolic CHF (congestive heart failure), NYHA class 4 I50.21 Acute kidney injury superimposed on CKD N17.9; N18.9 Hyponatremia E87.1 Heart failure, diastolic I50.30 Tachycardia-bradycardia syndrome I49.5 CAD (coronary artery disease) I25.10 Paroxysmal atrial fibrillation I48.0 Elevated troponin R74.8 GERD (gastroesophageal reflux disease) K21.9 Time Spent (min) 32
--- NOTE | 2020-01-27 13:57 | Cardiology Progress Note ---
Date of Service January 27, 2020 Assessment & Plan (1) Acute respiratory failure with hypoxia: Currently on high flow O2 via nasal cannula. Has continued to diurese but given the current clinical context it appears that he is suffering from noncardiogenic pulmonary edema more so than cardiac. His amiodarone has been discontinued due to the possibility of amiodarone toxicity. Will defer further treatment of possible ARDS to our pulmonary/critical care colleagues. We did discuss initiation of steroids which I would agree with. (2) Acute systolic CHF (congestive heart failure), NYHA class 4: 89-year-old male admitted with acute systolic heart failure possibly ischemic mediated in setting of underlying valvular disease aortic stenosis as well. EF of 35 to 40% with moderate global hypokinesis Has diuresed with worsening of hypoxia Relatively hypotensive. We will give a trial of dobutamine drip to evaluate for further diuresis with increased forward flow. (3) Non-ST elevation (NSTEMI) myocardial infarction: Renal insufficiency and high risk prior intervention previously performed suggest significant increase risk for diagnostic cardiac catheterization Continue aspirin and Brilinta (4) Ischemic cardiomyopathy: (5) Acute kidney injury superimposed on CKD: (6) Paroxysmal atrial fibrillation: Patient symptomatic when present with elevated heart rate and ventricular ectopic beat (7) Pacemaker: Subjective Patient seen and examined, chart reviewed and discussed with critical care. Patient remains on high flow O2 but states he is feeling okay. States that he is still short of breath but denies any chest pain, palpitations, lightheadedness, dizziness or syncope. States that he would like to be discharged home to be with his family as soon as possible but still requiring vasopressor support as well as high flow O2. Telemetry reviewed: Normal sinus rhythm Review of Systems Review of Systems: All systems reviewed & are unremarkable except as noted in HPI & below Physical Exam Physical Exam: General: Awake, alert and oriented x 3. No acute distress. HEENT: Normocephalic, atraumatic. Pupils equal, round and reactive to light and accommodation. Extraocular muscles are intact. Anicteric sclera. Moist mucous membranes. Neck: No JVD. No bruit. Cardiovascular: Regular. Positive S-4. Normal S-1 and S-2. No S-3. 3/6 holosystolic ejection murmur, left sternal border, mid-clavicular line with radiation to the axilla. No rubs. Pulmonary: Clear to auscultation bilaterally. No rales, rhonchi, or wheezing. Abdomen: Bowel sounds x 4, soft. No rebound, guarding or tenderness. No organomegaly. Extremities: No clubbing, cyanosis or edema. +2 pedal pulses bilaterally. Skin: Warm and dry. Results & Data Vital Signs (Past 12 Hours) Vital Signs Temp Pulse Pulse Pulse Resp BP Pulse Ox 01/27/20 12:00 36.6 C 70 24 92 01/27/20 11:15 69 23 107/65 92 01/27/20 11:09 68 25 H 91 01/27/20 11:00 91 01/27/20 10:14 69 23 119/63 91 01/27/20 10:00 70 23 93 01/27/20 09:15 72 28 H 106/65 90 01/27/20 08:15 82 26 H 119/55 L 89 L 01/27/20 08:00 36.5 C 92 H 28 H 91 01/27/20 07:54 85 27 H 90 01/27/20 07:15 89 25 H 117/82 88 L 01/27/20 06:00 67 17 88 L 01/27/20 05:50 66 24 87 L 01/27/20 05:15 81 32 H 118/79 93 01/27/20 05:10 90 57 H 93 01/27/20 05:00 89 25 H 91 01/27/20 04:15 81 25 H 103/62 92 01/27/20 04:00 76 26 H 92 01/27/20 03:15 73 24 117/65 92 01/27/20 03:00 68 26 H 90 01/27/20 02:15 68 19 110/68 90 01/27/20 02:00 81 23 89 L
[2020-01-27] MEDS: DOBUTamine / D5W 500 MG/250 ML BAG IV SCH (15:12)
[2020-01-27] MEDS ORDERED: ARTIFICIAL TEARS OP PRN (15:28)
--- NOTE | 2020-01-27 15:28 | Hospitalist Progress Note ---
Date of Service January 27, 2020 Assessment & Plan (1) Acute respiratory failure with hypoxia: acute respiratory failure with hypoxia multifactorial , has severe valvular heart disease -Mitral regurgitation /TR ischemic cardiomyopathy with systolic CHF CT chest :Severe diffuse patchy bilateral airspace opacities most pronounced within the perihilar location and demonstrating upper lobe predominance. There are small bilateral pleural effusions and mild cardiomegaly. Findings favor severe pulmonary edema/ARDS or a bilateral atypical pneumonia such as a viral process. -COVID 19 negative possible amiodarone induced lung toxicity -amiodarone been d/mark on high flow 02 remains in ICU appreciate input from Cardiology and Pulmonology /critical care (2) Acute systolic CHF (congestive heart failure), NYHA class 4: ischemic cardiomyopathy with systolic dysfunction with severe valvular heart disease CXR findings consistent with developing pulmonary edema /congestive failure. Echo : moderate to severe LV global hypokinesis EF 35-40 % RV pressure elevated 40-50 mmhg moderate to severe MR and TR appreciate input from cardiology on IV Dobutamine gtt to improve cardiac output over all prognosis poor (3) Paroxysmal atrial fibrillation: on rate controlled afib Amiodarone D/mark beta brody /coreg on hold for hypotension (4) Non-ST elevation (NSTEMI) myocardial infarction: troponin elevation due to decompensated CHF /afib -Type 2 NSTEMI S/P drug-eluting stents at [facility] on 04/04/2019 cardiology on board ECHO global hypokinesis High risk candidate for cardiac catheterization due to renal insufficiency. medical management over all prognosis remains guarded (5) Hyponatremia: due to decompensation CHF Fluid restriction to 1.2L lasix on hold for hypotension /on Iv pressors Monitor BMP (6) Acute kidney injury superimposed on CKD: acute renal failure on CKD stage 3 cr has been stable on IV pressures to maintain adequate cardiac out put / over all prognosis is very poor CODE STATUS : DNI DVT PROPHYLAXIS: sub q heparin DISPOSITION: Pt wants to return home, family in agreement for returning home with hospice palliative care consulted Admission and Anticipated Discharge Date Admission Date: January 17, 2020 Subjective pt seen in ICU room 103 on high flow 02 Fi02 60% with 40 L 02 breathing stable pt reports of feeling SOB intermittently " not enough air to fill by chest " had chest tightness with radiation to neck and jaw last night , symptom was relieved after getting morphine complains of not able to have a bowel movement for past 2 days no abdominal pain or nausea on Iv Dobutamine norepinephrine gtt understands that he is very ill wants to be discharged home with his family Review of Systems Review of Systems: All systems reviewed & are unremarkable except as noted in HPI & below Respiratory: + dyspnea Cardiovascular: + chest pain, + radiating jaw, neck or arm pain, + dyspnea, + dyspnea at rest, + dyspnea on exertion and + orthopnea Gastrointestinal: + problem reported (constipation ); no abdominal pain, no nausea and no vomiting Physical Exam Constitutional: WD/WN, vitals as above + ill appearing; no acute distress Eyes: PERRL, conjunctivae normal, anicteric sclerae ENMT: external ear and nose normal, oropharynx normal Neck: trachea midline, no thyromegaly Respiratory: able to speak in complete sentences and + tachypneic; no respiratory distress (on high flow 02) Auscultation: + crackles and + rales (bibasilar rales ) Cardiovascular: RRR, no murmur, no edema Rate/Rhythm: + abnormal rate Gastrointestinal (Abdomen): Inspection/Auscultation: normal bowel sounds Percussion/Palpation: abdomen soft; abdomen nontender Musculoskeletal: no cyanosis or clubbing, extremities motor strength 5/5 Skin: no rashes, warm and dry Neurologic: PERRL, EOMI, accommodation nl, no face palsy, no dysarthria Psychiatric: A+Ox3, euthymic affect Results & Data Results & Data ([facility]) Vital Signs (Past 12 Hours) Vital Signs Temp Pulse Pulse Pulse Resp BP Pulse Ox 01/27/20 14:46 70 23 92 01/27/20 12:00 36.6 C 70 24 92 01/27/20 11:15 69 23 107/65 92 01/27/20 11:09 68 25 H 91 01/27/20 11:00 91 01/27/20 10:14 69 23 119/63 91 01/27/20 10:00 70 23 93 01/27/20 09:15 72 28 H 106/65 90 01/27/20 08:15 82 26 H 119/55 L 89 L 01/27/20 08:00 36.5 C 92 H 28 H 91 01/27/20 07:54 85 27 H 90 01/27/20 07:15 89 25 H 117/82 88 L 01/27/20 06:00 67 17 88 L 01/27/20 05:50 66 24 87 L 01/27/20 05:15 81 32 H 118/79 93 01/27/20 05:10 90 57 H 93 01/27/20 05:00 89 25 H 91 01/27/20 04:15 81 25 H 103/62 92 01/27/20 04:00 76 26 H 92
[2020-01-27] MEDS: CIPROFLOXACIN HCL 0.3% OP SOLN 2.5 ML BTL OP SCH ×2 (15:56→15:57)
[2020-01-27] MEDS: MoRPHine SULFATE 2 MG/ML CARP IV PRN ×2 (17:16→21:53)
--- NOTE | 2020-01-27 17:37 | Progress Notes ---
DATE: 01/27/2020 SUBJECTIVE: Overnight, no new issues. His breathing continues to be a struggle. He made 1050 mL of urine yesterday. He has been started on Levophed as well as dobutamine yesterday. PHYSICAL EXAMINATION: VITAL SIGNS: At this time, blood pressure with support is better at 122/70, pulse rate 67, temperature 36.5, 88% on 10 liters oxygen. HEENT: Mucous membranes moist. NECK: Supple. No jugular venous distention. CHEST: Bilateral crackles at the bases. CARDIOVASCULAR: S1 and S2, regular. ABDOMEN: Soft, nontender. EXTREMITIES: Shows no edema. LABORATORY TESTS: From this morning reviewed in detail and shows WBC count 14,000, hemoglobin 10.6. Sodium 127, potassium 4.0, BUN 95, creatinine 2.61, which is slightly less than yesterday. ASSESSMENT AND PLAN: An 89-year-old male with acute kidney injury superimposed on chronic kidney disease. Admitted with congestive heart failure and acute myocardial infarction and now appears to have respiratory failure from acute respiratory distress syndrome. 1. Acute kidney injury. Baseline creatinine is 1.5, it is 2.6 at this time and has been relatively stable for the last few days. 2. Hyponatremia. This is hypervolemic hyponatremia in the setting of acute congestive heart failure with acute kidney injury as well as poor oral intake of solid food and relatively high fluid intake. We will continue to follow. 3. Acute respiratory failure, combination of acute respiratory distress syndrome with some degree of congestive heart failure. However, at this time he does not have obvious clinical features of congestive heart failure, so quite possible this is mainly related with acute respiratory distress syndrome. Defer diuretics management to Pulmonary and Cardiology. [id number]
[2020-01-27] MEDS: clonazePAM 0.5 MG TAB PO PRN (21:52)
[2020-01-28] MEDS: CIPROFLOXACIN HCL 0.3% OP SOLN 2.5 ML BTL OP SCH ×5 (00:35→23:13)
[2020-01-28] MEDS: MoRPHine SULFATE 2 MG/ML CARP IV PRN (01:50)
[2020-01-28 05:00] LABS: BUN Creatinine Ratio 40.7 (10-20); Creatinine Clr Calc Pharmacy 21.3 ml/min; Est GFR (African American) 30.4; Est GFR (Non-African American) 26.3; Magnesium 2.8 mg/dl (1.8-2.4)
[2020-01-28] MEDS: LEVOTHYROXINE SODIUM 112 MCG TABLET PO SCH (05:26)
[2020-01-28] MEDS: HEPARIN SOD 5,000 UNIT/0.5 ML VIAL SQ SCH ×3 (06:34→21:26)
[2020-01-28] MEDS: VENLAFAXINE HCL XR 37.5 MG CAPXR PO SCH (07:55)
[2020-01-28] MEDS: CHOLECALCIFEROL 1,000 UNITS 25 MCG TAB PO SCH (07:56)
[2020-01-28] MEDS: TICAGRELOR 90 MG TAB PO SCH ×2 (07:56→21:26)
[2020-01-28] MEDS: ASPIRIN 81 MG ECTAB PO SCH (07:56)
--- NOTE | 2020-01-28 08:52 | Critical Care Progress Note ---
Date of Service January 28, 2020 Assessment & Plan (1) Admitted to intensive care unit: Reason Critically Ill: 89-year-old male admitted 01/17/2020 with shortness of breath with CHF exacerbation. We are consulted for acute respiratory failure. Case was signed out and discussed with Dr. Landry. Neuro - [facility] ICU: Patient is alert and oriented x3 Cardiac - Patient with history of CAD with 4 stents placed March 2019 at [facility]. Continues on antiplatelet therapy with aspirin and Brilinta Amiodarone since May 2019; this is now been stopped secondary to findings on CT scan concerning for amiodarone toxicity Currently on inotrope support. We will try to titrated off gradually. 01/26/2020 EF 35-40% with moderate to severe global hypokinesis of the left vent ricle, moderate to severe MR, moderate to severe TR, RVSP 40-50 mm Respiratory - Acute respiratory failure with respiratory alkalosis Continue high flow therapy and try to titrate to nasal cannula with goal saturation around 90%. Continue 20 mg IV Decadron for possible ARDS. Day #3. Continue for 5 days and then taper to 10 mg daily for 5 days and then stop. Respiratory viral panel was negative including Covid-19 PCR. GI - Continue Protonix. Continue diet as tolerated RENAL/LYTES - Monitor BUNs/creatinine. Chronic hypervolemic hyponatremia likely secondary to underlying CHF on top of being on Lasix chronically. -Kelsey in place ENDO - Monitor glucose while on Decadron. Continue with levothyroxine for hypothyroidism. TSH: 0.31 HEME - No issues ID - No issues LINES/IV ACCESS - Peripheral IVs in place PROPHYLAXIS - DVT: Heparin 5000 units GI: Protonix Plan: In/out: -118 mm Titrate off dobutamine if possible. Creatinine gradually improving. We will see what is the urine output in the evening if it is not significant then we will give a dose of Lasix. Patient is on Decadron for ARDS protocol given diffuse infiltrates appreciated bilaterally since the time of presentation. Continue with Protonix. We will do chest x-ray in the morning. I have personally spent 37 minutes of critical care time in the direct management of this patient. This is a life/limb threatening event. This includes time spent evaluating patient, direct bedside care, chart review, placing orders, interpretation of diagnostic studies, discussion with consultants, patient, and family members, as well as other required patient management activities. This time is exclusive of all separately billable procedures, and teaching time and separate from and in addition to any other critical care service time. Please note the above document was generated using voice recognition software. It may contain grammatical, syntax or spelling errors. (2) Acute respiratory failure with hypoxia: (3) Acute systolic CHF (congestive heart failure), NYHA class 4: (4) Acute kidney injury superimposed on CKD: (5) Hyponatremia: (6) Heart failure, diastolic: (7) Tachycardia-bradycardia syndrome: (8) CAD (coronary artery disease): (9) Paroxysmal atrial fibrillation: (10) Elevated troponin: (11) GERD (gastroesophageal reflux disease): Admission and Anticipated Discharge Date Admission Date: January 17, 2020 Subjective Patient seen and examined at bedside. No acute distress, no adverse events overnight. Patient was on BiPAP at the time of examination. He states that whenever he removes the mask he still gets short of breath. Denies any chest pain, no cough, no dizziness, no headache, no nausea or vomiting. No bowel movement. Patient was on dobutamine 5 mics at the time of examination. Levophed on hold since 8 PM 01/27/2020 Review of Systems Review of Systems: All systems reviewed & are unremarkable except as noted in HPI & below Physical Exam Physical Exam: Constitutional: No acute distress HEENT: EOMI, PERRLA Respiratory system: Decreased air entry bilaterally, positive crackles bilateral lower lobes, no wheeze, no rhonchi CVS: S1-S2 positive, no murmurs or gallops Abdomen: Soft, nontender, nondistended, positive bowel sounds x4 Extremities: +2 pulses bilaterally radialis/ dorsalis pedis, no cyanosis, no edema Neuro: Awake alert oriented x3 Psych: Normal mood and affect G/U: Positive Kelsey Skin: no rashes, warm and dry Lymphatic: no cervical or axillary lymphadenopathy Results & Data Results & Data ([facility]) Vital Signs (Past 12 Hours) Vital Signs Temp Pulse Resp BP Pulse Ox 01/28/20 07:52 81 28 H 87 L 01/28/20 05:00 60 19 93 01/28/20 04:25 62 20 90 01/28/20 04:15 80 19 100/68 89 L 01/28/20 04:00 37 C 81 18 88 L 01/28/20 03:20 76 25 H 90 01/28/20 03:15 83 26 H 102/78 88 L 01/28/20 03:00 89 24 89 L 01/28/20 02:15 79 25 H 100/66 83 L 01/28/20 02:00 77 25 H 92 01/28/20 01:45 78 19 91 01/28/20 01:15 81 21 107/68 91 01/28/20 01:00 91 H 19 89 L 01/28/20 00:15 60 19 110/63 90 01/28/20 00:00 60 21 91 01/27/20 23:15 60 25 H 117/68 95 01/27/20 23:00 61 29 H 86 L 01/27/20 21:46 24 94 01/26/20 04:44 01/28/20 04:27 Coding Level of Care Code Critical Care 1st 30-74 mins Diagnoses Admitted to intensive care unit Z78.9 Acute respiratory failure with hypoxia J96.01 Acute systolic CHF (congestive heart failure), NYHA class 4 I50.21 Acute kidney injury superimposed on CKD N17.9; N18.9 Hyponatremia E87.1 Heart failure, diastolic I50.30 Tachycardia-bradycardia syndrome I49.5 CAD (coronary artery disease) I25.10 Paroxysmal atrial fibrillation I48.0 Elevated troponin R74.8 GERD (gastroesophageal reflux disease) K21.9 Time Spent (min) 37
[2020-01-28] MEDS: DEXAMETHASONE SOD PHOSPHATE 20 MG in DEXTROSE 5% 25 ML IV SCH (10:32)
[2020-01-28] MEDS: PANTOprazole 40 MG in SYRINGE 0 ML IV SCH (10:33)
--- NOTE | 2020-01-28 12:07 | Cardiology Progress Note ---
Date of Service January 28, 2020 Assessment & Plan (1) Acute respiratory failure with hypoxia: Currently on high flow O2 Has continued to diurese but given the current clinical context it appears that he is suffering from noncardiogenic pulmonary edema more so than cardiac. His amiodarone has been discontinued due to the possibility of amiodarone toxicity. Will defer further treatment of possible ARDS to our pulmonary/critical care colleagues. Currently on steroid taper for treatment of acute phase ARDS, agree with this treatment. (2) Acute systolic CHF (congestive heart failure), NYHA class 4: 89-year-old male admitted with acute systolic heart failure possibly ischemic mediated in setting of underlying valvular disease aortic stenosis as well. EF of 35 to 40% with moderate global hypokinesis Has diuresed with worsening of hypoxia Relatively hypotensive. Now attempting to wean from dobutamine (3) Non-ST elevation (NSTEMI) myocardial infarction: Renal insufficiency and high risk prior intervention previously performed suggest significant increase risk for diagnostic cardiac catheterization Continue aspirin and Brilinta (4) Ischemic cardiomyopathy: (5) Acute kidney injury superimposed on CKD: (6) Paroxysmal atrial fibrillation: Patient symptomatic when present with elevated heart rate and ventricular ectopic beat (7) Pacemaker: Subjective Patient seen and examined, chart reviewed. States that he had a better night last night without any severe episodes of shortness of breath. Continues to deny chest pain, palpitations, lightheadedness, dizziness or syncope. Telemetry reviewed: Normal sinus rhythm Review of Systems Review of Systems: All systems reviewed & are unremarkable except as noted in HPI & below Physical Exam Physical Exam: General: Awake, alert and oriented x 3. No acute distress. HEENT: Normocephalic, atraumatic. Pupils equal, round and reactive to light and accommodation. Extraocular muscles are intact. Anicteric sclera. Moist mucous membranes. Neck: No JVD. No bruit. Cardiovascular: Regular. Positive S-4. Normal S-1 and S-2. No S-3. 3/6 holosystolic ejection murmur, left sternal border, mid-clavicular line with radiation to the axilla. No rubs. Pulmonary: Clear to auscultation bilaterally. No rales, rhonchi, or wheezing. Abdomen: Bowel sounds x 4, soft. No rebound, guarding or tenderness. No organomegaly. Extremities: No clubbing, cyanosis or edema. +2 pedal pulses bilaterally. Skin: Warm and dry. Results & Data Vital Signs (Past 12 Hours) Vital Signs Temp Pulse Pulse Resp BP Pulse Ox 01/28/20 11:15 60 25 H 87 L 01/28/20 11:11 60 16 87 L 01/28/20 11:00 62 20 87 L 01/28/20 10:45 63 21 84 L 01/28/20 10:35 65 20 100/64 84 L 01/28/20 10:30 62 24 83 L 01/28/20 10:15 76 24 85 L 01/28/20 10:05 80 24 102/63 89 L 01/28/20 10:00 84 25 H 88 L 01/28/20 09:45 85 22 87 L 01/28/20 09:36 36.4 C L 80 23 88 L 01/28/20 09:35 79 27 H 101/61 88 L 01/28/20 09:04 87 24 101/71 88 L 01/28/20 08:42 89 18 88 L 01/28/20 08:00 87 22 88 L 01/28/20 07:52 81 28 H 87 L 01/28/20 07:15 79 19 112/68 92 01/28/20 06:15 63 19 112/66 93 01/28/20 06:00 61 20 92 01/28/20 05:15 61 19 107/63 92 01/28/20 05:00 60 19 93 01/28/20 04:25 62 20 90 01/28/20 04:15 80 19 100/68 89 L 01/28/20 04:00 37 C 81 18 88 L 01/28/20 03:20 76 25 H 90 01/28/20 03:15 83 26 H 102/78 88 L 01/28/20 03:00 89 24 89 L 01/28/20 02:15 79 25 H 100/66 83 L 01/28/20 02:00 77 25 H 92 01/28/20 01:45 78 19 91 01/28/20 01:15 81 21 107/68 91 01/28/20 01:00 91 H 19 89 L 01/28/20 00:15 60 19 110/63 90
[2020-01-28] MEDS: DOBUTamine / D5W 500 MG/250 ML BAG IV SCH ×2 (15:25→15:26)
--- NOTE | 2020-01-28 17:29 | Hospitalist Progress Note ---
Date of Service January 28, 2020 Assessment & Plan (1) Acute respiratory failure with hypoxia: acute respiratory failure with hypoxia multifactorial , has severe valvular heart disease -Mitral regurgitation /TR ischemic cardiomyopathy with systolic CHF CT chest :Severe diffuse patchy bilateral airspace opacities most pronounced within the perihilar location and demonstrating upper lobe predominance. There are small bilateral pleural effusions and mild cardiomegaly. Findings favor severe pulmonary edema/ARDS or a bilateral atypical pneumonia such as a viral process. -COVID 19 negative possible amiodarone induced lung toxicity -amiodarone been d/mark on high flow 02 overall prognosis remains very poor appreciate input from palliative care and case management plan is to discharge home tomorrow with hospice (2) Acute systolic CHF (congestive heart failure), NYHA class 4: ischemic cardiomyopathy with systolic dysfunction with severe valvular heart disease CXR findings consistent with developing pulmonary edema /congestive failure. Echo : moderate to severe LV global hypokinesis EF 35-40 % RV pressure elevated 40-50 mmhg moderate to severe MR and TR appreciate input from cardiology off Dobutamine gtt over all prognosis poor home with hospice tomorrow (3) Non-ST elevation (NSTEMI) myocardial infarction: troponin elevation due to decompensated CHF /afib -Type 2 NSTEMI S/P drug-eluting stents at [facility] on 04/04/2019 cardiology on board ECHO global hypokinesis High risk candidate for cardiac catheterization due to renal insufficiency. medical management over all prognosis remains guarded plan to discharge home with hospice with family support (4) Acute kidney injury superimposed on CKD: acute renal failure on CKD stage 3 over all prognosis is very poor pt is not interested in dialysis in future poor prognosis hospice care appropriate CODE STATUS : DNI /DNR -Dw pt DVT PROPHYLAXIS: DISPOSITION: discharge home with hospice tomorrow Admission and Anticipated Discharge Date Admission Date: January 17, 2020 Subjective remains on high flow 02 off all pressors offers no new complain requests for Miralax , as did not had bowel movement for past 2 days wants to go home tomorrow with hospice Discussed code status with him : does not want mechanical ventilation , CPR , w ants to be comfortable/free of symptoms ( SOB ) as much as possible while on hospice care at home code status changed to DNR/DNI Physical Exam Constitutional: WD/WN, vitals as above + ill appearing; no acute distress Eyes: PERRL, conjunctivae normal, anicteric sclerae ENMT: external ear and nose normal, oropharynx normal Neck: trachea midline, no thyromegaly Respiratory: normal respiratory effort, lungs clear to auscultation able to speak in complete sentences and + tachypneic; no respiratory distress (on high flow 02) Auscultation: + crackles and + rales (bibasilar rales ) Cardiovascular: RRR, no murmur, no edema Rate/Rhythm: + abnormal rate Gastrointestinal (Abdomen): normal bowel sounds, soft, nontender, no hepatosplenomegaly Inspection/Auscultation: normal bowel sounds Percussion/Palpation: abdomen soft; abdomen nontender Musculoskeletal: no cyanosis or clubbing, extremities motor strength 5/5 Skin: no rashes, warm and dry Neurologic: PERRL, EOMI, accommodation nl, no face palsy, no dysarthria Psychiatric: A+Ox3, euthymic affect Orientation: oriented x 3 Mood: + anxious mood Results & Data Results & Data ([facility]) Vital Signs (Past 12 Hours) Vital Signs Temp Pulse Pulse Resp BP Pulse Ox 01/28/20 15:05 60 24 93 01/28/20 13:40 87 25 H 90 01/28/20 13:35 83 27 H 126/73 88 L 01/28/20 13:30 79 27 H 89 L 01/28/20 13:20 66 28 H 83 L 01/28/20 13:05 82 27 H 99/59 L 84 L 01/28/20 13:00 71 18 86 L 01/28/20 12:40 60 25 H 85 L 01/28/20 12:35 61 27 H 98/62 L 85 L 01/28/20 12:20 61 23 90 01/28/20 12:05 61 22 124/68 89 L 01/28/20 12:00 36.7 C 63 20 88 L 01/28/20 11:40 64 20 88 L 01/28/20 11:36 64 22 114/80 88 L 01/28/20 11:20 62 32 H 87 L 01/28/20 11:15 60 25 H 87 L 01/28/20 11:11 60 16 87 L 01/28/20 11:00 62 20 87 L 01/28/20 10:45 63 21 84 L 01/28/20 10:35 65 20 100/64 84 L 01/28/20 10:30 62 24 83 L 01/28/20 10:15 76 24 85 L 01/28/20 10:05 80 24 102/63 89 L 01/28/20 10:00 84 25 H 88 L 01/28/20 09:45 85 22 87 L 01/28/20 09:36 36.4 C L 80 23 88 L 01/28/20 09:35 79 27 H 101/61 88 L 01/28/20 09:04 87 24 101/71 88 L 01/28/20 08:42 89 18 88 L 01/28/20 08:00 87 22 88 L 01/28/20 07:52 81 28 H 87 L 01/28/20 07:15 79 19 112/68 92 01/28/20 06:15 63 19 112/66 93 01/28/20 06:00 61 20 92
[2020-01-28 17:38] LABS: Chloride Random Urine < 10 mmol/L; Creatinine Urine Random 60.7 mg/dl; Potassium Random Urine 43.7 mmol/L; Sodium Random Urine 12 mmol/L; Uric Acid Urine Random 53.9 mg/dl
[2020-01-28] MEDS ORDERED: POLYETHYLENE (MIRALAX) 17 GM PACK PO ONE (18:53)
[2020-01-28] MEDS ORDERED: MoRPHine SULFATE 5 MG/0.25 ML UDP PO PRN (19:01)
[2020-01-28] MEDS: clonazePAM 0.5 MG TAB PO PRN (23:14)
[2020-01-29] MEDS: MoRPHine SULFATE 2 MG/ML CARP IV PRN (01:13)
[2020-01-29] MEDS: CIPROFLOXACIN HCL 0.3% OP SOLN 2.5 ML BTL OP SCH ×2 (05:41→12:53)
[2020-01-29] MEDS: HEPARIN SOD 5,000 UNIT/0.5 ML VIAL SQ SCH (05:41)
--- NOTE | 2020-01-29 06:56 | XRay Report ---
XR chest 1V portable HISTORY: 89 years-old Male f/u follow-up study in a patient with bilateral pulmonary opacities COMPARISON: Chest radiograph 01/27/2020, chest CT 01/24/2020 TECHNIQUE: Portable AP view of the chest FINDINGS: Cardiac silhouette is enlarged, unchanged. Stable positioning of left subclavian pacer. No pneumothor ax. Small bilateral pleural effusions. Extensive bilateral mixed interstitial and alveolar opacities throughout all lung zones redemonstrated and appear generally unchanged. Degenerative changes of the shoulders and spine. IMPRESSION: 1. Cardiomegaly with unchanged extensive mixed interstitial and alveolar opacities suggestive of pulm onary edema versus multifocal pneumonia. 2. Small pleural effusions. ACT 112: Negative or not required by law. The above report was generated using voice recognition software. It may contain grammatical, syntax o r spelling errors. Electronically signed by: Pro Angel M.D. 01/29/2020 6:54 AM
--- NOTE | 2020-01-29 07:58 | Critical Care Progress Note ---
Date of Service January 29, 2020 Assessment & Plan (1) Admitted to intensive care unit: Reason Critically Ill: 89-year-old very pleasant male admitted 01/17/2020 with shortness of breath with CHF exacerbation. We are consulted for acute respiratory failure. Case was signed out and discussed with Dr. Landry. Neuro - [facility] ICU: Patient is alert and oriented x3 Cardiac - Patient with history of CAD with 4 stents placed March 2019 at [facility]. Continues on antiplatelet therapy with aspirin and Brilinta Amiodarone since May 2019; this is now been stopped secondary to findings on CT scan concerning for amiodarone toxicity Off dobutamine since 12 PM 01/28/2020. 01/26/2020 EF 35-40% with moderate to severe global hypokinesis of the left ventricle, moderate to severe MR, moderate to severe TR, RVSP 40-50 mm Respiratory - Acute respiratory failure with respiratory alkalosis Continue high flow therapy with goal saturation around 90%. Continue 20 mg IV Decadron for possible ARDS. Day #4. Continue for 5 days and then taper to 10 mg daily for 5 days and then stop. Respiratory viral panel was negative including Covid-19 PCR. GI - Continue Protonix. Continue diet as tolerated RENAL/LYTES - Monitor BUNs/creatinine. Chronic hypervolemic hyponatremia likely secondary to underlying CHF on top of being on Lasix chronically. -Kelsey in place ENDO - Monitor glucose while on Decadron. Continue with levothyroxine for hypothyroidism. TSH: 0.31 HEME - No issues ID - No issues LINES/IV ACCESS - Peripheral IVs in place PROPHYLAXIS - DVT: Heparin 5000 units GI: Protonix Plan: In/out: -229 mm Chest x-ray from today still shows diffuse reticular opacities bilaterally with no clear improvement even after starting Decadron. Labs pending from today. Patient has decided to go on home hospice. Patient will likely need noninvasive ventilator support when he is on hospice. Patient stable enough to be downgraded to telemetry floor. Continue with BiPAP and high flow as needed to keep the patient comfortable. I have personally spent 36 minutes of critical care time in the direct management of this patient. This is a life/limb threatening event. This includes time spent evaluating patient, direct bedside care, chart review, placing orders, interpretation of diagnostic studies, discussion with consultants, patient, and family members, as well as other required patient management activities. This time is exclusive of all separately billable procedures, and teaching time and separate from and in addition to any other critical care service time. Please note the above document was generated using voice recognition software. It may contain grammatical, syntax or spelling errors. (2) Acute respiratory failure with hypoxia: (3) Acute systolic CHF (congestive heart failure), NYHA class 4: (4) Acute kidney injury superimposed on CKD: (5) Hyponatremia: (6) Heart failure, diastolic: (7) Tachycardia-bradycardia syndrome: (8) CAD (coronary artery disease): (9) Paroxysmal atrial fibrillation: (10) Elevated troponin: (11) GERD (gastroesophageal reflux disease): Admission and Anticipated Discharge Date Admission Date: January 17, 2020 Subjective Patient seen and examined at bedside. No acute distress, no adverse events overnight. Patient used BiPAP all night. Currently on high flow 80% saturating 91%. Patient states that the shortness of breath is the same. Denies any chest pain. No nausea or vomiting. Patient has poor appetite, encourage patient to eat have sufficient diet. Denies any headache or dizziness. Off dobutamine since yesterday 12 PM. Review of Systems Review of Systems: All systems reviewed & are unremarkable except as noted in HPI & below Physical Exam Physical Exam: Constitutional: No acute distress HEENT: EOMI, PERRLA, arcus senilis bilaterally Respiratory system: Decreased air entry bilaterally, positive crackles bilateral lower lobes, no wheeze, no rhonchi CVS: S1-S2 positive, no murmurs or gallops Abdomen: Soft, nontender, nondistended, positive bowel sounds x4 Extremities: +2 pulses bilaterally radialis/ dorsalis pedis, no cyanosis, no edema Neuro: Awake alert oriented x3 Psych: Normal mood and affect G/U: Positive Kelsey Skin: no rashes, warm and dry Lymphatic: no cervical or axillary lymphadenopathy Results & Data Results & Data ([facility]) Vital Signs (Past 12 Hours) Vital Signs Temp Pulse Pulse Pulse Resp BP Pulse Ox 01/29/20 07:21 60 20 90 01/29/20 06:10 60 21 90 01/29/20 06:00 60 21 90 01/29/20 05:30 60 21 90 01/29/20 05:18 60 23 122/71 89 L 01/29/20 05:00 60 23 91 01/29/20 04:30 60 18 94 01/29/20 04:18 60 23 118/68 91 01/29/20 04:00 80 25 H 91 01/29/20 03:30 83 27 H 89 L 01/29/20 03:18 88 26 H 112/90 01/29/20 03:00 88 23 90 01/29/20 02:50 96 H 25 H 91 01/29/20 02:18 80 24 121/77 87 L 01/29/20 02:00 98 H 24 93 01/29/20 01:18 80 27 H 117/75 95 01/29/20 01:00 60 27 H 93 01/29/20 00:18 60 27 H 116/69 96 01/29/20 00:09 60 01/29/20 00:05 36.5 C 01/29/20 00:00 60 27 H 94 01/28/20 23:30 60 25 H 89 L 01/28/20 23:21 61 29 H 111/64 84 L 01/28/20 23:20 60 34 H 92 01/28/20 23:05 60 30 H 120/64 84 L 01/28/20 23:00 60 28 H 85 L 01/28/20 22:00 60 22 90 01/28/20 21:36 62 30 H 111/65 88 L 01/28/20 21:05 36.5 C 60 32 H 113/68 90 01/28/20 20:20 60 26 H 92 01/28/20 20:05 61 26 H 104/72 01/26/20 04:44 01/28/20 04:27 Coding Level of Care Code Critical Care 1st 30-74 mins Diagnoses Admitted to intensive care unit Z78.9 Acute respiratory failure with hypoxia J96.01 Acute systolic CHF (congestive heart failure), NYHA class 4 I50.21 Acute kidney injury superimposed on CKD N17.9; N18.9 Hyponatremia E87.1 Heart failure, diastolic I50.30 Tachycardia-bradycardia syndrome I49.5 CAD (coronary artery disease) I25.10 Paroxysmal atrial fibrillation I48.0 Elevated troponin R74.8 GERD (gastroesophageal reflux disease) K21.9 Time Spent (min) 36
[2020-01-29] MEDS: TICAGRELOR 90 MG TAB PO SCH (08:57)
[2020-01-29] MEDS: VENLAFAXINE HCL XR 37.5 MG CAPXR PO SCH (08:57)
[2020-01-29] MEDS: DEXAMETHASONE SOD PHOSPHATE 20 MG in DEXTROSE 5% 25 ML IV SCH (08:58)
[2020-01-29] MEDS ORDERED: FUROSEMIDE 40 MG TAB PO SCH (09:45)
--- NOTE | 2020-01-29 13:30 | Cardiology Progress Note ---
Date of Service January 29, 2020 Assessment & Plan (1) Acute respiratory failure with hypoxia: Currently on high flow O2 Has continued to diurese but given the current clinical context it appears that he is suffering from noncardiogenic pulmonary edema more so than cardiac. His amiodarone has been discontinued due to the possibility of amiodarone toxicity. I agree with home hospice care. Would discharge home on oral diuretics with Lasix 80 mg p.o. every morning and an afternoon dose as needed We will sign off, please call with questions or concerns. (2) Acute systolic CHF (congestive heart failure), NYHA class 4: 89-year-old male admitted with acute systolic heart failure possibly ischemic mediated in setting of underlying valvular disease aortic stenosis as well. EF of 35 to 40% with moderate global hypokinesis Has diuresed with worsening of hypoxia Relatively hypotensive. Now attempting to wean from dobutamine (3) Non-ST elevation (NSTEMI) myocardial infarction: Renal insufficiency and high risk prior intervention previously performed suggest significant increase risk for diagnostic cardiac catheterization Continue aspirin and Brilinta (4) Ischemic cardiomyopathy: (5) Acute kidney injury superimposed on CKD: (6) Paroxysmal atrial fibrillation: Patient symptomatic when present with elevated heart rate and ventricular ectopic beat (7) Pacemaker: Subjective Patient seen and examined, chart reviewed. States that overall he continues to feel okay on high flow oxygen. He is very anxious and determined to go home. Otherwise denies chest pain, palpitations, lightheadedness, dizziness or syncope. Telemetry reviewed: Normal sinus rhythm. Review of Systems Review of Systems: All systems reviewed & are unremarkable except as noted in HPI & below Physical Exam 2 Physical Exam: General: Awake, alert and oriented x 3. No acute distress. HEENT: Normocephalic, atraumatic. Pupils equal, round and reactive to light and accommodation. Extraocular muscles are intact. Anicteric sclera. Moist mucous membranes. Neck: No JVD. No bruit. Cardiovascular: Regular. Positive S-4. Normal S-1 and S-2. No S-3. 3/6 holosystolic ejection murmur, left sternal border, mid-clavicular line with radiation to the axilla. No rubs. Pulmonary: Clear to auscultation bilaterally. No rales, rhonchi, or wheezing. Abdomen: Bowel sounds x 4, soft. No rebound, guarding or tenderness. No organomegaly. Extremities: No clubbing, cyanosis or edema. +2 pedal pulses bilaterally. Skin: Warm and dry. Results & Data Vital Signs (Past 12 Hours) Vital Signs Temp Pulse Pulse Pulse Resp BP BP 01/29/20 13:20 36.8 C 60 66 25 H 124/64 01/29/20 12:19 60 25 H 137/73 01/29/20 12:00 65 31 H 01/29/20 11:40 36.8 C 66 20 124/64 01/29/20 11:18 60 27 H 125/70 01/29/20 11:12 60 22 01/29/20 10:18 60 21 110/69 01/29/20 10:00 88 25 H 01/29/20 09:20 36.5 C 01/29/20 09:18 77 27 H 116/73 01/29/20 09:11 82 30 H 99/64 L 01/29/20 08:19 85 27 H 99/64 L 01/29/20 08:00 94 H 29 H 01/29/20 07:21 60 20 01/29/20 07:18 60 21 117/74 01/29/20 07:00 60 22 01/29/20 06:10 60 21 01/29/20 06:00 60 21 01/29/20 05:30 60 21 01/29/20 05:18 60 23 122/71 01/29/20 05:00 60 23 01/29/20 04:30 60 18 01/29/20 04:18 60 23 118/68 01/29/20 04:00 80 25 H 01/29/20 03:30 83 27 H 01/29/20 03:18 88 26 H 112/90 01/29/20 03:00 88 23 01/29/20 02:50 96 H 25 H 01/29/20 02:18 80 24 121/77 01/29/20 02:00 98 H 24 BP Pulse Ox 01/29/20 13:20 115/71 89 L 01/29/20 12:19 89 L 01/29/20 12:00 77 L 01/29/20 11:40 96 01/29/20 11:18 81 L 01/29/20 11:12 01/29/20 10:18 82 L 01/29/20 10:00 83 L 06/16/20 09:20 01/29/20 09:18 91 01/29/20 09:11 85 L 01/29/20 08:19 82 L 01/29/20 08:00 85 L 01/29/20 07:21 90 01/29/20 07:18 90 01/29/20 07:00 89 L 01/29/20 06:10 90 01/29/20 06:00 90 01/29/20 05:30 90 01/29/20 05:18 89 L 01/29/20 05:00 91 01/29/20 04:30 94 01/29/20 04:18 91 01/29/20 04:00 91 01/29/20 03:30 89 L 01/29/20 03:18 01/29/20 03:00 90 01/29/20 02:50 91 01/29/20 02:18 87 L 01/29/20 02:00 93
--- NOTE | 2020-01-29 13:36 | Discharge Summary ---
Date of Service January 29, 2020 Admission HPI Per Admitting Provider This is an 88yo M with a PMH of CAD with stents x 4 [place] [facility] [place], paroxysmal A Fib on amiodarone and not on anticoagulation secondary to pt declining, CKD III, hypothyroidism, HTN, mood disorder and others listed below for SOB. Pt reports past several days with worsening SOB with exertion. Sleeps on incline. He noticed increased BLE edema and abdomen distended. Yesterday took lasix 40mg without much relief. Denies cough, fever. Pt reports past several weeks with intermittent pressure sensation to central chest with burping. Past several days he reports taking nitro daily for this sensation and that helps him belch and he feels better. Pt states vomited once yesterday. He reports similar symptoms prior to his cardiac cath in 03/2019. Pt states since his hospitalization in 03/2019 he has been feeling fatigued and feeling like his legs are weak. Pt attributes this to the amiodarone he was stared on. Denies fever/chills, diaphoresis, nausea, diarrhea, DEGROOT, dizziness, syncope, vision changes, neck pain, orthopnea, palpitations, cough, sore throat, choking, otalgia, rhinorrhea, abdominal pain, paresthesias, extremity edema, rashes, urinary symptoms. 12/18/2019 visit with cardiology with reported chest pressure with exertion and indigestion sensation. Isosorbide was added and protonix. He wanted off amiodarone as he thought that was causing fatigue, weakness and other symptoms. Pt states took Protonix twice and didn't feel it helped with the gassy sensation. Seen at cardiology clinic 01/11/2020 with multiple medical complaints including SOB, nausea, gassy. At that time denied any increased edema, orthopnea or exertional CP. He switched from chewable to enteric coated aspirin with some reported improvement of indigestion. He requested being taken off Brillinta and amiodarone. Cardiology note reports pt was prescribed amiodarone due to highly symptomatic atrial fibrillation with a rapid ventricular response with resultant presynope and angina, NSTEMI. Pt was ultimately switched from Brillinta to Plavix and dual anticoagulation was recommended to be continued. He was taken off amiodarone and verapamil 120mg daily was started Pacemaker interrogation 12/19/2019 with no atrial or ventricular arrhythmias and appropriate function and battery reserve. 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 NYHA 4 NSTEMI ACUTE ON CHRONIC RENAL FAILURE Discharge Exam Constitutional WD/WN, vitals as above (on Biapap ) + ill appearing Respiratory + cough, able to speak in complete sentences and + tachypneic Cardiovascular Rate/Rhythm: + irregularly irregular Vessels: no JVD Neurologic PERRL, EOMI, accommodation nl, no face palsy, no dysarthria Psychiatric A+Ox3, euthymic affect Discharge Data Allergies Allergy/AdvReac Type Severity Reaction Status Date / Time lisinopril AdvReac Unknown Cough Verified 01/17/20 12:53 Consultations 01/17/20 14:02 ED Decision to Admit Stat 01/17/20 18:19 Consult Cardiology Routine Consult Case Management - Discharge Planning Routine 01/19/20 07:47 Consult Nephrology Routine 01/25/20 09:14 Consult Pulmonology Routine 01/25/20 11:38 Consult Airport Operations Coordinator Routine 01/27/20 06:42 Consult Case Management - Discharge Planning Routine Ordered Studies 01/17/20 18:19 US renal/blad retro comp Routine 01/24/20 10:07 CT chest wo con Routine Hospital Course (1) Acute respiratory failure with hypoxia: acute respiratory failure with hypoxia multifactorial , has severe valvular heart disease -Mitral regurgitation /TR ischemic cardiomyopathy with systolic CHF CT chest :Severe diffuse patchy bilateral airspace opacities most pronounced within the perihilar location and demonstrating upper lobe predominance. There are small bilateral pleural effusions and mild cardiomegaly. Findings favor severe pulmonary edema/ARDS or a bilateral atypical pneumonia such as a viral process. -COVID 19 negative possible amiodarone induced lung toxicity -amiodarone been d/mark on high flow 02 overall prognosis remains very poor appreciate input from palliative care and case management arrangements for home 02 and Bipap machine discharged home with hospice today (2) Acute systolic CHF (congestive heart failure), NYHA class 4: ischemic cardiomyopathy with systolic dysfunction with severe valvular heart disease CXR findings consistent with developing pulmonary edema /congestive failure. Echo : moderate to severe LV global hypokinesis EF 35-40 % RV pressure elevated 40-50 mmhg moderate to severe MR and TR appreciate input from cardiology off Dobutamine gtt over all prognosis poor home with hospice today (3) Non-ST elevation (NSTEMI) myocardial infarction: troponin elevation due to decompensated CHF /afib -Type 2 NSTEMI S/P drug-eluting stents [place] [facility] [place] cardiology on board ECHO global hypokinesis High risk candidate for cardiac catheterization due to renal insufficiency. medical management over all prognosis remains guarded plan to discharge home with hospice with family support (4) Acute kidney injury superimposed on CKD: acute renal failure on CKD stage 3 over all prognosis is very poor pt is not interested in dialysis in future poor prognosis hospice care appropriate CODE STATUS : DNI /DNR -Dw pt DISPOSITION: discharge home with hospice today Total Time Total Time Spent Total Time Spent (In Minutes): 35 mins Total Time Includes: Discharge Planning and Medication Reconciliation Discharge Plan Discharge Items Patient Disposition: Hospice - Home Reason For Visit: SOB Discharge Diagnosis: RESPIRATORY FAILURE WITH HYPOXIA -POOR PROGNOSIS , ACUTE RESPIRATORY DISTRESS SYNDROME ( ARDS /terminal status /hospice /palliative care ) 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 ROXANOL LIQUID BY MOUTH 10 MG ( 2.5 ML ) NEEDED EVERY 6 HRS FOR SOB OR PAIN KLONOPIN 0.5 MG BY MOUTH TWICE DAILY NEEDED FOR ANXIETY PLEASE FOLLOW UP WITH HOSPICE NURSING FOR CONTINUED TITRATION OF PAIN MEDS AND KLONOPIN NEEDED FOR ANXIETY Pending Studies at Discharge: No Stand-Alone Forms: [facility] Order Prescriptions: New polyethylene glycol 3350 [Miralax] 17 gram Powder In Packet 17 g PO DAILY PRN (Reason: Constipation) Qty: 0 RF: 0 bisacodyl 5 mg Tablet,Delayed Release (Dr/Ec) 5 mg PO DAILY PRN (Reason: Constipation) Qty: 0 RF: 0 prednisone 20 mg tablet 20 mg PO UD 10 Days Qty: 10 RF: 0 morphine 20 mg/5 mL (4 mg/mL) solution 10 mg PO Q6H PRN (Reason: pain) Qty: 30 RF: 0 clonazepam [Klonopin] 0.5 mg tablet 0.5 mg PO BID PRN (Reason: Anxiety or Insomnia) Qty: 60 RF: 0 Continued acetaminophen [Tylenol Extra Strength] 500 mg Tablet 500 mg PO Q6H PRN (Reason: Fever Or Pain) RF: 0 albuterol sulfate [Proventil HFA] 90 mcg/actuation Hfa Aerosol Inhaler 2 puff INHALATION QID PRN (Reason: Shortness Of Breath Or Wheezing) RF: 0 fluticasone propion-salmeterol [Advair Diskus] 100-50 mcg/dose Blister With Device 1 puff INHALATION Q12H PRN (Reason: Shortness Of Breath Or Wheezing) RF: 0 venlafaxine [Effexor XR] 37.5 mg capsule,extended release 24hr 37.5 mg PO DAILY RF: 0 Discontinued losartan 50 mg tablet 50 mg PO QAM RF: 0 carvedilol [Coreg] 6.25 mg tablet 6.25 mg PO BID RF: 0 garlic 1,000 mg Capsule 1,000 mg PO QAM RF: 0 nitroglycerin [Nitrostat] 0.4 mg Tablet, Sublingual 0.4 mg Sublingual DIRECTED PRN (Reason: Chest Pain) RF: 0 cholecalciferol (vitamin D3) [Vitamin D3] 1,000 unit Capsule 1,000 units PO QAM RF: 0 coenzyme Q10 100 mg Tablet 200 mg PO QAM RF: 0 flaxseed oil 1,000 mg Capsule 1,000 mg PO QAM RF: 0 omega [id number] oil [Fish Oil] 1,000 mg (120 mg-180 mg) Capsule 1,000 mg PO QAM RF: 0 ascorbic acid (vitamin C) [Vitamin C] 500 mg Tablet 500 mg PO QAM RF: 0 tamsulosin [Flomax] 0.4 mg capsule 0.4 mg PO QAM RF: 0 pantoprazole [Protonix] 40 mg tablet,delayed release (DR/EC) 40 mg PO BID RF: 0 aspirin 81 mg Tablet,Chewable 81 mg PO QAM RF: 0 vitamin B complex Capsule 1 cap PO QAM RF: 0 cetirizine [Zyrtec] 10 mg Tablet 10 mg PO DAILY PRN (Reason: Allergic Symptoms) RF: 0 verapamil [Calan SR] 120 mg tablet extended release 120 mg PO QAM RF: 0 isosorbide mononitrate 30 mg tablet extended release 24 hr 30 mg PO QAM RF: 0 clopidogrel [Plavix] 75 mg tablet 75 mg PO QAM RF: 0 furosemide 40 mg Tablet 40 mg PO DAILY PRN (Reason: Edema) RF: 0 levothyroxine 112 mcg tablet 112 mcg PO DAILY RF: 0 Discharge Orders: Discharge Order (Routine); Ordered 01/29/20 Ordered By: Corie Rivera Admission Data Admit Date/Time: 01/17/20 15:22 Attending Provider: Corie Rivera Admit Provider: Vipin Mcgee Primary Care Provider: Odilon Carbone Other Providers: Gen Rush ; Vipin Mcgee ; Poli Parks ; Sheila Rodriguez Other Interventions: Discharge Summary Assessment (RN) Last Done: 01/29/20 13:20 DC Date/Time DO NOT enter until pt leaves facility: 01/29/20 14:20
== END 2020-01-29 14:20 | disposition hospice, home (50) | DRG 189 ==
LOC: ED 11:40 → 2S 15:22 → SUATTDRO 15:22 → 2S 17:26 → 1E 01-25 12:18